=== PATIENT | female | born 1950 | race Two or more races ===

== ENCOUNTER → 2018-01-21 | Outpatient (CLI) | payer MEDICARE, OTHER ==
--- NOTE | 2018-01-21 23:45 | WWHP ---
[facility] - HISTORY AND PHYSICAL CHIEF COMPLAINT: The patient is here for her routine gynecologic exam and mammogram. HISTORY OF PRESENT ILLNESS: This is a 67-year-old G3, P3 with an LMP of 1995, who is status post vaginal hysterectomy for benign reasons. The patient states it has been more than 2 years since her last pelvic exam. She is not having sexual intercourse. She has been experiencing some vaginal and vulvar pruritus which began about 3 months ago. She states she can feel some small lumps in the area of the labia. The pruritus can extend from the labia to the perianal areas. She does not know if this was caused by wearing pads, which she had started to use periodically because of slight urinary leakage. She denies any vaginal discharge or odor. She was given some type of pill for the pruritus, which she took orally which did not help. PAST MEDICAL HISTORY: Arthritis and emphysema. MEDICATIONS: 1. Vitamin D 6000 units daily. 2. Vitamin B12, 1 daily. 3. Loratadine 1 daily. ALLERGIES: CODEINE which caused nausea. PAST SURGICAL HISTORY: Hand surgery x2, appendectomy, tonsillectomy, hysterectomy in 1995. Also she had a colonoscopy in 2015 and this was her second one. PAST OB HISTORY: Three vaginal deliveries. 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 She has no history of STDs. SOCIAL HISTORY: She quit smoking in 2000. Denies alcohol and drug use. 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 FAMILY HISTORY: Brother had pancreatic cancer. Father had heart disease. Brother of heart disease in his 20s. Mother had an AL. REVIEW OF SYSTEMS: She believes she has gained up to 20 pounds over the last 2 years. Respiratory , she can occasionally has slight wheezing with heavy exertion. She denies cardiac or GI problems. She denies maltreatment or falling. , she occasionally can have slight urinary leakage, especially if she does not get to the bathroom quick enough when her bladder is full. PHYSICAL EXAM: Blood pressure 162/82, height 5 feet 2 inches, weight 197 pounds. BMI 36. Temperature 97.9, pulse 75. This is a well-developed, heavyset white female, who is alert and oriented x3, in no acute distress. HEENT is within normal limits. Neck is supple without mass or thyromegaly. Chest and lungs are clear to auscultation. Heart is regular rate and rhythm. Breasts are without mass or discharge. Axillary exam is negative for adenopathy. Back negative for CVA tenderness. Abdomen mildly obese , soft, nontender, without palpable masses. Pelvic exam, external genitalia reveals moderate atrophy with slight generalized vulvar pallor. There is a slight excoriation in areas consistent with possible scratching. The mild pallor extends to the perineum and to the perianal areas. Vagina reveals moderate atrophy without lesions. There is no discharge or odor. There is no evidence of prolapse. Bimanual exam is negative for mass or tenderness. Rectovaginal exam is negative for mass or tenderness and is negative for occult blood. Extremities are nontender. IMPRESSION: 1. A 67-year-old menopausal female, status post vaginal hysterectomy for benign reasons. 2. Vulvitis with pruritus for approximately three months. No evidence of vaginitis. Differential diagnosis will include chronic vulvitis as well as lichen sclerosus. PLAN: 1. Pap smears have been discontinued. 2. Self breast examination was discussed. 3. Screening mammogram will be done today. 4. We have had a long discussion regarding her vulvitis and pruritus. We will have a trial of triamcinolone ointment 0.1%, which she will use b.i.d. for 2 weeks and then p.r.n. after that. If her symptoms do not seem to be improving, she was instructed to return after approximately 1 month and we will re-evaluate this and consider a vulvar biopsy. She was also instructed not to over-wash this area and try to avoid scratching. 5. I have discussed her elevated blood pressure. I have recommended that she check her blood pressure on a regular basis and follow up with Dr. Gonzalez for blood pressure elevations. 6. Osteoporosis prevention was discussed. I have recommended bone density screening since it has been many years since she has had this done and a slip was given to the patient for this. 7. She will return in 1 year and p.r.n. [id number] / DANIELN: [id number] / NAOMI
--- NOTE | 2018-01-23 07:23 | MM ---
Reason for exam: screening (asymptomatic). Last mammogram was performed 1 year and 3 months ago. History: Patient is postmenopausal. Physical Findings: A clinical breast exam by your physician is recommended on an annual basis and results should be correlated with mammographic findings. MG 3D Screening Mammo W/Cad Bilateral CC and MLO view(s) were taken. Prior study comparison: October 16, 2016, bilateral MG 3d screening mammo w/cad. August 30, 2014, bilateral MG screening mammo w CAD. There are scattered fibroglandular densities. No significant changes when compared with prior studies. ASSESSMENT: Benign, BI-RAD 2 RECOMMENDATION: Routine screening mammogram of both breasts in 1 year.
== END | disposition home or self-care (01) ==
LOC: WWCWWP 13:28
PROVIDERS: ATTEND Obstetrics & Gynecology
DX: Z12.31 Encounter for screening mammogram for malignant neoplasm of breast (principal)
CPT/HCPCS: 77063; 77067

== ENCOUNTER → 2018-01-30 | Outpatient (CLI) | payer MEDICARE, OTHER ==
--- NOTE | 2018-01-30 13:53 | BD ---
EXAMINATION TYPE: MG DEXA axial skeleton. DATE OF EXAM: 01/30/2018 COMPARISON: NONE CLINICAL HISTORY: Height: 61 inches Weight: 187 FRAX RISK QUESTIONS: Alcohol (3 or more units per day): no Family History (Parent hip fracture): no Glucocorticoids (More than 3mos): no (Ex: prednisone, prednisolone, methylprednisolone, dexamethasone, and hydrocortisone). History of Fracture in Adulthood: no Secondary Osteoporosis: 1. Type 1 Diabetes: no 2. Hyperthyroidism: no 3. Menopause before 45: no 4. Malnutrition: no 5. Chronic liver disease: no Rheumatoid Arthritis: no Current Tobacco Use: no RISK FACTORS HISTORY OF: Family History of Osteoporosis: no Active: yes Diet low in dairy products/other sources of calcium: no Postmenopausal woman: yes Take estrogen and/or progesterone medications: no Lost more than 2 inches in height since high school: no Frequent falls: no Poor Health: no Hyperparathyroidism: no Adrenal Insufficiency: no MEDICATIONS: Prednisone or other steroids: no Thyroid Medications: no Osteoporosis Medications: no Additional Medications: calcium, Vitamin D-3 Additional History: hand surgery for osteoarthritis, emphysema EXAM MEASUREMENTS: Bone mineral densitometry was performed using the [employer] System. Bone mineral density as measured about the Lumbar spine is: ----- L1-L4(G/cm2): 0.899 T Score Values are as follows: ----- L2: -2.7 ----- L3: -2.2 ----- L4: -2.4 ----- L1-L4: -2.3 Bone mineral density not previously done at this facility- previously done elsewhere Bone mineral density about the R hip (g/cm2): 0.854 Bone mineral density about the L hip (g/cm2): 0.846 T Score values are as follows: -----R Neck: -1.3 -----L Neck: -1.4 -----R Total: -1.0 -----L Total: -0.8 Bone mineral density not previously done at this facility-previously done elsewhere IMPRESSION: Osteopenia (T Score between -2.5 and -1). There is slightly increased risk of fracture and the patient may be considered for treatment. Re-Screen 2-5 years. NOTE: T-SCORE=SD OF THE YOUNG ADULT MEAN.
== END | disposition home or self-care (01) ==
LOC: RADBDWWP 07:54
PROVIDERS: ATTEND Obstetrics & Gynecology
DX: M85.80 Other specified disorders of bone density and structure, unspecified site (principal); Z78.0 Asymptomatic menopausal state
CPT/HCPCS: 77080

== ENCOUNTER → 2019-02-17 | Outpatient (CLI) | payer MEDICARE ==
--- NOTE | 2019-02-17 12:07 | P.HPOB ---
History of Present Illness H&P Date: 02/17/19 Chief Complaint: The patient is here for her routine gynecologic exam and ma mmogram. This is a 68-year-old G3 PIII with an LMP of 1995. The patient is status post vaginal hysterectomy for benign reasons. She has a history of chronic vulvar pruritus. She has been using Kenalog ointment PRN which does seem to help, but she states that does not go away. She denies any postmenopausal bleeding. Review of Systems Weight has been stable. She denies respiratory, cardiac and G.I. problems. She denies maltreatment or problems with falling. : she denies any significant problems with urinary leakage. Past Medical History Past Medical History: No Reported History, COPD Additional Past Medical History / Comment(s): emphesema and arthritis. 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 Hysterectomy was done for prolapse. History of Any Multi-Drug Resistant Organisms: None Reported Past Surgical History: Adenoidectomy, Appendectomy, Hysterectomy, Tonsillectomy Additional Past Surgical History / Comment(s): Vaginal hysterectomy 1995, hand surgery times 2. Colonoscopy 2016(2nd). Past Psychological History: No Psychological Hx Reported Smoking Status: Former smoker Past Alcohol Use History: None Reported Past Drug Use History: None Reported Additional History: She quit smoking in 2000. 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 - Past Family History Father Family Medical History: Diabetes Mellitus, Hypertension Brother(s) Family Medical History: Cancer Additional Family Medical History / Comment(s): Pancreatic cancer Mother Family Medical History: Myocardial Infarction ([place]) Medications and Allergies Home Medications Medication Instructions Recorded Confirmed Type Cholecalciferol [Vitamin D3] 1,000 unit PO DAILY 09/02/14 02/17/19 History Cetirizine HCl [Zyrtec] 5 mg PO DAILY 02/17/19 02/17/19 History Allergies Allergy/AdvReac Type Severity Reaction Status Date / Time codeine AdvReac Nausea & Verified 02/17/19 11:10 Vomiting Exam Vital Signs Temp Pulse Resp BP Pulse Ox 02/17/19 11:03 97.6 F 80 18 149/84 97 Intake and Output 02/16/19 02/17/19 02/17/19 22:59 06:59 14:59 Other: Weight 88.904 kg Height 5'1", weight 196 pounds, BMI 37.0. This is a well-developed well-nourished heavyset white female who is alert and oriented times 3 in no acute distress. HEENT: Within normal limits. NECK: Supple without mass or thyromegaly. CHEST AND LUNGS: Clear to auscultation. HEART: Regular rate and rhythm. BREASTS: Are without mass or discharge. AXILLARY EXAM: Negative for adenopathy. BACK: Negative for CVA tenderness. ABDOMEN: Soft, nontender, without palpable masses. PELVIC EXAM: External genitalia reveals moderate atrophy with mild generalized pallor consistent with lichen sclerosis. The mild pallor is well demarcated and extends to the perineum and perianal area. Vagina appears normal with mild to moderate atrophy. There is no evidence of prolapse. Bimanual examination is negative for mass or tenderness. RECTAL EXAM: Rectovaginal exam is negative for mass or tenderness and is negative for occult blood. EXTREMITIES: Nontender. IMPRESSION: 1. 68-year-old menopausal female status post vaginal hysterectomy for benign reasons. 2. Lichen sclerosis of the vulva. 3. Osteopenia PLAN: 1. Pap smears have been discontinued. 2. Self breast awareness was discussed with the patient. 3. Screening mammogram will be done today. 4. We have discussed the option of clobetasol ointment, but she would like to continue with the Kenalog ointment as needed. She will call if worsening symptoms or changes. The electronic prescription will be sent to [facility] pharmacy. 5. Osteoporosis prevention was discussed. I have stressed the importance of adequate calcium, vitamin D and regular exercise. Recommended amounts of calcium and vitamin D were also discussed. We will plan a repeating bone d ensity testing next year. 6. She states she does not get flu shots in the fall. I've asked her to reconsider this. 7.She was advised to return in one year for her annual well woman exam and PRN.
[2019-02-17 12:29] VITALS: BP 149/84; PULSE 80; RESP 18; TEMP 97.6; BMI 37.0
--- NOTE | 2019-02-19 11:32 | MM ---
Reason for exam: screening (asymptomatic). Last mammogram was performed 1 year and 1 month ago. History: Patient is postmenopausal. Physical Findings: A clinical breast exam by your physician is recommended on an annual basis and results should be correlated with mammographic findings. MG 3D Screening Mammo W/Cad Bilateral CC and MLO view(s) were taken. Prior study comparison: January 21, 2018, bilateral MG 3d screening mammo w/cad. October 16, 2016, bilateral MG 3d screening mammo w/cad. There is chronic nodularity in the right breast. No significant changes when compared with prior studies. ASSESSMENT: Benign, BI-RAD 2 RECOMMENDATION: Routine screening mammogram of both breasts in 1 year.
== END | disposition home or self-care (01) ==
LOC: WWCWWP 10:36
PROVIDERS: ATTEND Obstetrics & Gynecology
DX: Z12.31 Encounter for screening mammogram for malignant neoplasm of breast (principal)
CPT/HCPCS: 77063; 77067

== ENCOUNTER → 2019-07-30 | Outpatient (CLI) | payer MEDICARE ==
--- NOTE | 2019-07-30 08:10 | US ---
EXAMINATION TYPE: US gallbladder DATE OF EXAM: 07/30/2019 COMPARISON: US CLINICAL HISTORY: R10.11 RUQ abd pain. EXAM MEASUREMENTS: Liver Length: 13.8 cm Gallbladder Wall: 0.2 cm CBD: 1.2 cm Right Kidney: 8.5 x 4.1 x 4.4 cm Pancreas: prominent duct, partially obscured by bowel Liver: wnl Gallbladder: non shadowing echogenic focus difficult to measure due to position. Evidence for sonographic Robertson's sign: Yes CBD: measures 1.2 cm Right Kidney: No hydronephrosis or masses seen IMPRESSION: No shadowing mobile gallstones or ultrasound evidence for acute cholecystitis
== END | disposition home or self-care (01) ==
LOC: RADUSWWP 07:17
PROVIDERS: ATTEND Family Medicine
DX: R10.11 Right upper quadrant pain (principal)
CPT/HCPCS: 76705

== ENCOUNTER 2019-08-26 10:08 | Day surgery (SDC) | payer MEDICARE ==
[2019-08-25 09:19] VITALS: BMI 34.7
[~2019-08-26 10:08] MED LIST: LACTATED RINGERS 1,000 ML IV SCH; LIDOCAINE 1% 20 ML VIAL (10MG/ML) FOR IV START INTRADERMA PRN
[2019-08-26 10:26] VITALS: TEMP 97.7
[2019-08-26] MEDS ORDERED: PROPOFOL 10 MG/ML 20 ML VIAL IV ONE (10:45)
--- NOTE | 2019-08-26 11:06 | P.PCN ---
Date of Procedure: 08/26/19 Procedure(s) Performed: BRIEF HISTORY: Patient is a 69-year-old pleasant female scheduled for an elective colonoscopy as a part of evaluation of prior history of colon polyps. Last colonoscopy was 5 years ago. PROCEDURE PERFORMED: Colonoscopy. PREOPERATIVE DIAGNOSIS: History of colon polyps. IV sedation per Anesthesia. PROCEDURE: After informed consent was obtained, the patient, was brought into the endoscopy unit. IV sedation was administered by Anesthesia under continuous monitoring. Digital rectal examination was normal. Initially the Olympus CF-160 flexible video colonoscope was then inserted in the rectum, gradually advanced into the cecum without any difficulty. Careful examination was performed as the scope was gradually being withdrawn. Ileocecal valve and the appendiceal orifice were visualized and appeared normal. Prep was excellent. Mucosa of the cecum, ascending colon, transverse colon, descending colon, sigmoid colon, and rectum appeared normal. Moderate sigmoid diverticulosis. Retroflexion was performed in the rectum and no lesions were seen. The patient tolerated the procedure well. IMPRESSION: Moderate sigmoid diverticulosis No evidence of colorectal neoplasia RECOMMENDATIONS: Findings of this examination were discussed with the patient as well as a family. She was advised to have a repeat severance: Aspirin 5 days from now because of the prior history of colon polyps..
[2019-08-26 11:15] VITALS: RESP 16
[2019-08-26 11:23] VITALS: BP 148/82; PULSE 72
== END 2019-08-26 11:44 ==
LOC: ORWHC2ENDO 10:08
PROVIDERS: ATTEND Internal Medicine Gastroenterology
DX: Z12.11 Encounter for screening for malignant neoplasm of colon (principal); K57.30 Diverticulosis of large intestine without perforation or abscess without bleeding; Z86.010 Personal history of colon polyps; J44.9 Chronic obstructive pulmonary disease, unspecified; Z97.2 Presence of dental prosthetic device (complete) (partial); Z79.899 Other long term (current) drug therapy; Z88.5 Allergy status to narcotic agent
CPT/HCPCS: J2704; G0105; 45378

== ENCOUNTER → 2019-08-27 | Outpatient (CLI) | payer MEDICARE ==
[2019-08-27 10:16] LABS: African American GFR (CKD) >90 (>60 ml/min/1.73 sqM); Blood Urea Nitrogen 10 mg/dL (7-17)
--- NOTE | 2019-08-27 13:51 | CT ---
EXAMINATION TYPE: CT abdomen w con DATE OF EXAM: 08/27/2019 COMPARISON: Ultrasound 07/30/2019 HISTORY: 69-year-old female with abnormal US of pancreas and GB TECHNIQUE: Contiguous axial scanning of the abdomen following administration of 100 ml Isovue 300 IV contrast. Arterial and portal venous phase imaging is performed. Coronal/sagittal reconstructions pe rformed. CT DLP: 994 mGycm Automated exposure control for dose reduction was used. FINDINGS: Heart upper limits of normal in size without pericardial effusion. Lung bases clear without pleural e ffusion. Small hiatal hernia. Liver mildly enlarged at 18.2 cm. Portal venous phase images show no significant fatty infiltration. Portal venous system is patent. Bile duct measures 7 mm, mildly dilated but acceptable for patient's age. This can be correlated with alkaline phosphatase and bilirubin levels. Gallbladder, adrenal glands, right kidney, and spleen appear within normal limits. Tiny subcentimeter cortical hypodensity lateral upper pole left kidney too small for accurate CT alejandra acterization, likely tiny cortical cyst. No focal hypovascular pancreatic lesion is seen. The main pancreatic duct is borderline to mildly dilated at 3.4 mm. Small diverticulum of the second/third portion of the duodenum projecting into the pancreatic head re gion. No dilated small bowel, free fluid, or free air. No mesenteric or retroperitoneal lymphadenopathy. Mild atherosclerotic calcifications abdominal aorta without aneurysm. Mild to moderate stool. Left-sided colonic diverticulosis without pericolonic inflammatory change. The lower abdomen and pelvis is not imaged. Bones: No osseous destructive process. Mild degenerative disc disease lower thoracic spine. IMPRESSION: 1. SMALL HIATAL HERNIA. 2. BILE DUCT MILDLY DILATED AT 7 MM, LIKELY ACCEPTABLE GIVEN THE PATIENT'S AGE. NORMAL AGE-RELATED CH ADA CAN BE CONFIRMED WITH ASSESSING ALKALINE PHOSPHATASE AND BILIRUBIN LEVELS. 3. THE MAIN PANCREATIC DUCT IS BORDERLINE TO MILDLY DILATED AT 3.4 MM. NO OBSTRUCTING PANCREATIC MASS IS IDENTIFIED. THIS MAY ALSO BE CHRONIC FOR THE PATIENT. CONSIDER A PRECAUTIONARY SIX-MONTH FOLLOW-U P CT. 4. LEFT-SIDED COLONIC DIVERTICULOSIS WITHOUT ACUTE DIVERTICULITIS.
== END | disposition home or self-care (01) ==
LOC: RADCTMAIN 09:36
PROVIDERS: ATTEND Family Medicine
DX: K57.30 Diverticulosis of large intestine without perforation or abscess without bleeding (principal); K44.9 Diaphragmatic hernia without obstruction or gangrene; R93.3 Abnormal findings on diagnostic imaging of other parts of digestive tract
CPT/HCPCS: 82565; 84520; 74160; 36415; Q9967

== ENCOUNTER → 2019-10-05 | Outpatient (CLI) | payer MEDICARE ==
[2019-10-05 11:18] LABS: HCT 40.4 % (34.0-46.0); HGB 13.4 gm/dL (11.4-16.0); MCH 30.3 pg (25.0-35.0); MCHC 33.2 g/dL (31.0-37.0); MCV 91.2 fL (80.0-100.0); Mean Platelet Volume 6.1; Platelet Count 332 k/uL (150-450); RBC 4.43 m/uL (3.80-5.40); RDW 12.9 % (11.5-15.5); WBC 4.4 k/uL (3.8-10.6)
[2019-10-05 11:26] LABS: ALT 26 U/L (9-52); AST 20 U/L (14-36); African American GFR (CKD) >90 (>60 ml/min/1.73 sqM); Alkaline Phosphatase 67 U/L (38-126); Amylase 50 U/L (30-110); Anion Gap 5 mmol/L; Blood Urea Nitrogen 10 mg/dL (7-17); Calcium 9.2 mg/dL (8.4-10.2); Carbon Dioxide 28 mmol/L (22-30); Chloride 109 mmol/L (98-107); Glucose 97 mg/dL (74-99); Potassium 4.6 mmol/L (3.5-5.1); Sodium 142 mmol/L (137-145); Total Bilirubin 0.4 mg/dL (0.2-1.3); Total Protein 6.9 g/dL (6.3-8.2)
--- NOTE | 2019-10-05 12:27 | MR ---
MRCP HISTORY: Pancreatitis, common bile duct dilation Multiplanar multisequence imaging through the biliary system. Three-dimensional reconstructions perfo rmed on an alternate workstation. Correlation CT 08/27/2019 Liver shows no mass. Gallbladder shows a focus of dependent low signal consistent with stone. Common bile duct is dilated at approximately 10 to 11 mm and T2-weighted sequences which may be an overestim ation, bile duct measures approximately 7 mm on T1-weighted images. No evident choledocholithiasis. S ignal drop towards the distal pancreatic duct consistent with the foci of air seen on CT, there may b e a small duodenal diverticulum. Small cortical cyst associated with the left kidney. Pancreas shows no mass. Adrenal glands are king l. Spleen is unremarkable. No retroperitoneal adenopathy. Aorta shows normal caliber. No ascites IMPRESSION: Cholelithiasis, duodenal diverticulum is suspected
== END | disposition home or self-care (01) ==
LOC: RADMRIMAIN 08:40
PROVIDERS: ATTEND Surgery
DX: K86.89 Other specified diseases of pancreas (principal); K83.8 Other specified diseases of biliary tract; R93.5 Abnormal findings on diagnostic imaging of other abdominal regions, including retroperitoneum; Z80.0 Family history of malignant neoplasm of digestive organs
CPT/HCPCS: 36415; 74181; 80053; 82150; 83690; 85027

== ENCOUNTER → 2020-09-20 | Outpatient (CLI) | payer MEDICARE ==
[2020-09-20 11:21] VITALS: BP 154/78; PULSE 71; RESP 18; TEMP 97.7
--- NOTE | 2020-09-20 12:02 | P.HPOB ---
History of Present Illness H&P Date: 09/20/20 Chief Complaint: The patient is here for her routine gynecologic exam and ma mmogram. This is a 70-year-old with an LMP of 1995. The patient is status post vaginal hysterectomy for benign reasons. The patient states she has noticed some change and a brown left breast skin lesion over the past 6 months. She believes the lesion has been there for several years, however she has noticed it now seems slightly raised during the past 6 months. She is otherwise without c omplaints. Review of Systems The patient has lost 9 pounds over the last year. She initially lost about 20 pounds prior to having her gallbladder removed, but she has gained about 10 pounds back. She denies respiratory, cardiac, or G.I. problems. Past Medical History Past Medical History: COPD, Osteoarthritis (OA) Additional Past Medical History / Comment(s): emphesema and arthritis. 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 History of Any Multi-Drug Resistant Organisms: None Reported Past Surgical History: Adenoidectomy, Appendectomy, Cholecystectomy, Hysterectomy, Tonsillectomy Additional Past Surgical History / Comment(s): Vaginal hysterectomy 1995, hand surgery times 2. Colonoscopy 2019(next after 5 yrs). Past Anesthesia/Blood Transfusion Reactions: Motion Sickness Past Psychological History: No Psychological Hx Reported Smoking Status: Former smoker Past Alcohol Use History: None Reported Additional Past Alcohol Use History / Comment(s): QUIT SMOKING 2000 Past Drug Use History: None Reported Additional History: She has been since 1973. She no longer has penetration sexual intercourse due to her 's medical issues. 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 - Past Family History Father Family Medical History: Diabetes Mellitus, Hypertension Brother(s) Family Medical History: Cancer Additional Family Medical History / Comment(s): Pancreatic cancer Mother Family Medical History: Myocardial Infarction ([place]) Medications and Allergies Home Medications Medication Instructions Recorded Confirmed Type Cholecalciferol [Vitamin D3 (25 1,000 unit PO DAILY 09/02/14 09/20/20 History Mcg = 1000 Iu)] Loratadine 10 mg PO DAILY 09/20/20 09/20/20 History Selenium 200 mcg PO DAILY 09/20/20 09/20/20 History Allergies Allergy/AdvReac Type Severity Reaction Status Date / Time codeine AdvReac Nausea & Verified 11/03/20 11:06 Vomiting Exam Vital Signs Temp Pulse Resp BP Pulse Ox 09/20/20 11:09 97.7 F 71 18 154/78 98 Intake and Output 09/19/20 09/20/20 09/20/20 22:59 06:59 14:59 Other: Weight 84.822 kg Height 5 feet 2 inches, weight 187 pounds, BMI 34.2. This is a well-developed well-nourished white female who is alert and oriented times 3 in no acute distress. HEENT: Within normal limits. NECK: Supple without mass or thyromegaly. CHEST AND LUNGS: Clear to auscultation. HEART: Regular rate and rhythm. BREASTS: Are without mass or discharge. There is a brown breast lesion at the 6 o'clock position of the left breast measuring approximately 10 x 15 mm and is slightly square with an elonged corner. Lesion is slightly raised and is nontender. AXILLARY EXAM: Negative for adenopathy. BACK: Negative for CVA tenderness. ABDOMEN: Soft, nontender, without palpable masses. PELVIC EXAM: External genitalia appears moderately atrophic with minimal generalized pallor. There are no focal vulvar lesions. Vagina appears normal mild to moderate atrophy. There is no evidence of prolapse. Bimanual examination is negative for mass or tenderness. RECTAL EXAM: Rectovaginal exam is negative for mass or tenderness and is negative for occult blood. EXTREMITIES: Nontender. IMPRESSION: 1. 70-year-old menopausal female status post vaginal hysterectomy for benign reasons with history of lichen sclerosus of the vulva with minimal findings at this time. 2. Left breast skin lesion at the 6 o'clock position which is slightly atypical in shape and measures 10 x 15 mm PLAN: 1. Pap smears have been discontinued. 2. Self breast awareness was discussed with the patient. I have recommended that she see a order entry administrator to evaluate the left breast skin lesion. I have given the patient Dr. Can's name and phone number and she states she will make an appointment for this. 3. Screening mammogram was done today. 4. Osteoporosis prevention was discussed. I have stressed the importance of adequate calcium, vitamin D and regular exercise. Recommended amounts of calcium and vitamin D were also discussed. Bone density testing was done today. 5. The patient was advised to return in 1-2 years for her well woman examination.
--- NOTE | 2020-09-20 16:18 | BD ---
EXAMINATION TYPE: Axial Bone Density DATE OF EXAM: 09/20/2020 COMPARISON: 01/30/2018 CLINICAL HISTORY: 70-year-old female postmenopausal screening Height: 5 FT 1 3/4 IN Weight: 187 FRAX RISK QUESTIONS: Alcohol (3 or more units per day): NO Family History (Parent hip fracture): NO Glucocorticoids (More than 3mos): NO (Ex: prednisone, prednisolone, methylprednisolone, dexamethasone, and hydrocortisone). History of Fracture in Adulthood: NO Secondary Osteoporosis: 1. Type 1 Diabetes: NO 2. Hyperthyroidism: NO 3. Menopause before 45: NO 4. Malnutrition: NO 5. Chronic liver disease: NO Rheumatoid Arthritis: NO Current Tobacco Use: NO RISK FACTORS HISTORY OF: Family History of Osteoporosis: NO Active: YES Diet low in dairy products/other sources of calcium: NO Postmenopausal woman: PART HSYT AROUND AGE 49 Take estrogen and/or progesterone medications: NONE Lost more than 2 inches in height since high school: NO MEDICATIONS: Additional Medications: NONE Additional History: HISTORY OF EMPHYSEMA EXAM MEASUREMENTS: Bone mineral densitometry was performed using the [employer] System. Bone mineral density as measured about the Lumbar spine is: ----- L1-L4(G/cm2): 0.985 T Score Values are as follows: ----- L2: -2.2 ----- L3: -0.9 ----- L4: -2.0 ----- L1-L4: -1.6 Bone mineral density has: INCREASED 10.0 % since study of: 2017 Bone mineral density about the R hip (g/cm2): 0.878 Bone mineral density about the L hip (g/cm2): 0.815 T Score values are as follows: -----R Neck: -1.2 -----L Neck: -1.6 -----R Total: -1.2 -----L Total: -1.0 Bone mineral density has: DECREASED -3.2 % since study of: 2018 IMPRESSION: Osteopenia (T Score between -2.5 and -1). There is slightly increased risk of fracture and the patient may be considered for treatment. Re-Screen 2-5 years. NOTE: T-SCORE=SD OF THE YOUNG ADULT MEAN.
--- NOTE | 2020-09-21 11:10 | MM ---
Reason for exam: screening (asymptomatic). Last mammogram was performed 1 year and 7 months ago. History: Patient is postmenopausal. Physical Findings: A clinical breast exam by your physician is recommended on an annual basis and results should be correlated with mammographic findings. MG 3D Screening Mammo W/Cad Bilateral CC and MLO view(s) were taken. Prior study comparison: February 17, 2019, bilateral MG 3d screening mammo w/cad. January 21, 2018, bilateral MG 3d screening mammo w/cad. There are scattered fibroglandular densities. Benign appearing calcifications in the right breast. There is chronic nodularity in the right breast. No significant changes when compared with prior studies. ASSESSMENT: Benign, BI-RAD 2 RECOMMENDATION: Routine screening mammogram of both breasts in 1 year.
== END | disposition home or self-care (01) ==
LOC: RADBDWWP 09:36
PROVIDERS: ATTEND Obstetrics & Gynecology
DX: Z12.31 Encounter for screening mammogram for malignant neoplasm of breast (principal); Z13.820 Encounter for screening for osteoporosis; M85.80 Other specified disorders of bone density and structure, unspecified site; Z78.0 Asymptomatic menopausal state
CPT/HCPCS: 77063; 77067; 77080

== ENCOUNTER → 2020-12-07 | Outpatient (CLI) | payer MEDICARE | END | disposition home or self-care (01) | LOC: LABWHC1 09:46 | PROVIDERS: ATTEND Family Medicine | DX: Z20.822 Contact with and (suspected) exposure to COVID-19 (principal) | CPT/HCPCS: U0003; U0005 ==

== ENCOUNTER → 2021-03-10 | Outpatient (CLI) | payer MEDICARE ==
--- NOTE | 2021-03-10 08:03 | XR ---
EXAMINATION TYPE: XR chest 2V DATE OF EXAM: 03/10/2021 COMPARISON: NONE HISTORY: Shortness of breath TECHNIQUE: Frontal and lateral views of the chest are obtained. FINDINGS: Scattered senescent parenchymal changes noted. Hyperinflation compatible with COPD. No evidence for infiltrate. No evidence for atelectasis. Heart size is stable. Mediastinal structures are stable and grossly unremarkable. No evidence for hilar prominence. Degenerative changes dorsal spine. IMPRESSION: 1. No evidence for acute pulmonary disease.
== END | disposition home or self-care (01) ==
LOC: RADXRMAIN 06:58
PROVIDERS: ATTEND Family Medicine
DX: R06.02 Shortness of breath (principal)
CPT/HCPCS: 71046

== ENCOUNTER → 2021-07-11 | Outpatient (CLI) | payer MEDICARE ==
[2021-07-11 12:32] LABS: African American GFR (CKD) >90 (>60 ml/min/1.73 sqM); Blood Urea Nitrogen 13 mg/dL (7-17); Non-African American GFR(CKD) 89 (>60 ml/min/1.73 sqM)
--- NOTE | 2021-07-11 13:47 | CT ---
EXAMINATION TYPE: CT abdomen pelvis w con DATE OF EXAM: 07/11/2021 COMPARISON: 08/27/2019 HISTORY: Incisional hernia around cholecystectomy region. CT DLP: 1386.7 mGycm Automated exposure control for dose reduction was used. CONTRAST: CT scan of the abdomen pelvis is performed with IV Contrast, patient injected with 100 mL of Isovue M 300. FINDINGS- LUNG BASES- No significant abnormality is appreciated. LIVER/GB-postcholecystectomy changes noted. Liver is slightly reduced attenuation which may represent area of mild hepatic steatosis.. PANCREAS- No gross abnormality is seen. SPLEEN- No gross abnormality is seen. ADRENALS- No gross abnormality is seen. KIDNEYS/BLADDER- no hydronephrosis nephrolithiasis or renal mass. BOWEL-bowel gas pattern nonspecific with no obstruction. There is changes of extensive diverticulosis .. LYMPH NODES- No greater than 1cm abdominal or pelvic lymph nodes areappreciated. OSSEOUS STRUCTURES-hypertrophic and degenerative changes of the spine.. OTHER- there is a widemouth anterior abdominal wall hernia containing predominantly peritoneal fat. Mouth of the hernia measures approximately 4 cm. No free fluid or free air. There is a small cystocele. Adjacent to the posterior margin the liver there is a 1.5 cm rounded lesion with antral low attenuati on which may represent a tiny necrotic lymph node or tiny abscess or seroma. Not present on the prior exam of 2018. Tarlov cysts noted. Post hysterectomy changes noted. IMPRESSION- 1. There is a 1.5 m lesion posterior to the right lobe the liver with central low attenuation suggest ing encapsulated small fluid collection such as seroma or small abscess. Necrotic lymph nodes felt le ss likely correlate clinically. 2. Postcholecystectomy changes. 3. Widemouth anterior abdominal wall hernia as measured above.
== END | disposition home or self-care (01) ==
LOC: RADCTMAIN 11:38
PROVIDERS: ATTEND Surgery
DX: K43.2 Incisional hernia without obstruction or gangrene (principal); K91.5 Postcholecystectomy syndrome
CPT/HCPCS: 82565; 84520; 74177; 36415; Q9967 ×2

== ENCOUNTER → 2021-08-02 | Outpatient (CLI) | payer MEDICARE | END | disposition home or self-care (01) | LOC: LABPAT 08:48 | PROVIDERS: ATTEND Anesthesiology | DX: Z01.818 Encounter for other preprocedural examination (principal) | CPT/HCPCS: 93005 ==

== ENCOUNTER 2021-08-04 06:36 | Observation (INO) | payer MEDICARE ==
[2021-08-01 15:50] VITALS: BMI 34.0
[~2021-08-04 06:36] MED LIST changes: +ACETAMINOPHEN TAB 500 MG TAB PO PRN; +DEXAMETHASONE SOD PHOSPHATE 4 MG/ML 1 ML VIAL IV ONE; +HEPARIN SODIUM,PORCINE/PF 5,000 UNIT/0.5 ML SYRINGE SQ PRN; -LACTATED RINGERS 1,000 ML IV SCH; +LIDOCAINE 1% (10MG/ML) FOR IV START INTRADERMA PRN; -LIDOCAINE 1% 20 ML VIAL (10MG/ML) FOR IV START INTRADERMA PRN; +MIDAZOLAM 2 MG/2 ML VIAL IV PRN; +ONDANSETRON 4 MG/2 ML VIAL IVP ONE
[2021-08-04] MEDS: LACTATED RINGERS 1,000 ML IV SCH (07:15)
[2021-08-04 07:17] LABS: Glucose,Whole Blood 92 mg/dL (75-99)
--- NOTE | 2021-08-04 07:52 | P.GSHP ---
History of Present Illness H&P Date: 08/04/21 Chief Complaint: Incarcerated incisional hernia 8-year-old female seen in the office about a month ago. Patient with complaints of a bulge the gradually developed after cholecystectomy performed 2-3 years ago. Mild pain at times. Pain increased after eating. CAT scan obtained showing a 4 cm fascial defect to the right of the umbilicus containing peritoneal fat. Past Medical History Past Medical History: COPD, Osteoarthritis (OA) Additional Past Medical History / Comment(s): incisional hernia History of Any Multi-Drug Resistant Organisms: None Reported Past Surgical History: Adenoidectomy, Appendectomy, Cholecystectomy, Hysterectomy, Tonsillectomy Additional Past Surgical History / Comment(s): Vaginal hysterectomy 1995, hand surgery times 2. Colonoscopy yrs). Past Anesthesia/Blood Transfusion Reactions: Motion Sickness Smoking Status: Former smoker - Past Family History Father Family Medical History: Diabetes Mellitus, Hypertension Brother(s) Family Medical History: Cancer Additional Family Medical History / Comment(s): Pancreatic cancer Mother Family Medical History: Myocardial Infarction ([place]) Medications and Allergies Home Medications Medication Instructions Recorded Confirmed Type Cholecalciferol [Vitamin D3 (25 1,000 unit PO DAILY 09/02/14 08/04/21 History Mcg = 1000 Iu)] Loratadine 10 mg PO DAILY 09/20/20 08/04/21 History Selenium 200 mcg PO DAILY 09/20/20 08/04/21 History Calcium Carbonate/Vitamin D3 500 mg PO DAILY 08/01/21 08/04/21 History [Calcium 250-D Tablet] Cholecalciferol [Vitamin D3 (25 100 mcg PO DAILY 08/01/21 08/04/21 History Mcg = 1000 Iu)] Allergies Allergy/AdvReac Type Severity Reaction Status Date / Time codeine AdvReac Nausea & Verified 08/01/21 15:43 Vomiting Surgical - Exam Vital Signs Temp Pulse Resp BP Pulse Ox 97.7 F 81 16 181/70 100 08/04/21 07:09 08/04/21 07:09 08/04/21 07:09 08/04/21 07:09 08/04/21 07:09 Physical exam: General: Well-developed, well-nourished HEENT: Normocephalic, sclerae nonicteric Abdomen: Nontender, nondistended, incarcerated incisional hernia Extremities: No edema Neuro: Alert and oriented Assessment and Plan (1) Incisional hernia Narrative/Plan: Will proceed with open repair of incarcerated incisional hernia with mesh. Risks of bleeding, infection, recurrence, bladder and bowel injury, numbness, nerve injury were discussed with the patient. The patient understands and wishes to proceed. Current Visit: Yes Status: Acute Code(s): K43.2 - INCISIONAL HERNIA WITHOUT OBSTRUCTION OR GANGRENE SNOMED Code(s): 480732861
[2021-08-04] MEDS ORDERED: fentaNYL (PF) 50 MCG/ML 2 ML AMP IV ONE (08:14)
[2021-08-04] MEDS ORDERED: NEOSTIGMINE 1 MG/ML 10 ML VIAL ONE (08:35)
[2021-08-04] MEDS ORDERED: GLYCOPYRROLATE 0.2 MG/ML 2 ML VIAL ONE (08:35)
[2021-08-04] MEDS ORDERED: SUCCINYLCHOLINE CHLORIDE 100 MG/5 ML SYR IV ONE (08:35)
[2021-08-04] MEDS ORDERED: fentaNYL (PF) 50 MCG/ML 2 ML AMP ONE (08:35)
[2021-08-04] MEDS ORDERED: ROCURONIUM 10 MG/ML (5 ML VIAL) IV ONE (08:35)
[2021-08-04] MEDS ORDERED: MIDAZOLAM 2 MG/2 ML VIAL ONE (08:35)
[2021-08-04] MEDS ORDERED: ePHEDrine SULFATE/0.9% NACL/PF 50 MG/5 ML SYRINGE IV ONE (08:35)
[2021-08-04] MEDS ORDERED: PHENYLEPHRINE-0.9% NACL SYG 1,000 MCG/10 ML SYRINGE ONE (08:35)
[2021-08-04] MEDS ORDERED: PROPOFOL 10 MG/ML 20 ML VIAL IV ONE (08:35)
[2021-08-04] MEDS ORDERED: LIDOCAINE 1% INJ 10MG/ML (20 ML MDV) ONE (08:35)
--- NOTE | 2021-08-04 10:01 | P.ANPRN ---
Procedure Note - Anesthesia - Nerve Block Performed Bilateral Rectus Abdominis Time Out Performed: Yes (07:52) Date of Procedure: 08/04/21 Procedure Start Time: : Procedure Stop Time: 08:04 Location of Patient: PreOp Indication: Acute Post-Operative Pain, Requested by Surgeon (Dr Prakash) Sedation Type: Sedate with meaningful contact maintained Preparation: Sterile Prep Position: Supine Catheter: None Needle Types: Pajunk Needle Gauge: 21 Ultrasound used to visualize needle placement: Yes Ultrasound used to observe medication spread: Yes Injectate: 0.5% Ropivacaine (see comment for volume) (15cc + 10cc PFNormal saline each side) Blood Aspirated: No Pain Paresthesia on Injection Noted: No Resistance on Injection: Normal Image Stored and Saved: Yes Events: Uneventful and Well Tolerated
[2021-08-04] MEDS ORDERED: LACTATED RINGERS 1,000 ML IV ONE (10:09)
[2021-08-04] MEDS ORDERED: ONDANSETRON 4 MG/2 ML VIAL IVP PRN (10:26)
[2021-08-04] MEDS ORDERED: NALOXONE 0.4 MG/ML 1 ML VIAL IV PRN (10:26)
[2021-08-04] MEDS ORDERED: traMADol 50 MG TAB PO PRN (10:26)
[2021-08-04] MEDS ORDERED: HYDROmorphone 1 MG/ML 1 ML SYRINGE IVP PRN (10:26)
--- NOTE | 2021-08-04 10:41 | P.OP ---
Date of Procedure: 08/04/21 Procedure(s) Performed: PREOPERATIVE DIAGNOSIS: Incarcerated incisional hernia POSTOPERATIVE DIAGNOSIS: Incarcerated incisional hernia, umbilical hernia PROCEDURE: Repair incarcerated incisional and umbilical hernia with mesh SURGEON: Dr. Prakash ANESTHESIA: General OPERATIVE PROCEDURE DETAILS: Patient placed on the operating table in the supine position. Abdomen was prepped and draped in usual sterile fashion. A right periumbilical incision was created in a vertical fashion. The subcutaneous tissues were dissected using electrocautery. The patient's incarcerated hernia sac was identified and carefully dissected to the level of the fascia. The fascia was cleared circumferentially of fat. The patient had a 1 cm defect at the base of the umbilicus as well. This was incorporated into our incisional hernia defect. The size of the fascial defect now measured 5 x 3 cm. There were some adhesions between the omentum and the hernia sac and these were divided using electrocautery. The hernia sac was excised. There were no adhesions beneath the peritoneum. The pre-peroneal space was extremely thin and dissection of that plane was not possible. The 12 cm x 8 cm ventral ex mesh was placed beneath the peritoneum and sutured in place circumferentially using trans-fascial 0 Ethibond sutures. The defect was then closed horizontally using interrupted horizontal mattress vest over pants #2 Ethibond sutures. The folding edge of the fascial closure was tacked down using interrupted 0 Ethibond sutures. It should be noted that the mesh was also secured to the abdominal wall using the secure strap Tacker circumferentially. A drain was placed anterior to the fascial closure exiting through the right lower quadrant. This was sutured to the skin using a 0 Ethibond stitch. The subcutaneous tissues were closed using 3-0 Vicryl sutures. The skin was closed using debbie. Sterile dressings were applied. HERNIA CHARACTERISTICS: Length: 5 cm Width: 3 cm Type: Incarcerated incisional TYPE OF MESH USED: 12 x 8 cm ventral ex LOCATION OF MESH: Underlay FIXATION: 0 Ethibond sutures and secure strap Tacker DISPOSITION: Stable to recovery room
[2021-08-04] MEDS ORDERED: ONDANSETRON 4 MG/2 ML VIAL IVP ONE ×2 (10:55→10:56)
[2021-08-04] MEDS: HYDROmorphone 0.5 MG/0.5 ML SYRINGE IVP PRN ×2 (10:57→11:15)
[2021-08-04] MEDS: KETOROLAC 15 MG/ML 1 ML VIAL IVP SCH ×4 (11:20→23:25)
[2021-08-04] MEDS: D5-0.45% NACL WITH KCL 20MEQ/L 1,000 ML IV SCH ×3 (12:38→20:32)
[2021-08-04] MEDS: HEPARIN SODIUM,PORCINE/PF 5,000 UNIT/0.5 ML SYRINGE SQ SCH ×2 (16:27→23:25)
[2021-08-04] MEDS: DOCUSATE 100 MG CAP PO SCH (20:27)
[2021-08-04] MEDS: ACETAMINOPHEN TAB 325 MG TAB PO PRN (20:28)
[2021-08-05] MEDS: ACETAMINOPHEN TAB 325 MG TAB PO PRN ×3 (01:36→15:36)
[2021-08-05] MEDS: LACTATED RINGERS 1,000 ML IV SCH (05:38)
[2021-08-05] MEDS: KETOROLAC 15 MG/ML 1 ML VIAL IVP SCH ×4 (05:43→23:22)
[2021-08-05] MEDS: PANTOPRAZOLE 40 MG/10 ML VIAL IV SCH (07:40)
[2021-08-05] MEDS: DOCUSATE 100 MG CAP PO SCH ×2 (07:40→20:05)
[2021-08-05] MEDS: HEPARIN SODIUM,PORCINE/PF 5,000 UNIT/0.5 ML SYRINGE SQ SCH ×3 (07:40→23:22)
[2021-08-05] MEDS: D5-0.45% NACL WITH KCL 20MEQ/L 1,000 ML IV SCH ×2 (11:41→20:05)
--- NOTE | 2021-08-05 11:55 | P.PN ---
Progress Note - Text Progress Note Date: 08/05/21 Patient status post repair of incisional hernia. She has complaints of some incisional pain. On exam vessels are stable. Abdomen soft. Incision clean and intact. Patient will remain in the hospital for supportive care.
[2021-08-06] MEDS: ACETAMINOPHEN TAB 325 MG TAB PO PRN (01:26)
[2021-08-06 01:28] VITALS: RESP 18
[2021-08-06] MEDS: KETOROLAC 15 MG/ML 1 ML VIAL IVP SCH (05:07)
[2021-08-06] MEDS: LACTATED RINGERS 1,000 ML IV SCH (05:09)
[2021-08-06] MEDS: D5-0.45% NACL WITH KCL 20MEQ/L 1,000 ML IV SCH ×2 (05:09→12:04)
[2021-08-06] MEDS: PANTOPRAZOLE 40 MG/10 ML VIAL IV SCH (08:17)
[2021-08-06] MEDS: HEPARIN SODIUM,PORCINE/PF 5,000 UNIT/0.5 ML SYRINGE SQ SCH (08:17)
[2021-08-06] MEDS: DOCUSATE 100 MG CAP PO SCH (08:17)
[2021-08-06 08:32] VITALS: BP 184/67; PULSE 78; TEMP 97.6
--- NOTE | 2021-08-06 12:12 | P.PN ---
Progress Note - Text Progress Note Date: 08/06/21 Patient feels better. She wishes to be discharged. On exam her vital signs are stable. Abdomen soft. Incision sites clean and intact. Her status post repair of incisional hernia. Patient discharged home and follow-up Dr. Prakash next week.
[2021-08-07] MEDS ORDERED: PANTOPRAZOLE 40 MG TABLET PO SCH (09:00)
== END 2021-08-06 12:54 | disposition home or self-care (01) ==
LOC: OR 06:36 → 6PED 10:13 → OR 08-05 11:14
PROVIDERS: ADMIT Surgery; ATTEND Surgery
DX: K43.0 Incisional hernia with obstruction, without gangrene (principal); K42.0 Umbilical hernia with obstruction, without gangrene; J44.9 Chronic obstructive pulmonary disease, unspecified; M19.90 Unspecified osteoarthritis, unspecified site; Z87.891 Personal history of nicotine dependence; Z79.899 Other long term (current) drug therapy; Z88.5 Allergy status to narcotic agent; Z90.49 Acquired absence of other specified parts of digestive tract; Z90.710 Acquired absence of both cervix and uterus; Z83.3 Family history of diabetes mellitus; Z82.49 Family history of ischemic heart disease and other diseases of the circulatory system; Z80.0 Family history of malignant neoplasm of digestive organs
CPT/HCPCS: 94760; 88302; 49561; 49568; G0378 ×2; C1781; J2250; J1100; J2710; J0690; J2405; J2001; J3010; J1170 ×2; J1885 ×3; J2370; J0330; J2704; C9113 ×2; J1644 ×3

== ENCOUNTER → 2021-09-25 | Outpatient (CLI) | payer MEDICARE ==
--- NOTE | 2021-09-26 08:49 | MM ---
Reason for exam: screening (asymptomatic). Last mammogram was performed 1 year ago. History: Patient is postmenopausal. Physical Findings: A clinical breast exam by your physician is recommended on an annual basis and results should be correlated with mammographic findings. MG 3D Screening Mammo W/Cad Bilateral CC and MLO view(s) were taken. Prior study comparison: September 20, 2020, bilateral MG 3d screening mammo w/cad. February 17, 2019, bilateral MG 3d screening mammo w/cad. There are scattered fibroglandular densities. There are benign appearing round calcifications bilaterally. There is chronic nodularity bilaterally. There is no discrete abnormality. ASSESSMENT: Benign, BI-RAD 2 RECOMMENDATION: Routine screening mammogram of both breasts in 1 year.
== END | disposition home or self-care (01) ==
LOC: RADMAMWWP 09:49
PROVIDERS: ATTEND Family Medicine
DX: Z12.31 Encounter for screening mammogram for malignant neoplasm of breast (principal); Z78.0 Asymptomatic menopausal state
CPT/HCPCS: 77063; 77067

== ENCOUNTER → 2021-12-28 | Outpatient (CLI) | payer MEDICARE ==
--- NOTE | 2021-12-28 10:08 | CT ---
EXAMINATION TYPE: CT abdomen w con DATE OF EXAM: 12/28/2021 COMPARISON: CT abdomen and pelvis July 11, 2021 and older studies 01/07/2019 HISTORY: Liver lesion. CT DLP: 855 mGycm Automated exposure control for dose reduction was used. TECHNIQUE: Helical acquisition of images was performed from the lung bases through the top of iliac crest to include entire abdomen. CONTRAST: Performed with Oral Contrast and with IV Contrast, patient injected with 100 mL of Isovue 300. FINDINGS: LUNG BASES: No significant abnormality is appreciated. LIVER/GB: Cholecystectomy clips are redemonstrated. Posterior to the inferior aspect of the liver the re is persistent thin-walled cyst or fluid collection measuring 1.2 x 1.1 x 1.7 cm axial image 31 and sagittal image 97, size is stable with some extension to the posterior rectus muscles in her surface . Etiology uncertain. Finding of stability favors benign etiology. PANCREAS: No significant abnormality is seen. SPLEEN: No significant abnormality is seen. ADRENALS: No significant abnormality is seen. KIDNEYS: Symmetrical cortical medullary uptake and excretion with subcentimeter low-density lesion la terally series 3 image 19 too small to further characterize presumed benign redemonstrated. No hydron ephrosis seen bilaterally. BOWEL: Oral contrast does not reach colonic level. Scattered colonic diverticula. No CT evidence for acute diverticulitis. No suspicious small large bowel dilatation. LYMPH NODES: No significant abnormality is seen. OSSEOUS STRUCTURES: No significant abnormality is seen. FREE AIR: No free air is visualized. OTHER: Interval repair of ventral wall hernia with scar tissue and tiny thin-walled fluid collection axial image 49 at this level measures 2.2 x 0.6 cm. Suspect postsurgical seroma. Mild/moderate calcified plaque of the aorta extends into branch vessels. IMPRESSION: Stable 1.7 cm thin-walled cyst or fluid collection along the posterior-inferior aspect of the right hepatic lobe extending to the posterior peritoneal cavity. Interval repair of ventral wall hernia with tiny thin-walled fluid collection in the deeper tissue presumed seroma. No additional ne w suspicious fluid collections or masses.
== END | disposition home or self-care (01) ==
LOC: RADCTMAIN 07:53
PROVIDERS: ATTEND Surgery
DX: K76.89 Other specified diseases of liver (principal); K43.9 Ventral hernia without obstruction or gangrene
CPT/HCPCS: 82565; 84520; 74160; 36415; Q9967

== ENCOUNTER → 2022-10-19 | Outpatient (CLI) | payer MEDICARE ==
--- NOTE | 2022-10-19 14:58 | XR ---
EXAMINATION TYPE: XR foot complete RT DATE OF EXAM: 10/19/2022 COMPARISON: NONE HISTORY: 72-year-old female M7 9.671, right foot pain TECHNIQUE: 3 views FINDINGS: There is some deformity to the medial aspect of the first metatarsal head, possible sequela of prior bunion surgery. Type II accessory navicular. There is mild to moderate degenerative change of the fir st MTP joint. Osteopenia. Small os peroneum. Small plantar heel spur. No acute fracture, subluxation, dislocation seen. IMPRESSION: 1. Some bony deformity to the medial aspect of the first metatarsal head. Query any prior bunion surg john. 2. 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 Clinically correlate. 3. Mild to moderate first MTP joint OA. 4. Tiny plantar heel spur. 5. No acute osseous abnormality seen.
== END | disposition home or self-care (01) ==
LOC: RADXRMAIN 12:34
PROVIDERS: ATTEND Family Medicine
DX: M19.071 Primary osteoarthritis, right ankle and foot (principal); M77.31 Calcaneal spur, right foot

== ENCOUNTER → 2022-10-31 | Outpatient (CLI) | payer MEDICARE ==
--- NOTE | 2022-10-31 17:55 | XR ---
EXAMINATION TYPE: XR chest 2V DATE OF EXAM: 10/31/2022 COMPARISON: Chest x-ray March 10, 2021 HISTORY: Cough and shortness of breath for one week. History of emphysema. TECHNIQUE: Frontal and lateral views of the chest are obtained. FINDINGS: There is no suspicious focal air space opacity, pleural effusion, or pneumothorax seen. T he cardiac silhouette size is stable and within normal limits with atherosclerotic change involving t he aortic knob redemonstrated. The osseous structures remain demineralized. IMPRESSION: No acute cardiopulmonary process. No significant change from prior.
== END | disposition home or self-care (01) ==
LOC: RADXRMAIN 16:13
PROVIDERS: ATTEND Nurse Practitioner Family
DX: J43.9 Emphysema, unspecified (principal); R05.2 Subacute cough
CPT/HCPCS: 71046

== ENCOUNTER → 2022-12-20 | Outpatient (CLI) | payer MEDICARE ==
--- NOTE | 2022-12-20 14:44 | MM ---
Reason for Exam: Screening (asymptomatic). Last mammogram was performed 1 year(s) and 3 month(s) ago. Patient History: Menarche at age 16. First Full-Term at age 26. Hysterectomy at age 49. Postmenopausal. Risk Values: Adrianne 5 year model risk: 1.8%. NCI Lifetime model risk: 4.9%. Prior Study Comparison: 02/17/2019 Bilateral Screening Mammogram, [facility]. 09/20/2020 Bilateral Screening Mammogram, [facility]. 09/25/2021 Bilateral Screening Mammogram, [facility]. Tissue Density: There are scattered fibroglandular densities. Findings: Analyzed By CAD. . A few scattered tiny benign-appearing round calcifications right breast are redemonstrated. There is stable 3 to 4 mm round mass in the upper outer aspect right breast. There is no suspicious new group of microcalcifications or new suspicious mass in either breast. Overall Assessment: Benign, BI-RAD 2 Management: Screening Mammogram of both breasts in 1 year. A clinical breast exam by your physician is recommended on an annual basis and results should be correlated with mammographic findings. Electronically signed and approved by: Saturnino Michele M.D.
== END | disposition home or self-care (01) ==
LOC: RADMAMWWP 12:35
PROVIDERS: ATTEND Family Medicine
DX: Z12.31 Encounter for screening mammogram for malignant neoplasm of breast (principal); Z78.0 Asymptomatic menopausal state
CPT/HCPCS: 77063; 77067

== ENCOUNTER 2023-11-04 10:52 | Emergency (ER) | payer MEDICARE ==
[2023-11-04] MEDS ORDERED: IPRATROPIUM-ALBUTEROL 3 ML NEB INHALATION STA (11:43)
[2023-11-04] MEDS ORDERED: BENZONATATE 100 MG CAP PO STA (11:45)
--- NOTE | 2023-11-04 12:45 | ED ---
URI HPI - General Chief Complaint: Upper Respiratory Infection Stated Complaint: bad cough sob Time Seen by Provider: 11/04/23 11:29 Source: patient, RN notes reviewed Mode of arrival: ambulatory Limitations: no limitations - History of Present Illness Initial Comments: This is a 73-year-old female who presents to the emergency department for coughing and congestion. Describes the cough as "wet". Reports a history of emphysema and states that this tends to make her short of breath when she gets these illnesses. She's been taking [id number] medication with no relief. She does not use any inhalers or breathing treatments because they make her jittery. MD Complaint: cough, nasal congestion - Related Data Home Medications Medication Instructions Recorded Confirmed Cholecalciferol [Vitamin D3 (25 1,000 unit PO DAILY 09/02/14 08/04/21 Mcg = 1000 Iu)] Loratadine 10 mg PO DAILY 09/20/20 08/04/21 Selenium 200 mcg PO DAILY 09/20/20 08/04/21 Calcium Carbonate/Vitamin D3 500 mg PO DAILY 08/01/21 08/04/21 [Calcium 250-D Tablet] Cholecalciferol [Vitamin D3 (25 100 mcg PO DAILY 08/01/21 08/04/21 Mcg = 1000 Iu)] Previous Rx's Medication Instructions Recorded traMADol HCl [Ultram] 50 mg PO Q6H PRN #6 tab 08/04/21 Benzonatate [Tessalon Perles] 100 mg PO TID PRN #20 capsule 11/04/23 Ipratropium-Albuterol Nebulize 3 ml INHALATION Q4-6H PRN #90 ml 11/04/23 [Duoneb 0.5 mg-3 mg/3 ml Soln] predniSONE 50 mg PO DAILY 5 Days #5 tab 11/04/23 Allergies Allergy/AdvReac Type Severity Reaction Status Date / Time codeine AdvReac Nausea & Verified 11/04/23 11:26 Vomiting Review of Systems ROS Statement: Those systems with pertinent positive or pertinent negative responses have been documented in the HPI. ROS Other: All systems not noted in ROS Statement are negative. Past Medical History Past Medical History: COPD, Osteoarthritis (OA) Additional Past Medical History / Comment(s): incisional hernia History of Any Multi-Drug Resistant Organisms: None Reported Past Surgical History: Adenoidectomy, Appendectomy, Cholecystectomy, Hysterectomy, Tonsillectomy Additional Past Surgical History / Comment(s): Vaginal hysterectomy 1995, hand surgery times 2. Colonoscopy yrs). Past Anesthesia/Blood Transfusion Reactions: Motion Sickness Past Psychological History: No Psychological Hx Reported Smoking Status: Former smoker Past Alcohol Use History: None Reported Past Drug Use History: None Reported - Past Family History Father Family Medical History: Diabetes Mellitus, Hypertension Brother(s) Family Medical History: Cancer Additional Family Medical History / Comment(s): Pancreatic cancer Mother Family Medical History: Myocardial Infarction ([place]) General Exam Limitations: no limitations General appearance: alert, in no apparent distress Head exam: Present: atraumatic, normocephalic, normal inspection Respiratory exam: Present: decreased breath sounds, prolonged expiratory Cardiovascular Exam: Present: regular rate, normal rhythm, normal heart sounds. Absent: systolic murmur, diastolic murmur, rubs, gallop, clicks Neurological exam: Present: alert, oriented X3, CN II-XII intact Psychiatric exam: Present: normal affect, normal mood Skin exam: Present: warm, dry, intact, normal color. Absent: rash Course Vital Signs 11/04/23 11/04/23 11/04/23 11:25 12:36 12:45 Temperature 99.2 F Pulse Rate 128 H 114 H 110 H Respiratory 18 Rate Blood Pressure 169/101 O2 Sat by Pulse 95 Oximetry 11/04/23 11/04/23 11/04/23 13:34 13:39 14:24 Temperature 99.1 F 99.1 F Pulse Rate 124 H 102 H Respiratory 18 20 Rate Blood Pressure 119/85 114/60 O2 Sat by Pulse 95 94 L Oximetry Medical Decision Making - Medical Decision Making This is a 73-year-old female who presents to the emergency department for coughing and congestion. Was pt. sent in by a medical professional or institution? @ -No Did you speak to anyone other than the patient for history? @ -No Did you review nursing and triage notes? @ -Yes, and I agree, it is accurate with regards to the patient's symptoms. Were old charts reviewed? @ -No Differential Diagnosis? @ -Differential Cough: Influenza, Covid, RSV, croup, allergic rhinitis, GERD, pneumonia, bronchitis, COPD, viral pharyngitis, streptococcal pharyngitis, this is not meant to be an all-inclusive list. EKG interpreted by me (3pts min.)? @ -Not obtained X-rays interpreted by me (1pt min.)? @ -Chest x-ray obtained, my interpretation identifies no localized consolidations or infiltrates. CT interpreted by me (1pt min.)? @ -Not obtained U/S interpreted by me (1pt. min.)? @ -Not obtained What testing was considered but not performed? (CT, X-rays, U/S, labs)? Why? @ -None What meds were considered but not given? Why? @ -None Did you discuss the management of the patient with other professionals? @ -No Did you reconcile home meds? @ -No Was smoking cessation discussed for >3mins.? @ -No Was critical care preformed (if so, how long)? @ -No Were there social determinants of health that impacted care today? How? (Homelessness, low income, unemployed, alcoholism, drug addiction, transportation, low edu. Level, literacy, decrease access to med. care, long-term, rehab)? @ -No Was there de-escalation of care discussed even if they declined? (Discuss DNR or withdrawal of care, Hospice)? @ -No What co-morbidities impacted this encounter? (DM, HTN, Smoking, COPD, CAD, Cancer, CVA, Hep., AIDS, mental health diagnosis, sleep apnea, morbid obesity)? @ -COPD Was patient admitted / discharged? @ -Discharged. Patient positive for RSV. Covid and influenza testing negative. Chest x-ray reveals no acute process. Symptoms well-controlled with Tessalon Perles and a DuoNeb breathing treatment. Rx for prednisone, DuoNeb breathing treatments, and Tessalon Perles provided with dosing instructions reviewed. Patient otherwise discharged home in stable condition. Undiagnosed new problem with uncertain prognosis? @ -None Drug Therapy requiring intensive monitoring for toxicity (Heparin, Nitro, Insulin, Cardizem)? @ -None Were any procedures done? @ -None Diagnosis/symptom? @ -RSV Acute, or Chronic, or Acute on Chronic? @ -Acute Uncomplicated (without systemic symptoms) or Complicated (systemic symptoms)? @ -Uncomplicated Side effects of treatment? @ -None Exacerbation, Progression, or Severe Exacerbation] @ -Not applicable Poses a threat to life or bodily function? @ -No Return precautions reviewed in depth, the patient is instructed to return to the emergency department with any new, worsening, or concerning symptoms. Patient verbalized understanding. This case was discussed in detail with the attending ED physician, Dr. Tsang. Presentation, findings, and treatment plan discussed in detail as well. - Lab Data Lab Results 11/04/23 Range/Units 11:32 Influenza Type A (PCR) Not Detected (Not Detectd) Influenza Type B (PCR) Not Detected (Not Detectd) RSV (PCR) Detected A (Not Detectd) SARS-CoV-2 (PCR) Not Detected (Not Detectd) - Radiology Data Radiology results: report reviewed, image reviewed Disposition Clinical Impression: RSV (respiratory syncytial virus infection) Disposition: HOME SELF-CARE Instructions (If sedation given, give patient instructions): Respiratory Syncytial Virus (ED) Additional Instructions: Return to the emergency department with any new, worsening, or concerning symptoms. Take the prednisone daily for 5 days. You can take the cough medication as 1-2 pills up to 3 times daily. You can use the DuoNeb breathing treatments every 4-6 hours as needed. Alternate with ibuprofen and Tylenol as needed for fevers and body aches. Follow up with your primary care provider in 1-2 days. Prescriptions: Ipratropium-Albuterol Nebulize [Duoneb 0.5 mg-3 mg/3 ml Soln] 3 ml INHALATION Q4-6H PRN #90 ml PRN Reason: Shortness Of Breath predniSONE 50 mg PO DAILY 5 Days #5 tab Benzonatate [Tessalon Perles] 100 mg PO TID PRN #20 capsule PRN Reason: Cough Is patient prescribed a controlled substance at d/c from ED?: No Referrals: Christine Jose MD [Primary Care Provider] - 1-2 days
[2023-11-04 14:01] VITALS: TEMP 99.1
--- NOTE | 2023-11-04 14:06 | XR ---
EXAMINATION TYPE: XR chest 2V DATE OF EXAM: 11/04/2023 12:21 PM CLINICAL INDICATION:Female, 73 years old with history of Cough, GORDON; [facility] COMPARISON: 10/31/2022 TECHNIQUE: XR chest 2V. Frontal PA and lateral views of the chest. FINDINGS: Lines/Tubes: None. Heart/mediastinum: Cardiomediastinal silhouette is well defined. Heart size is normal. Atherosclero tic calcifications are seen in the aorta. Pulmonary vascularity: Not increased, Lungs/Pleura: There is no evidence of pleural effusion, focal consolidation, or pneumothorax. Lungs appear mildly hyperinflated with interstitial coarsening, findings suggestive of the possibility of C OPD/emphysema. Musculoskeletal: No acute osseous abnormality demonstrated in the limits of the exam. Mild degenerat inés changes of the spine and shoulders. Osseous demineralization again noted. Other findings: None. IMPRESSION: No acute findings, or significant interval change.
[2023-11-04 14:26] VITALS: BP 114/60; PULSE 102; RESP 20
== END 2023-11-04 14:36 | disposition home or self-care (01) ==
LOC: EC 10:52
DX: R06.02 Shortness of breath (principal); B97.4 Respiratory syncytial virus as the cause of diseases classified elsewhere; J44.9 Chronic obstructive pulmonary disease, unspecified; M19.90 Unspecified osteoarthritis, unspecified site; Z79.1 Long term (current) use of non-steroidal anti-inflammatories (NSAID); Z88.5 Allergy status to narcotic agent; Z87.891 Personal history of nicotine dependence; Z20.822 Contact with and (suspected) exposure to COVID-19
CPT/HCPCS: 71046; 87636; 94640; 99285

== ENCOUNTER 2023-11-28 14:01 | Emergency (ER) | payer MEDICARE ==
[2023-11-28 14:23] VITALS: RESP 18; TEMP 97.6
[2023-11-28] MEDS ORDERED: MORPHINE SULFATE 2 MG/ML SYRINGE IVP ONE (14:42)
[2023-11-28] MEDS ORDERED: ONDANSETRON 4 MG/2 ML VIAL IVP STA (14:43)
--- NOTE | 2023-11-28 14:50 | ED ---
Lower Extremity Injury HPI - General Chief Complaint: Extremity Injury, Lower Stated Complaint: Fall, right ankle injury Time Seen by Provider: 11/28/23 14:15 Source: EMS, RN notes reviewed, old records reviewed Mode of arrival: EMS Limitations: no limitations - History of Present Illness Initial Comments: This is a 73-year-old female to the ER today for evaluation of pain. Patient comes in for a fall fall with severe right ankle pain. Pain noted here in the ER psychiatric the right ankle. Severe right ankle pain with inability to bear weight on the right ankle. Follows mechanical in nature trip and fall. No other injury noted from the fall MD Complaint: ankle injury -: hour(s) Injury: Ankle: Right Type of Injury: blunt, inversion Place: home Severity: severe Severity scale (1-10): 9 Worsens With: weight bearing Context: fall, direct blow Associated Symptoms: swelling Treatments Prior to Arrival: NSAIDS - Related Data Home Medications Medication Instructions Recorded Confirmed Selenium 200 mcg PO DAILY 09/20/20 12/05/23 Ascorbic Acid [Vitamin C] 1,000 mg PO DAILY 11/28/23 12/05/23 Cetirizine HCl [Zyrtec] 10 mg PO DAILY 11/28/23 12/05/23 Cholecalciferol [Vitamin D3 (25 25 mcg PO DAILY 11/28/23 12/05/23 Mcg = 1000 Iu)] Rosuvastatin Calcium 5 mg PO DAILY 11/28/23 12/05/23 Zinc Gluconate [Zinc] 50 mg PO DAILY 11/28/23 12/05/23 Previous Rx's Medication Instructions Recorded Aspirin 325 mg PO DAILY #30 tab 12/06/23 HYDROcodone/APAP 5-325MG [[place] 1 tab PO Q6HR PRN #21 tab 12/06/23 5-325] Ondansetron [Zofran] 4 mg PO Q12HR PRN #21 tab 12/06/23 Sennosides/Docusate Sodium 2 each PO DAILY PRN #30 tablet 12/06/23 [Senna-S 8.6-50 mg Tablet] Allergies Allergy/AdvReac Type Severity Reaction Status Date / Time codeine AdvReac Nausea & Verified 12/05/23 12:19 Vomiting Review of Systems ROS Statement: Those systems with pertinent positive or pertinent negative responses have been documented in the HPI. ROS Other: All systems not noted in ROS Statement are negative. Past Medical History Past Medical History: COPD, Osteoarthritis (OA) Additional Past Medical History / Comment(s): incisional hernia History of Any Multi-Drug Resistant Organisms: None Reported Past Surgical History: Adenoidectomy, Appendectomy, Cholecystectomy, Hysterectomy, Tonsillectomy Additional Past Surgical History / Comment(s): Vaginal hysterectomy 1995, hand surgery times 2. Colonoscopy yrs). Past Anesthesia/Blood Transfusion Reactions: Motion Sickness Past Psychological History: No Psychological Hx Reported Smoking Status: Former smoker Past Alcohol Use History: None Reported Past Drug Use History: None Reported - Past Family History Father Family Medical History: Diabetes Mellitus, Hypertension Brother(s) Family Medical History: Cancer Additional Family Medical History / Comment(s): Pancreatic cancer Mother Family Medical History: Myocardial Infarction (SD) General Exam Limitations: no limitations General appearance: alert, in no apparent distress, anxious Head exam: Present: atraumatic, normocephalic, normal inspection Eye exam: Present: normal appearance, PERRL, EOMI. Absent: scleral icterus, conjunctival injection, periorbital swelling ENT exam: Present: normal exam, mucous membranes moist Neck exam: Present: normal inspection. Absent: tenderness, meningismus, lymphadenopathy Respiratory exam: Present: normal lung sounds bilaterally. Absent: respiratory distress, wheezes, rales, rhonchi, stridor Cardiovascular Exam: Present: regular rate, normal rhythm, normal heart sounds. Absent: systolic murmur, diastolic murmur, rubs, gallop, clicks GI/Abdominal exam: Present: soft, normal bowel sounds. Absent: distended, tenderness, guarding, rebound, rigid Extremities exam: Present: tenderness, normal capillary refill. Absent: full ROM, pedal edema, joint swelling, calf tenderness Back exam: Present: normal inspection Neurological exam: Present: alert, oriented X3, CN II-XII intact Psychiatric exam: Present: normal affect, normal mood Skin exam: Present: warm, dry, intact, normal color. Absent: rash Course Vital Signs 11/28/23 11/28/23 14:10 16:14 Temperature 97.6 F Pulse Rate 86 89 Respiratory 18 18 Rate Blood Pressure 158/78 156/88 O2 Sat by Pulse 97 98 Oximetry - Reevaluation(s) Reevaluation #1: Medical record is reviewed Reevaluation #2: Patient's pain is improved Reevaluation #3: Patient informed results and questions answered Reevaluation #4: Was pt. sent in by a medical professional or institution (MELINDA Moscoso, DIRECT RESPONSE CONSULTANT, urgent care, hospital, or [facility]...) When possible be specific @ -no Did you speak to anyone other than the patient for history (EMS, parent, family, police, friend...)? What history was obtained from this source @ -no Did you review nursing and triage notes (agree or disagree)? Why? @ -agree Are old charts reviewed (outside hosp., previous admission, EMS record, old EKG, old radiological studies, urgent care reports/EKG's, [facility] records)? Report findings @ -yes Differential Diagnosis (chest pain, altered mental status, abdominal pain women, abdominal pain men, vaginal bleeding, weakness, fever, dyspnea, syncope, hea dache, dizziness, GI bleed, back pain, seizure, CVA, palpatations, mental health, musculoskeletal)? @ -prior EKG interpreted by me (3pts min.). @ -yes X-rays interpreted by me (1pt min.). @ -yes positive for ankle fracture with reduction CT interpreted by me (1pt min.). @ -no U/S interpreted by me (1pt. min.). @ -no What testing was considered but not performed or refused? (CT, X-rays, U/S, labs)? Why? @ -none What meds were considered but not given or refused? Why? @ -none Did you discuss the management of the patient with other professionals (professionals i.e. MELINDA Moscoso, DIRECT RESPONSE CONSULTANT, lab, RT, psych nurse, social service agency director, cyber legal advisor, teacher, home lending officer, outsole caser)? Give summary @ -no Was smoking cessation discussed for >3mins.? @ -no Were there social determinants of health that impacted care today? How? (Homelessness, low income, unemployed, alcoholism, drug addiction, transportation, low edu. Level, literacy, decrease access to med. care, senior living, rehab)? @ -none Was there de-escalation of care discussed even if they declined (Discuss DNR or withdrawal of care, Hospice)? DNR status @ -no What co-morbidities impacted this encounter? (DM, HTN, Smoking, COPD, CAD, Cancer, CVA, ARF, Chemo, Hep., AIDS, mental health diagnosis, sleep apnea, morbid obesity)? @ -none Was patient admitted / discharged? Hospital course, mention meds given and route, prescriptions, significant lab abnormalities, going to OR and other pertinent info. @ - 73 female to the emergency room today with a fall with closed right ankle fracture. Fractures reduced here in splint to the emergency room and patient can be discharged home Discharge Was critical care preformed (if so, how long)? @ -no Undiagnosed new problem with uncertain prognosis? @ -no Drug Therapy requiring intensive monitoring for toxicity (Heparin, Nitro, Insulin, Cardizem)? @ -no Were any procedures done? @ -no Diagnosis/symptom? @ -Fall, right ankle fracture reduction Acute, or Chronic, or Acute on Chronic? @ -Acute Uncomplicated (without systemic symptoms) or Complicated (systemic symptoms)? @ -Complicated Side effects of treatment? @ -no Exacerbation, Progression, or Severe Exacerbation? @ -exacerbation Poses a threat to life or bodily function? How? (Chest pain, USA, SD, pneumonia, PE, COPD, DKA, ARF, appy, cholecystitis, CVA, Diverticulitis, Homicidal, Suicidal, threat to staff... and all critical care pts) @ -yes Procedures - Orthopedic Joint Reduction Joint #1 Consent Obtained: verbal consent Side: right Joint Reduction Location: ankle Analgesia: procedural sedation Technique Used: traction/counter-traction Post-Reduction Neuro Exam: intact Post-Reduction Vascular Exam: intact Post Reduction X-Ray Obtained: Yes Post Reduction X-Ray Results: reduced Splint Applied: Yes Patient Tolerated Procedure: well Medical Decision Making - Medical Decision Making 73 female to the emergency room today with a fall with closed right ankle fracture. Fractures reduced here in splint to the emergency room and patient can be discharged home - Radiology Data Radiology results: report reviewed (Treatment ankle shows positive treadmill fracture, second x-rays positive reduction), image reviewed Disposition Clinical Impression: Closed right ankle fracture, Fall, Trimalleolar fracture of right ankle Disposition: HOME SELF-CARE Condition: Good Instructions (If sedation given, give patient instructions): Ankle Fracture (ED) Is patient prescribed a controlled substance at d/c from ED?: No Referrals: Davin Cox DO [Doctor of Osteopathic Medicine] - 1-2 days Time of Disposition: 17:00
--- NOTE | 2023-11-28 15:14 | XR ---
EXAMINATION TYPE: XR ankle limited 2 views RT DATE OF EXAM: 11/28/2023 Comparison: None Clinical History: 73-year-old female pain after fall Findings: Trimalleolar ankle fracture is with anterior subluxation/dislocation. The posterior margin of the dis good tibia impacts against the mid talar dome. Posterior displacement of the lateral malleolus are fra ctured by 7 mm and posterior angulation. 6 mm of separation of the medial malleolus fracture. Impression: Unstable trimalleolar fracture subluxation of the tibiotalar joint.
[2023-11-28] MEDS ORDERED: diphenhydrAMINE 50 MG/ML 1 ML VIAL IVP STA (15:22)
--- NOTE | 2023-11-28 16:16 | XR ---
EXAMINATION TYPE: XR ankle limited, 2 views, RT DATE OF EXAM: 11/28/2023 Comparison: Earlier today Clinical History: 73-year-old female, postreduction, pain Findings: Overlying fiberglass cast. Interval reduction of the tibiotalar joint with underlying trimalleolar an kle fracture is redemonstrated. Slightly centered medial widening of the tibiotalar joint to 4 mm (ve rsus 3 mm laterally) and up to 5 mm anteriorly ( versus 2 mm posteriorly). Impression: In cast, unstable trimalleolar ankle fracture with improved alignment following reduction.
[2023-11-28 16:37] VITALS: BP 156/88; PULSE 89
== END 2023-11-28 17:30 | disposition home or self-care (01) ==
LOC: EC 14:01
DX: S82.851A Displaced trimalleolar fracture of right lower leg, initial encounter for closed fracture (principal); J44.9 Chronic obstructive pulmonary disease, unspecified; Z87.891 Personal history of nicotine dependence; Z88.5 Allergy status to narcotic agent; Z90.49 Acquired absence of other specified parts of digestive tract; W01.0XXA Fall on same level from slipping, tripping and stumbling without subsequent striking against object, initial encounter; Y92.009 Unspecified place in unspecified non-institutional (private) residence as the place of occurrence of the external cause
CPT/HCPCS: 73600; 27818; 99152; 99284; 96374; 96375 ×2; J1200; J2405; J2270

== ENCOUNTER 2023-12-05 10:52 | Day surgery (SDC) | payer MEDICARE ==
--- NOTE | 2023-12-04 21:56 | HP ---
HISTORY AND PHYSICAL DATE OF SURGERY: 12/05/2023. HISTORY OF PRESENT ILLNESS: Padmini Graham is a 73-year-old patient seen with a displaced right ankle trimalleolar fracture. I recommended open reduction and internal fixation. Discussed the procedure, risks, complications, benefits, and recovery. The patient was agreeable. Consent was obtained. PAST MEDICAL HISTORY: Noncontributory. PAST SURGICAL HISTORY: Noncontributory. DAILY MEDICATIONS: 1. Motrin. 2. Vitamins. 3. Rosuvastatin. ALLERGIES: None reported. SOCIAL HISTORY: She denies tobacco use. PHYSICAL EVALUATION OF THE RIGHT ANKLE: She has a well fitted splint in place. Her calf is nontender. She is able to move her toes without pain. She has a good perfusion and sensation distally. IMAGING STUDIES: Radiographs of the right ankle revealed a displaced trimalleolar fracture. IMPRESSION: Right ankle displaced trimalleolar fracture. PLAN: Open reduction and internal fixation of right ankle trimalleolar fracture. MMODL / IJN: [id number] /
[~2023-12-05 10:52] MED LIST changes: -ACETAMINOPHEN TAB 500 MG TAB PO PRN; -HEPARIN SODIUM,PORCINE/PF 5,000 UNIT/0.5 ML SYRINGE SQ PRN; -MIDAZOLAM 2 MG/2 ML VIAL IV PRN; +droPERidol 5 MG/2 ML VIAL IVP ONE; +fentaNYL (PF) 50 MCG/ML 2 ML AMP IV PRN
[2023-12-05] MEDS: LACTATED RINGERS 1,000 ML IV SCH ×3 (12:22→21:21)
[2023-12-05 12:51] LABS: Basophils % (A) 1 %; Eosinophils # (A) 0.1 k/uL (0-0.7); Eosinophils % (A) 2 %; HCT 37.3 % (34.0-46.0); HGB 12.6 gm/dL (11.4-16.0); Lymphocytes # (A) 1.4 k/uL (1.0-4.8); Lymphocytes % (A) 20 %; MCH 30.9 pg (25.0-35.0); MCHC 33.7 g/dL (31.0-37.0); MCV 91.7 fL (80.0-100.0); Mean Platelet Volume 7.1; Monocytes # (A) 0.4 k/uL (0-1.0); Monocytes % (A) 5 %; Neutrophils # (A) 4.8 k/uL (1.3-7.7); Neutrophils % (A) 70 %; Platelet Count 362 k/uL (150-450); RBC 4.06 m/uL (3.80-5.40); RDW 12.9 % (11.5-15.5); WBC 6.9 k/uL (3.8-10.6)
[2023-12-05 13:06] LABS: ALT 17 U/L (4-34); AST 22 U/L (14-36); African American GFR (CKD) >90 (>60 ml/min/1.73 sqM); Albumin 3.8 g/dL (3.5-5.0); Alkaline Phosphatase 87 U/L (38-126); Anion Gap 7 mmol/L; Blood Urea Nitrogen 13 mg/dL (7-17); Carbon Dioxide 25 mmol/L (22-30); Chloride 107 mmol/L (98-107); Glucose 92 mg/dL (74-99); Non-African American GFR(CKD) 90 (>60 ml/min/1.73 sqM); Potassium 3.9 mmol/L (3.5-5.1); Sodium 139 mmol/L (137-145); Total Protein 6.9 g/dL (6.3-8.2)
[2023-12-05] MEDS ORDERED: fentaNYL (PF) 50 MCG/ML 2 ML AMP IVP ONE (13:21)
[2023-12-05] MEDS ORDERED: MIDAZOLAM 2 MG/2 ML VIAL IVP ONE (13:22)
--- NOTE | 2023-12-05 14:13 | P.ANPRN ---
Procedure Note - Anesthesia - Nerve Block Performed Right Popliteal Single Time Out Performed: Yes (1322) Date of Procedure: 12/05/23 Procedure Start Time: : Procedure Stop Time: Location of Patient: PreOp Indication: Acute Post-Operative Pain, Requested by Surgeon Specifically requested for management of pain by DrClara: Davin Cox Sedation Type: Sedate with meaningful contact maintained Preparation: Sterile Prep Position: Left Lateral Catheter: None Needle Types: Pajunk Needle Gauge: 21 Ultrasound used to visualize needle placement: Yes Ultrasound used to observe medication spread: Yes Injectate: 0.5% Ropivacaine (see comment for volume) (15cc + 10cc nacl pf) Blood Aspirated: No Pain Paresthesia on Injection Noted: No Resistance on Injection: Normal Image Stored and Saved: Yes Events: Uneventful and Well Tolerated
--- NOTE | 2023-12-05 14:14 | P.ANPRN ---
Procedure Note - Anesthesia - Nerve Block Performed Right Adductor Canal Single Time Out Performed: Yes (1322) Date of Procedure: 12/05/23 Procedure Start Time: 13:28 Procedure Stop Time: :31 Location of Patient: PreOp Indication: Acute Post-Operative Pain, Requested by Surgeon Specifically requested for management of pain by DrClara: Davin Cox Sedation Type: Sedate with meaningful contact maintained Preparation: Sterile Prep Position: Supine Catheter: None Needle Types: Pajunk Needle Gauge: 21 Ultrasound used to visualize needle placement: Yes Ultrasound used to observe medication spread: Yes Injectate: 0.5% Ropivacaine (see comment for volume) (15cc +10cc nacl pf) Blood Aspirated: No Pain Paresthesia on Injection Noted: No Resistance on Injection: Normal Image Stored and Saved: Yes Events: Uneventful and Well Tolerated
[2023-12-05] MEDS ORDERED: ceFAZolin 1,000 MG in SODIUM CHLORIDE 0.9% 1,000 ML IRRIGATION ONE (14:37)
--- NOTE | 2023-12-05 15:28 | FL ---
EXAMINATION TYPE: FL guidance operating room, XR ankle limited RT DATE OF EXAM: 12/05/2023 CLINICAL HISTORY: Trimalleolar fracture TECHNIQUE: Fluoroscopy. Limited intraoperative views right ankle. COMPARISON: Right ankle x-ray 2 days earlier. FINDINGS: Fluoroscopic guidance was provided during open reduction internal fixation procedure perfo rmed by Dr. Cox. A total of 16 seconds of fluoroscopic time was utilized during the procedure and four spot intraoperative images are acquired. Intraoperative images obtained show placement 2 fixating screws through the displaced fracture of the medial malleolus and lateral fixating plate through a displaced fracture of the lateral malleolus. I mproved alignment seen after reduction and fixation. Total dose area product (DAP) in uGy*m?, mGy*cm? (or similar: 0.1444. IMPRESSION: As Above.
[2023-12-05] MEDS ORDERED: Acetaminophen-Codeine 300-30mg TAB PO PRN ×2 (15:29)
[2023-12-05] MEDS ORDERED: ONDANSETRON 4 MG/2 ML VIAL IVP PRN ×2 (15:29→19:19)
[2023-12-05] MEDS ORDERED: HYDROmorphone 0.5 MG/0.5 ML SYRINGE IVP PRN ×2 (15:29)
--- NOTE | 2023-12-05 15:29 | P.OP ---
Date of Procedure: 12/05/23 Preoperative Diagnosis: Displaced right ankle trimalleolar fracture Postoperative Diagnosis: Displaced right ankle trimalleolar fracture Procedure(s) Performed: Open reduction and internal fixation right ankle trimalleolar fracture Implants: Synthes one third semitubular 6-hole plate with appropriate length 6 cortical and cancellus screws Synthes 24.0 cannulated screws Anesthesia: GETA, regional (Adductor canal block) Surgeon: Davin Cox Plastics Repairer #1: Yaya Fernandez Estimated Blood Loss (ml): 12 Pathology: none sent Condition: stable Disposition: PACU Indications for Procedure: 73-year-old patient seen with displaced right ankle trimalleolar fracture. I recommended open reduction internal fixation. Patient was agreeable. Consent was obtained. Operative Findings: See description of procedure Description of Procedure: Patient was taken to the operative suite. Patient underwent a general anesthetic by the primary a jeannie. We placed a well-padded tourniquet proximal right thigh. The splint was removed. The right ankle was prepped and draped in the normal sterile orthopedic fashion. The patient did receive preoperative IV antibiotics. The extremity was elevated and tourniquet insufflated to 300. I now made an incision along the lateral aspect of lateral malleolus. I dissected down to the fracture. There was a displaced comminuted fracture lateral malleolus. With the assistance of Juvenal LAWRENCE reduced the fracture and held it reduced via bone reduction forceps. C-arm was brought into the operative field confirming adequate reduction of the fracture. I chose a 6- hole one third semitubular plate and appropriate contour. I secured it to the bone. I now drilled appropriate holes through the plate and then introduced appropriate length screws with good fixation noted. The bone reduction clamp was removed. C-arm was brought back into the field noting good reduction of the fracture with adequate placement of the internal fixation. I now turned my attention to the lateral malleolus. I made an incision lateral malleolus sharply through skin. Dissection taken down the fracture. Fracture was identified. It was displaced with mild comminution. I reduced the fracture with a reduction forceps. I introduced 2 K wires and an appropriate length 4.0 cannulated screws with good fixation and good reduction of the fracture. The K wires were removed. I checked the reduction on AP and lateral as well as oblique intraoperative imaging. I noted good reduction of the posterior malleolus at this point. The medial lateral malleoli were well reduced and fixation was stable. The mortise was congruent. The wound was irrigated. The subcutaneous soft tissues were repaired with 2-0 Vicryl. The skin was repaired with 3-0 nylon. Sterile dressings were applied. The tourniquet was released and immediate capillary refill noted of the toes in the foot. The patient was placed in a well-padded modified bulky Titus splint with ankle in neutral position. The patient was awakened, transferred to a bed and recovery stable condition. Juvenal LAWRENCE assisted with all aspects of the procedure.
[2023-12-05] MEDS: HYDROmorphone 0.5 MG/0.5 ML SYRINGE IVP PRN ×2 (16:17→23:21)
[2023-12-05] MEDS ORDERED: ONDANSETRON 4 MG/2 ML VIAL IVP ONE (16:27)
[2023-12-06] MEDS: LACTATED RINGERS 1,000 ML IV SCH (07:29)
[2023-12-06 08:01] VITALS: BP 136/75; PULSE 71; RESP 18; TEMP 97.9
[2023-12-06] MEDS: HYDROcodone/APAP 5-325MG 1 EACH TAB PO PRN ×2 (08:03→12:04)
[2023-12-06] MEDS ORDERED: CHOLECALCIFEROL 25 MCG (1000 IU) TABLET PO SCH (09:00)
[2023-12-06] MEDS ORDERED: LORATADINE 10 MG TAB PO SCH (09:00)
[2023-12-06] MEDS ORDERED: ASCORBIC ACID 500 MG TAB PO SCH (09:00)
[2023-12-06] MEDS ORDERED: ATORVASTATIN 10 MG TAB PO SCH (09:00)
[2023-12-06] MEDS ORDERED: NON FORMULARY DRUG (Selenium [Selenium] 100 MCG Tablet) PO SCH (09:00)
[2023-12-06] MEDS ORDERED: ENOXAPARIN 30 MG/0.3 ML SYRINGE SQ SCH (09:00)
[2023-12-06] MEDS ORDERED: ZINC SULFATE 220 MG CAP PO SCH (09:00)
--- NOTE | 2023-12-06 09:54 | P.CONS ---
History of Present Illness - Reason for Consult Consult date: 12/05/23 - History of Present Illness Padmini Graham, is a 73-year-old female patient of Dr. Jose who presented for an elective open reduction internal fixation of right ankle trimalleolar fracture. Patient reports that last week she fell outside while getting the mail. Denies loss of consciousness. Patient has past medical history of COPD, hyperlipidemia, osteoporosis, incisional hernia RC. Patient reports being an ex-smoker quitting in 2000. At this time patient is currently postop day 1. Patient denies any chest pain or shortness of breath. Patient denies nausea vomiting or diarrhea. Patient denies any urinary burning or frequency. Lab work unremarkable. Current vital signs temp 97.9, heart rate 71, respiratory rate 18, blood pressure 136/75. Pulse ox of 97% on room air Review of Systems Please refer to HPI otherwise unremarkable Past Medical History Past Medical History: COPD, Hyperlipidemia, Osteoarthritis (OA) Additional Past Medical History / Comment(s): incisional hernia, RSV admission 10/2023 History of Any Multi-Drug Resistant Organisms: None Reported Past Surgical History: Adenoidectomy, Appendectomy, Cholecystectomy, Hernia Repair, Hysterectomy, Tonsillectomy Additional Past Surgical History / Comment(s): Vaginal hysterectomy 1995, hand surgery times 2. Colonoscopy yrs). eddie bunionectomy Past Anesthesia/Blood Transfusion Reactions: Motion Sickness Smoking Status: Former smoker - Past Family History Father Family Medical History: Diabetes Mellitus, Hypertension Brother(s) Family Medical History: Cancer Additional Family Medical History / Comment(s): Pancreatic cancer Mother Family Medical History: Myocardial Infarction (DC) Medications and Allergies Home Medications Medication Instructions Recorded Confirmed Type Selenium 200 mcg PO DAILY 09/20/20 12/05/23 History Ascorbic Acid [Vitamin C] 1,000 mg PO DAILY 11/28/23 12/05/23 History Cetirizine HCl [Zyrtec] 10 mg PO DAILY 11/28/23 12/05/23 History Cholecalciferol [Vitamin D3 (25 25 mcg PO DAILY 11/28/23 12/05/23 History Mcg = 1000 Iu)] Rosuvastatin Calcium 5 mg PO DAILY 11/28/23 12/05/23 History Zinc Gluconate [Zinc] 50 mg PO DAILY 11/28/23 12/05/23 History Allergies Allergy/AdvReac Type Severity Reaction Status Date / Time codeine AdvReac Nausea & Verified 12/05/23 12:19 Vomiting Physical Exam Vitals: Vital Signs Temp Pulse Resp BP Pulse Ox 12/05/23 16:30 89 16 154/69 94 L 12/05/23 16:15 90 16 169/71 96 12/05/23 16:00 92 12 168/75 100 12/05/23 15:43 97.7 F 106 H 12 171/74 98 12/05/23 13:36 91 16 166/73 100 12/05/23 12:18 98.7 F 101 H 16 176/81 98 Intake and Output 12/05/23 12/05/23 12/05/23 06:59 14:59 22:59 Intake Total 351 150 Output Total 25 Balance 351 125 Intake: IV 351 150 Output: Estimated Blood Loss 25 Other: # Voids 1 Weight 77.111 kg 77.111 kg Head normocephalic Neck supple Lungs clear to auscultation bilaterally no wheezing or crackles Heart regular rate and rhythm S1-S2, no rub or gallop Abdomen is soft nontender nondistended positive bowel sounds no hepatosplenomegaly Extremities no edema. Right leg cast clean dry and intact Neuro alert and orientated to 3 Results CBC & Chem 7: 12/05/23 12:47 12/05/23 12:47 Assessment and Plan Assessment: 1. Status post open reduction internal fixation of right ankle trimalleolar fracture. Status post fall.. Postop day 1 2. History of COPD 3. History of hyperlipidemia 4. History of osteoarthritis 5. History of appendectomy 6. History of cholecystectomy 9. Ex-smoker Thank you for this consultation we will continue to follow patient closely throughout stay Time with Patient: Greater than 30 (Greater than 60% of the total time spent in counseling and coordination of care)
--- NOTE | 2023-12-06 09:55 | P.PN ---
Subjective Progress Note Date: 12/06/23 Padmini Graham, is a 73-year-old female patient of Dr. Jose who presented for an elective open reduction internal fixation of right ankle trimalleolar fracture. Patient reports that last week she fell outside while getting the mail. Denies loss of consciousness. Patient has past medical history of COPD, hyperlipidemia, osteoporosis, incisional hernia RC. Patient reports being an ex-smoker quitting in 2000. At this time patient is currently postop day 1. Patient denies any chest pain or shortness of breath. Patient denies nausea vomiting or diarrhea. Patient denies any urinary burning or frequency. Lab work unremarkable. Current vital signs temp 97.9, heart rate 71, respiratory rate 18, blood pressure 136/75. Pulse ox of 97% on room air On 12/06/2023 patient alert and oriented 3. Patient is resting comfortably in bed. Reports minimum pain. Anticipate possible discharge home today. Patient denies chest pain or shortness breath. Patient denies nausea vomiting or diarrhea. Patient denies any urinary burning or frequency Objective - Vital Signs Vital signs: Vital Signs Temp 97.9 F 12/06/23 06:56 Pulse 71 12/06/23 06:56 Resp 18 12/06/23 06:56 BP 136/75 12/06/23 06:56 Pulse Ox 97 12/06/23 06:56 FiO2 Intake & Output 12/05/23 12/06/23 12/06/23 18:59 06:59 18:59 Intake Total 501 804 Output Total 25 Balance 476 804 Weight 77.111 kg Intake: IV 501 Oral 804 Output: Estimated Blood Loss 25 Other: Voiding Method External Catheter # Voids 1 4 1 # Bowel Movements 1 - Exam Head normocephalic Neck supple Lungs clear to auscultation bilaterally no wheezing or crackles Heart regular rate and rhythm S1-S2, no rub or gallop Abdomen is soft nontender nondistended positive bowel sounds no hepatosplenomegaly Extremities no edema. Right leg cast clean dry and intact Neuro alert and orientated to 3 - Labs CBC & Chem 7: 12/05/23 12:47 12/05/23 12:47 Assessment and Plan Assessment: 1. Status post open reduction internal fixation of right ankle trimalleolar fracture. Status post fall.. Postop day 1 2. History of COPD 3. History of hyperlipidemia 4. History of osteoarthritis 5. History of appendectomy 6. History of cholecystectomy 9. Ex-smoker Thank you for this consultation we will continue to follow patient closely throughout stay
[2023-12-06 10:07] LABS: Basophils % (A) 0 %; Eosinophils % (A) 0 %; HCT 37.1 % (34.0-46.0); HGB 12.3 gm/dL (11.4-16.0); Lymphocytes # (A) 0.5 k/uL (1.0-4.8); Lymphocytes % (A) 10 %; MCH 30.9 pg (25.0-35.0); MCHC 33.1 g/dL (31.0-37.0); MCV 93.4 fL (80.0-100.0); Mean Platelet Volume 7.4; Monocytes # (A) 0.3 k/uL (0-1.0); Monocytes % (A) 5 %; Neutrophils # (A) 4.6 k/uL (1.3-7.7); Neutrophils % (A) 84 %; Platelet Count 362 k/uL (150-450); RBC 3.97 m/uL (3.80-5.40); RDW 12.4 % (11.5-15.5); WBC 5.4 k/uL (3.8-10.6)
[2023-12-06 10:31] LABS: ALT 13 U/L (4-34); AST 20 U/L (14-36); African American GFR (CKD) >90 (>60 ml/min/1.73 sqM); Albumin 3.3 g/dL (3.5-5.0); Albumin/Globulin Ratio 1.1; Alkaline Phosphatase 79 U/L (38-126); Anion Gap 7 mmol/L; Blood Urea Nitrogen 14 mg/dL (7-17); Calcium 8.8 mg/dL (8.4-10.2); Carbon Dioxide 25 mmol/L (22-30); Chloride 106 mmol/L (98-107); Globulin 2.9 g/dL; Glucose 106 mg/dL (74-99); Non-African American GFR(CKD) >90 (>60 ml/min/1.73 sqM); Potassium 4.4 mmol/L (3.5-5.1); Sodium 138 mmol/L (137-145); Total Bilirubin 0.5 mg/dL (0.2-1.3); Total Protein 6.2 g/dL (6.3-8.2)
--- NOTE | 2023-12-06 12:15 | P.PN ---
Subjective Progress Note Date: 12/06/23 Principal diagnosis: Status post ORIF right trimalleolar ankle fracture Patient was evaluated at bedside today, she is resting in her hospital bed. She is doing well with pain control currently. She has an out of bed on a few different occasions with the assistance of a walker. She is looking forward to working with physical therapy today. Plan is for discharge to home with home health care. Objective - Vital Signs Vital signs: Vital Signs Temp 97.9 F 12/06/23 06:56 Pulse 71 12/06/23 06:56 Resp 18 12/06/23 06:56 BP 136/75 12/06/23 06:56 Pulse Ox 97 12/06/23 06:56 FiO2 Intake & Output 12/05/23 12/06/23 12/06/23 18:59 06:59 18:59 Intake Total 501 804 Output Total 25 Balance 476 804 Weight 77.111 kg Intake: IV 501 Oral 804 Output: Estimated Blood Loss 25 Other: Voiding Method External Catheter # Voids 1 4 1 # Bowel Movements 1 - Exam Right lower extremity: Postoperative splint is in good position and condition. Sensory exam to light touch both proximal distal to the splint are intact. She is able to wiggle her toes with no difficulty. - Labs CBC & Chem 7: 12/06/23 05:59 12/06/23 05:59 Labs: Abnormal Lab Results - Last 24 Hours (Table) 12/06/23 12/06/23 Range/Units 05:59 05:59 Lymphocytes # 0.5 L (1.0-4.8) k/uL Glucose 106 H (74-99) mg/dL Total Protein 6.2 L (6.3-8.2) g/dL Albumin 3.3 L (3.5-5.0) g/dL Assessment and Plan Assessment: Postoperative day #1 status post ORIF right ankle trimalleolar fracture Plan: Pain control, plan for discharge home on [place] as utilize Zofran as needed DVT prophylaxis, aspirin 325 mg daily for 2 weeks Nonweightbearing status discussed with regards to the right lower extremity Ice and elevation discussed Showering instructions discussed Discharge planning: Patient stable for discharge home today Time with Patient: Less than 30
--- NOTE | 2023-12-06 12:19 | P.DS ---
Providers Date of admission: 12/05/2023 Expected date of discharge: 12/06/23 Attending physician: Davin Barros Consults: 12/05/23 16:26 Consult Physician ONCE Consulting Provider: Ward Huston Consult Reason/Comments: medical management Do you want consulting provider notified?: Yes Primary care physician: Christine Jose Hospital Course: Date of admission: 12/05/2023 Date of discharge: 12/06/2023 Admission diagnosis: Status post ORIF right ankle trimalleolar fracture Discharge diagnosis: Same Attending physician: Dr. barros Surgical procedures: ORIF right ankle trimalleolar fracture Brief history: Patient is a 73-year-old female with a history of injury involving the right ankle that has been followed in the outpatient setting by Dr. barros. At this point patient has failed conservative treatment measures and has opted to proceed with a elective ORIF right ankle fracture. Hospital course: Details of patient's surgery can be found in operative report. Patient tolerated the procedure well and was subsequently transported to orthopedic floor. Patient's orthopeidc and medical care was provided daily. Patient had daily laboratory tests performed for evaluation of overall blood counts. Patient had daily physical therapy to include strengthening range of motion as well as education with walker ambulation. Patient was treated with Lovenox for their postoperative DVT prophylaxis during their inpatient stay. Patient was noted to have a relatively uneventful postoperative course. Patient reported satisfactory pain control with oral pain medications by postoperative day 1. Patient showed satisfactory progress with physical therapy. Patient moved steadily through the program and had no difficulty meeting the goals by postoperative day 1. Given patient's otherwise satisfactory course and having met physical therapy goals, plan is to discharge patient [home] on postoperative day 1. Discharge condition/disposition: Patient will be discharged [home] in stable condition. Discharge medications: Instructions are given on resumption of patient's normal daily medications per primary care recommendation, in addition patient will be prescribed [place] 5 mg/325 mg, Zofran 4 mg, aspirin 325 mg, senna S. Discharge instructions: 1. Nonweightbearing right lower extremity 2. Do not remove the splint, ice and elevate. Keep covered while showering 3. Pain medication as needed, utilize stool softener as needed 4. Aspirin 325 mg daily for DVT prophylaxis 5. [facility] Procedures: ORIF right trimalleolar ankle fracture Patient Condition at Discharge: Good Plan - Discharge Summary Discharge Rx Participant: No New Discharge Prescriptions: New Sennosides/Docusate Sodium [Senna-S 8.6-50 mg Tablet] 2 each PO DAILY PRN #30 tablet PRN Reason: Constipation Aspirin 325 mg PO DAILY #30 tab HYDROcodone/APAP 5-325MG [[place] 5-325] 1 tab PO Q6HR PRN #21 tab PRN Reason: Pain Ondansetron [Zofran] 4 mg PO Q12HR PRN #21 tab PRN Reason: Nausea No Action Selenium 200 mcg PO DAILY Zinc Gluconate [Zinc] 50 mg PO DAILY Rosuvastatin Calcium 5 mg PO DAILY Cetirizine HCl [Zyrtec] 10 mg PO DAILY Ascorbic Acid [Vitamin C] 1,000 mg PO DAILY Cholecalciferol [Vitamin D3 (25 Mcg = 1000 Iu)] 25 mcg PO DAILY Discharge Medication List Selenium 200 mcg PO DAILY 09/20/20 [History] Ascorbic Acid [Vitamin C] 1,000 mg PO DAILY 11/28/23 [History] Cetirizine HCl [Zyrtec] 10 mg PO DAILY 11/28/23 [History] Cholecalciferol [Vitamin D3 (25 Mcg = 1000 Iu)] 25 mcg PO DAILY 11/28/23 [History] Rosuvastatin Calcium 5 mg PO DAILY 11/28/23 [History] Zinc Gluconate [Zinc] 50 mg PO DAILY 11/28/23 [History] Aspirin 325 mg PO DAILY #30 tab 12/06/23 [Rx] HYDROcodone/APAP 5-325MG [[place] 5-325] 1 tab PO Q6HR PRN #21 tab 12/06/23 [Rx] Ondansetron [Zofran] 4 mg PO Q12HR PRN #21 tab 12/06/23 [Rx] Sennosides/Docusate Sodium [Senna-S 8.6-50 mg Tablet] 2 each PO DAILY PRN #30 tablet 12/06/23 [Rx] Follow up Appointment(s)/Referral(s): [facility] Visiting Nurse, [NON-STAFF] - As Needed (Agency will call within 24 hours to arrange an appointment. ) Yaya Fernandez, PAC [PHYSICIAN DIRECTOR OF ANALYTICS] - 2 Weeks Activity/Diet/Wound Care/Special Instructions: [facility] to borrow a wheelchair: [id number] [facility] [phone] Orthopedic discharge instructions: 1. Do not remove the splint, keep covered and dry while showering 2. Nonweightbearing right lower extremity 3. Pain medication as needed 4. Aspirin 325 mg daily for DVT prophylaxis 5. Plan [facility] at [facility] weeks, contact office with any issues or questions Discharge Disposition: HOME WITH HOME HEALTH SERVICES
== END 2023-12-06 15:45 | disposition home health service (06) ==
LOC: OR 10:52 → 4SSUR 10:53 → OR 12-06 15:45
PROVIDERS: ATTEND Orthopaedic Surgery
DX: S82.851A Displaced trimalleolar fracture of right lower leg, initial encounter for closed fracture (principal); Z79.899 Other long term (current) drug therapy; X58.XXXA Exposure to other specified factors, initial encounter
CPT/HCPCS: 27822; 64445; 64447; 97161; 80053 ×2; 85025 ×2; 73600; J2250; J1100; J0690 ×3; J2405; J3010; J1650; J1170

== ENCOUNTER 2024-01-11 15:05 | Inpatient (IN) | payer MEDICARE ==
--- NOTE | 2024-01-11 15:48 | ED ---
General Adult HPI - General Chief complaint: Abdominal Pain Stated complaint: abd bowel Time Seen by Provider: 01/11/24 15:20 Source: patient, RN notes reviewed, old records reviewed Mode of arrival: ambulatory Limitations: no limitations - History of Present Illness Initial comments: Is a 73-year-old female who presents emergency department complaining of abdominal pain. States she has been dealing with intermittent constipation since December 05 when she had right ankle surgery. States she has having loose stools and has been attempting to take milk of magnesia without much improvement. States when she feels like she is having a bowel movement she has severe left lower quadrant abdominal pain. No history of abdominal surgeries or issues. Is uncertain what is going on exactly. Presents for further evaluation at this time. Currently does not have the pain and states it is only when she is about to have a bowel movement and mid time. Surrounding it. Denies any urinary complaints. Endorses occasional nausea with it. Denies chest pain or shortness of breath. Denies fevers. No known sick contacts. Presents for further evaluation at this time. - Related Data Home Medications Medication Instructions Recorded Confirmed Selenium 200 mcg PO DAILY 09/20/20 12/05/23 Ascorbic Acid [Vitamin C] 1,000 mg PO DAILY 11/28/23 12/05/23 Cetirizine HCl [Zyrtec] 10 mg PO DAILY 11/28/23 12/05/23 Cholecalciferol [Vitamin D3 (25 25 mcg PO DAILY 11/28/23 12/05/23 Mcg = 1000 Iu)] Rosuvastatin Calcium 5 mg PO DAILY 11/28/23 12/05/23 Zinc Gluconate [Zinc] 50 mg PO DAILY 11/28/23 12/05/23 Previous Rx's Medication Instructions Recorded Aspirin 325 mg PO DAILY #30 tab 12/06/23 HYDROcodone/APAP 5-325MG [[place] 1 tab PO Q6HR PRN #21 tab 12/06/23 5-325] Ondansetron [Zofran] 4 mg PO Q12HR PRN #21 tab 12/06/23 Sennosides/Docusate Sodium 2 each PO DAILY PRN #30 tablet 12/06/23 [Senna-S 8.6-50 mg Tablet] Allergies Allergy/AdvReac Type Severity Reaction Status Date / Time codeine AdvReac Nausea & Verified 01/11/24 15:12 Vomiting Review of Systems ROS Statement: Those systems with pertinent positive or pertinent negative responses have been documented in the HPI. Review of Systems: CONST: Denies fever EYES: Denies blurry vision ENT: Denies nasal congestion C/V: Denies Chest pain RESP: Denies shortness of breath GI: Denies abdominal pain : Denies dysuria SKIN: Denies rash. MSK: Denies joint pain. NEURO: Denies headache ROS Other: All systems not noted in ROS Statement are negative. Past Medical History Past Medical History: COPD, Hyperlipidemia, Osteoarthritis (OA) Additional Past Medical History / Comment(s): incisional hernia, RSV admission 10/2023 History of Any Multi-Drug Resistant Organisms: None Reported Past Surgical History: Adenoidectomy, Appendectomy, Cholecystectomy, Hernia Repair, Hysterectomy, Tonsillectomy Additional Past Surgical History / Comment(s): Vaginal hysterectomy 1995, hand surgery times 2. Colonoscopy yrs). eddie bunionectomy Past Anesthesia/Blood Transfusion Reactions: Motion Sickness Past Psychological History: No Psychological Hx Reported Smoking Status: Former smoker Past Alcohol Use History: None Reported Past Drug Use History: None Reported - Past Family History Father Family Medical History: Diabetes Mellitus, Hypertension Brother(s) Family Medical History: Cancer Additional Family Medical History / Comment(s): Pancreatic cancer Mother Family Medical History: Myocardial Infarction (NE) General Exam - General Exam Comments Initial Comments: General: Appears anxious HEAD: Normal with no signs of head trauma. EYES: PERRLA, EOMI, conjunctiva normal, no discharge. ENT: Hearing grossly intact, normal oropharynx. RESPIRATORY: Clear breath sounds bilaterally. No wheezes, rales, or rhonchi. C/V: Tachycardic. S1 and S2 auscultated, no edema, peripheral pulses 2+ and intact throughout ABD: Abd is soft, nontender, nondistended EXT: Normal range of motion, no obvious deformity SKIN: No rashes or lesions observed on exposed skin. NEURO: Alert and oriented x 4. Cranial nerves II-XII intact. No focal sensory or strength deficits. Limitations: no limitations Course Vital Signs 01/11/24 01/11/24 01/11/24 15:09 15:48 17:31 Temperature 100 F H 101.1 F H 98.4 F Pulse Rate 120 H Respiratory 18 Rate Blood Pressure 122/73 O2 Sat by Pulse 96 Oximetry 01/11/24 18:16 Temperature 98.7 F Pulse Rate 89 Respiratory 16 Rate Blood Pressure 107/67 O2 Sat by Pulse 95 Oximetry Medical Decision Making - Medical Decision Making Was pt. sent in by a medical professional or institution (MELINDA Moscoso, [employer], urgent care, hospital, or alf...) When possible be specific @ -No Did you speak to anyone other than the patient for history (EMS, parent, family, police, friend...)? What history was obtained from this source @ -No Did you review nursing and triage notes (agree or disagree)? Why? @ -I reviewed and agree with nursing and triage notes Were old charts reviewed (outside hosp., previous admission, EMS record, old EKG, old radiological studies, urgent care reports/EKG's, alf records)? Report findings @ -Old charts reviewed Differential Diagnosis (chest pain, altered mental status, abdominal pain women, abdominal pain men, vaginal bleeding, weakness, fever, dyspnea, syncope, headache, dizziness, GI bleed, back pain, seizure, CVA, palpatations, mental health, musculoskeletal)? @ -Differential Abdominal Pain Women: Appendicitis, Cholecystitis, diverticulosis, ischemic bowel, pancreatitis, hepatitis, UTI, gastroenteritis, AAA, incarcerated hernia, bowel obstruction, constipation, inflammatory bowel, hepatitis, peptic ulcer disease, splenic infarction, perforated viscus, vulvitis, ovarian torsion, PID, kidney stone, placenta abruption, this is not meant to be an all-inclusive list EKG interpreted by me (3pts min.). @ -As above X-rays interpreted by me (1pt min.). @ -None done CT interpreted by me (1pt min.). @ -Patient CT imaging reveals complicated diverticulitis. There is concern for perforation with feces in the intra-abdominal cavity as well as possible colovaginal fistula. Also findings concerning for phlegmon. Also findings concerning for cystitis. U/S interpreted by me (1pt. min.). @ -None done What testing was considered but not performed or refused? (CT, X-rays, U/S, labs)? Why? @ -None What meds were considered but not given or refused? Why? @ -None Did you discuss the management of the patient with other professionals (professionals i.e. Dr., PA, [employer], lab, RT, psych nurse, social media marketing manager, bus starter, teacher, forest fire management officer, nurse outreach case manager)? Give summary @ -Discussed CT findings with on-call radiologist Dr. Roque. I spoke with the on-call surgeon, Dr. Delarosa who was in agreement the plan and accepted patient onto his service. Medicine Dr. Huston was consulted and I updated him. Was smoking cessation discussed for >3mins.? @ -No Was critical care preformed (if so, how long)? @ -No Were there social determinants of health that impacted care today? How? (Homelessness, low income, unemployed, alcoholism, drug addiction, transportation, low edu. Level, literacy, decrease access to med. care, fpc, rehab)? @ -No Was there de-escalation of care discussed even if they declined (Discuss DNR or withdrawal of care, Hospice)? DNR status @ -No What co-morbidities impacted this encounter? (DM, HTN, Smoking, COPD, CAD, Cancer, CVA, ARF, Chemo, Hep., AIDS, mental health diagnosis, sleep apnea, morbid obesity)? @ -None Was patient admitted / discharged? Hospital course, mention meds given and route, prescriptions, significant lab abnormalities, going to OR and other pertinent info. @ -Patient presents complaining of left lower quadrant abdominal pain with bowel movements as well as intermittent constipation and loose stools for the last month. States it is not improving and presents for further evaluation. We will obtain abdominal laboratory studies as well as CT abdomen pelvis. She currently has no pain and therefore will only be administered IV fluids at this time. She also be given Zofran. She was in agreement this plan. Vital signs in triage showed a possible low-grade fever as well as tachycardia. Patient was found to be febrile. She was given Tylenol. Likely cause of her tachycardia. We will continue to monitor. Patient'sLaboratory studies remarkable for mild leukocytosis of 13, as well as what appears to be a UTI.Remainder the labs within acceptable limits. CT imaging shows findings consistent with complicated diverticulitis with a phlegmon, as well as possible feces in the intra-abdominal cavity and possible colovaginal fistula. Findings conveyed to me from radiology Dr. Roque. Blood cultures ordered. Patient started on IV Zosyn. Patient made NPO. Patient placed on maintenance fluids. I confirmed with the patient and she states she has not noticed any vaginal discharge or stool from the vagina. Is still not complaining of any abdominal pain at rest, is only present when she is having an active bowel movement. I updated her that it appears she has a UTI as well as the complicated diverticulitis with the findings on CT. She expressed understanding. I contacted the on-call surgeon, Dr. Delarosa, who was in agreement with the plan and accepted the patient onto his service. Undiagnosed new problem with uncertain prognosis? @ -No Drug Therapy requiring intensive monitoring for toxicity (Heparin, Nitro, In sulin, Cardizem)? @ -No Were any procedures done? @ -No Diagnosis/symptom? @ -Complicated diverticulitis, UTI Acute, or Chronic, or Acute on Chronic? @ -Acute Uncomplicated (without systemic symptoms) or Complicated (systemic symptoms)? @ -Complicated Side effects of treatment? @ -None Exacerbation, Progression, or Severe Exacerbation] @ -No Poses a threat to life or bodily function? @ -Yes - Lab Data Result diagrams: 01/11/24 15:57 01/11/24 15:57 Lab Results 01/11/24 01/11/24 01/11/24 Range/Units 15:57 15:57 15:57 WBC 13.5 H (3.8-10.6) k/uL RBC 4.42 (3.80-5.40) m/uL Hgb 13.5 (11.4-16.0) gm/dL Hct 40.6 (34.0-46.0) % MCV 91.8 (80.0-100.0) fL MCH 30.6 (25.0-35.0) pg MCHC 33.3 (31.0-37.0) g/dL RDW 12.4 (11.5-15.5) % Plt Count 451 H (150-450) k/uL MPV 6.9 Neutrophils % 82 % Lymphocytes % 10 % Monocytes % 5 % Eosinophils % 2 % Basophils % 1 % Neutrophils # 11.0 H (1.3-7.7) k/uL Lymphocytes # 1.3 (1.0-4.8) k/uL Monocytes # 0.7 (0-1.0) k/uL Eosinophils # 0.2 (0-0.7) k/uL Basophils # 0.1 (0-0.2) k/uL PT 10.4 (10.0-12.5) sec INR 0.9 (<1.2) APTT 22.3 (22.0-30.0) sec Sodium (137-145) mmol/L Potassium (3.5-5.1) mmol/L Chloride (98-107) mmol/L Carbon Dioxide (22-30) mmol/L Anion Gap mmol/L BUN (7-17) mg/dL Creatinine (0.52-1.04) mg/dL Est GFR (CKD-EPI)AfAm (>60 ml/min/1.73 sqM) Est GFR (CKD-EPI)NonAf (>60 ml/min/1.73 sqM) Glucose (74-99) mg/dL Plasma Lactic Acid Abilio (0.7-2.0) mmol/L Calcium (8.4-10.2) mg/dL Total Bilirubin (0.2-1.3) mg/dL AST (14-36) U/L ALT (4-34) U/L Alkaline Phosphatase (38-126) U/L Total Protein (6.3-8.2) g/dL Albumin (3.5-5.0) g/dL Amylase (30-110) U/L Lipase (23-300) U/L Urine Color Yellow Urine Appearance Cloudy H (Clear) Urine pH 7.0 (5.0-8.0) Ur Specific [place] 1.020 (1.001-1.035) Urine Protein 1+ H (Negative) Urine Glucose (UA) Negative (Negative) Urine Ketones 1+ H (Negative) Urine Blood Small H (Negative) Urine Nitrite Positive H (Negative) Urine Bilirubin Negative (Negative) Urine Urobilinogen <2.0 (<2.0) mg/dL Ur Leukocyte Esterase Large H (Negative) Urine RBC 11 H (0-5) /hpf Urine WBC 157 H (0-5) /hpf Ur Squamous Epith Cells 5 H (0-4) /hpf Urine Bacteria Many H (None) /hpf Urine Mucus Few H (None) /hpf Influenza Type A (PCR) (Not Detectd) Influenza Type B (PCR) (Not Detectd) RSV (PCR) (Not Detectd) SARS-CoV-2 (PCR) (Not Detectd) 01/11/24 01/11/24 01/11/24 Range/Units 15:57 15:57 15:57 WBC (3.8-10.6) k/uL RBC (3.80-5.40) m/uL Hgb (11.4-16.0) gm/dL Hct (34.0-46.0) % MCV (80.0-100.0) fL MCH (25.0-35.0) pg MCHC (31.0-37.0) g/dL RDW (11.5-15.5) % Plt Count (150-450) k/uL MPV Neutrophils % % Lymphocytes % % Monocytes % % Eosinophils % % Basophils % % Neutrophils # (1.3-7.7) k/uL Lymphocytes # (1.0-4.8) k/uL Monocytes # (0-1.0) k/uL Eosinophils # (0-0.7) k/uL Basophils # (0-0.2) k/uL PT (10.0-12.5) sec INR (<1.2) APTT (22.0-30.0) sec Sodium 136 L (137-145) mmol/L Potassium 4.4 (3.5-5.1) mmol/L Chloride 102 (98-107) mmol/L Carbon Dioxide 26 (22-30) mmol/L Anion Gap 8 mmol/L BUN 11 (7-17) mg/dL Creatinine 0.62 (0.52-1.04) mg/dL Est GFR (CKD-EPI)AfAm >90 (>60 ml/min/1.73 sqM) Est GFR (CKD-EPI)NonAf >90 (>60 ml/min/1.73 sqM) Glucose 115 H (74-99) mg/dL Plasma Lactic Acid Abilio 1.5 (0.7-2.0) mmol/L Calcium 9.2 (8.4-10.2) mg/dL Total Bilirubin 0.7 (0.2-1.3) mg/dL AST 23 (14-36) U/L ALT 13 (4-34) U/L Alkaline Phosphatase 87 (38-126) U/L Total Protein 7.1 (6.3-8.2) g/dL Albumin 3.8 (3.5-5.0) g/dL Amylase 60 (30-110) U/L Lipase 66 (23-300) U/L Urine Color Urine Appearance (Clear) Urine pH (5.0-8.0) Ur Specific [place] (1.001-1.035) Urine Protein (Negative) Urine Glucose (UA) (Negative) Urine Ketones (Negative) Urine Blood (Negative) Urine Nitrite (Negative) Urine Bilirubin (Negative) Urine Urobilinogen (<2.0) mg/dL Ur Leukocyte Esterase (Negative) Urine RBC (0-5) /hpf Urine WBC (0-5) /hpf Ur Squamous Epith Cells (0-4) /hpf Urine Bacteria (None) /hpf Urine Mucus (None) /hpf Influenza Type A (PCR) Not Detected (Not Detectd) Influenza Type B (PCR) Not Detected (Not Detectd) RSV (PCR) Not Detected (Not Detectd) SARS-CoV-2 (PCR) Not Detected (Not Detectd) Disposition Clinical Impression: Diverticulitis of large intestine with complication Disposition: ADMITTED IP TO THIS HOSP Condition: Serious Time of Disposition: 18:38
[2024-01-11] MEDS: ONDANSETRON 4 MG/2 ML VIAL IVP STA (15:54)
[2024-01-11] MEDS: SODIUM CHLORIDE 0.9% 1,000 ML IV STA ×2 (15:54→18:43)
[2024-01-11 16:10] LABS: Basophils # (A) 0.1 k/uL (0-0.2); Basophils % (A) 1 %; Eosinophils # (A) 0.2 k/uL (0-0.7); Eosinophils % (A) 2 %; HCT 40.6 % (34.0-46.0); HGB 13.5 gm/dL (11.4-16.0); Lymphocytes # (A) 1.3 k/uL (1.0-4.8); Lymphocytes % (A) 10 %; MCH 30.6 pg (25.0-35.0); MCHC 33.3 g/dL (31.0-37.0); MCV 91.8 fL (80.0-100.0); Mean Platelet Volume 6.9; Monocytes # (A) 0.7 k/uL (0-1.0); Monocytes % (A) 5 %; Neutrophils % (A) 82 %; Platelet Count 451 k/uL (150-450); RBC 4.42 m/uL (3.80-5.40); RDW 12.4 % (11.5-15.5); WBC 13.5 k/uL (3.8-10.6)
[2024-01-11] MEDS: ACETAMINOPHEN TAB 500 MG TAB PO STA (16:11)
[2024-01-11 16:18] LABS: INR 0.9 (<1.2); Partial Thromboplastin Time 22.3 sec (22.0-30.0); Prothrombin Time 10.4 sec (10.0-12.5)
[2024-01-11 16:26] LABS: Appearance,Urine Cloudy (Clear); Bacteria,Urine Many /hpf; Bilirubin,Urine Negative (Negative); Blood,Urine Small (Negative); Color,Urine Yellow; Glucose,Urine (UA) Negative (Negative); Ketones,Urine 1+ (Negative); Leukocyte Esterase,Urine Large (Negative); Mucus,Urine Few /hpf; Nitrite,Urine Positive (Negative); Protein,Urine 1+ (Negative); RBC,Urine 11 /hpf (0-5); Squamous Epithelial Cell,Urine 5 /hpf (0-4); Urobilinogen,Urine <2.0 mg/dL (<2.0); WBC,Urine 157 /hpf (0-5)
[2024-01-11 16:44] LABS: ALT 13 U/L (4-34); AST 23 U/L (14-36); African American GFR (CKD) >90 (>60 ml/min/1.73 sqM); Albumin 3.8 g/dL (3.5-5.0); Alkaline Phosphatase 87 U/L (38-126); Amylase 60 U/L (30-110); Anion Gap 8 mmol/L; Blood Urea Nitrogen 11 mg/dL (7-17); Calcium 9.2 mg/dL (8.4-10.2); Carbon Dioxide 26 mmol/L (22-30); Chloride 102 mmol/L (98-107); Glucose 115 mg/dL (74-99); Lipase 66 U/L (23-300); Non-African American GFR(CKD) >90 (>60 ml/min/1.73 sqM); Potassium 4.4 mmol/L (3.5-5.1); Sodium 136 mmol/L (137-145); Total Bilirubin 0.7 mg/dL (0.2-1.3); Total Protein 7.1 g/dL (6.3-8.2)
--- NOTE | 2024-01-11 18:10 | CT ---
EXAMINATION TYPE: CT abdomen pelvis w con CT DLP: 869.9 mGycm, Automated exposure control for dose reduction was used. DATE OF EXAM: 01/11/2024 5:29 PM COMPARISON: CT abdomen pelvis most recent from 12/28/2021, 07/11/2021 CLINICAL INDICATION:Female, 73 years old with history of abdominal pain; c/o constipation TECHNIQUE: Axial CT abdomen pelvis w con;Sagittal and coronal reformats were created on a separate w orkstation. Contrast used:100 mL of Isovue 300 with IV Contrast, (none if empty) Oral contrast used: without Oral Contrast (none if empty) FINDINGS: LOWER CHEST: Unremarkable ABDOMEN LIVER: Unremarkable GALLBLADDER AND BILE DUCTS: The gallbladder is surgically absent. Dilation of the extra hepatic bilia ry system. PANCREAS: Unremarkable. SPLEEN: Unremarkable. ADRENAL GLANDS: Unremarkable. KIDNEYS AND URETERS: No evidence of hydronephrosis or renal calculus. The ureters are unremarkable. PELVIS BLADDER: Mild thickening of the posterior left aspect of the bladder measuring up to 9 mm. REPRODUCTIVE: Unremarkable. ABDOMEN & PELVIS STOMACH AND BOWEL: Duodenal diverticulum involving the second portion. Near the common bile duct. The re are colonic diverticula present, one of which has adjacent fat stranding changes. There is phlegmo nous change extends towards the vagina with multiple foci of gas present that represent containing fe grace series 201 image 70 measuring 21 x 33 mm. Fistulous tract may be present on series 202 image 49. No evidence of bowel obstruction. PERITONEUM/RETROPERITONEUM: No evidence of pneumoperitoneum or free fluid. VASCULATURE: No evidence of aortic aneurysm. MUSCULOSKELETAL: No acute osseous abnormalities LYMPH NODES: No gross evidence for lymphadenopathy. SOFT TISSUE/ABDOMINAL WALL: Unremarkable IMPRESSION: Complicated sigmoid diverticulitis changes with containing feces situated near the superior aspect of the vagina with possible colovaginal fistula not excluded. This is also situated near the urinary bl adder wall with mild thickening of the urinary bladder. Correlate with urinalysis for superimposed cy stitis.
[2024-01-11] MEDS ORDERED: NALOXONE 0.4 MG/ML 1 ML VIAL IV PRN (18:20)
[2024-01-11] MEDS: PIPERACILLIN-TAZOBACTAM 3.375 GM in SODIUM CHLORIDE 0.9% 100 ML IVPB SCH (18:42)
[2024-01-11] MEDS: ACETAMINOPHEN IV (For NPO) 1,000 MG in EMPTY BAG 1 BAG IVPB PRN (23:39)
--- NOTE | 2024-01-12 07:11 | P.GSHP ---
History of Present Illness H&P Date: 01/12/24 73-year-old female who presents emergency department complaining of abdominal pain. States she has been dealing with intermittent constipation since December 05 when she had right ankle surgery. States she has having loose stools and has been attempting to take milk of magnesia without much improvement. States when she feels like she is having a bowel movement she has severe left lower quadrant abdominal pain. No history of abdominal surgeries or issues. Is uncertain what is going on exactly. Presents for further evaluation at this time. Currently does not have the pain and states it is only when she is about to have a bowel movement and mid time. Surrounding it. Denies any urinary complaints. Endorses occasional nausea with it. Denies chest pain or shortness of breath. Denies fevers. No known sick contacts. Presents for further evaluation at this time. 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 Review of Systems ROS Statement: Those systems with pertinent positive or pertinent negative responses have been documented in the HPI. Review of Systems: CONST: Denies fever EYES: Denies blurry vision ENT: Denies nasal congestion C/V: Denies Chest pain RESP: Denies shortness of breath GI: Denies abdominal pain : Denies dysuria SKIN: Denies rash. MSK: Denies joint pain. NEURO: Denies headache ROS Other: All systems not noted in ROS Statement are negative. Past Medical History Past Medical History: COPD, Hyperlipidemia, Osteoarthritis (OA) Additional Past Medical History / Comment(s): incisional hernia, RSV admission 10/2023 History of Any Multi-Drug Resistant Organisms: None Reported Past Surgical History: Adenoidectomy, Appendectomy, Cholecystectomy, Hernia Repair, Hysterectomy, Tonsillectomy Additional Past Surgical History / Comment(s): Vaginal hysterectomy 1995, hand surgery times 2. Colonoscopy yrs). eddie bunionectomy Past Anesthesia/Blood Transfusion Reactions: Motion Sickness Past Psychological History: No Psychological Hx Reported Smoking Status: Former smoker Past Alcohol Use History: None Reported Past Drug Use History: None Reported - Past Family History Father Family Medical History: Diabetes Mellitus, Hypertension Brother(s) Family Medical History: Cancer Additional Family Medical History / Comment(s): Pancreatic cancer Mother Family Medical History: Myocardial Infarction (MT) General Exam - General Exam Comments Initial Comments: General: Appears anxious HEAD: Normal with no signs of head trauma. EYES: PERRLA, EOMI, conjunctiva normal, no discharge. ENT: Hearing grossly intact, normal oropharynx. RESPIRATORY: Clear breath sounds bilaterally. No wheezes, rales, or rhonchi. C/V: Tachycardic. S1 and S2 auscultated, no edema, peripheral pulses 2+ and intact throughout ABD: Abd is soft, nontender, nondistended EXT: Normal range of motion, no obvious deformity SKIN: No rashes or lesions observed on exposed skin. NEURO: Alert and oriented x 4. Cranial nerves II-XII intact. No focal sensory or strength deficits. 73 year old female with complicated diverticulitis with colovaginal fistula - OR for diagnostic laparoscopy and abdominal washout with possible exploratory laparotomy Past Medical History Past Medical History: COPD, Hyperlipidemia, Osteoarthritis (OA) Additional Past Medical History / Comment(s): incisional hernia, RSV admission 10/2023 History of Any Multi-Drug Resistant Organisms: None Reported Past Surgical History: Adenoidectomy, Appendectomy, Cholecystectomy, Hernia Repair, Hysterectomy, Tonsillectomy Additional Past Surgical History / Comment(s): Vaginal hysterectomy 1995, hand surgery times 2. Colonoscopy yrs). eddie bunionectomy Past Anesthesia/Blood Transfusion Reactions: Motion Sickness Past Psychological History: No Psychological Hx Reported Smoking Status: Former smoker Past Alcohol Use History: None Reported Additional Past Alcohol Use History / Comment(s): QUIT SMOKING 2000,smoked approx 40 years Past Drug Use History: None Reported - Past Family History Father Family Medical History: Diabetes Mellitus, Hypertension Brother(s) Family Medical History: Cancer Additional Family Medical History / Comment(s): Pancreatic cancer Mother Family Medical History: Myocardial Infarction (MT) Medications and Allergies Home Medications Medication Instructions Recorded Confirmed Type Rosuvastatin Calcium 5 mg PO DAILY 11/28/23 01/11/24 History Allergies Allergy/AdvReac Type Severity Reaction Status Date / Time codeine AdvReac Nausea & Verified 01/11/24 15:12 Vomiting Surgical - Exam Vital Signs Temp Pulse Resp BP Pulse Ox 100 F H 120 H 18 122/73 96 01/11/24 15:09 01/11/24 15:09 01/11/24 15:09 01/11/24 15:09 01/11/24 15:09 Results - Labs 01/11/24 15:57 01/11/24 15:57 Abnormal Lab Results - Last 24 Hours (Table) 01/11/24 01/11/24 01/11/24 Range/Units 15:57 15:57 15:57 WBC 13.5 H (3.8-10.6) k/uL Plt Count 451 H (150-450) k/uL Neutrophils # 11.0 H (1.3-7.7) k/uL Sodium 136 L (137-145) mmol/L Glucose 115 H (74-99) mg/dL Urine Appearance Cloudy H (Clear) Urine Protein 1+ H (Negative) Urine Ketones 1+ H (Negative) Urine Blood Small H (Negative) Urine Nitrite Positive H (Negative) Ur Leukocyte Esterase Large H (Negative) Urine RBC 11 H (0-5) /hpf Urine WBC 157 H (0-5) /hpf Ur Squamous Epith Cells 5 H (0-4) /hpf Urine Bacteria Many H (None) /hpf Urine Mucus Few H (None) /hpf Diabetes panel 01/11/24 Range/Units 15:57 Sodium 136 L (137-145) mmol/L Potassium 4.4 (3.5-5.1) mmol/L Chloride 102 (98-107) mmol/L Carbon Dioxide 26 (22-30) mmol/L BUN 11 (7-17) mg/dL Creatinine 0.62 (0.52-1.04) mg/dL Glucose 115 H (74-99) mg/dL Calcium 9.2 (8.4-10.2) mg/dL AST 23 (14-36) U/L ALT 13 (4-34) U/L Alkaline Phosphatase 87 (38-126) U/L Total Protein 7.1 (6.3-8.2) g/dL Albumin 3.8 (3.5-5.0) g/dL Calcium panel 01/11/24 Range/Units 15:57 Calcium 9.2 (8.4-10.2) mg/dL Albumin 3.8 (3.5-5.0) g/dL Pituitary panel 01/11/24 Range/Units 15:57 Sodium 136 L (137-145) mmol/L Potassium 4.4 (3.5-5.1) mmol/L Chloride 102 (98-107) mmol/L Carbon Dioxide 26 (22-30) mmol/L BUN 11 (7-17) mg/dL Creatinine 0.62 (0.52-1.04) mg/dL Glucose 115 H (74-99) mg/dL Calcium 9.2 (8.4-10.2) mg/dL Adrenal panel 01/11/24 Range/Units 15:57 Sodium 136 L (137-145) mmol/L Potassium 4.4 (3.5-5.1) mmol/L Chloride 102 (98-107) mmol/L Carbon Dioxide 26 (22-30) mmol/L BUN 11 (7-17) mg/dL Creatinine 0.62 (0.52-1.04) mg/dL Glucose 115 H (74-99) mg/dL Calcium 9.2 (8.4-10.2) mg/dL Total Bilirubin 0.7 (0.2-1.3) mg/dL AST 23 (14-36) U/L ALT 13 (4-34) U/L Alkaline Phosphatase 87 (38-126) U/L Total Protein 7.1 (6.3-8.2) g/dL Albumin 3.8 (3.5-5.0) g/dL
[2024-01-12 07:58] LABS: ALT 10 U/L (4-34); AST 16 U/L (14-36); African American GFR (CKD) >90 (>60 ml/min/1.73 sqM); Albumin/Globulin Ratio 1.1; Alkaline Phosphatase 68 U/L (38-126); Anion Gap 7 mmol/L; Blood Urea Nitrogen 7 mg/dL (7-17); Calcium 8.2 mg/dL (8.4-10.2); Carbon Dioxide 26 mmol/L (22-30); Chloride 105 mmol/L (98-107); Globulin 2.7 g/dL; Glucose 91 mg/dL (74-99); Non-African American GFR(CKD) 90 (>60 ml/min/1.73 sqM); Sodium 138 mmol/L (137-145); Total Bilirubin 0.5 mg/dL (0.2-1.3); Total Protein 5.7 g/dL (6.3-8.2)
[2024-01-12] MEDS: MORPHINE SULFATE 4 MG/ML SYRINGE IV PRN (08:05)
[2024-01-12 09:21] LABS: Basophils # (A) 0.06 X 10*3/uL (0.00-0.10); Basophils % (A) 0.6 %; Eosinophils # (A) 0.14 X 10*3/uL (0.04-0.35); Eosinophils % (A) 1.3 %; HCT 34.6 % (37.2-46.3); Lymphocytes # (A) 0.84 X 10*3/uL (0.90-5.00); Lymphocytes % (A) 7.9 %; MCH 29.7 pg (27.0-32.0); MCHC 31.8 g/dL (32.0-37.0); MCV 93.5 FL (80.0-97.0); Monocytes # (A) 0.88 X 10*3/uL (0.20-1.00); Monocytes % (A) 8.3 %; NRBC Per 100 WBC 0 X 10*3/uL (0.00-0.01); Neutrophils # (A) 8.69 X 10*3/uL (1.80-7.70); Neutrophils % (A) 81.6 %; Platelet Count 357 X 10*3/uL (140-440); RDW 12.4 % (11.5-14.5); WBC 10.64 X 10*3/uL (4.50-10.00)
[2024-01-12] MEDS ORDERED: MIDAZOLAM 2 MG/2 ML VIAL ONE (09:51)
[2024-01-12] MEDS ORDERED: fentaNYL (PF) 50 MCG/ML 2 ML AMP ONE (09:51)
[2024-01-12] MEDS ORDERED: PROPOFOL 10 MG/ML 20 ML VIAL IV ONE (09:51)
[2024-01-12] MEDS ORDERED: SUCCINYLCHOLINE CHLORIDE 200 MG/10 ML VIAL IV ONE (09:51)
--- NOTE | 2024-01-12 09:53 | P.CONS ---
History of Present Illness - Reason for Consult Consult date: 01/12/24 - History of Present Illness Padmini Graham, is a 73-year-old female patient who presented to the ER with concerns of abdominal pain and issues with intermittent constipation since November when she underwent a right ankle surgery patient reports she's been having some loose stools but still having severe left lower quadrant abdominal pain with occasional nausea. Patient has past medical history of COPD, hyperlipidemia, osteoarthritis, cholecystectomy, hernia repair and incisional hernia. CT of abdomen and pelvis completed showing complicated sigmoid diverticulitis changes with containing feces situated near the superior aspect of the vagina with possible: Vagina fistula not excluded there is also situated near the urinary bladder wall with mild thickening of the urinary Bladder correlate with urinary analysis for superimposed cystitis. Patient has been admitted under surgical services. Infectious disease service is consulted. Per surgical services plan for or with diagnostic laparoscopic and abdominal washout with possible exploratory lap. Current vital signs temp 98.3, heart rate 87, respiratory rate 18, blood pressure 155/65 and pulse ox 95%. Patient started on IV Zosyn. Blood cultures ordered urine culture ordered. Review of Systems Please refer to HPI otherwise unremarkable Past Medical History Past Medical History: COPD, Hyperlipidemia, Osteoarthritis (OA) Additional Past Medical History / Comment(s): incisional hernia, RSV admission 10/2023 History of Any Multi-Drug Resistant Organisms: None Reported Past Surgical History: Adenoidectomy, Appendectomy, Cholecystectomy, Hernia Repair, Hysterectomy, Tonsillectomy Additional Past Surgical History / Comment(s): Vaginal hysterectomy 1995, hand surgery times 2. Colonoscopy yrs). eddie bunionectomy Past Anesthesia/Blood Transfusion Reactions: Motion Sickness Past Psychological History: No Psychological Hx Reported Smoking Status: Former smoker Past Alcohol Use History: None Reported Additional Past Alcohol Use History / Comment(s): QUIT SMOKING 2000,smoked approx 40 years Past Drug Use History: None Reported - Past Family History Father Family Medical History: Diabetes Mellitus, Hypertension Brother(s) Family Medical History: Cancer Additional Family Medical History / Comment(s): Pancreatic cancer Mother Family Medical History: Myocardial Infarction (MD) Medications and Allergies Home Medications Medication Instructions Recorded Confirmed Type Rosuvastatin Calcium 5 mg PO DAILY 11/28/23 01/11/24 History Allergies Allergy/AdvReac Type Severity Reaction Status Date / Time codeine AdvReac Nausea & Verified 01/11/24 15:12 Vomiting Physical Exam Vitals: Vital Signs Temp Pulse Pulse Resp BP BP Pulse Ox 01/12/24 07:30 98.4 F 82 20 141/74 01/12/24 02:00 98.1 F 80 20 137/76 95 01/11/24 21:30 18 01/11/24 21:10 97.8 F 87 18 142/67 95 01/11/24 20:47 72 16 124/74 98 01/11/24 18:16 98.7 F 89 16 107/67 95 01/11/24 17:31 98.4 F 01/11/24 15:48 101.1 F H 01/11/24 15:09 100 F H 120 H 18 122/73 96 Intake and Output 01/11/24 01/12/24 01/12/24 22:59 06:59 14:59 Intake Total 1200 Output Total 300 Balance 900 Intake: Intake, IV Titration 1200 Amount ACETAMINOPHEN IV (For NPO 100 ) 1,000 mg In Empty Bag 1 bag @ 400 mls/hr IVPB Q6HR PRN Rx#:[id number] Piperacillin-Tazobactam 3 100 .375 gm In Sodium Chloride 0.9% 100 ml @ 25 mls/hr IVPB Q8H [facility] Rx#: [id number] Sodium Chloride 0.9% 1, 1000 000 ml @ 130 mls/hr IV . Q7H42M [facility] Rx#:[id number] Output: Urine 300 Other: Voiding Method External Catheter Weight 77.111 kg Head normocephalic Neck supple Lungs clear to auscultation bilaterally no wheezing or crackles Heart regular rate and rhythm S1-S2, no rub or gallop Abdomen is soft nontender nondistended positive bowel sounds no hepatosplenomegaly Extremities no edema Neuro alert and orientated to 3 Results CBC & Chem 7: 01/12/24 06:07 01/12/24 06:07 Labs: Abnormal Lab Results - Last 24 Hours (Table) 01/11/24 01/11/24 01/11/24 Range/Units 15:57 15:57 15:57 WBC 13.5 H (3.8-10.6) k/uL Plt Count 451 H (150-450) k/uL Neutrophils # 11.0 H (1.3-7.7) k/uL Sodium 136 L (137-145) mmol/L Glucose 115 H (74-99) mg/dL Urine Appearance Cloudy H (Clear) Urine Protein 1+ H (Negative) Urine Ketones 1+ H (Negative) Urine Blood Small H (Negative) Urine Nitrite Positive H (Negative) Ur Leukocyte Esterase Large H (Negative) Urine RBC 11 H (0-5) /hpf Urine WBC 157 H (0-5) /hpf Ur Squamous Epith Cells 5 H (0-4) /hpf Urine Bacteria Many H (None) /hpf Urine Mucus Few H (None) /hpf Assessment and Plan Assessment: 1. Compensated diverticulitis patient admitted to surgical services plan for expiratory lap per surgical services 2. History of ankle surgery in November 3. History of constipation over the past month 4. History of COPD 5. History of hyperlipidemia 6. History of osteoarthritis 7. History of appendectomy 8. History of cholecystectomy 9. Ex-smoker Thank you for this consultation we will continue to follow patient closely throughout stay Infectious disease service is consulted Patient started on IV Zosyn Repeat labs ordered Blood culture ordered Time with Patient: Greater than 30 (Greater than 60% of the total time spent in counseling and coordination of care)
[2024-01-12] MEDS: LACTATED RINGERS 1,000 ML IV ONE (10:01)
[2024-01-12] MEDS: LABETALOL SYRINGE 5 MG/ML (4 ML SYR) IVP ONE (11:11)
--- NOTE | 2024-01-12 11:43 | P.OP ---
Date of Procedure: 01/12/24 Preoperative Diagnosis: Complicated Diverticulitis with Abscess Postoperative Diagnosis: Complicated Diverticulitis with Abscess Procedure(s) Performed: Diagnostic Laparoscopy with Abdominal Washout Anesthesia: MAC Surgeon: Yaya Delarosa Estimated Blood Loss (ml): 50 Pathology: none sent Condition: stable Disposition: floor Operative Findings: The patient was brought to the operating suite and placed in the supine position. After anesthesia was given, the patient was prepped and draped in usual sterile fashion. Timeout was performed and everyone was in agreement. An #11 blade was used to make an incision at [place] and an optiview and used to enter the abdomen. Additional working 5 mm ports were placed on the right side of the patients abdomen. The patients sigmoid was inflammed and there was noted to be some purulent fluid near the colon and in the pelvis. The abdomen was thoroughly irrigated and washed out. There was no cherise perforation of the colon noted. At the point, a 19 F BIJAN drain was placed next to the sigmoid colon and brought out through one of the right sided 5 mm ports. The drain was sutured in placed with a 2-0 Nylon. The ports were removed at this point and the incisions were closed with 4-0 Monocryl. Skin glue was applied. This concluded the procedure. The patient and her family were updated at the conclusion of the procedure and the patient will need outpatient colectomy with takedown of colovaginal fistula.
[2024-01-12] MEDS: ONDANSETRON 4 MG/2 ML VIAL IVP PRN (12:51)
[2024-01-12] MEDS: HYDROcodone/APAP 7.5-325MG 1 EACH TAB PO PRN (12:53)
--- NOTE | 2024-01-12 15:06 | P.PN ---
Subjective Progress Note Date: 01/12/24 Patient is status post diagnostic laparoscopy abdominal washout for perforated diverticulitis. She reports feeling better. Things at bedside. Intraoperative findings of colovaginal fistula due to diverticulitis identified. Incidentally, patient has a right lower extremity cast due to a broken foot. Will be in cast until mid February. In the interim, antibiotics. Continue inpatient hospitalization. Continue BIJAN drain. Last colonoscopy within the last 2 to 3 years. Objective - Vital Signs Vital signs: Vital Signs Temp 98.1 F 01/12/24 12:07 Pulse 92 01/12/24 12:07 Resp 18 01/12/24 12:07 BP 162/88 01/12/24 12:07 Pulse Ox 99 01/12/24 12:07 FiO2 Intake & Output 01/11/24 01/12/24 01/12/24 18:59 06:59 18:59 Intake Total 1200 1100 Output Total 300 49 Balance 900 1051 Weight 77.111 kg 77.111 kg Intake: IV 1100 Intake, IV Titration 1200 Amount ACETAMINOPHEN IV (For NPO 100 ) 1,000 mg In Empty Bag 1 bag @ 400 mls/hr IVPB Q6HR PRN Rx#:[id number] Piperacillin-Tazobactam 3 100 .375 gm In Sodium Chloride 0.9% 100 ml @ 25 mls/hr IVPB Q8H [facility] Rx#: [id number] Sodium Chloride 0.9% 1, 1000 000 ml @ 130 mls/hr IV . Q7H42M [facility] Rx#:[id number] Output: Urine 300 Estimated Blood Loss 49 Other: Voiding Method External Catheter External Catheter # Voids 1 - Labs CBC & Chem 7: 01/12/24 06:07 01/12/24 06:07 Labs: Abnormal Lab Results - Last 24 Hours (Table) 01/11/24 01/11/24 01/11/24 Range/Units 15:57 15:57 15:57 WBC 13.5 H (3.8-10.6) k/uL RBC (4.10-5.20) X 10*6/uL Hgb (12.0-15.0) g/dL Hct (37.2-46.3) % MCHC (32.0-37.0) g/dL Plt Count 451 H (150-450) k/uL MPV (9.5-12.2) FL Neutrophils # 11.0 H (1.3-7.7) k/uL Lymphocytes # (0.90-5.00) X 10*3/uL Sodium 136 L (137-145) mmol/L Glucose 115 H (74-99) mg/dL Calcium (8.4-10.2) mg/dL Total Protein (6.3-8.2) g/dL Albumin (3.5-5.0) g/dL Urine Appearance Cloudy H (Clear) Urine Protein 1+ H (Negative) Urine Ketones 1+ H (Negative) Urine Blood Small H (Negative) Urine Nitrite Positive H (Negative) Ur Leukocyte Esterase Large H (Negative) Urine RBC 11 H (0-5) /hpf Urine WBC 157 H (0-5) /hpf Ur Squamous Epith Cells 5 H (0-4) /hpf Urine Bacteria Many H (None) /hpf Urine Mucus Few H (None) /hpf 01/12/24 01/12/24 Range/Units 06:07 06:07 WBC 10.64 H (3.8-10.6) k/uL RBC 3.70 L (4.10-5.20) X 10*6/uL Hgb 11.0 L (12.0-15.0) g/dL Hct 34.6 L (37.2-46.3) % MCHC 31.8 L (32.0-37.0) g/dL Plt Count (150-450) k/uL MPV 9.0 L (9.5-12.2) FL Neutrophils # 8.69 H (1.3-7.7) k/uL Lymphocytes # 0.84 L (0.90-5.00) X 10*3/uL Sodium (137-145) mmol/L Glucose (74-99) mg/dL Calcium 8.2 L (8.4-10.2) mg/dL Total Protein 5.7 L (6.3-8.2) g/dL Albumin 3.0 L (3.5-5.0) g/dL Urine Appearance (Clear) Urine Protein (Negative) Urine Ketones (Negative) Urine Blood (Negative) Urine Nitrite (Negative) Ur Leukocyte Esterase (Negative) Urine RBC (0-5) /hpf Urine WBC (0-5) /hpf Ur Squamous Epith Cells (0-4) /hpf Urine Bacteria (None) /hpf Urine Mucus (None) /hpf
[2024-01-13 08:20] LABS: Basophils # (A) 0.05 X 10*3/uL (0.00-0.10); Basophils % (A) 0.5 %; Eosinophils # (A) 0.13 X 10*3/uL (0.04-0.35); Eosinophils % (A) 1.3 %; HCT 35.9 % (37.2-46.3); HGB 11.2 g/dL (12.0-15.0); Lymphocytes # (A) 0.99 X 10*3/uL (0.90-5.00); Lymphocytes % (A) 9.6 %; MCH 29.6 pg (27.0-32.0); MCHC 31.2 g/dL (32.0-37.0); Monocytes # (A) 0.66 X 10*3/uL (0.20-1.00); Monocytes % (A) 6.4 %; NRBC Per 100 WBC 0 X 10*3/uL (0.00-0.01); Neutrophils % (A) 81.9 %; Platelet Count 382 X 10*3/uL (140-440); RBC 3.78 X 10*6/uL (4.10-5.20); RDW 12.3 % (11.5-14.5); WBC 10.36 X 10*3/uL (4.50-10.00)
[2024-01-13 08:28] LABS: ALT 7 U/L (8-44); AST 10 U/L (13-35); Albumin 3.1 g/dL (3.8-4.9); Albumin/Globulin Ratio 1.29 Ratio (1.60-3.17); Alkaline Phosphatase 61 U/L (41-126); BUN/Creat Ratio 6.43 Ratio (12.00-20.00); Blood Urea Nitrogen 4.5 mg/dL (9.0-27.0); Calcium 8.6 mg/dL (8.7-10.3); Carbon Dioxide 24.8 mmol/L (21.6-31.8); Chloride 105 mmol/L (96-109); Globulin 2.4 g/dL (1.6-3.3); Glucose 90 mg/dL (70-110); Potassium 4.2 mmol/L (3.5-5.5); Sodium 141 mmol/L (135-145); Total Bilirubin 0.4 mg/dL (0.3-1.2); Total Protein 5.5 g/dL (6.2-8.2)
--- NOTE | 2024-01-13 08:31 | P.CONS ---
History of Present Illness - Reason for Consult Consult date: 01/12/24 Diverticulitis Requesting physician: Ward Huston - Chief Complaint Abdominal pain and constipation x few days - History of Present Illness Patient is a 73-year-old female with a past medical history significant for COPD hyperlipidemia osteoarthritis patient recently did have a fall on the ice and did have right lower extremity ankle fracture patient did have surgery and currently in a cast patient seem to have a problem with the bowel and constipation since her surgery and has used multiple laxatives with some relief patient presented to [facility] ER concerning for increasing pain to the left lower abdominal area that has been getting worse for the last few days patient describes the pain to be sharp moderate to severe intensity without radiation with associated did have some constipation prior to that some nausea but no vomiting with the symptoms the patient was evaluated on presentation to the hospital patient did have a fever of 101.1 F patient did have mild tachycardia patient was not hypotensive or hypoxic and no need for supplemental oxygen did have a white count of 13.5 with a left shift kidney function was normal electrolytes were normal her liver enzymes are normal urine has been positive influenza RSV COVID testing was negative patient did have a abdominal pelvis CT complicated sigmoid diverticulitis changes with concern for possible colovaginal fistula patient has been evaluated general surgery and the patient is status post diagnostic laparoscopic with abdominal washout no cherise perforation of the colon was noticed drain has been placed patient was started on Zosyn infectious disease was consulted for further management of antibiotic therapy Review of Systems Positive point and negatives has been mentioned in the HPI, complete review of systems was performed and all other systems are negative Past Medical History Past Medical History: COPD, Hyperlipidemia, Osteoarthritis (OA) Additional Past Medical History / Comment(s): incisional hernia, RSV admission 10/2023 History of Any Multi-Drug Resistant Organisms: None Reported Past Surgical History: Adenoidectomy, Appendectomy, Cholecystectomy, Hernia Repair, Hysterectomy, Tonsillectomy Additional Past Surgical History / Comment(s): Vaginal hysterectomy 1995, hand surgery times 2. Colonoscopy yrs). eddie bunionectomy Past Anesthesia/Blood Transfusion Reactions: Motion Sickness Past Psychological History: No Psychological Hx Reported Smoking Status: Former smoker Past Alcohol Use History: None Reported Additional Past Alcohol Use History / Comment(s): QUIT SMOKING 2000,smoked approx 40 years Past Drug Use History: None Reported - Past Family History Father Family Medical History: Diabetes Mellitus, Hypertension Brother(s) Family Medical History: Cancer Additional Family Medical History / Comment(s): Pancreatic cancer Mother Family Medical History: Myocardial Infarction ([place]) Medications and Allergies Home Medications Medication Instructions Recorded Confirmed Type Rosuvastatin Calcium 5 mg PO DAILY 11/28/23 01/11/24 History Aspirin 325 mg PO DAILY 01/13/24 01/13/24 History Acetaminophen Tab [Tylenol] 1,000 mg PO Q6HR PRN #30 tablet 01/20/24 Rx metroNIDAZOLE [Flagyl] 500 mg PO TID #42 tab 01/20/24 Rx Allergies Allergy/AdvReac Type Severity Reaction Status Date / Time codeine AdvReac Nausea & Verified 01/11/24 15:12 Vomiting Physical Exam Vitals: Vital Signs Temp Pulse Pulse Resp BP BP BP 01/12/24 11:30 91 16 161/74 01/12/24 11:10 96 16 178/72 01/12/24 11:00 99 16 167/81 01/12/24 10:55 98.0 F 109 H 18 195/85 01/12/24 08:00 87 16 01/12/24 07:53 98.3 F 87 16 155/65 01/12/24 07:30 98.4 F 82 20 141/74 01/12/24 02:00 98.1 F 80 20 137/76 01/11/24 21:30 18 01/11/24 21:10 97.8 F 87 18 142/67 01/11/24 20:47 72 16 124/74 01/11/24 18:16 98.7 F 89 16 107/67 01/11/24 17:31 98.4 F 01/11/24 15:48 101.1 F H 01/11/24 15:09 100 F H 120 H 18 122/73 Pulse Ox 01/12/24 11:30 99 01/12/24 11:10 99 01/12/24 11:00 100 01/12/24 10:55 96 01/12/24 08:00 01/12/24 07:53 95 01/12/24 07:30 01/12/24 02:00 95 01/11/24 21:30 01/11/24 21:10 95 01/11/24 20:47 98 01/11/24 18:16 95 01/11/24 17:31 01/11/24 15:48 01/11/24 15:09 96 Intake and Output 01/11/24 01/12/24 01/12/24 22:59 06:59 14:59 Intake Total 1200 1000 Output Total 300 49 Balance 900 951 Intake: IV 1000 Intake, IV Titration 1200 Amount ACETAMINOPHEN IV (For NPO 100 ) 1,000 mg In Empty Bag 1 bag @ 400 mls/hr IVPB Q6HR PRN Rx#:[id number] Piperacillin-Tazobactam 3 100 .375 gm In Sodium Chloride 0.9% 100 ml @ 25 mls/hr IVPB Q8H [facility] Rx#: [id number] Sodium Chloride 0.9% 1, 1000 000 ml @ 130 mls/hr IV . Q7H42M STA Rx#:[id number] Output: Urine 300 Estimated Blood Loss 49 Other: Voiding Method External Catheter External Catheter # Voids 1 Weight 77.111 kg GENERAL DESCRIPTION: Elderly female lying in bed, no distress. No tachypnea or accessory muscle of respiration use. HEENT: Shows Pallor , no scleral icterus. Oral mucous membrane is dry. No pharyngeal erythema or thrush NECK: Trachea central, no thyromegaly. LUNGS: Unlabored breathing. Clear to auscultation anteriorly. No wheeze or crackle. HEART: S1, S2, regular rate and rhythm. No loud murmur ABDOMEN: Soft, mild tenderness EXTREMITIES: No edema of feet. SKIN: No rash, no masses palpable. NEUROLOGICAL: The patient is awake, alert, oriented x3, mood and affect normal. Results CBC & Chem 7: 01/19/24 05:44 01/20/24 04:53 Labs: Abnormal Lab Results - Last 24 Hours (Table) 01/11/24 01/11/24 01/11/24 Range/Units 15:57 15:57 15:57 WBC 13.5 H (3.8-10.6) k/uL RBC (4.10-5.20) X 10*6/uL Hgb (12.0-15.0) g/dL Hct (37.2-46.3) % MCHC (32.0-37.0) g/dL Plt Count 451 H (150-450) k/uL MPV (9.5-12.2) FL Neutrophils # 11.0 H (1.3-7.7) k/uL Lymphocytes # (0.90-5.00) X 10*3/uL Sodium 136 L (137-145) mmol/L Glucose 115 H (74-99) mg/dL Calcium (8.4-10.2) mg/dL Total Protein (6.3-8.2) g/dL Albumin (3.5-5.0) g/dL Urine Appearance Cloudy H (Clear) Urine Protein 1+ H (Negative) Urine Ketones 1+ H (Negative) Urine Blood Small H (Negative) Urine Nitrite Positive H (Negative) Ur Leukocyte Esterase Large H (Negative) Urine RBC 11 H (0-5) /hpf Urine WBC 157 H (0-5) /hpf Ur Squamous Epith Cells 5 H (0-4) /hpf Urine Bacteria Many H (None) /hpf Urine Mucus Few H (None) /hpf 01/12/24 01/12/24 Range/Units 06:07 06:07 WBC 10.64 H (3.8-10.6) k/uL RBC 3.70 L (4.10-5.20) X 10*6/uL Hgb 11.0 L (12.0-15.0) g/dL Hct 34.6 L (37.2-46.3) % MCHC 31.8 L (32.0-37.0) g/dL Plt Count (150-450) k/uL MPV 9.0 L (9.5-12.2) FL Neutrophils # 8.69 H (1.3-7.7) k/uL Lymphocytes # 0.84 L (0.90-5.00) X 10*3/uL Sodium (137-145) mmol/L Glucose (74-99) mg/dL Calcium 8.2 L (8.4-10.2) mg/dL Total Protein 5.7 L (6.3-8.2) g/dL Albumin 3.0 L (3.5-5.0) g/dL Urine Appearance (Clear) Urine Protein (Negative) Urine Ketones (Negative) Urine Blood (Negative) Urine Nitrite (Negative) Ur Leukocyte Esterase (Negative) Urine RBC (0-5) /hpf Urine WBC (0-5) /hpf Ur Squamous Epith Cells (0-4) /hpf Urine Bacteria (None) /hpf Urine Mucus (None) /hpf Assessment and Plan (1) Diverticulitis of large intestine with complication Status: Acute Code(s): K57.32 - DVTRCLI OF LG INT W/O PERFORATION OR ABSCESS W/O BLEEDING SNOMED Code(s): 905528075 Plan: 1patient presented to the hospital with sepsis in this patient who did have fever tachycardia elevated white count source is complicated diverticulitis concern for possible colovaginal fistula, in this patient who is status post diagnostic laparoscopy and washout but no culture and did not mention any cherise perforation of the colon, likely organism need to cover will be enteric gram- negative both anaerobes and anaerobes 2patient to continue with Zosyn 3.375 g every 8 hours along with bowel rest Multiple question concern answered We will follow on clinical condition and cultures to further adjust medication if needed Thank you for this consultation we will follow the patient along with you Dictation was produced using [employer] dictation software. please excuse any grammatical, word or spelling errors. Time with Patient: Greater than 30
[2024-01-13] MEDS ORDERED: PROCHLORPERAZINE INJ 10 MG/2 ML VIAL IVP PRN (09:59)
--- NOTE | 2024-01-13 10:08 | P.PN ---
Subjective Progress Note Date: 01/13/24 Padmini Graham, is a 73-year-old female patient who presented to the ER with concerns of abdominal pain and issues with intermittent constipation since November when she underwent a right ankle surgery patient reports she's been having some loose stools but still having severe left lower quadrant abdominal pain with occasional nausea. Patient has past medical history of COPD, hyperlipidemia, osteoarthritis, cholecystectomy, hernia repair and incisional hernia. CT of abdomen and pelvis completed showing complicated sigmoid diverticulitis changes with containing feces situated near the superior aspect of the vagina with possible: Vagina fistula not excluded there is also situated near the urinary bladder wall with mild thickening of the urinary Bladder correlate with urinary analysis for superimposed cystitis. Patient has been admitted under surgical services. Infectious disease service is consulted. Per surgical services plan for or with diagnostic laparoscopic and abdominal washout with possible exploratory lap. Current vital signs temp 98.3, heart rate 87, respiratory rate 18, blood pressure 155/65 and pulse ox 95%. Patient started on IV Zosyn. Blood cultures ordered urine culture ordered. On 01/13/2024 patient was seen and examined on the medical floor she is alert and oriented 3 in no apparent distress, she underwent diagnostic laparoscopy with abdominal washout yesterday, she is complaining of nausea, and mild abdominal pain otherwise she denies any complaints at this time, there is no fever or chills no headache or dizziness no chest pain no shortness of breath no cough no vomiting no diarrhea and no urinary symptoms. She remains on IV fluid, IV antibiotic Zosyn, pain management with morphine, symptomatic management for nausea with Zofran and Compazine. Temperature 98.2 blood pressure 111/65 pulse 86 respirations 16 pulse ox 95% on room air, white blood count 10.36 hemoglobin 11.2 platelet count 382 BUN 4.5 creatinine 0.7 Objective - Vital Signs Vital signs: Vital Signs Temp 98.2 F 01/13/24 07:52 Pulse 86 01/13/24 07:52 Resp 16 01/13/24 07:52 BP 111/65 01/13/24 07:52 Pulse Ox 95 01/13/24 07:52 FiO2 Intake & Output 01/12/24 01/13/24 01/13/24 18:59 06:59 18:59 Intake Total 1120 Output Total 629 880 Balance 491 -880 Intake: IV 1100 Oral 20 Output: Drainage 30 80 Lower Abdomen 30 80 Urine 550 800 Estimated Blood Loss 49 Other: Voiding Method External Catheter External Catheter # Voids 1 - Exam Head normocephalic Neck supple Lungs clear to auscultation bilaterally no wheezing or crackles Heart regular rate and rhythm S1-S2, no rub or gallop Abdomen is soft nontender nondistended positive bowel sounds no hepatosplenomegaly Extremities no edema Neuro alert and orientated to 3 - Labs CBC & Chem 7: 01/13/24 05:48 01/13/24 05:48 Labs: Abnormal Lab Results - Last 24 Hours (Table) 01/13/24 01/13/24 Range/Units 05:48 05:48 WBC 10.36 H (4.50-10.00) X 10*3/uL RBC 3.78 L (4.10-5.20) X 10*6/uL Hgb 11.2 L (12.0-15.0) g/dL Hct 35.9 L (37.2-46.3) % MCHC 31.2 L (32.0-37.0) g/dL MPV 9.0 L (9.5-12.2) FL Neutrophils # 8.50 H (1.80-7.70) X 10*3/uL BUN 4.5 L (9.0-27.0) mg/dL BUN/Creatinine Ratio 6.43 L (12.00-20.00) Ratio Calcium 8.6 L (8.7-10.3) mg/dL AST 10 L (13-35) U/L ALT 7 L (8-44) U/L Total Protein 5.5 L (6.2-8.2) g/dL Albumin 3.1 L (3.8-4.9) g/dL Albumin/Globulin Ratio 1.29 L (1.60-3.17) Ratio Microbiology - Last 24 Hours (Table) 01/11/24 18:30 Blood Culture - Preliminary Blood 01/11/24 18:15 Blood Culture - Preliminary Blood 01/11/24 18:22 Urine Culture - Preliminary Urine,Clean Catch Gram Neg Bacilli Assessment and Plan Assessment: 1. Compensated diverticulitis patient admitted to surgical services plan for expiratory lap per surgical services 2. History of ankle surgery in November 3. History of constipation over the past month 4. History of COPD 5. History of hyperlipidemia 6. History of osteoarthritis 7. History of appendectomy 8. History of cholecystectomy 9. Ex-smoker Thank you for this consultation we will continue to follow patient closely throughout stay Infectious disease service is consulted Patient started on IV Zosyn Repeat labs ordered Blood culture ordered
[2024-01-13] MEDS ORDERED: CALCIUM CARBONATE 500 MG CHEWABLE PO PRN (13:44)
[2024-01-13] MEDS: PANTOPRAZOLE 40 MG TABLET PO SCH (13:46)
--- NOTE | 2024-01-13 15:24 | P.PN ---
Subjective Progress Note Date: 01/13/24 CHIEF COMPLAINT: Diverticulitis HISTORY OF PRESENT ILLNESS: Patient postop day #1 status post diagnostic laparoscopy with abdominal washout. Patient does complain of abdominal pain. Due to her right lower extremity fracture she is having difficulty with ambulating. Denies any nausea or vomiting. She did pass a small amount of flatus. She denies any vaginal discharge. Or any stool coming from the vaginal area. Afebrile. WBC 10.36 PHYSICAL EXAM: VITAL SIGNS: Reviewed. GENERAL: Well-developed in no acute distress. HEENT: No sclera icterus. Extraocular movements grossly intact. Moist buccal mucosa. Head is atraumatic, normocephalic. ABDOMEN: Soft. Incision sites clean dry and intact. Tenderness left lower quadrant NEUROLOGIC: Alert and oriented. Cranial nerves II through XII grossly intact. ASSESSMENT: 1. Complicated perforated diverticulitis with abscess status post diagnostic laparoscopy with abdominal washout 2. 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 Signing provider agrees with the documented findings, assessment, and plan of care. Objective - Vital Signs Vital signs: Vital Signs Temp 98 F 01/13/24 13:08 Pulse 87 01/13/24 13:08 Resp 19 01/13/24 13:08 BP 148/74 01/13/24 13:08 Pulse Ox 95 01/13/24 13:08 FiO2 Intake & Output 01/12/24 01/13/24 01/13/24 18:59 06:59 18:59 Intake Total 1120 Output Total 629 880 Balance 491 -880 Intake: IV 1100 Oral 20 Output: Drainage 30 80 Lower Abdomen 30 80 Urine 550 800 Estimated Blood Loss 49 Other: Voiding Method External Catheter External Catheter # Voids 1 - Labs CBC & Chem 7: 01/13/24 05:48 01/13/24 05:48 Labs: Abnormal Lab Results - Last 24 Hours (Table) 01/13/24 01/13/24 Range/Units 05:48 05:48 WBC 10.36 H (4.50-10.00) X 10*3/uL RBC 3.78 L (4.10-5.20) X 10*6/uL Hgb 11.2 L (12.0-15.0) g/dL Hct 35.9 L (37.2-46.3) % MCHC 31.2 L (32.0-37.0) g/dL MPV 9.0 L (9.5-12.2) FL Neutrophils # 8.50 H (1.80-7.70) X 10*3/uL BUN 4.5 L (9.0-27.0) mg/dL BUN/Creatinine Ratio 6.43 L (12.00-20.00) Ratio Calcium 8.6 L (8.7-10.3) mg/dL AST 10 L (13-35) U/L ALT 7 L (8-44) U/L Total Protein 5.5 L (6.2-8.2) g/dL Albumin 3.1 L (3.8-4.9) g/dL Albumin/Globulin Ratio 1.29 L (1.60-3.17) Ratio Microbiology - Last 24 Hours (Table) 01/11/24 18:30 Blood Culture - Preliminary Blood 01/11/24 18:15 Blood Culture - Preliminary Blood 01/11/24 18:22 Urine Culture - Preliminary Urine,Clean Catch Gram Neg Bacilli
[2024-01-13] MEDS: HEPARIN SODIUM,PORCINE 5,000 UNIT/ML 1 ML VIAL SQ SCH (20:18)
--- NOTE | 2024-01-13 22:31 | P.PN ---
Subjective Progress Note Date: 01/13/24 Principal diagnosis: Reason for follow-up is complicated diverticulitis Patient is a 73-year-old female with a past medical history significant for COPD hyperlipidemia osteoarthritis patient recently did have a fall on the ice and did have right lower extremity ankle fracture patient did have surgery and currently in a cast patient seem to have a problem with the bow el and constipation since her surgery, presenting to the hospital with abdominal pain and fever has been diagnosed with a complicated sigmoid diverticulitis concern for possible colovaginal fistula this patient was status post diagnostic laparoscopy and abdominal washout. On today's evaluation that is 01/13/2024,the patient denies any fever or any chills, patient is breathing comfortably on room air, the patient denies chest pain shortness of breath and no significant cough, patient abdominal pain slightly decreased intensity no nausea no vomiting no bowel movement denies any blood in the urine. The patient white count down to 10.36 creatinine 0.7 urine growing gram-negative Objective - Vital Signs Vital signs: Vital Signs Temp 98.2 F 01/13/24 07:52 Pulse 86 01/13/24 07:52 Resp 16 01/13/24 07:52 BP 111/65 01/13/24 07:52 Pulse Ox 95 01/13/24 07:52 FiO2 Intake & Output 01/12/24 01/13/24 01/13/24 18:59 06:59 18:59 Intake Total 1120 Output Total 629 880 Balance 491 -880 Intake: IV 1100 Oral 20 Output: Drainage 30 80 Lower Abdomen 30 80 Urine 550 800 Estimated Blood Loss 49 Other: Voiding Method External Catheter External Catheter # Voids 1 - Exam GENERAL DESCRIPTION: An elderly female lying in bed in no distress RESPIRATORY SYSTEM: Unlabored breathing , decreased breath sounds at bases HEART: S1 S2 regular rate and rhythm , ABDOMEN: Soft , no tenderness EXTREMITIES: No edema feet - Labs CBC & Chem 7: 01/13/24 05:48 01/13/24 05:48 Labs: Abnormal Lab Results - Last 24 Hours (Table) 01/13/24 01/13/24 Range/Units 05:48 05:48 WBC 10.36 H (4.50-10.00) X 10*3/uL RBC 3.78 L (4.10-5.20) X 10*6/uL Hgb 11.2 L (12.0-15.0) g/dL Hct 35.9 L (37.2-46.3) % MCHC 31.2 L (32.0-37.0) g/dL MPV 9.0 L (9.5-12.2) FL Neutrophils # 8.50 H (1.80-7.70) X 10*3/uL BUN 4.5 L (9.0-27.0) mg/dL BUN/Creatinine Ratio 6.43 L (12.00-20.00) Ratio Calcium 8.6 L (8.7-10.3) mg/dL AST 10 L (13-35) U/L ALT 7 L (8-44) U/L Total Protein 5.5 L (6.2-8.2) g/dL Albumin 3.1 L (3.8-4.9) g/dL Albumin/Globulin Ratio 1.29 L (1.60-3.17) Ratio Microbiology - Last 24 Hours (Table) 01/11/24 18:30 Blood Culture - Preliminary Blood 01/11/24 18:15 Blood Culture - Preliminary Blood 01/11/24 18:22 Urine Culture - Preliminary Urine,Clean Catch Gram Neg Bacilli Assessment and Plan (1) Diverticulitis of large intestine with complication Current Visit: Yes Status: Acute Code(s): K57.32 - DVTRCLI OF LG INT W/O PERFORATION OR ABSCESS W/O BLEEDING SNOMED Code(s): 591541485 Plan: 1patient presented to the hospital with sepsis in this patient who did have fever tachycardia elevated white count source is complicated diverticulitis concern for possible colovaginal fistula, in this patient who is status post diagnostic laparoscopy and washout but no culture and did not mention any cherise perforation of the colon, likely organism need to cover will be enteric gram- negative both anaerobes and anaerobes 2patient is afebrile white count is trending down to continue with Zosyn 3.375 g every 8 hours along with bowel rest and monitor clinical course closely Family at the bedside questions answered Dictation was produced using [employer] dictation software. please excuse any grammatical, word or spelling errors. Time with Patient: Less than 30
--- NOTE | 2024-01-14 09:28 | P.PN ---
Subjective Progress Note Date: 01/14/24 Padmini Graham, is a 73-year-old female patient who presented to the ER with concerns of abdominal pain and issues with intermittent constipation since November when she underwent a right ankle surgery patient reports she's been having some loose stools but still having severe left lower quadrant abdominal pain with occasional nausea. Patient has past medical history of COPD, hyperlipidemia, osteoarthritis, cholecystectomy, hernia repair and incisional hernia. CT of abdomen and pelvis completed showing complicated sigmoid diverticulitis changes with containing feces situated near the superior aspect of the vagina with possible: Vagina fistula not excluded there is also situated near the urinary bladder wall with mild thickening of the urinary Bladder correlate with urinary analysis for superimposed cystitis. Patient has been admitted under surgical services. Infectious disease service is consulted. Per surgical services plan for or with diagnostic laparoscopic and abdominal washout with possible exploratory lap. Current vital signs temp 98.3, heart rate 87, respiratory rate 18, blood pressure 155/65 and pulse ox 95%. Patient started on IV Zosyn. Blood cultures ordered urine culture ordered. On 01/13/2024 patient was seen and examined on the medical floor she is alert and oriented 3 in no apparent distress, she underwent diagnostic laparoscopy with abdominal washout yesterday, she is complaining of nausea, and mild abdominal pain otherwise she denies any complaints at this time, there is no fever or chills no headache or dizziness no chest pain no shortness of breath no cough no vomiting no diarrhea and no urinary symptoms. She remains on IV fluid, IV antibiotic Zosyn, pain management with morphine, symptomatic management for nausea with Zofran and Compazine. Temperature 98.2 blood pressure 111/65 pulse 86 respirations 16 pulse ox 95% on room air, white blood count 10.36 hemoglobin 11.2 platelet count 382 BUN 4.5 creatinine 0.7 On 01/14/2024 patient is alert and oriented x 3. Patient is currently resting comfortably in bed. Patient's to bring in patient's scooter so she can get out of bed. Patient reports improvement with nausea. Current vital signs Temp 97.6, heart rate 88, respiratory rate 18, blood pressure 168/78 with a pulse ox of 95% on room air. Patient remains on IV Zosyn Objective - Vital Signs Vital signs: Vital Signs Temp 97.6 F 01/14/24 07:50 Pulse 88 01/14/24 07:50 Resp 18 01/14/24 07:50 BP 168/78 01/14/24 07:50 Pulse Ox 94 L 01/14/24 07:50 FiO2 Intake & Output 01/13/24 01/14/24 01/14/24 18:59 06:59 18:59 Intake Total 480 700 Output Total 1080 680 Balance -600 20 Intake: Intake, IV Titration 100 Amount Piperacillin-Tazobactam 3 100 .375 gm In Sodium Chloride 0.9% 100 ml @ 25 mls/hr IVPB Q8H [facility] Rx#: [id number] Oral 480 600 Output: Drainage 80 80 Lower Abdomen 80 80 Urine 1000 600 Other: Voiding Method External Catheter External Catheter # Voids 2 - Exam Head normocephalic Neck supple Lungs clear to auscultation bilaterally no wheezing or crackles Heart regular rate and rhythm S1-S2, no rub or gallop Abdomen is soft nontender nondistended positive bowel sounds no hepatosplenomegaly Extremities no edema Neuro alert and orientated to 3 - Labs CBC & Chem 7: 01/13/24 05:48 01/13/24 05:48 Labs: Microbiology - Last 24 Hours (Table) 01/11/24 18:22 Urine Culture - Final Urine,Clean Catch Escherichia coli 01/11/24 18:30 Blood Culture - Preliminary Blood 01/11/24 18:15 Blood Culture - Preliminary Blood Assessment and Plan Assessment: 1. Complicated diverticulitis patient admitted to surgical services. Status post diagnostic laparoscopic with abdominal washout 2. History of ankle surgery in November 3. History of constipation over the past month 4. History of COPD 5. History of hyperlipidemia 6. History of osteoarthritis 7. History of appendectomy 8. History of cholecystectomy 9. Ex-smoker Thank you for this consultation we will continue to follow patient closely throughout stay Infectious disease service is consulted Patient started on IV Zosyn Repeat labs ordered Blood culture ordered
[2024-01-14 11:14] LABS: Basophils # (A) 0.06 X 10*3/uL (0.00-0.10); Basophils % (A) 0.8 %; Eosinophils # (A) 0.28 X 10*3/uL (0.04-0.35); HGB 11.2 g/dL (12.0-15.0); Lymphocytes % (A) 12.7 %; MCH 29.8 pg (27.0-32.0); MCV 93.1 FL (80.0-97.0); Mean Platelet Volume 8.8 FL (9.5-12.2); Monocytes # (A) 0.56 X 10*3/uL (0.20-1.00); Monocytes % (A) 7.9 %; NRBC Per 100 WBC 0 X 10*3/uL (0.00-0.01); Neutrophils % (A) 73.8 %; Platelet Count 369 X 10*3/uL (140-440); RBC 3.76 X 10*6/uL (4.10-5.20); RDW 12.2 % (11.5-14.5); WBC 7.06 X 10*3/uL (4.50-10.00)
[2024-01-14 11:33] LABS: ALT 8 U/L (8-44); AST 10 U/L (13-35); Alkaline Phosphatase 61 U/L (41-126); Blood Urea Nitrogen 3.9 mg/dL (9.0-27.0); Calcium 8.6 mg/dL (8.7-10.3); Carbon Dioxide 26.7 mmol/L (21.6-31.8); Chloride 103 mmol/L (96-109); Globulin 2.5 g/dL (1.6-3.3); Glucose 91 mg/dL (70-110); Potassium 3.9 mmol/L (3.5-5.5); Sodium 140 mmol/L (135-145); Total Bilirubin 0.3 mg/dL (0.3-1.2); Total Protein 5.5 g/dL (6.2-8.2)
--- NOTE | 2024-01-14 15:16 | CDI ---
Documentation Clarification Form Date: 01/14/2024 03:05:44 PM From: Uzma Machuca RN, CCDS Email: [email or web address] Admit Date: 01/11/2024 06:20:00 PM Patient Name: Padmini Graham Visit Number: [id number] Discharge Date: ATTENTION: The Clinical Documentation Specialists (CDI) and [facility] Coding Staff appreciate your assistance in clarifying documentation. Please respond to the clarification below the line at the bottom and electronically sign. The CDI & [facility] Coding staff will review the response and follow-up if needed. Please note: Queries are made part of the Legal Health Record. If you have any questions, please contact the author of this message via ITS. Dr. Yaya Delarosa Sepsis is documented in the 01/12 ID marketing consultant note. Additional clarification is requested. History/Risk Factors: COPD, HLD, OA, RSV. Presented with abdominal pain. Admitted with complicated diverticulitis. S/P diagnostic laparotomy. Clinical Indicators: 01/12 ID: "patient presented to the hospital with sepsis, did have fever, tachycardia and elevated white count. Source is complicated diverticulitis, concern for possible colovaginal fistula." 01/11 VS: Temp 100-101.1, HR 120 01/11 WBC 13.5-10.64 01/11 A/P CT: Complicated sigmoid diverticulitis changes with containing feces situated near the superior aspect of the vagina with possible colovaginal fistula not excluded. This is also situated near the urinary bladder wall with mild thickening of the urinary bladder. Correlate with urinalysis for superimposed cystitis. 01/12 H&P: complicated diverticulitis with colovaginal fistula. To OR for diagnostic laparoscopy and abdominal washout with possible exploratory laparotomy. Treatment: s/p laparotomy with abdominal washout on 01/12; IV Zosyn 3.375gm Q8H 01/11-01/14; 1L 0.9 NS IV bolus on 01/11 then 130mL/hr 01/11-01/12 After work up and study, please clarify which diagnosis is most appropriate? [ ] Sepsis ruled out [ ] Sepsis ruled in and treated [ ] Other, please specify [ ] Unable to determine MTDD
--- NOTE | 2024-01-14 15:35 | P.PN ---
Subjective Progress Note Date: 01/14/24 CHIEF COMPLAINT: Diverticulitis HISTORY OF PRESENT ILLNESS: Patient postop day #2 status post diagnostic laparoscopy with abdominal washout. Patient reports that she is now starting to have stool from her vagina. She is also passing air from the vagina. Her pain is controlled. She denies any nausea or vomiting. Afebrile. WBC 7.06 PHYSICAL EXAM: VITAL SIGNS: Reviewed. GENERAL: Well-developed in no acute distress. HEENT: No sclera icterus. Extraocular movements grossly intact. Moist buccal m ucosa. Head is atraumatic, normocephalic. ABDOMEN: Soft. Incision sites clean dry and intact. NEUROLOGIC: Alert and oriented. Cranial nerves II through XII grossly intact. ASSESSMENT: 1. Complicated perforated diverticulitis with abscess status post diagnostic laparoscopy with abdominal washout 2. 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 SECURITY GUARD SUPERVISOR service does not take care of of the colovaginal fistulas. They are recommending patient see a [facility] colorectal specialist. -Continue antibiotics -Continue clear liquid diet -Continue pain management -Further recommendations forthcoming per surgeon -DVT prophylaxis subcu heparin and GI prophylaxis Protonix Physician Office Clerk Routine note has been reviewed by physician. Signing provider agrees with the documented findings, assessment, and plan of care. Objective - Vital Signs Vital signs: Vital Signs Temp 97.9 F 01/14/24 12:05 Pulse 96 01/14/24 12:05 Resp 16 01/14/24 12:05 BP 156/75 01/14/24 12:05 Pulse Ox 92 L 01/14/24 12:05 FiO2 Intake & Output 01/13/24 01/14/24 01/14/24 18:59 06:59 18:59 Intake Total 480 700 Output Total 1080 680 40 Balance -600 20 -40 Intake: Intake, IV Titration 100 Amount Piperacillin-Tazobactam 3 100 .375 gm In Sodium Chloride 0.9% 100 ml @ 25 mls/hr IVPB Q8H [facility] Rx#: [id number] Oral 480 600 Output: Drainage 80 80 40 Lower Abdomen 80 80 40 Urine 1000 600 Other: Voiding Method External Catheter External Catheter # Voids 2 # Bowel Movements 1 - Labs CBC & Chem 7: 01/14/24 05:48 01/14/24 05:48 Labs: Abnormal Lab Results - Last 24 Hours (Table) 01/14/24 01/14/24 Range/Units 05:48 05:48 RBC 3.76 L (4.10-5.20) X 10*6/uL Hgb 11.2 L (12.0-15.0) g/dL Hct 35.0 L (37.2-46.3) % MPV 8.8 L (9.5-12.2) FL Immature Gran # 0.06 H (0.00-0.04) X 10*3/uL BUN 3.9 L (9.0-27.0) mg/dL BUN/Creatinine Ratio 6.50 L (12.00-20.00) Ratio Calcium 8.6 L (8.7-10.3) mg/dL AST 10 L (13-35) U/L Total Protein 5.5 L (6.2-8.2) g/dL Albumin 3.0 L (3.8-4.9) g/dL Albumin/Globulin Ratio 1.20 L (1.60-3.17) Ratio Microbiology - Last 24 Hours (Table) 01/11/24 18:22 Urine Culture - Final Urine,Clean Catch Escherichia coli 01/11/24 18:30 Blood Culture - Preliminary Blood 01/11/24 18:15 Blood Culture - Preliminary Blood
--- NOTE | 2024-01-14 15:51 | P.PN ---
Subjective Progress Note Date: 01/14/24 Principal diagnosis: Reason for follow-up is complicated diverticulitis Patient is a 73-year-old female with a past medical history significant for COPD hyperlipidemia osteoarthritis patient recently did have a fall on the ice and did have right lower extremity ankle fracture patient did have surgery and currently in a cast patient seem to have a problem with the bow el and constipation since her surgery, presenting to the hospital with abdominal pain and fever has been diagnosed with a complicated sigmoid diverticulitis concern for possible colovaginal fistula this patient was status post diagnostic laparoscopy and abdominal washout. On today's evaluation that is 01/14/2024,the patient remains to be afebrile, patient is on r 2 L nasal cannula supplemental oxygen and denies any shortness of breath no chest pain or cough.Patient denies having any nausea or vomiting, abdominal pain decreased however the patient is concerned about passing stool through her vagina. Patient white count is 7.06, creatinine 0.6 urine is growing E. coli that is sensitive pathogen Objective - Vital Signs Vital signs: Vital Signs Temp 97.9 F 01/14/24 12:05 Pulse 96 01/14/24 12:05 Resp 16 01/14/24 12:05 BP 156/75 01/14/24 12:05 Pulse Ox 92 L 01/14/24 12:05 FiO2 Intake & Output 01/13/24 01/14/24 01/14/24 18:59 06:59 18:59 Intake Total 480 700 Output Total 1080 680 40 Balance -600 20 -40 Intake: Intake, IV Titration 100 Amount Piperacillin-Tazobactam 3 100 .375 gm In Sodium Chloride 0.9% 100 ml @ 25 mls/hr IVPB Q8H [facility] Rx#: [id number] Oral 480 600 Output: Drainage 80 80 40 Lower Abdomen 80 80 40 Urine 1000 600 Other: Voiding Method External Catheter External Catheter # Voids 2 # Bowel Movements 1 - Exam GENERAL DESCRIPTION: An elderly female lying in bed in no distress RESPIRATORY SYSTEM: Unlabored breathing , decreased breath sounds at bases HEART: S1 S2 regular rate and rhythm , ABDOMEN: Soft , no tenderness EXTREMITIES: No edema feet - Labs CBC & Chem 7: 01/14/24 05:48 01/14/24 05:48 Labs: Abnormal Lab Results - Last 24 Hours (Table) 01/14/24 01/14/24 Range/Units 05:48 05:48 RBC 3.76 L (4.10-5.20) X 10*6/uL Hgb 11.2 L (12.0-15.0) g/dL Hct 35.0 L (37.2-46.3) % MPV 8.8 L (9.5-12.2) FL Immature Gran # 0.06 H (0.00-0.04) X 10*3/uL BUN 3.9 L (9.0-27.0) mg/dL BUN/Creatinine Ratio 6.50 L (12.00-20.00) Ratio Calcium 8.6 L (8.7-10.3) mg/dL AST 10 L (13-35) U/L Total Protein 5.5 L (6.2-8.2) g/dL Albumin 3.0 L (3.8-4.9) g/dL Albumin/Globulin Ratio 1.20 L (1.60-3.17) Ratio Microbiology - Last 24 Hours (Table) 01/11/24 18:22 Urine Culture - Final Urine,Clean Catch Escherichia coli 01/11/24 18:30 Blood Culture - Preliminary Blood 01/11/24 18:15 Blood Culture - Preliminary Blood Assessment and Plan (1) Diverticulitis of large intestine with complication Current Visit: Yes Status: Acute Code(s): K57.32 - DVTRCLI OF LG INT W/O PERFORATION OR ABSCESS W/O BLEEDING SNOMED Code(s): 549484486 Plan: 1patient presented to the hospital with sepsis in this patient who did have fever tachycardia elevated white count source is complicated diverticulitis concern for possible colovaginal fistula, in this patient who is status post diagnostic laparoscopy and washout but no culture and did not mention any cherise perforation of the colon, likely organism need to cover will be enteric gram- negative both anaerobes and anaerobes 2patient is afebrile white count is normalized however the patient now started having stool through her vagina confirming her colovaginal fistula FAMILY ADVOCATE service has been consulted possible transfer to tertiary care continue with the Zosyn Dictation was produced using [employer] dictation software. please excuse any grammatical, word or spelling errors. Time with Patient: Less than 30
--- NOTE | 2024-01-15 11:03 | P.PN ---
Subjective Progress Note Date: 01/15/24 Padmini Graham, is a 73-year-old female patient who presented to the ER with concerns of abdominal pain and issues with intermittent constipation since November when she underwent a right ankle surgery patient reports she's been having some loose stools but still having severe left lower quadrant abdominal pain with occasional nausea. Patient has past medical history of COPD, hyperlipidemia, osteoarthritis, cholecystectomy, hernia repair and incisional hernia. CT of abdomen and pelvis completed showing complicated sigmoid diverticulitis changes with containing feces situated near the superior aspect of the vagina with possible: Vagina fistula not excluded there is also situated near the urinary bladder wall with mild thickening of the urinary Bladder correlate with urinary analysis for superimposed cystitis. Patient has been admitted under surgical services. Infectious disease service is consulted. Per surgical services plan for or with diagnostic laparoscopic and abdominal washout with possible exploratory lap. Current vital signs temp 98.3, heart rate 87, respiratory rate 18, blood pressure 155/65 and pulse ox 95%. Patient started on IV Zosyn. Blood cultures ordered urine culture ordered. On 01/13/2024 patient was seen and examined on the medical floor she is alert and oriented 3 in no apparent distress, she underwent diagnostic laparoscopy with abdominal washout yesterday, she is complaining of nausea, and mild abdominal pain otherwise she denies any complaints at this time, there is no fever or chills no headache or dizziness no chest pain no shortness of breath no cough no vomiting no diarrhea and no urinary symptoms. She remains on IV fluid, IV antibiotic Zosyn, pain management with morphine, symptomatic management for nausea with Zofran and Compazine. Temperature 98.2 blood pressure 111/65 pulse 86 respirations 16 pulse ox 95% on room air, white blood count 10.36 hemoglobin 11.2 platelet count 382 BUN 4.5 creatinine 0.7 On 01/14/2024 patient is alert and oriented x 3. Patient is currently resting comfortably in bed. Patient's to bring in patient's scooter so she can get out of bed. Patient reports improvement with nausea. Current vital signs Temp 97.6, heart rate 88, respiratory rate 18, blood pressure 168/78 with a pulse ox of 95% on room air. Patient remains on IV Zosyn On 01/15/2024 patient is alert and oriented x 3. Patient went ports some improvement with abdominal discomfort. Per surgical services patient will need fistula repaired at some time. Dr. Nava consulted. Current vital signs Temp 98.7, heart rate 78, respiratory rate 16, blood pressure 156/82 with a pulse ox of 96%. Patient remains on IV Zosyn. Clear liquid diet Objective - Vital Signs Vital signs: Vital Signs Temp 98.7 F 01/15/24 07:14 Pulse 78 01/15/24 07:14 Resp 16 01/15/24 07:14 BP 156/82 01/15/24 07:14 Pulse Ox 96 01/15/24 07:14 FiO2 Intake & Output 01/14/24 01/15/24 01/15/24 18:59 06:59 18:59 Intake Total 200 Output Total 40 50 Balance 160 -50 Intake: Intake, IV Titration 200 Amount Piperacillin-Tazobactam 3 200 .375 gm In Sodium Chloride 0.9% 100 ml @ 25 mls/hr IVPB Q8H [facility] Rx#: [id number] Output: Drainage 40 50 Lower Abdomen 40 50 Other: Voiding Method External Catheter External Catheter # Voids 4 1 # Bowel Movements 1 1 1 - Exam Head normocephalic Neck supple Lungs clear to auscultation bilaterally no wheezing or crackles Heart regular rate and rhythm S1-S2, no rub or gallop Abdomen is soft nontender nondistended positive bowel sounds no hepatosplenomegaly Extremities no edema Neuro alert and orientated to 3 - Labs CBC & Chem 7: 01/14/24 05:48 01/14/24 05:48 Labs: Abnormal Lab Results - Last 24 Hours (Table) 01/14/24 01/14/24 Range/Units 05:48 05:48 RBC 3.76 L (4.10-5.20) X 10*6/uL Hgb 11.2 L (12.0-15.0) g/dL Hct 35.0 L (37.2-46.3) % MPV 8.8 L (9.5-12.2) FL Immature Gran # 0.06 H (0.00-0.04) X 10*3/uL BUN 3.9 L (9.0-27.0) mg/dL BUN/Creatinine Ratio 6.50 L (12.00-20.00) Ratio Calcium 8.6 L (8.7-10.3) mg/dL AST 10 L (13-35) U/L Total Protein 5.5 L (6.2-8.2) g/dL Albumin 3.0 L (3.8-4.9) g/dL Albumin/Globulin Ratio 1.20 L (1.60-3.17) Ratio Microbiology - Last 24 Hours (Table) 01/11/24 18:30 Blood Culture - Preliminary Blood 01/11/24 18:15 Blood Culture - Preliminary Blood Assessment and Plan Assessment: 1. Complicated diverticulitis patient admitted to surgical services. Status post diagnostic laparoscopic with abdominal washout 2. History of ankle surgery in November 3. History of constipation over the past month 4. History of COPD 5. History of hyperlipidemia 6. History of osteoarthritis 7. History of appendectomy 8. History of cholecystectomy 9. Ex-smoker 10. Colovaginal fistula Thank you for this consultation we will continue to follow patient closely throughout stay Infectious disease service is consulted Patient started on IV Zosyn Repeat labs ordered Blood culture ordered
[2024-01-15 11:26] LABS: Basophils # (A) 0.06 X 10*3/uL (0.00-0.10); Eosinophils # (A) 0.23 X 10*3/uL (0.04-0.35); Eosinophils % (A) 3.8 %; HCT 36.7 % (37.2-46.3); HGB 11.9 g/dL (12.0-15.0); Lymphocytes # (A) 0.98 X 10*3/uL (0.90-5.00); Lymphocytes % (A) 16.3 %; MCH 29.7 pg (27.0-32.0); MCHC 32.4 g/dL (32.0-37.0); MCV 91.5 FL (80.0-97.0); Mean Platelet Volume 8.9 FL (9.5-12.2); Monocytes # (A) 0.48 X 10*3/uL (0.20-1.00); NRBC Per 100 WBC 0 X 10*3/uL (0.00-0.01); Neutrophils # (A) 4.22 X 10*3/uL (1.80-7.70); Neutrophils % (A) 70.1 %; Platelet Count 436 X 10*3/uL (140-440); RBC 4.01 X 10*6/uL (4.10-5.20); RDW 12.3 % (11.5-14.5); WBC 6.02 X 10*3/uL (4.50-10.00)
[2024-01-15 11:41] LABS: ALT 9 U/L (8-44); AST 13 U/L (13-35); Albumin 3.3 g/dL (3.8-4.9); Albumin/Globulin Ratio 1.18 Ratio (1.60-3.17); Alkaline Phosphatase 64 U/L (41-126); Blood Urea Nitrogen 3.5 mg/dL (9.0-27.0); Calcium 8.9 mg/dL (8.7-10.3); Carbon Dioxide 25.9 mmol/L (21.6-31.8); Chloride 103 mmol/L (96-109); Globulin 2.8 g/dL (1.6-3.3); Glucose 97 mg/dL (70-110); Potassium 3.5 mmol/L (3.5-5.5); Sodium 141 mmol/L (135-145); Total Bilirubin 0.3 mg/dL (0.3-1.2); Total Protein 6.1 g/dL (6.2-8.2)
--- NOTE | 2024-01-15 12:33 | P.PN ---
Subjective Progress Note Date: 01/15/24 Principal diagnosis: Reason for follow-up is complicated diverticulitis Patient is a 73-year-old female with a past medical history significant for COPD hyperlipidemia osteoarthritis patient recently did have a fall on the ice and did have right lower extremity ankle fracture patient did have surgery and currently in a cast patient seem to have a problem with the bow el and constipation since her surgery, presenting to the hospital with abdominal pain and fever has been diagnosed with a complicated sigmoid diverticulitis concern for possible colovaginal fistula this patient was status post diagnostic laparoscopy and abdominal washout. On today's evaluation that is 01/15/2024, the patient continues to be afebrile, the patient is on room air and breathing comfortably, the Pt denies having any chest pain or cough, the patient denies abdominal pain down to 2 out of 10 no nausea no vomiting still complaining of passing stool through her vagina. Patient white count is 6.02, creatinine 0.7 Objective - Vital Signs Vital signs: Vital Signs Temp 98.7 F 01/15/24 07:14 Pulse 78 01/15/24 07:14 Resp 16 01/15/24 07:14 BP 156/82 01/15/24 07:14 Pulse Ox 96 01/15/24 07:14 FiO2 Intake & Output 01/14/24 01/15/24 01/15/24 18:59 06:59 18:59 Intake Total 200 Output Total 40 50 Balance 160 -50 Intake: Intake, IV Titration 200 Amount Piperacillin-Tazobactam 3 200 .375 gm In Sodium Chloride 0.9% 100 ml @ 25 mls/hr IVPB Q8H [facility] Rx#: [id number] Output: Drainage 40 50 Lower Abdomen 40 50 Other: Voiding Method External Catheter External Catheter Bedside Commode Diaper # Voids 4 1 # Bowel Movements 1 1 1 - Exam GENERAL DESCRIPTION: An elderly female lying in bed in no distress RESPIRATORY SYSTEM: Unlabored breathing , decreased breath sounds at bases HEART: S1 S2 regular rate and rhythm , ABDOMEN: Soft , no tenderness EXTREMITIES: No edema feet - Labs CBC & Chem 7: 01/15/24 06:33 01/15/24 06:33 Labs: Abnormal Lab Results - Last 24 Hours (Table) 01/15/24 01/15/24 Range/Units 06:33 06:33 RBC 4.01 L (4.10-5.20) X 10*6/uL Hgb 11.9 L (12.0-15.0) g/dL Hct 36.7 L (37.2-46.3) % MPV 8.9 L (9.5-12.2) FL Immature Gran # 0.05 H (0.00-0.04) X 10*3/uL Anion Gap 12.10 H (4.00-12.00) mmol/L BUN 3.5 L (9.0-27.0) mg/dL BUN/Creatinine Ratio 5.00 L (12.00-20.00) Ratio Total Protein 6.1 L (6.2-8.2) g/dL Albumin 3.3 L (3.8-4.9) g/dL Albumin/Globulin Ratio 1.18 L (1.60-3.17) Ratio Microbiology - Last 24 Hours (Table) 01/11/24 18:30 Blood Culture - Preliminary Blood 01/11/24 18:15 Blood Culture - Preliminary Blood Assessment and Plan (1) Diverticulitis of large intestine with complication Current Visit: Yes Status: Acute Code(s): K57.32 - DVTRCLI OF LG INT W/O PERFORATION OR ABSCESS W/O BLEEDING SNOMED Code(s): 728822559 Plan: 1patient presented to the hospital with sepsis in this patient who did have fever tachycardia elevated white count source is complicated diverticulitis concern for possible colovaginal fistula, in this patient who is status post diagnostic laparoscopy and washout but no culture and did not mention any cherise perforation of the colon, likely organism need to cover will be enteric gram- negative both anaerobes and anaerobes 2patient is afebrile white count is normalized however the patient started having stool through her vagina confirming her colovaginal fistula ELECTROSTATIC PAINTER service has been consulted, awaiting further recommendation from surgical team 3continue with Zosyn and monitor clinical course closely Dictation was produced using [employer] dictation software. please excuse any grammatical, word or spelling errors. Time with Patient: Less than 30
--- NOTE | 2024-01-15 13:36 | P.PN ---
Subjective Progress Note Date: 01/15/24 CHIEF COMPLAINT: Diverticulitis HISTORY OF PRESENT ILLNESS: Patient postop day #3 status post diagnostic laparoscopy with abdominal washout. Patient reports that she continues to have passed stool and air through the vagina. Her pain is controlled. She does report pressure in the vagina and rectum area. She denies any nausea or vomiting. Afebrile. WBC 6.02 PHYSICAL EXAM: VITAL SIGNS: Reviewed. GENERAL: Well-developed in no acute distress. ABDOMEN: Soft. Incision sites clean dry and intact. NEUROLOGIC: Alert and oriented. Cranial nerves II through XII grossly intact. ASSESSMENT: 1. Complicated perforated diverticulitis with abscess status post diagnostic laparoscopy with abdominal washout 2. 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 -Currently recommend continuing with antibiotics and surgical correction of colovaginal fistula in the future with Dr. Nava. Patient is agreeable to continue her surgical care through Dr. Nava. Patient was offered option of seeing a colorectal specialist at another facility. She has declined that option at this time -Continue antibiotics -Continue pain management -DVT prophylaxis subcu heparin and GI prophylaxis Protonix Physician Hr Administrator note has been reviewed by physician. Signing provider agrees with the documented findings, assessment, and plan of care. Objective - Vital Signs Vital signs: Vital Signs Temp 98.7 F 01/15/24 07:14 Pulse 78 01/15/24 07:14 Resp 16 01/15/24 07:14 BP 156/82 01/15/24 07:14 Pulse Ox 96 01/15/24 07:14 FiO2 Intake & Output 01/14/24 01/15/24 01/15/24 18:59 06:59 18:59 Intake Total 200 Output Total 40 50 Balance 160 -50 Intake: Intake, IV Titration 200 Amount Piperacillin-Tazobactam 3 200 .375 gm In Sodium Chloride 0.9% 100 ml @ 25 mls/hr IVPB Q8H [facility] Rx#: [id number] Output: Drainage 40 50 Lower Abdomen 40 50 Other: Voiding Method External Catheter External Catheter Bedside Commode Diaper # Voids 4 1 # Bowel Movements 1 1 1 - Labs CBC & Chem 7: 01/15/24 06:33 01/15/24 06:33 Labs: Abnormal Lab Results - Last 24 Hours (Table) 01/15/24 01/15/24 Range/Units 06:33 06:33 RBC 4.01 L (4.10-5.20) X 10*6/uL Hgb 11.9 L (12.0-15.0) g/dL Hct 36.7 L (37.2-46.3) % MPV 8.9 L (9.5-12.2) FL Immature Gran # 0.05 H (0.00-0.04) X 10*3/uL Anion Gap 12.10 H (4.00-12.00) mmol/L BUN 3.5 L (9.0-27.0) mg/dL BUN/Creatinine Ratio 5.00 L (12.00-20.00) Ratio Total Protein 6.1 L (6.2-8.2) g/dL Albumin 3.3 L (3.8-4.9) g/dL Albumin/Globulin Ratio 1.18 L (1.60-3.17) Ratio Microbiology - Last 24 Hours (Table) 01/11/24 18:30 Blood Culture - Preliminary Blood 01/11/24 18:15 Blood Culture - Preliminary Blood
[2024-01-15] MEDS ORDERED: ZINC OXIDE PASTE (Z-GUARD) 1 APPLIC TOPICAL PRN (16:36)
[2024-01-16] MEDS: ACETAMINOPHEN TAB 500 MG TAB PO PRN (09:21)
[2024-01-16 11:05] LABS: Basophils # (A) 0.05 X 10*3/uL (0.00-0.10); Basophils % (A) 0.9 %; Eosinophils # (A) 0.22 X 10*3/uL (0.04-0.35); Eosinophils % (A) 4.2 %; HCT 33.5 % (37.2-46.3); Lymphocytes # (A) 0.97 X 10*3/uL (0.90-5.00); Lymphocytes % (A) 18.3 %; MCH 29.6 pg (27.0-32.0); MCHC 32.8 g/dL (32.0-37.0); MCV 90.3 FL (80.0-97.0); Mean Platelet Volume 8.9 FL (9.5-12.2); Monocytes # (A) 0.57 X 10*3/uL (0.20-1.00); Monocytes % (A) 10.8 %; NRBC Per 100 WBC 0 X 10*3/uL (0.00-0.01); Neutrophils # (A) 3.42 X 10*3/uL (1.80-7.70); Neutrophils % (A) 64.5 %; Platelet Count 397 X 10*3/uL (140-440); RBC 3.71 X 10*6/uL (4.10-5.20); RDW 12.4 % (11.5-14.5)
[2024-01-16 11:28] LABS: ALT 8 U/L (8-44); AST 17 U/L (13-35); Albumin 3.1 g/dL (3.8-4.9); Albumin/Globulin Ratio 1.24 Ratio (1.60-3.17); Alkaline Phosphatase 54 U/L (41-126); BUN/Creat Ratio <5.00 Ratio (12.00-20.00); Blood Urea Nitrogen <3.5 mg/dL (9.0-27.0); Calcium 8.6 mg/dL (8.7-10.3); Carbon Dioxide 29.3 mmol/L (21.6-31.8); Chloride 104 mmol/L (96-109); Globulin 2.5 g/dL (1.6-3.3); Glucose 105 mg/dL (70-110); Potassium 3.2 mmol/L (3.5-5.5); Sodium 143 mmol/L (135-145); Total Bilirubin 0.3 mg/dL (0.3-1.2); Total Protein 5.6 g/dL (6.2-8.2)
--- NOTE | 2024-01-16 11:57 | P.PN ---
Subjective Progress Note Date: 01/16/24 Principal diagnosis: Reason for follow-up is complicated diverticulitis Patient is a 73-year-old female with a past medical history significant for COPD hyperlipidemia osteoarthritis patient recently did have a fall on the ice and did have right lower extremity ankle fracture patient did have surgery and currently in a cast patient seem to have a problem with the bow el and constipation since her surgery, presenting to the hospital with abdominal pain and fever has been diagnosed with a complicated sigmoid diverticulitis concern for possible colovaginal fistula this patient was status post diagnostic laparoscopy and abdominal washout. On today's evaluation that is 01/16/2024, Patient is afebrile patient is currently on room air and denies having any shortness of breath, the patient denies any chest pain or cough, the patient denies any nausea vomiting abdominal pain has decreased in intensity and overall stool output through the vagina has decreased per patient. Patient white count is 5.30, creatinine 0.7 blood culture negative Objective - Vital Signs Vital signs: Vital Signs Temp 97.9 F 01/16/24 07:13 Pulse 83 01/16/24 08:00 Resp 16 01/16/24 08:00 BP 161/78 01/16/24 07:13 Pulse Ox 97 01/16/24 07:13 FiO2 Intake & Output 01/15/24 01/16/24 01/16/24 18:59 06:59 18:59 Intake Total 100 0 Output Total 30 Balance 100 0 -30 Intake: Intake, IV Titration 100 Amount Piperacillin-Tazobactam 3 100 .375 gm In Sodium Chloride 0.9% 100 ml @ 25 mls/hr IVPB Q8H [facility] Rx#: [id number] Oral 0 Output: Drainage 30 Lower Abdomen 30 Other: Voiding Method Bedside Commode Toilet Toilet Diaper Bedside Commode Bedside Commode Diaper Diaper # Voids 2 3 # Bowel Movements 2 1 - Exam GENERAL DESCRIPTION: An elderly female lying in bed in no distress RESPIRATORY SYSTEM: Unlabored breathing , decreased breath sounds at bases HEART: S1 S2 regular rate and rhythm , ABDOMEN: Soft , no tenderness EXTREMITIES: No edema feet - Labs CBC & Chem 7: 01/16/24 06:47 01/16/24 06:47 Labs: Abnormal Lab Results - Last 24 Hours (Table) 01/16/24 01/16/24 Range/Units 06:47 06:47 RBC 3.71 L (4.10-5.20) X 10*6/uL Hgb 11.0 L (12.0-15.0) g/dL Hct 33.5 L (37.2-46.3) % MPV 8.9 L (9.5-12.2) FL Immature Gran # 0.07 H (0.00-0.04) X 10*3/uL Potassium 3.2 L (3.5-5.5) mmol/L BUN <3.5 L (9.0-27.0) mg/dL BUN/Creatinine Ratio <5.00 L (12.00-20.00) Ratio Calcium 8.6 L (8.7-10.3) mg/dL Total Protein 5.6 L (6.2-8.2) g/dL Albumin 3.1 L (3.8-4.9) g/dL Albumin/Globulin Ratio 1.24 L (1.60-3.17) Ratio Assessment and Plan (1) Diverticulitis of large intestine with complication Current Visit: Yes Status: Acute Code(s): K57.32 - DVTRCLI OF LG INT W/O PERFORATION OR ABSCESS W/O BLEEDING SNOMED Code(s): 802408181 Plan: 1patient presented to the hospital with sepsis in this patient who did have fever tachycardia elevated white count source is complicated diverticulitis concern for possible colovaginal fistula, in this patient who is status post diagnostic laparoscopy and washout but no culture and did not mention any cherise perforation of the colon, likely organism need to cover will be enteric gram- negative both anaerobes and anaerobes 2patient is afebrile white count is normalized however the patient started having stool through her vagina confirming her colovaginal fistula surgical team is following the patient closely 3patient to continue with Zosyn question concern answered Dictation was produced using [employer] dictation software. please excuse any grammatical, word or spelling errors. Time with Patient: Less than 30
[2024-01-16 14:57] VITALS: BMI 31.1
--- NOTE | 2024-01-16 15:10 | P.PN ---
Subjective Progress Note Date: 01/16/24 CHIEF COMPLAINT: Diverticulitis HISTORY OF PRESENT ILLNESS: Patient postop day #4 status post diagnostic laparoscopy with abdominal washout. Patient reports decrease in the amount of stool being passed through her vagina. Minimal pain in the rectal vagina area. Afebrile. WBC 5.3 potassium 3.2 PHYSICAL EXAM: VITAL SIGNS: Reviewed. GENERAL: Well-developed in no acute distress. ABDOMEN: Soft. Incision sites clean dry and intact. NEUROLOGIC: Alert and oriented. Cranial nerves II through XII grossly intact. ASSESSMENT: 1. Complicated perforated diverticulitis with abscess status post diagnostic laparoscopy with abdominal washout 2. 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 -Currently recommend continuing with antibiotics and surgical correction of colovaginal fistula in the future with Dr. Nava. Patient is agreeable to continue her surgical care through Dr. Nava. Patient was offered option of seeing a colorectal specialist at another facility. She has declined that option at this time -Continue pain management. Tylenol ordered as needed for pain -DVT prophylaxis subcu heparin and GI prophylaxis Protonix Physician Coal Pulverizing Operator note has been reviewed by physician. Signing provider agrees with the documented findings, assessment, and plan of care. Objective - Vital Signs Vital signs: Vital Signs Temp 97.5 F L 01/16/24 12:54 Pulse 82 01/16/24 12:54 Resp 16 01/16/24 12:54 BP 158/79 01/16/24 12:54 Pulse Ox 97 01/16/24 12:54 FiO2 Intake & Output 01/15/24 01/16/24 01/16/24 18:59 06:59 18:59 Intake Total 100 0 Output Total 30 Balance 100 0 -30 Weight 77.111 kg Intake: Intake, IV Titration 100 Amount Piperacillin-Tazobactam 3 100 .375 gm In Sodium Chloride 0.9% 100 ml @ 25 mls/hr IVPB Q8H [facility] Rx#: [id number] Oral 0 Output: Drainage 30 Lower Abdomen 30 Other: Voiding Method Bedside Commode Toilet Toilet Diaper Bedside Commode Bedside Commode Diaper Diaper # Voids 2 3 # Bowel Movements 2 1 - Labs CBC & Chem 7: 01/16/24 06:47 01/16/24 06:47 Labs: Abnormal Lab Results - Last 24 Hours (Table) 01/16/24 01/16/24 Range/Units 06:47 06:47 RBC 3.71 L (4.10-5.20) X 10*6/uL Hgb 11.0 L (12.0-15.0) g/dL Hct 33.5 L (37.2-46.3) % MPV 8.9 L (9.5-12.2) FL Immature Gran # 0.07 H (0.00-0.04) X 10*3/uL Potassium 3.2 L (3.5-5.5) mmol/L BUN <3.5 L (9.0-27.0) mg/dL BUN/Creatinine Ratio <5.00 L (12.00-20.00) Ratio Calcium 8.6 L (8.7-10.3) mg/dL Total Protein 5.6 L (6.2-8.2) g/dL Albumin 3.1 L (3.8-4.9) g/dL Albumin/Globulin Ratio 1.24 L (1.60-3.17) Ratio
--- NOTE | 2024-01-16 16:32 | P.PN ---
Subjective Progress Note Date: 01/16/24 Padmini Graham, is a 73-year-old female patient who presented to the ER with concerns of abdominal pain and issues with intermittent constipation since November when she underwent a right ankle surgery patient reports she's been having some loose stools but still having severe left lower quadrant abdominal pain with occasional nausea. Patient has past medical history of COPD, hyperlipidemia, osteoarthritis, cholecystectomy, hernia repair and incisional hernia. CT of abdomen and pelvis completed showing complicated sigmoid diverticulitis changes with containing feces situated near the superior aspect of the vagina with possible: Vagina fistula not excluded there is also situated near the urinary bladder wall with mild thickening of the urinary Bladder correlate with urinary analysis for superimposed cystitis. Patient has been admitted under surgical services. Infectious disease service is consulted. Per surgical services plan for or with diagnostic laparoscopic and abdominal washout with possible exploratory lap. Current vital signs temp 98.3, heart rate 87, respiratory rate 18, blood pressure 155/65 and pulse ox 95%. Patient started on IV Zosyn. Blood cultures ordered urine culture ordered. On 01/13/2024 patient was seen and examined on the medical floor she is alert and oriented 3 in no apparent distress, she underwent diagnostic laparoscopy with abdominal washout yesterday, she is complaining of nausea, and mild abdominal pain otherwise she denies any complaints at this time, there is no fever or chills no headache or dizziness no chest pain no shortness of breath no cough no vomiting no diarrhea and no urinary symptoms. She remains on IV fluid, IV antibiotic Zosyn, pain management with morphine, symptomatic management for nausea with Zofran and Compazine. Temperature 98.2 blood pressure 111/65 pulse 86 respirations 16 pulse ox 95% on room air, white blood count 10.36 hemoglobin 11.2 platelet count 382 BUN 4.5 creatinine 0.7 On 01/14/2024 patient is alert and oriented x 3. Patient is currently resting comfortably in bed. Patient's to bring in patient's scooter so she can get out of bed. Patient reports improvement with nausea. Current vital signs Temp 97.6, heart rate 88, respiratory rate 18, blood pressure 168/78 with a pulse ox of 95% on room air. Patient remains on IV Zosyn On 01/15/2024 patient is alert and oriented x 3. Patient went ports some improvement with abdominal discomfort. Per surgical services patient will need fistula repaired at some time. Dr. Nava consulted. Current vital signs Temp 98.7, heart rate 78, respiratory rate 16, blood pressure 156/82 with a pulse ox of 96%. Patient remains on IV Zosyn. Clear liquid diet On 01/16/2024 patient was seen and examined on the medical floor she is alert and oriented 3 in no apparent distress she is complaining of abdominal discomfort otherwise she denies any complaints her vital exam reveals a temperature of 97.5 pulse 82 respiration 16 blood pressure 158/79 pulse ox 97% on room air white blood count is 5.3 hemoglobin 11.0 platelet count 397 potassium is low at 3.2 patient is maintained on IV Zosyn general surgery and infectious disease are following Objective - Vital Signs Vital signs: Vital Signs Temp 97.9 F 01/16/24 07:13 Pulse 83 01/16/24 07:13 Resp 16 01/16/24 07:13 BP 161/78 01/16/24 07:13 Pulse Ox 97 01/16/24 07:13 FiO2 Intake & Output 01/15/24 01/16/24 01/16/24 18:59 06:59 18:59 Intake Total 100 0 Balance 100 0 Intake: Intake, IV Titration 100 Amount Piperacillin-Tazobactam 3 100 .375 gm In Sodium Chloride 0.9% 100 ml @ 25 mls/hr IVPB Q8H [facility] Rx#: [id number] Oral 0 Other: Voiding Method Bedside Commode Toilet Diaper Bedside Commode Diaper # Voids 2 3 # Bowel Movements 2 1 - Exam Head normocephalic Neck supple Lungs clear to auscultation bilaterally no wheezing or crackles Heart regular rate and rhythm S1-S2, no rub or gallop Abdomen is soft nontender nondistended positive bowel sounds no hep atosplenomegaly Extremities no edema Neuro alert and orientated to 3 - Labs CBC & Chem 7: 01/16/24 06:47 01/16/24 06:47 Labs: Abnormal Lab Results - Last 24 Hours (Table) 01/15/24 01/15/24 Range/Units 06:33 06:33 RBC 4.01 L (4.10-5.20) X 10*6/uL Hgb 11.9 L (12.0-15.0) g/dL Hct 36.7 L (37.2-46.3) % MPV 8.9 L (9.5-12.2) FL Immature Gran # 0.05 H (0.00-0.04) X 10*3/uL Anion Gap 12.10 H (4.00-12.00) mmol/L BUN 3.5 L (9.0-27.0) mg/dL BUN/Creatinine Ratio 5.00 L (12.00-20.00) Ratio Total Protein 6.1 L (6.2-8.2) g/dL Albumin 3.3 L (3.8-4.9) g/dL Albumin/Globulin Ratio 1.18 L (1.60-3.17) Ratio Assessment and Plan Assessment: 1. Compensated diverticulitis patient admitted to surgical services plan for expiratory lap per surgical services 2. History of ankle surgery in November 3. History of constipation over the past month 4. History of COPD 5. History of hyperlipidemia 6. History of osteoarthritis 7. History of appendectomy 8. History of cholecystectomy 9. Ex-smoker Thank you for this consultation we will continue to follow patient closely throughout stay Infectious disease service is consulted Patient started on IV Zosyn Repeat labs ordered Blood culture ordered
[2024-01-16] MEDS: POTASSIUM CHLORIDE ER 20 MEQ TAB.ER PO STA (16:55)
[2024-01-17 11:34] LABS: Basophils # (A) 0.09 X 10*3/uL (0.00-0.10); Basophils % (A) 1.7 %; Eosinophils # (A) 0.36 X 10*3/uL (0.04-0.35); HCT 34.2 % (37.2-46.3); HGB 10.8 g/dL (12.0-15.0); Lymphocytes # (A) 1.63 X 10*3/uL (0.90-5.00); Lymphocytes % (A) 31.7 %; MCHC 31.6 g/dL (32.0-37.0); MCV 91.7 FL (80.0-97.0); Mean Platelet Volume 8.8 FL (9.5-12.2); Monocytes # (A) 0.55 X 10*3/uL (0.20-1.00); Monocytes % (A) 10.7 %; NRBC Per 100 WBC 0 X 10*3/uL (0.00-0.01); Neutrophils # (A) 2.46 X 10*3/uL (1.80-7.70); Neutrophils % (A) 47.7 %; Platelet Count 427 X 10*3/uL (140-440); RBC 3.73 X 10*6/uL (4.10-5.20); RDW 12.9 % (11.5-14.5); WBC 5.15 X 10*3/uL (4.50-10.00)
[2024-01-17 11:45] LABS: ALT 8 U/L (8-44); AST 17 U/L (13-35); Albumin 3.1 g/dL (3.8-4.9); Albumin/Globulin Ratio 1.19 Ratio (1.60-3.17); Alkaline Phosphatase 50 U/L (41-126); Blood Urea Nitrogen 4.4 mg/dL (9.0-27.0); Calcium 8.8 mg/dL (8.7-10.3); Carbon Dioxide 27.7 mmol/L (21.6-31.8); Chloride 109 mmol/L (96-109); Globulin 2.6 g/dL (1.6-3.3); Glucose 92 mg/dL (70-110); Potassium 4.2 mmol/L (3.5-5.5); Sodium 146 mmol/L (135-145); Total Bilirubin 0.2 mg/dL (0.3-1.2); Total Protein 5.7 g/dL (6.2-8.2)
--- NOTE | 2024-01-17 15:00 | P.PN ---
Subjective Progress Note Date: 01/17/24 Padmini Graham, is a 73-year-old female patient who presented to the ER with concerns of abdominal pain and issues with intermittent constipation since November when she underwent a right ankle surgery patient reports she's been having some loose stools but still having severe left lower quadrant abdominal pain with occasional nausea. Patient has past medical history of COPD, hyperlipidemia, osteoarthritis, cholecystectomy, hernia repair and incisional hernia. CT of abdomen and pelvis completed showing complicated sigmoid diverticulitis changes with containing feces situated near the superior aspect of the vagina with possible: Vagina fistula not excluded there is also situated near the urinary bladder wall with mild thickening of the urinary Bladder correlate with urinary analysis for superimposed cystitis. Patient has been admitted under surgical services. Infectious disease service is consulted. Per surgical services plan for or with diagnostic laparoscopic and abdominal washout with possible exploratory lap. Current vital signs temp 98.3, heart rate 87, respiratory rate 18, blood pressure 155/65 and pulse ox 95%. Patient started on IV Zosyn. Blood cultures ordered urine culture ordered. On 01/13/2024 patient was seen and examined on the medical floor she is alert and oriented 3 in no apparent distress, she underwent diagnostic laparoscopy with abdominal washout yesterday, she is complaining of nausea, and mild abdominal pain otherwise she denies any complaints at this time, there is no fever or chills no headache or dizziness no chest pain no shortness of breath no cough no vomiting no diarrhea and no urinary symptoms. She remains on IV fluid, IV antibiotic Zosyn, pain management with morphine, symptomatic management for nausea with Zofran and Compazine. Temperature 98.2 blood pressure 111/65 pulse 86 respirations 16 pulse ox 95% on room air, white blood count 10.36 hemoglobin 11.2 platelet count 382 BUN 4.5 creatinine 0.7 On 01/14/2024 patient is alert and oriented x 3. Patient is currently resting comfortably in bed. Patient's to bring in patient's scooter so she can get out of bed. Patient reports improvement with nausea. Current vital signs Temp 97.6, heart rate 88, respiratory rate 18, blood pressure 168/78 with a pulse ox of 95% on room air. Patient remains on IV Zosyn On 01/15/2024 patient is alert and oriented x 3. Patient went ports some improvement with abdominal discomfort. Per surgical services patient will need fistula repaired at some time. Dr. Nava consulted. Current vital signs Temp 98.7, heart rate 78, respiratory rate 16, blood pressure 156/82 with a pulse ox of 96%. Patient remains on IV Zosyn. Clear liquid diet On 01/16/2024 patient was seen and examined on the medical floor she is alert and oriented 3 in no apparent distress she is complaining of abdominal discomfort otherwise she denies any complaints her vital exam reveals a temperature of 97.5 pulse 82 respiration 16 blood pressure 158/79 pulse ox 97% on room air white blood count is 5.3 hemoglobin 11.0 platelet count 397 potassium is low at 3.2 patient is maintained on IV Zosyn general surgery and infectious disease are following On 01/17/2024 patient was seen and examined on the medical floor, she is alert and oriented 3 in no apparent distress, there is no fever or chills no headache or dizziness no chest pain no shortness of breath no cough, no nausea or vomiting no abdominal pain no diarrhea and no urinary symptoms. Currently she is still maintained on IV Zosyn, we are waiting for further recommendation from infectious disease in regard to antibiotic at the time of discharge, patient may need the PICC line or midline depending on antibiotic recommendations, will continue to follow. Objective - Vital Signs Vital signs: Vital Signs Temp 97.7 F 01/17/24 07:42 Pulse 76 01/17/24 07:42 Resp 16 01/17/24 07:42 BP 160/66 01/17/24 07:42 Pulse Ox 98 01/17/24 07:42 FiO2 Intake & Output 01/16/24 01/17/24 01/17/24 18:59 06:59 18:59 Intake Total 360 Output Total 30 Balance 330 Weight 77.111 kg Intake: Oral 360 Output: Drainage 30 Lower Abdomen 30 Other: Voiding Method Toilet Toilet Bedside Commode Bedside Commode Diaper Diaper # Voids 4 3 - Exam Head normocephalic Neck supple Lungs clear to auscultation bilaterally no wheezing or crackles Heart regular rate and rhythm S1-S2, no rub or gallop Abdomen is soft nontender nondistended positive bowel sounds no hepatosplenomegaly Extremities no edema Neuro alert and orientated to 3 - Labs CBC & Chem 7: 01/17/24 06:29 01/17/24 06:29 Labs: Abnormal Lab Results - Last 24 Hours (Table) 01/16/24 01/16/24 Range/Units 06:47 06:47 RBC 3.71 L (4.10-5.20) X 10*6/uL Hgb 11.0 L (12.0-15.0) g/dL Hct 33.5 L (37.2-46.3) % MPV 8.9 L (9.5-12.2) FL Immature Gran # 0.07 H (0.00-0.04) X 10*3/uL Potassium 3.2 L (3.5-5.5) mmol/L BUN <3.5 L (9.0-27.0) mg/dL BUN/Creatinine Ratio <5.00 L (12.00-20.00) Ratio Calcium 8.6 L (8.7-10.3) mg/dL Total Protein 5.6 L (6.2-8.2) g/dL Albumin 3.1 L (3.8-4.9) g/dL Albumin/Globulin Ratio 1.24 L (1.60-3.17) Ratio Microbiology - Last 24 Hours (Table) 01/11/24 18:30 Blood Culture - Final Blood 01/11/24 18:15 Blood Culture - Final Blood Assessment and Plan Assessment: 1. Compensated diverticulitis patient admitted to surgical services plan for expiratory lap per surgical services 2. History of ankle surgery in November 3. History of constipation over the past month 4. History of COPD 5. History of hyperlipidemia 6. History of osteoarthritis 7. History of appendectomy 8. History of cholecystectomy 9. Ex-smoker Thank you for this consultation we will continue to follow patient closely throughout stay Infectious disease service is consulted Patient started on IV Zosyn Repeat labs ordered Blood culture ordered
--- NOTE | 2024-01-17 15:53 | P.PN ---
Subjective Progress Note Date: 01/17/24 CHIEF COMPLAINT: Diverticulitis HISTORY OF PRESENT ILLNESS: Patient postop day #5 status post diagnostic laparoscopy with abdominal washout. Patient reports decrease in the amount of stool being passed through her vagina. Minimal pain in the rectal vagina area. Afebrile. WBC 5.15 potassium better at 4.2 PHYSICAL EXAM: VITAL SIGNS: Reviewed. GENERAL: Well-developed in no acute distress. ABDOMEN: Soft. Incision sites clean dry and intact. NEUROLOGIC: Alert and oriented. Cranial nerves II through XII grossly intact. ASSESSMENT: 1. Complicated perforated diverticulitis with abscess status post diagnostic laparoscopy with abdominal washout 2. 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 -Currently recommend continuing with antibiotics and surgical correction of colovaginal fistula in the future with Dr. Nava. Patient is agreeable to continue her surgical care through Dr. Nava. Patient was offered option of seeing a colorectal specialist at another facility. She has declined that option at this time -Continue pain management. Tylenol ordered as needed for pain -DVT prophylaxis subcu heparin and GI prophylaxis Protonix Physician [employer] Tender note has been reviewed by physician. Signing provider agrees with the documented findings, assessment, and plan of care. Objective - Vital Signs Vital signs: Vital Signs Temp 97.7 F 01/17/24 15:00 Pulse 85 01/17/24 15:00 Resp 18 01/17/24 15:00 BP 147/73 01/17/24 15:00 Pulse Ox 97 01/17/24 15:00 FiO2 Intake & Output 01/16/24 01/17/24 01/17/24 18:59 06:59 18:59 Intake Total 360 Output Total 30 20 Balance 330 -20 Weight 77.111 kg 77.111 kg Intake: Oral 360 Output: Drainage 30 20 Lower Abdomen 30 20 Other: Voiding Method Toilet Toilet Toilet Bedside Commode Bedside Commode Bedside Commode Diaper Diaper # Voids 4 3 - Labs CBC & Chem 7: 01/17/24 06:29 01/17/24 06:29 Labs: Abnormal Lab Results - Last 24 Hours (Table) 01/17/24 01/17/24 Range/Units 06:29 06:29 RBC 3.73 L (4.10-5.20) X 10*6/uL Hgb 10.8 L (12.0-15.0) g/dL Hct 34.2 L (37.2-46.3) % MCHC 31.6 L (32.0-37.0) g/dL MPV 8.8 L (9.5-12.2) FL Immature Gran # 0.06 H (0.00-0.04) X 10*3/uL Eosinophils # 0.36 H (0.04-0.35) X 10*3/uL Sodium 146 H (135-145) mmol/L BUN 4.4 L (9.0-27.0) mg/dL BUN/Creatinine Ratio 5.50 L (12.00-20.00) Ratio Total Bilirubin 0.2 L (0.3-1.2) mg/dL Total Protein 5.7 L (6.2-8.2) g/dL Albumin 3.1 L (3.8-4.9) g/dL Albumin/Globulin Ratio 1.19 L (1.60-3.17) Ratio Microbiology - Last 24 Hours (Table) 01/11/24 18:30 Blood Culture - Final Blood 01/11/24 18:15 Blood Culture - Final Blood
--- NOTE | 2024-01-17 16:22 | P.PN ---
Subjective Progress Note Date: 01/17/24 Principal diagnosis: Reason for follow-up is complicated diverticulitis Patient is a 73-year-old female with a past medical history significant for COPD hyperlipidemia osteoarthritis patient recently did have a fall on the ice and did have right lower extremity ankle fracture patient did have surgery and currently in a cast patient seem to have a problem with the bow el and constipation since her surgery, presenting to the hospital with abdominal pain and fever has been diagnosed with a complicated sigmoid diverticulitis concern for possible colovaginal fistula this patient was status post diagnostic laparoscopy and abdominal washout. On today's evaluation that is 01/17/2024,the patient denies any fever or any chills, patient is breathing comfortably on room air, the patient denies chest pain shortness of breath and no significant cough, patient abdominal pain has decreased in intensity no nausea vomiting and overall stool output through vagina and urine has decreased in intensity. Patient white count is 5.15, creatinine 0.8 Objective - Vital Signs Vital signs: Vital Signs Temp 97.7 F 01/17/24 15:00 Pulse 85 01/17/24 15:00 Resp 18 01/17/24 15:00 BP 147/73 01/17/24 15:00 Pulse Ox 97 01/17/24 15:00 FiO2 Intake & Output 01/16/24 01/17/24 01/17/24 18:59 06:59 18:59 Intake Total 360 Output Total 30 20 Balance 330 -20 Weight 77.111 kg 77.111 kg Intake: Oral 360 Output: Drainage 30 20 Lower Abdomen 30 20 Other: Voiding Method Toilet Toilet Toilet Bedside Commode Bedside Commode Bedside Commode Diaper Diaper # Voids 4 3 - Exam GENERAL DESCRIPTION: An elderly female lying in bed in no distress RESPIRATORY SYSTEM: Unlabored breathing , decreased breath sounds at bases HEART: S1 S2 regular rate and rhythm , ABDOMEN: Soft , no tenderness EXTREMITIES: No edema feet - Labs CBC & Chem 7: 01/17/24 06:29 01/17/24 06:29 Labs: Abnormal Lab Results - Last 24 Hours (Table) 01/17/24 01/17/24 Range/Units 06:29 06:29 RBC 3.73 L (4.10-5.20) X 10*6/uL Hgb 10.8 L (12.0-15.0) g/dL Hct 34.2 L (37.2-46.3) % MCHC 31.6 L (32.0-37.0) g/dL MPV 8.8 L (9.5-12.2) FL Immature Gran # 0.06 H (0.00-0.04) X 10*3/uL Eosinophils # 0.36 H (0.04-0.35) X 10*3/uL Sodium 146 H (135-145) mmol/L BUN 4.4 L (9.0-27.0) mg/dL BUN/Creatinine Ratio 5.50 L (12.00-20.00) Ratio Total Bilirubin 0.2 L (0.3-1.2) mg/dL Total Protein 5.7 L (6.2-8.2) g/dL Albumin 3.1 L (3.8-4.9) g/dL Albumin/Globulin Ratio 1.19 L (1.60-3.17) Ratio Microbiology - Last 24 Hours (Table) 01/11/24 18:30 Blood Culture - Final Blood 01/11/24 18:15 Blood Culture - Final Blood Assessment and Plan (1) Diverticulitis of large intestine with complication Current Visit: Yes Status: Acute Code(s): K57.32 - DVTRCLI OF LG INT W/O PERFORATION OR ABSCESS W/O BLEEDING SNOMED Code(s): 149337662 Plan: 1patient presented to the hospital with sepsis in this patient who did have fever tachycardia elevated white count source is complicated diverticulitis concern for possible colovaginal fistula, in this patient who is status post diagnostic laparoscopy and washout but no culture and did not mention any cherise perforation of the colon, likely organism need to cover will be enteric gram- negative both anaerobes and anaerobes 2patient is afebrile white count is normalized however the patient started having stool through her vagina confirming her colovaginal fistula surgical team recommending surgical procedure in February 2024 who wants her right lower extremity fracture to be healed enough to cast 3patient to continue with Zosyn however keeping in mind her extensive infection will benefit from IV antibiotics on discharge this has been discussed with the surgical [employer]PECTOR Dictation was produced using [employer] dictation software. please excuse any grammatical, word or spelling errors. Time with Patient: Less than 30
[2024-01-17] MEDS: NYSTATIN 100,000 UNIT/GM POWD 15 GM TOPICAL SCH (22:04)
--- NOTE | 2024-01-18 13:59 | P.PN ---
Subjective Progress Note Date: 01/18/24 NAEON. No N/V. No F/C. Abdominal pain well controlled. Admits to flatus and non- bloody BM. Tolerating diet. Ambulatory and voiding. Objective - Vital Signs Vital signs: Vital Signs Temp 98.2 F 01/18/24 07:32 Pulse 82 01/18/24 07:32 Resp 18 01/18/24 07:32 BP 174/75 01/18/24 07:32 Pulse Ox 97 01/18/24 07:32 FiO2 Intake & Output 01/17/24 01/18/24 01/18/24 18:59 06:59 18:59 Intake Total 240 Output Total 20 235 40 Balance 220 -235 -40 Weight 77.111 kg Intake: Oral 240 Output: Drainage 20 235 40 Lower Abdomen 20 235 40 Other: Voiding Method Toilet Toilet Toilet Bedside Commode Bedside Commode Bedside Commode # Voids 4 3 # Bowel Movements 1 - Exam Gen: AxO, NAD Pulm: non-labored respirations Abd: soft, mildly tender around incisions, mildly distended. No guarding/rebound/rigidity Incisions: C/D/I No erythema or drainage seen Extrem: no edema seen - Labs CBC & Chem 7: 01/17/24 06:29 01/17/24 06:29 Assessment and Plan Assessment: ASSESSMENT: 1. Complicated perforated diverticulitis with abscess status post diagnostic laparoscopy with abdominal washout 2. 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 -Currently recommend continuing with antibiotics and surgical correction of colovaginal fistula in the future with Dr. Nava. Patient is agreeable to continue her surgical care through Dr. Nava. Patient was offered option of seeing a colorectal specialist at another facility. She has declined that optio n at this time -Continue pain management. Tylenol ordered as needed for pain -DVT prophylaxis subcu heparin and GI prophylaxis Protonix Wilfredo Veronica MD General Surgery
--- NOTE | 2024-01-18 14:04 | P.PN ---
Subjective Progress Note Date: 01/18/24 Principal diagnosis: Reason for follow-up is complicated diverticulitis Patient is a 73-year-old female with a past medical history significant for COPD hyperlipidemia osteoarthritis patient recently did have a fall on the ice and did have right lower extremity ankle fracture patient did have surgery and currently in a cast patient seem to have a problem with the bow el and constipation since her surgery, presenting to the hospital with abdominal pain and fever has been diagnosed with a complicated sigmoid diverticulitis concern for possible colovaginal fistula this patient was status post diagnostic laparoscopy and abdominal washout. On today's evaluation that is 01/18/2024,the patient remains to be afebrile, patient is on room air not requiring supplemental oxygen and denies any shortness of breath no chest pain or cough.Patient denies having any nausea or vomiting, complaining of some upper abdominal pain and irritation around the drainage catheter. Patient did not have any blood work today Objective - Vital Signs Vital signs: Vital Signs Temp 97.5 F L 01/18/24 13:21 Pulse 74 01/18/24 13:21 Resp 16 01/18/24 13:21 BP 145/69 01/18/24 13:21 Pulse Ox 98 01/18/24 13:21 FiO2 Intake & Output 01/17/24 01/18/24 01/18/24 18:59 06:59 18:59 Intake Total 240 Output Total 20 235 40 Balance 220 -235 -40 Weight 77.111 kg Intake: Oral 240 Output: Drainage 20 235 40 Lower Abdomen 20 235 40 Other: Voiding Method Toilet Toilet Toilet Bedside Commode Bedside Commode Bedside Commode # Voids 4 3 # Bowel Movements 1 - Exam GENERAL DESCRIPTION: An elderly female lying in bed in no distress RESPIRATORY SYSTEM: Unlabored breathing , decreased breath sounds at bases HEART: S1 S2 regular rate and rhythm , ABDOMEN: Soft , no tenderness EXTREMITIES: No edema feet - Labs CBC & Chem 7: 01/17/24 06:29 01/17/24 06:29 Assessment and Plan (1) Diverticulitis of large intestine with complication Current Visit: Yes Status: Acute Code(s): K57.32 - DVTRCLI OF LG INT W/O PERFORATION OR ABSCESS W/O BLEEDING SNOMED Code(s): 764479817 Plan: 1patient presented to the hospital with sepsis in this patient who did have fever tachycardia elevated white count source is complicated diverticulitis concern for possible colovaginal fistula, in this patient who is status post diagnostic laparoscopy and washout but no culture and did not mention any cherise perforation of the colon, likely organism need to cover will be enteric gram- negative both anaerobes and anaerobes 2 surgical team recommending surgical procedure in February 2024 who wants her right lower extremity fracture to be healed enough to cast 3patient to continue with Zosyn however keeping in mind her extensive infection will benefit from IV antibiotics, currently waiting for PICC line placement and outpatient IV antibiotic arrangement before discharge Dictation was produced using [employer] dictation software. please excuse any grammatical, word or spelling errors. Time with Patient: Less than 30
--- NOTE | 2024-01-18 15:59 | P.PN ---
Subjective Progress Note Date: 01/18/24 Padmini Graham, is a 73-year-old female patient who presented to the ER with concerns of abdominal pain and issues with intermittent constipation since November when she underwent a right ankle surgery patient reports she's been having some loose stools but still having severe left lower quadrant abdominal pain with occasional nausea. Patient has past medical history of COPD, hyperlipidemia, osteoarthritis, cholecystectomy, hernia repair and incisional hernia. CT of abdomen and pelvis completed showing complicated sigmoid diverticulitis changes with containing feces situated near the superior aspect of the vagina with possible: Vagina fistula not excluded there is also situated near the urinary bladder wall with mild thickening of the urinary Bladder correlate with urinary analysis for superimposed cystitis. Patient has been admitted under surgical services. Infectious disease service is consulted. Per surgical services plan for or with diagnostic laparoscopic and abdominal washout with possible exploratory lap. Current vital signs temp 98.3, heart rate 87, respiratory rate 18, blood pressure 155/65 and pulse ox 95%. Patient started on IV Zosyn. Blood cultures ordered urine culture ordered. On 01/13/2024 patient was seen and examined on the medical floor she is alert and oriented 3 in no apparent distress, she underwent diagnostic laparoscopy with abdominal washout yesterday, she is complaining of nausea, and mild abdominal pain otherwise she denies any complaints at this time, there is no fever or chills no headache or dizziness no chest pain no shortness of breath no cough no vomiting no diarrhea and no urinary symptoms. She remains on IV fluid, IV antibiotic Zosyn, pain management with morphine, symptomatic management for nausea with Zofran and Compazine. Temperature 98.2 blood pressure 111/65 pulse 86 respirations 16 pulse ox 95% on room air, white blood count 10.36 hemoglobin 11.2 platelet count 382 BUN 4.5 creatinine 0.7 On 01/14/2024 patient is alert and oriented x 3. Patient is currently resting comfortably in bed. Patient's to bring in patient's scooter so she can get out of bed. Patient reports improvement with nausea. Current vital signs Temp 97.6, heart rate 88, respiratory rate 18, blood pressure 168/78 with a pulse ox of 95% on room air. Patient remains on IV Zosyn On 01/15/2024 patient is alert and oriented x 3. Patient went ports some improvement with abdominal discomfort. Per surgical services patient will need fistula repaired at some time. Dr. Nava consulted. Current vital signs Temp 98.7, heart rate 78, respiratory rate 16, blood pressure 156/82 with a pulse ox of 96%. Patient remains on IV Zosyn. Clear liquid diet On 01/16/2024 patient was seen and examined on the medical floor she is alert and oriented 3 in no apparent distress she is complaining of abdominal discomfort otherwise she denies any complaints her vital exam reveals a temperature of 97.5 pulse 82 respiration 16 blood pressure 158/79 pulse ox 97% on room air white blood count is 5.3 hemoglobin 11.0 platelet count 397 potassium is low at 3.2 patient is maintained on IV Zosyn general surgery and infectious disease are following On 01/17/2024 patient was seen and examined on the medical floor, she is alert and oriented 3 in no apparent distress, there is no fever or chills no headache or dizziness no chest pain no shortness of breath no cough, no nausea or vomiting no abdominal pain no diarrhea and no urinary symptoms. Currently she is still maintained on IV Zosyn, we are waiting for further recommendation from infectious disease in regard to antibiotic at the time of discharge, patient may need the PICC line or midline depending on antibiotic recommendations, will continue to follow. On 01/18/2024 patient was seen and examined on the medical floor, she is alert and oriented 3, there is no fever or chills no headache or dizziness no chest pain no shortness of breath no cough, no nausea or vomiting no abdominal pain no diarrhea and no urinary symptoms. Currently she is still maintained on IV Zosyn, we are waiting for further recommendation from infectious disease in regard to antibiotic at the time of discharge, patient may need the PICC line or midline depending on antibiotic recommendations, will continue to follow. Objective - Vital Signs Vital signs: Vital Signs Temp 98.2 F 01/18/24 07:32 Pulse 82 01/18/24 07:32 Resp 18 01/18/24 07:32 BP 174/75 01/18/24 07:32 Pulse Ox 97 01/18/24 07:32 FiO2 Intake & Output 01/17/24 01/18/24 01/18/24 18:59 06:59 18:59 Intake Total 240 Output Total 20 235 40 Balance 220 -235 -40 Weight 77.111 kg Intake: Oral 240 Output: Drainage 20 235 40 Lower Abdomen 20 235 40 Other: Voiding Method Toilet Toilet Bedside Commode Bedside Commode # Voids 4 3 # Bowel Movements 1 - Exam Head normocephalic Neck supple Lungs clear to auscultation bilaterally no wheezing or crackles Heart regular rate and rhythm S1-S2, no rub or gallop Abdomen is soft nontender nondistended positive bowel sounds no hepatosplenomegaly Extremities no edema Neuro alert and orientated to 3 - Labs CBC & Chem 7: 01/17/24 06:29 01/17/24 06:29 Labs: Abnormal Lab Results - Last 24 Hours (Table) 01/17/24 01/17/24 Range/Units 06:29 06:29 RBC 3.73 L (4.10-5.20) X 10*6/uL Hgb 10.8 L (12.0-15.0) g/dL Hct 34.2 L (37.2-46.3) % MCHC 31.6 L (32.0-37.0) g/dL MPV 8.8 L (9.5-12.2) FL Immature Gran # 0.06 H (0.00-0.04) X 10*3/uL Eosinophils # 0.36 H (0.04-0.35) X 10*3/uL Sodium 146 H (135-145) mmol/L BUN 4.4 L (9.0-27.0) mg/dL BUN/Creatinine Ratio 5.50 L (12.00-20.00) Ratio Total Bilirubin 0.2 L (0.3-1.2) mg/dL Total Protein 5.7 L (6.2-8.2) g/dL Albumin 3.1 L (3.8-4.9) g/dL Albumin/Globulin Ratio 1.19 L (1.60-3.17) Ratio Assessment and Plan Assessment: 1. Compensated diverticulitis patient admitted to surgical services plan for expiratory lap per surgical services 2. History of ankle surgery in November 3. History of constipation over the past month 4. History of COPD 5. History of hyperlipidemia 6. History of osteoarthritis 7. History of appendectomy 8. History of cholecystectomy 9. Ex-smoker Thank you for this consultation we will continue to follow patient closely throughout stay Infectious disease service is consulted Patient started on IV Zosyn Repeat labs ordered Blood culture ordered
[2024-01-19 09:14] LABS: Basophils # (A) 0.07 X 10*3/uL (0.00-0.10); Eosinophils # (A) 0.36 X 10*3/uL (0.04-0.35); Eosinophils % (A) 5.4 %; HCT 33.8 % (37.2-46.3); Lymphocytes # (A) 1.33 X 10*3/uL (0.90-5.00); Lymphocytes % (A) 19.9 %; MCH 30.6 pg (27.0-32.0); MCHC 32.5 g/dL (32.0-37.0); MCV 94.2 FL (80.0-97.0); Mean Platelet Volume 9.1 FL (9.5-12.2); Monocytes # (A) 0.58 X 10*3/uL (0.20-1.00); Monocytes % (A) 8.7 %; NRBC Per 100 WBC 0 X 10*3/uL (0.00-0.01); Neutrophils # (A) 4.25 X 10*3/uL (1.80-7.70); Neutrophils % (A) 63.7 %; Platelet Count 386 X 10*3/uL (140-440); RBC 3.59 X 10*6/uL (4.10-5.20); RDW 13.1 % (11.5-14.5); WBC 6.68 X 10*3/uL (4.50-10.00)
--- NOTE | 2024-01-19 09:15 | P.PN ---
Subjective Progress Note Date: 01/19/24 Padmini Graham, is a 73-year-old female patient who presented to the ER with concerns of abdominal pain and issues with intermittent constipation since November when she underwent a right ankle surgery patient reports she's been having some loose stools but still having severe left lower quadrant abdominal pain with occasional nausea. Patient has past medical history of COPD, hyperlipidemia, osteoarthritis, cholecystectomy, hernia repair and incisional hernia. CT of abdomen and pelvis completed showing complicated sigmoid diverticulitis changes with containing feces situated near the superior aspect of the vagina with possible: Vagina fistula not excluded there is also situated near the urinary bladder wall with mild thickening of the urinary Bladder correlate with urinary analysis for superimposed cystitis. Patient has been admitted under surgical services. Infectious disease service is consulted. Per surgical services plan for or with diagnostic laparoscopic and abdominal washout with possible exploratory lap. Current vital signs temp 98.3, heart rate 87, respiratory rate 18, blood pressure 155/65 and pulse ox 95%. Patient started on IV Zosyn. Blood cultures ordered urine culture ordered. On 01/13/2024 patient was seen and examined on the medical floor she is alert and oriented 3 in no apparent distress, she underwent diagnostic laparoscopy with abdominal washout yesterday, she is complaining of nausea, and mild abdominal pain otherwise she denies any complaints at this time, there is no fever or chills no headache or dizziness no chest pain no shortness of breath no cough no vomiting no diarrhea and no urinary symptoms. She remains on IV fluid, IV antibiotic Zosyn, pain management with morphine, symptomatic management for nausea with Zofran and Compazine. Temperature 98.2 blood pressure 111/65 pulse 86 respirations 16 pulse ox 95% on room air, white blood count 10.36 hemoglobin 11.2 platelet count 382 BUN 4.5 creatinine 0.7 On 01/14/2024 patient is alert and oriented x 3. Patient is currently resting comfortably in bed. Patient's to bring in patient's scooter so she can get out of bed. Patient reports improvement with nausea. Current vital signs Temp 97.6, heart rate 88, respiratory rate 18, blood pressure 168/78 with a pulse ox of 95% on room air. Patient remains on IV Zosyn On 01/15/2024 patient is alert and oriented x 3. Patient went ports some improvement with abdominal discomfort. Per surgical services patient will need fistula repaired at some time. Dr. Nava consulted. Current vital signs Temp 98.7, heart rate 78, respiratory rate 16, blood pressure 156/82 with a pulse ox of 96%. Patient remains on IV Zosyn. Clear liquid diet On 01/16/2024 patient was seen and examined on the medical floor she is alert and oriented 3 in no apparent distress she is complaining of abdominal discomfort otherwise she denies any complaints her vital exam reveals a temperature of 97.5 pulse 82 respiration 16 blood pressure 158/79 pulse ox 97% on room air white blood count is 5.3 hemoglobin 11.0 platelet count 397 potassium is low at 3.2 patient is maintained on IV Zosyn general surgery and infectious disease are following On 01/17/2024 patient was seen and examined on the medical floor, she is alert and oriented 3 in no apparent distress, there is no fever or chills no headache or dizziness no chest pain no shortness of breath no cough, no nausea or vomiting no abdominal pain no diarrhea and no urinary symptoms. Currently she is still maintained on IV Zosyn, we are waiting for further recommendation from infectious disease in regard to antibiotic at the time of discharge, patient may need the PICC line or midline depending on antibiotic recommendations, will continue to follow. On 01/18/2024 patient was seen and examined on the medical floor, she is alert and oriented 3, there is no fever or chills no headache or dizziness no chest pain no shortness of breath no cough, no nausea or vomiting no abdominal pain no diarrhea and no urinary symptoms. Currently she is still maintained on IV Zosyn, we are waiting for further recommendation from infectious disease in regard to antibiotic at the time of discharge, patient may need the PICC line or midline depending on antibiotic recommendations, will continue to follow. On 01/19/2024 patient was seen and examined on the medical floor, she is alert and oriented 3 in no apparent distress there is no fever or chills no headache or dizziness no chest pain no shortness of breath no cough no nausea or vomiting no abdominal pain no diarrhea and no urinary symptoms, at this time continue with current management, plan is for PICC line placement tomorrow, possible discharge in the next 1-2 days on home IV antibiotics. Objective - Vital Signs Vital signs: Vital Signs Temp 97.8 F 01/19/24 02:00 Pulse 92 03/03/24 02:00 Resp 16 01/19/24 02:00 BP 160/77 01/19/24 02:00 Pulse Ox 96 01/19/24 02:00 FiO2 Intake & Output 01/18/24 01/19/24 01/19/24 18:59 06:59 18:59 Output Total 60 Balance -60 Output: Drainage 60 Lower Abdomen 60 Other: Voiding Method Toilet Toilet Bedside Commode Bedside Commode # Voids 3 2 # Bowel Movements 1 - Exam Head normocephalic Neck supple Lungs clear to auscultation bilaterally no wheezing or crackles Heart regular rate and rhythm S1-S2, no rub or gallop Abdomen is soft nontender nondistended positive bowel sounds no hepatosplenomega ly Extremities no edema Neuro alert and orientated to 3 - Labs CBC & Chem 7: 01/17/24 06:29 01/17/24 06:29 Assessment and Plan Assessment: 1. Compensated diverticulitis patient admitted to surgical services plan for expiratory lap per surgical services 2. History of ankle surgery in November 3. History of constipation over the past month 4. History of COPD 5. History of hyperlipidemia 6. History of osteoarthritis 7. History of appendectomy 8. History of cholecystectomy 9. Ex-smoker Thank you for this consultation we will continue to follow patient closely throughout stay Infectious disease service is consulted Patient started on IV Zosyn Repeat labs ordered Blood culture ordered
[2024-01-19 09:33] LABS: ALT 9 U/L (8-44); AST 15 U/L (13-35); Albumin 3.2 g/dL (3.8-4.9); Albumin/Globulin Ratio 1.33 Ratio (1.60-3.17); Alkaline Phosphatase 49 U/L (41-126); BUN/Creat Ratio 11.33 Ratio (12.00-20.00); Blood Urea Nitrogen 6.8 mg/dL (9.0-27.0); Carbon Dioxide 28.7 mmol/L (21.6-31.8); Chloride 106 mmol/L (96-109); Globulin 2.4 g/dL (1.6-3.3); Glucose 104 mg/dL (70-110); Potassium 3.4 mmol/L (3.5-5.5); Sodium 144 mmol/L (135-145); Total Bilirubin <0.2 mg/dL (0.3-1.2); Total Protein 5.6 g/dL (6.2-8.2)
[2024-01-19] MEDS ORDERED: Potassium Replacement Protocol 1 EACH MISC MISCELLANE PRN ×2 (10:35→19:51)
[2024-01-19] MEDS: POTASSIUM CHLORIDE ER 20 MEQ TAB.ER PO SCH ×2 (11:34→20:40)
--- NOTE | 2024-01-19 12:14 | P.PN ---
Subjective Progress Note Date: 01/19/24 Principal diagnosis: Reason for follow-up is complicated diverticulitis Patient is a 73-year-old female with a past medical history significant for COPD hyperlipidemia osteoarthritis patient recently did have a fall on the ice and did have right lower extremity ankle fracture patient did have surgery and currently in a cast patient seem to have a problem with the bow el and constipation since her surgery, presenting to the hospital with abdominal pain and fever has been diagnosed with a complicated sigmoid diverticulitis concern for possible colovaginal fistula this patient was status post diagnostic laparoscopy and abdominal washout. On today's evaluation that is 01/19/2024, the patient continues to be afebrile, the patient is on room air and breathing comfortably, the Pt denies having any chest pain or cough, the patient denies having any abdominal pain no vomiting or any diarrhea has been reported by the nursing staff, no new symptoms. Patient white count is 6.68, creatinine 0.6 blood culture has been negative Objective - Vital Signs Vital signs: Vital Signs Temp 98.3 F 01/19/24 07:30 Pulse 82 01/19/24 07:30 Resp 16 01/19/24 07:30 BP 159/68 01/19/24 07:30 Pulse Ox 99 01/19/24 07:30 FiO2 Intake & Output 01/18/24 01/19/24 01/19/24 18:59 06:59 18:59 Output Total 60 Balance -60 Output: Drainage 60 Lower Abdomen 60 Other: Voiding Method Toilet Toilet Toilet Bedside Commode Bedside Commode Bedside Commode # Voids 3 2 # Bowel Movements 1 - Exam GENERAL DESCRIPTION: An elderly female lying in bed in no distress RESPIRATORY SYSTEM: Unlabored breathing , decreased breath sounds at bases HEART: S1 S2 regular rate and rhythm , ABDOMEN: Soft , no tenderness EXTREMITIES: No edema feet - Labs CBC & Chem 7: 01/19/24 05:44 01/19/24 05:44 Labs: Abnormal Lab Results - Last 24 Hours (Table) 01/19/24 01/19/24 Range/Units 05:44 05:44 RBC 3.59 L (4.10-5.20) X 10*6/uL Hgb 11.0 L (12.0-15.0) g/dL Hct 33.8 L (37.2-46.3) % MPV 9.1 L (9.5-12.2) FL Immature Gran # 0.09 H (0.00-0.04) X 10*3/uL Eosinophils # 0.36 H (0.04-0.35) X 10*3/uL Potassium 3.4 L (3.5-5.5) mmol/L BUN 6.8 L (9.0-27.0) mg/dL BUN/Creatinine Ratio 11.33 L (12.00-20.00) Ratio Total Bilirubin <0.2 L (0.3-1.2) mg/dL Total Protein 5.6 L (6.2-8.2) g/dL Albumin 3.2 L (3.8-4.9) g/dL Albumin/Globulin Ratio 1.33 L (1.60-3.17) Ratio Assessment and Plan (1) Diverticulitis of large intestine with complication Current Visit: Yes Status: Acute Code(s): K57.32 - DVTRCLI OF LG INT W/O PERFORATION OR ABSCESS W/O BLEEDING SNOMED Code(s): 601284777 Plan: 1patient presented to the hospital with sepsis in this patient who did have fever tachycardia elevated white count source is complicated diverticulitis concern for possible colovaginal fistula, in this patient who is status post diagnostic laparoscopy and washout but no culture and did not mention any cherise perforation of the colon, likely organism need to cover will be enteric gram- negative both anaerobes and anaerobes 2 surgical team recommending surgical procedure in February 2024 who wants her right lower extremity fracture to be healed enough to cast 3patient is slowly clinically proving and will continue with Zosyn currently waiting for mid line placement and outpatient IV antibiotic arrangement before discharge Dictation was produced using [employer] dictation software. please excuse any grammatical, word or spelling errors. Time with Patient: Less than 30
--- NOTE | 2024-01-19 17:13 | P.PN ---
Subjective Progress Note Date: 01/19/24 CHIEF COMPLAINT: Complicated diverticulitis HISTORY OF PRESENT ILLNESS: The patient is a 73-year-old female admitted 1 week ago for complicated diverticulitis with colovaginal fistula. She reports her b owel movements are becoming more formed. No further abdominal pain. No fevers or chills. She is on IV antibiotics. ROS: No reports of nausea and vomiting. No fevers or chills. No new chest pain . No productive sputum PHYSICAL EXAM: VITAL SIGNS: Reviewed CONSTITUTIONAL: Well developed and in no acute distress. EYES: Conjuctivae without sclera icterus. Extraocular movements grossly intact. HEAD, EARS, NOSE, THROAT: Moist buccal mucosa. Head is atraumatic, normocephalic. Hears conversational speech. No nasal drainage. RESPIRATORY: Non-labored respirations and equal bilateral excursions. CARDIOVASCULAR: Palpable 2+ radial pulses. ABDOMEN: No peritonitis. MUSCULOSKELETAL: Has right lower extremity cast. SKIN: Good skin turgor. Well perfused. NEUROLOGIC: Cranial nerves II through XII grossly intact. No focal or lateralizing signs. PSYCH: Appropriate affect. Alert and oriented to person, place and time. CLINICAL LABS: Reviewed. WBC normal. ASSESSMENT: 1. Complicated diverticulitis with colovaginal fistula. PLAN: 1. Due to complexity of diverticulitis, IV antibiotics may be of benefit upon discharge 2. Will need colectomy in the future as outpatient 3. Stable for discharge once medically stable. Objective - Vital Signs Vital signs: Vital Signs Temp 97.9 F 01/19/24 12:57 Pulse 86 01/19/24 12:57 Resp 17 01/19/24 12:57 BP 153/79 01/19/24 12:57 Pulse Ox 97 01/19/24 12:57 FiO2 Intake & Output 01/18/24 01/19/24 01/19/24 18:59 06:59 18:59 Output Total 60 Balance -60 Output: Drainage 60 Lower Abdomen 60 Other: Voiding Method Toilet Toilet Toilet Bedside Commode Bedside Commode Bedside Commode # Voids 3 2 # Bowel Movements 1 - Labs CBC & Chem 7: 01/19/24 05:44 01/19/24 05:44 Labs: Abnormal Lab Results - Last 24 Hours (Table) 01/19/24 01/19/24 Range/Units 05:44 05:44 RBC 3.59 L (4.10-5.20) X 10*6/uL Hgb 11.0 L (12.0-15.0) g/dL Hct 33.8 L (37.2-46.3) % MPV 9.1 L (9.5-12.2) FL Immature Gran # 0.09 H (0.00-0.04) X 10*3/uL Eosinophils # 0.36 H (0.04-0.35) X 10*3/uL Potassium 3.4 L (3.5-5.5) mmol/L BUN 6.8 L (9.0-27.0) mg/dL BUN/Creatinine Ratio 11.33 L (12.00-20.00) Ratio Total Bilirubin <0.2 L (0.3-1.2) mg/dL Total Protein 5.6 L (6.2-8.2) g/dL Albumin 3.2 L (3.8-4.9) g/dL Albumin/Globulin Ratio 1.33 L (1.60-3.17) Ratio
[2024-01-20] MEDS: POTASSIUM CHLORIDE ER 20 MEQ TAB.ER PO SCH (01:20)
[2024-01-20 07:56] VITALS: RESP 16
[2024-01-20 12:35] VITALS: BP 156/76; PULSE 88; TEMP 98.6
--- NOTE | 2024-01-20 13:50 | P.DS ---
Providers Date of admission: 01/11/24 18:20 Expected date of discharge: 01/20/24 Attending physician: Yaya Delarosa, Consults: 01/11/24 18:20 Consult Physician Routine Consulting Provider: Ward Huston Consult Reason/Comments: medical management Do you want consulting provider notified?: Yes 01/12/24 07:51 Consult Physician Routine Consulting Provider: La Tony Consult Reason/Comments: diverticulitis Do you want consulting provider notified?: Yes 01/13/24 07:41 Consult Physician Routine Consulting Provider: Joceline Nava Consult Reason/Comments: Diverticulitis Do you want consulting provider notified?: Already Contacted 01/14/24 08:50 Consult Physician Routine Consulting Provider: Joceline Mackey Consult Reason/Comments: colovaginal fistula Do you want consulting provider notified?: Yes Primary care physician: Christine Jose Hospital Course: Discharge diagnosis 1. 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 Hospital course This is a 73-year-old female who presented with abdominal pain and intermittent constipation. CT scan abdomen and pelvis reported complicated diverticulitis with phlegmon and colovaginal fistula. Patient is status post diagnostic laparoscopy with abdominal washout for complicated diverticulitis with abscess. Patient is being discharged with IV antibiotics. Patient's pain is controlled. She is afebrile. She has been up and ambulating. She is stable for discharge. Patient will need colectomy in the future as outpatient. Physician Hatchery Manager note has been reviewed by physician. Signing provider agrees with the documented findings, assessment, and plan of care. Patient Condition at Discharge: Stable Plan - Discharge Summary Discharge Rx Participant: No New Discharge Prescriptions: New Acetaminophen Tab [Tylenol] 1,000 mg PO Q6HR PRN #30 tablet PRN Reason: Pain metroNIDAZOLE [Flagyl] 500 mg PO TID #42 tab Continue Rosuvastatin Calcium 5 mg PO DAILY Aspirin 325 mg PO DAILY Discharge Medication List Rosuvastatin Calcium 5 mg PO DAILY 11/28/23 [History] Aspirin 325 mg PO DAILY 01/13/24 [History] Acetaminophen Tab [Tylenol] 1,000 mg PO Q6HR PRN #30 tablet 01/20/24 [Rx] metroNIDAZOLE [Flagyl] 500 mg PO TID #42 tab 01/20/24 [Rx] Follow up Appointment(s)/Referral(s): Christine Jose MD [Primary Care Provider] - 1-2 days Joceline Nava MD [STAFF PHYSICIAN] - 01/28/24 11:45 am (OBTAIN REFERRAL FROM PCP) [facility] [NON-STAFF] - 1 Week ([facility] will call you with appt time. your start date is tomorrow 01/20) La Tony MD [STAFF PHYSICIAN] - 1 Week Patient Instructions/Handouts: Diverticulitis (GEN), Diverticulitis Diet (DC) Activity/Diet/Wound Care/Special Instructions: Discharge IV antibiotics per infectious disease Light activity until seen by surgeon You may shower No bath tub soaks for two weeks Continue a low fiber diet Avoid steak, tough meats and seeds such as raspberry seeds. Keep a log of BIJAN drain output and bring with you to your follow-up appointment Milk/strip drains 2-3 times a day Discharge Disposition: HOME WITH HOME HEALTH SERVICES
--- NOTE | 2024-01-20 15:51 | P.PN ---
Subjective Progress Note Date: 01/20/24 Padmiin Graham, is a 73-year-old female patient who presented to the ER with concerns of abdominal pain and issues with intermittent constipation since November when she underwent a right ankle surgery patient reports she's been having some loose stools but still having severe left lower quadrant abdominal pain with occasional nausea. Patient has past medical history of COPD, hyperlipidemia, osteoarthritis, cholecystectomy, hernia repair and incisional hernia. CT of abdomen and pelvis completed showing complicated sigmoid diverticulitis changes with containing feces situated near the superior aspect of the vagina with possible: Vagina fistula not excluded there is also situated near the urinary bladder wall with mild thickening of the urinary Bladder correlate with urinary analysis for superimposed cystitis. Patient has been admitted under surgical services. Infectious disease service is consulted. Per surgical services plan for or with diagnostic laparoscopic and abdominal washout with possible exploratory lap. Current vital signs temp 98.3, heart rate 87, respiratory rate 18, blood pressure 155/65 and pulse ox 95%. Patient started on IV Zosyn. Blood cultures ordered urine culture ordered. On 01/13/2024 patient was seen and examined on the medical floor she is alert and oriented 3 in no apparent distress, she underwent diagnostic laparoscopy with abdominal washout yesterday, she is complaining of nausea, and mild abdominal pain otherwise she denies any complaints at this time, there is no fever or chills no headache or dizziness no chest pain no shortness of breath no cough no vomiting no diarrhea and no urinary symptoms. She remains on IV fluid, IV antibiotic Zosyn, pain management with morphine, symptomatic management for nausea with Zofran and Compazine. Temperature 98.2 blood pressure 111/65 pulse 86 respirations 16 pulse ox 95% on room air, white blood count 10.36 hemoglobin 11.2 platelet count 382 BUN 4.5 creatinine 0.7 On 01/14/2024 patient is alert and oriented x 3. Patient is currently resting comfortably in bed. Patient's to bring in patient's scooter so she can get out of bed. Patient reports improvement with nausea. Current vital signs Temp 97.6, heart rate 88, respiratory rate 18, blood pressure 168/78 with a pulse ox of 95% on room air. Patient remains on IV Zosyn On 01/15/2024 patient is alert and oriented x 3. Patient went ports some improvement with abdominal discomfort. Per surgical services patient will need fistula repaired at some time. Dr. Nava consulted. Current vital signs Temp 98.7, heart rate 78, respiratory rate 16, blood pressure 156/82 with a pulse ox of 96%. Patient remains on IV Zosyn. Clear liquid diet On 01/16/2024 patient was seen and examined on the medical floor she is alert and oriented 3 in no apparent distress she is complaining of abdominal discomfort otherwise she denies any complaints her vital exam reveals a temperature of 97.5 pulse 82 respiration 16 blood pressure 158/79 pulse ox 97% on room air white blood count is 5.3 hemoglobin 11.0 platelet count 397 potassium is low at 3.2 patient is maintained on IV Zosyn general surgery and infectious disease are following On 01/17/2024 patient was seen and examined on the medical floor, she is alert and oriented 3 in no apparent distress, there is no fever or chills no headache or dizziness no chest pain no shortness of breath no cough, no nausea or vomiting no abdominal pain no diarrhea and no urinary symptoms. Currently she is still maintained on IV Zosyn, we are waiting for further recommendation from infectious disease in regard to antibiotic at the time of discharge, patient may need the PICC line or midline depending on antibiotic recommendations, will continue to follow. On 01/18/2024 patient was seen and examined on the medical floor, she is alert and oriented 3, there is no fever or chills no headache or dizziness no chest pain no shortness of breath no cough, no nausea or vomiting no abdominal pain no diarrhea and no urinary symptoms. Currently she is still maintained on IV Zosyn, we are waiting for further recommendation from infectious disease in regard to antibiotic at the time of discharge, patient may need the PICC line or midline depending on antibiotic recommendations, will continue to follow. On 01/19/2024 patient was seen and examined on the medical floor, she is alert and oriented 3 in no apparent distress there is no fever or chills no headache or dizziness no chest pain no shortness of breath no cough no nausea or vomiting no abdominal pain no diarrhea and no urinary symptoms, at this time continue with current management, plan is for PICC line placement tomorrow, possible discharge in the next 1-2 days on home IV antibiotics. On 01/20/2024 patient was seen and examined on the medical floor she is alert and oriented 3 in no apparent distress there is no fever or chills no headache or dizziness no chest pain no shortness of breath no cough no nausea or vomiting no abdominal pain no diarrhea and no urinary symptoms, at this time continue with current management, plan is for PICC line placement tomorrow,. Plan is for discharge to home today on IV antibiotic ceftriaxone and oral Flagyl Objective - Vital Signs Vital signs: Vital Signs Temp 97.6 F 01/20/24 01:18 Pulse 89 01/20/24 01:18 Resp 18 01/20/24 01:18 BP 138/60 01/20/24 01:18 Pulse Ox 96 01/20/24 01:18 FiO2 Intake & Output 01/19/24 01/20/24 01/20/24 18:59 06:59 18:59 Intake Total 900 Output Total 145 Balance 755 Intake: Intake, IV Titration 100 Amount Piperacillin-Tazobactam 3 100 .375 gm In Sodium Chloride 0.9% 100 ml @ 25 mls/hr IVPB Q8H [facility] Rx#: [id number] Oral 800 Output: Drainage 145 Lower Abdomen 145 Other: Voiding Method Toilet Toilet Bedside Commode Bedside Commode # Voids 2 3 - Exam Head normocephalic Neck supple Lungs clear to auscultation bilaterally no wheezing or crackles Heart regular rate and rhythm S1-S2, no rub or gallop Abdomen is soft nontender nondistended positive bowel sounds no hepatosplenomegaly Extremities no edema Neuro alert and orientated to 3 - Labs CBC & Chem 7: 01/19/24 05:44 01/20/24 04:53 Labs: Abnormal Lab Results - Last 24 Hours (Table) 01/19/24 01/19/24 01/19/24 Range/Units 05:44 05:44 18:22 RBC 3.59 L (4.10-5.20) X 10*6/uL Hgb 11.0 L (12.0-15.0) g/dL Hct 33.8 L (37.2-46.3) % MPV 9.1 L (9.5-12.2) FL Immature Gran # 0.09 H (0.00-0.04) X 10*3/uL Eosinophils # 0.36 H (0.04-0.35) X 10*3/uL Potassium 3.4 L 3.2 L (3.5-5.5) mmol/L BUN 6.8 L (9.0-27.0) mg/dL BUN/Creatinine Ratio 11.33 L (12.00-20.00) Ratio Total Bilirubin <0.2 L (0.3-1.2) mg/dL Total Protein 5.6 L (6.2-8.2) g/dL Albumin 3.2 L (3.8-4.9) g/dL Albumin/Globulin Ratio 1.33 L (1.60-3.17) Ratio Assessment and Plan Assessment: 1. Compensated diverticulitis patient admitted to surgical services plan for expiratory lap per surgical services 2. History of ankle surgery in November 3. History of constipation over the past month 4. History of COPD 5. History of hyperlipidemia 6. History of osteoarthritis 7. History of appendectomy 8. History of cholecystectomy 9. Ex-smoker Thank you for this consultation we will continue to follow patient closely throughout stay Infectious disease service is consulted Patient started on IV Zosyn Repeat labs ordered Blood culture ordered
--- NOTE | 2024-01-24 15:35 | P.PN ---
Subjective Progress Note Date: 01/20/24 Principal diagnosis: Reason for follow-up is complicated diverticulitis Patient is a 73-year-old female with a past medical history significant for COPD hyperlipidemia osteoarthritis patient recently did have a fall on the ice and did have right lower extremity ankle fracture patient did have surgery and currently in a cast patient seem to have a problem with the bow el and constipation since her surgery, presenting to the hospital with abdominal pain and fever has been diagnosed with a complicated sigmoid diverticulitis concern for possible colovaginal fistula this patient was status post diagnostic laparoscopy and abdominal washout. On today's evaluation that is 01/20/2024, the patient remains to be afebrile, the patient is on room air and breathing comfortably, patient denies having any chest pain or cough, the patient denies having any abdominal pain no vomiting or any diarrhea and overall drainage from the vagina and urethral area has decreased in intensity Patient white count is 6.68, creatinine 0.6 as of yesterday no lab draw today, blood culture has been negative Objective - Vital Signs Vital signs: Vital Signs Temp 97.7 F 01/20/24 07:13 Pulse 83 01/20/24 07:13 Resp 16 01/20/24 07:13 BP 162/82 01/20/24 07:13 Pulse Ox 94 L 01/20/24 07:13 FiO2 Intake & Output 01/19/24 01/20/24 01/20/24 18:59 06:59 18:59 Intake Total 900 Output Total 145 25 Balance 755 -25 Intake: Intake, IV Titration 100 Amount Piperacillin-Tazobactam 3 100 .375 gm In Sodium Chloride 0.9% 100 ml @ 25 mls/hr IVPB Q8H [facility] Rx#: [id number] Oral 800 Output: Drainage 145 25 Lower Abdomen 145 25 Other: Voiding Method Toilet Toilet Bedside Commode Bedside Commode # Voids 2 3 - Exam GENERAL DESCRIPTION: An elderly female lying in bed in no distress RESPIRATORY SYSTEM: Unlabored breathing , decreased breath sounds at bases HEART: S1 S2 regular rate and rhythm , ABDOMEN: Soft , no tenderness EXTREMITIES: No edema feet - Labs CBC & Chem 7: 01/19/24 05:44 01/20/24 04:53 Labs: Abnormal Lab Results - Last 24 Hours (Table) 01/19/24 Range/Units 18:22 Potassium 3.2 L (3.5-5.1) mmol/L Assessment and Plan (1) Diverticulitis of large intestine with complication Status: Acute Code(s): K57.32 - DVTRCLI OF LG INT W/O PERFORATION OR ABSCESS W/O BLEEDING SNOMED Code(s): 588003089 Plan: 1patient presented to the hospital with sepsis in this patient who did have fever tachycardia elevated white count source is complicated diverticulitis concern for possible colovaginal fistula, in this patient who is status post diagnostic laparoscopy and washout but no culture and did not mention any cherise perforation of the colon, likely organism need to cover will be enteric gram- negative both anaerobes and anaerobes 2 surgical team recommending surgical procedure in February 2024 who wants her right lower extremity fracture to be healed enough so decrease risk of postop DVT and complication 3patient did have the midline placed antibiotic has been switched over to Rocephin 2 g daily along with oral Flagyl 500 mg 3 times a day for 2 weeks and close outpatient follow-up Dictation was produced using [employer] dictation software. please excuse any grammatical, word or spelling errors. Time with Patient: Less than 30
--- NOTE | 2024-03-19 18:22 | CDI ---
Documentation Clarification Form Date: 01/14/2024 03:05:00 PM From: Uzma Machuca RN, CCDS Phone: [phone] Admit Date: 01/11/2024 06:20:00 PM Patient Name: Padmini Graham Visit Number: [id number] Discharge Date: 01/20/2024 02:32:00 PM ATTENTION: The Clinical Documentation Specialists (CDI) and [facility] Coding Staff appreciate your assistance in clarifying documentation. Please respond to the clarification below the line at the bottom and electronically sign. The CDI & [facility] Coding staff will review the response and follow-up if needed. Please note: Queries are made part of the Legal Health Record. If you have any questions, please contact the author of this message via ITS. Dr. Anne Burton Sepsis is documented in the 01/12 ID medical device sales consultant note. Additional clarification is requested. History/Risk Factors: COPD, HLD, OA, RSV. Presented with abdominal pain. Admitted with complicated diverticulitis. S/P diagnostic laparotomy. Clinical Indicators: 01/12 ID: "patient presented to the hospital with sepsis, did have fever, tachycardia and elevated white count. Source is complicated diverticulitis, concern for possible colovaginal fistula." 01/11 VS: Temp 100-101.1, HR 120 01/11 WBC 13.5-10.64 01/11 A/P CT: Complicated sigmoid diverticulitis changes with containing feces situated near the superior aspect of the vagina with possible colovaginal fistula not excluded. This is also situated near the urinary bladder wall with mild thickening of the urinary bladder. Correlate with urinalysis for superimposed cystitis. 01/12 H&P: complicated diverticulitis with colovaginal fistula. To OR for diagnostic laparoscopy and abdominal washout with possible exploratory laparotomy. Treatment: s/p laparotomy with abdominal washout on 01/12; IV Zosyn 3.375gm Q8H 01/11-01/14; 1L 0.9 NS IV bolus on 01/11 then 130mL/hr 01/11-01/12 After work up and study, please clarify which diagnosis is most appropriate? [ ] Sepsis ruled out [ x ] Sepsis ruled in and treated [ ] Other, please specify [ ] Unable to determine MTDD
== END 2024-01-20 14:32 | disposition home or self-care (01) | DRG 854 ==
LOC: EC 15:05 → 5NMEDONC 18:20
PROVIDERS: ADMIT Surgery; ATTEND Surgery
PROC: 0W9G40Z Drainage of Peritoneal Cavity with Drainage Device, Percutaneous Endoscopic Approach (ICD-10-PCS; principal; 2024-01-12 10:00)
PROC: 3E1M48Z Irrigation of Peritoneal Cavity using Irrigating Substance, Percutaneous Endoscopic Approach (ICD-10-PCS; principal; 2024-01-12 10:00)
PROC: 05HC33Z Insertion of Infusion Device into Left Basilic Vein, Percutaneous Approach (ICD-10-PCS; 2024-01-20 10:30)
DX: A41.9 Sepsis, unspecified organism (principal); K57.20 Diverticulitis of large intestine with perforation and abscess without bleeding; N82.3 Fistula of vagina to large intestine; J44.9 Chronic obstructive pulmonary disease, unspecified; E78.5 Hyperlipidemia, unspecified; K59.00 Constipation, unspecified; M19.90 Unspecified osteoarthritis, unspecified site; S82.891D Other fracture of right lower leg, subsequent encounter for closed fracture with routine healing; Z79.82 Long term (current) use of aspirin; Z79.899 Other long term (current) drug therapy; Z88.5 Allergy status to narcotic agent; Z87.891 Personal history of nicotine dependence; Z91.81 History of falling; Z80.0 Family history of malignant neoplasm of digestive organs
CPT/HCPCS: 36410; 36415; 74177; 76937; 80053; 81001; 82150; 83605; 83690; 84132; 85025; 85610; 85730; 87040; 87077; 87086; 87186; 87636; 96361; 96374; 99285

== ENCOUNTER → 2024-03-11 | Outpatient (CLI) | payer MEDICARE ==
[2024-03-11 15:03] LABS: Basophils # (A) 0.06 X 10*3/uL (0.00-0.10); Eosinophils # (A) 0.05 X 10*3/uL (0.04-0.35); Eosinophils % (A) 0.8 %; HCT 42.7 % (37.2-46.3); HGB 14.1 g/dL (12.0-15.0); Lymphocytes # (A) 0.81 X 10*3/uL (0.90-5.00); Lymphocytes % (A) 13.4 %; MCV 93.8 FL (80.0-97.0); Mean Platelet Volume 10.1 FL (9.5-12.2); Monocytes # (A) 0.64 X 10*3/uL (0.20-1.00); Monocytes % (A) 10.6 %; NRBC Per 100 WBC 0 X 10*3/uL (0.00-0.01); Neutrophils # (A) 4.46 X 10*3/uL (1.80-7.70); Neutrophils % (A) 73.9 %; Platelet Count 376 X 10*3/uL (140-440); RBC 4.55 X 10*6/uL (4.10-5.20); RDW 15.6 % (11.5-14.5); WBC 6.04 X 10*3/uL (4.50-10.00)
[2024-03-11 15:11] LABS: ALT 53 U/L (8-44); AST 43 U/L (13-35); Albumin 3.9 g/dL (3.8-4.9); Albumin/Globulin Ratio 1.39 Ratio (1.60-3.17); Alkaline Phosphatase 55 U/L (41-126); BUN/Creat Ratio 34.17 Ratio (12.00-20.00); Blood Urea Nitrogen 20.5 mg/dL (9.0-27.0); Calcium 9.5 mg/dL (8.7-10.3); Chloride 102 mmol/L (96-109); Globulin 2.8 g/dL (1.6-3.3); Glucose 121 mg/dL (70-110); Potassium 4.2 mmol/L (3.5-5.5); Sodium 137 mmol/L (135-145); Total Bilirubin 0.4 mg/dL (0.3-1.2); Total Protein 6.7 g/dL (6.2-8.2)
== END | disposition home or self-care (01) ==
LOC: LABWHC1 10:39
PROVIDERS: ATTEND Surgery Plastic and Reconstructive Surgery
DX: K57.30 Diverticulosis of large intestine without perforation or abscess without bleeding (principal)
CPT/HCPCS: 36415; 80053; 85025; 86850; 86900; 86901

== ENCOUNTER 2024-03-12 09:21 | Inpatient (IN) | payer MEDICARE ==
[2024-03-09 13:40] VITALS: BMI 27.4
[~2024-03-12 09:21] MED LIST changes: +Antibiotics per Pharmacy 1 EACH MISC MISCELLANE PRN; -DEXAMETHASONE SOD PHOSPHATE 4 MG/ML 1 ML VIAL IV ONE; +HEPARIN SODIUM,PORCINE 5,000 UNIT/ML 1 ML VIAL SQ PRN; -LIDOCAINE 1% (10MG/ML) FOR IV START INTRADERMA PRN; -ONDANSETRON 4 MG/2 ML VIAL IVP ONE; -droPERidol 5 MG/2 ML VIAL IVP ONE; -fentaNYL (PF) 50 MCG/ML 2 ML AMP IV PRN
--- NOTE | 2024-03-12 09:30 | P.GSHP ---
History of Present Illness H&P Date: 03/12/24 CHIEF COMPLAINT: Sigmoid diverticulitis with colovaginal fistula HISTORY OF PRESENT ILLNESS: The patient is a 3-year-old female who presents with change in bowel habits, recent perforated diverticulitis with colovaginal fistula diagnosed 3 months ago. She denies prior colonoscopy. She presents for surgical options, sigmoid colectomy. PAST MEDICAL HISTORY: Please see list. PAST SURGICAL HISTORY: Please see list. MEDICATIONS: Please see list. ALLERGIES: Please see list. SOCIAL HISTORY: No illicit drug use FAMILY HISTORY: No reports of Crohn disease or ulcerative colitis. REVIEW OF ORGAN SYSTEMS: CONSTITUTIONAL: Denies any fever or chills. HEENT: Denies any trouble with vision or nosebleeds. No difficulty swallowing. LYMPHATIC: The patient denies any lumps and bumps around the neck. ENDOCRINE: Denies any thyroid disorders. Has blood sugar glucose intolerance. RESPIRATORY: Denies pneumonia. Denies any troubles with breathing or dyspnea on exertion. CARDIOVASCULAR: Denies any chest pain, palpitations, or recent heart attacks. GASTROINTESTINAL: Has chronic diverticulitis. GENITOURINARY: Has increased urinary frequency. MUSCULOSKELETAL: Has back pain, stiffness, joint arthritis. NEUROLOGIC: Denies any numbness or tingling along the distal extremities. No seizure disorders or headaches. PSYCHIATRIC: Denies depression or suidical ideation. HEMATOLOGIC: Denies any abnormal bleeding or bruising. PHYSICAL EXAM: VITAL SIGNS: Stable GENERAL: Well-developed pleasant in no acute distress. HEENT: No scleral icterus. Extraocular movements grossly intact. Moist buccal mucosa. NECK: Supple without lymphadenopathy. CHEST: Unlabored respirations. Equal bilateral excursions. CARDIOVASCULAR: Regular rate and rhythm. Distal 2+ pulses. ABDOMEN: Soft, nontender, nondistended. MUSCULOSKELETAL: No clubbing, cyanosis, or edema. Has foot boot for recent fracture NERUO: Cranial nerves 2-12 grossly intact. PSYCH: Alert and oriented to person place and time. ASSESSMENT: 1. Sigmoid diverticulitis with colovaginal fistula PLAN: 1. Benefits and risks of surgical robotic sigmoid resection was reviewed in detail. Robotic-assisted approach was also described. 2. Enhanced colon recovery program. 3. DVT prophylaxis. 4. Antibiotic prophylaxis. 5. Inpatient hospitalization greater than 2 nights. 6. Recommend colonoscopy for extent of obstruction and evaluation of neoplasm. 7. CMP, CBC on day of admission 8. Inpatient admission advise for complicated diverticulitis with colovaginal fistula and prep management Past Medical History Past Medical History: COPD, Hyperlipidemia, Osteoarthritis (OA) Additional Past Medical History / Comment(s): incisional hernia, RSV admission 10/2023 History of Any Multi-Drug Resistant Organisms: None Reported Past Surgical History: Adenoidectomy, Appendectomy, Cholecystectomy, Hernia Repair, Hysterectomy, Tonsillectomy Additional Past Surgical History / Comment(s): Vaginal hysterectomy 1995, hand surgery times 2. Colonoscopy yrs). eddie bunionectomy Past Anesthesia/Blood Transfusion Reactions: Motion Sickness Additional Past Anesthesia/Blood Transfusion Reaction / Comment(s): no blood transfusion Smoking Status: Former smoker - Past Family History Father Family Medical History: Diabetes Mellitus, Hypertension Brother(s) Family Medical History: Cancer Additional Family Medical History / Comment(s): Pancreatic cancer Mother Family Medical History: Myocardial Infarction (ND) Medications and Allergies Home Medications Medication Instructions Recorded Confirmed Type Rosuvastatin Calcium 5 mg PO DAILY 11/28/23 03/09/24 History Aspirin 81 mg PO BID 01/13/24 03/09/24 History metroNIDAZOLE [Flagyl] 500 mg PO TID #42 tab 01/20/24 03/09/24 Rx Ciprofloxacin 500 mg PO BID 03/09/24 03/09/24 History Allergies Allergy/AdvReac Type Severity Reaction Status Date / Time codeine AdvReac Nausea & Verified 01/11/24 15:12 Vomiting
[2024-03-12] MEDS: LACTATED RINGERS 1,000 ML IV SCH (10:15)
--- NOTE | 2024-03-12 11:01 | P.PN ---
Progress Note - Text Progress Note Date: 03/12/24 Patient presented to endoscopy suite difficulty with breathing and tachycardic which is new. Patient reports new dizziness. She reports falling down several times requiring EMS and she has a right lower extremity boot. Patient was being admitted for scheduled colectomy however given current presentation, elective surgery is canceled. Patient currently evaluated with anesthesia provider and also agrees with cancellation of colonoscopy due to new acute issues today.
[2024-03-12] MEDS: IV FLUID CONTINUATION 550 ML IV ONE (11:08)
--- NOTE | 2024-03-12 11:20 | P.PN ---
Progress Note - Text Progress Note Date: 03/12/24 Further discussion with the includes reports of altered mental status changes. The patient was able to verbalize her name, date, and president for today. Immediate medicine consultation and advised. Possible admission advised pending consultation with hospitalist. EKG, chest x-ray, labs pending. Possible CTA of the chest due to current immobilization of the leg, shortness of breath and respiratory pulmonary embolism.
[2024-03-12] MEDS: IV FLUID CONTINUATION 1,000 ML IV ONE (11:22)
[2024-03-12 11:50] LABS: Basophils % (A) 0 %; Eosinophils % (A) 0 %; HCT 45.4 % (34.0-46.0); HGB 15.2 gm/dL (11.4-16.0); Lymphocytes # (A) 0.7 k/uL (1.0-4.8); Lymphocytes % (A) 7 %; MCHC 33.5 g/dL (31.0-37.0); MCV 92.5 fL (80.0-100.0); Mean Platelet Volume 8.3; Monocytes # (A) 0.5 k/uL (0-1.0); Monocytes % (A) 5 %; Neutrophils # (A) 8.3 k/uL (1.3-7.7); Neutrophils % (A) 87 %; Platelet Count 482 k/uL (150-450); RBC 4.91 m/uL (3.80-5.40); RDW 14.9 % (11.5-15.5); WBC 9.6 k/uL (3.8-10.6)
[2024-03-12 11:54] LABS: ALT 53 U/L (4-34); AST 52 U/L (14-36); African American GFR (CKD) >90 (>60 ml/min/1.73 sqM); Albumin 4.1 g/dL (3.5-5.0); Alkaline Phosphatase 58 U/L (38-126); Anion Gap 19 mmol/L; Blood Urea Nitrogen 21 mg/dL (7-17); Calcium 9.2 mg/dL (8.4-10.2); Carbon Dioxide 14 mmol/L (22-30); Chloride 109 mmol/L (98-107); Glucose 146 mg/dL (74-99); Non-African American GFR(CKD) >90 (>60 ml/min/1.73 sqM); Sodium 142 mmol/L (137-145); Total Bilirubin 0.9 mg/dL (0.2-1.3); Total Protein 7.6 g/dL (6.3-8.2)
--- NOTE | 2024-03-12 12:01 | XR ---
EXAMINATION TYPE: XR chest 1V portable DATE OF EXAM: 03/12/2024 Comparison: 11/04/2023 Clinical History: 73-year-old female shortness of breath Findings: Heart normal size. Atherosclerotic arch calcifications. Mild hyperinflation. No consolidation or pleu ral effusion. Impression: Mild hyperinflation may relate to depth of inspiration or underlying emphysema. Clinically correlate. No acute process seen.
[2024-03-12] MEDS: LACTATED RINGERS 1,000 ML IV ONE (12:02)
[2024-03-12 12:17] LABS: Potassium 4.3 mmol/L (3.5-5.1)
--- NOTE | 2024-03-12 12:47 | CT ---
EXAMINATION TYPE: CT chest angio for PE CT DLP: 253 mGycm, Automated exposure control for dose reduction was used. DATE OF EXAM: 03/12/2024 12:18 PM COMPARISON: . Chest radiograph today.. CLINICAL INDICATION:Female, 73 years old with history of Shortness of breath, pulmonary embolism susp ected; SOB TECHNIQUE/CONTRAST: CTA scan of the thorax is performed with IV Contrast, patient injected with 64cc mL of Isovue 370, LA P images are created and reviewed these are created on a separate workstation.. FINDINGS: Pulmonary Artery: There is no evidence for a filling defect within the pulmonary vasculature to sugge st acute pulmonary embolism. The pulmonary artery is of normal size. Lungs/Pleura: No evidence of focal consolidation, pleural effusion or pneumothorax. Airway: Large airways are patent. Heart: Heart is within normal limits for size. Vasculature: No evidence of aortic aneurysm. Mediastinum: No gross evidence of adenopathy. Musculoskeletal: No acute osseous abnormalities Soft Tissues: Unremarkable. Lower neck: No significant findings. Upper Abdomen: No acute findings. Small hiatal hernia.. IMPRESSION: 1. No evidence of pulmonary embolism. Follow up recommendations for incidental pulmonary nodules, if there are any, are per [employer] or [employer]. [email or web address]?lang=us
[2024-03-12] MEDS ORDERED: metroNIDAZOLE 500 MG TAB PO SCH (13:00)
[2024-03-12] MEDS ORDERED: NEOMYCIN 500 MG TAB PO SCH (13:00)
[2024-03-12] MEDS: PEG 3350 (420 GM/BTL) + LYTES 4,000 ML BOTTLE PO ONE (13:03)
[2024-03-12 14:51] LABS: African American GFR (CKD) >90 (>60 ml/min/1.73 sqM); Anion Gap 11 mmol/L; Blood Urea Nitrogen 16 mg/dL (7-17); Calcium 8.5 mg/dL (8.4-10.2); Carbon Dioxide 21 mmol/L (22-30); Chloride 106 mmol/L (98-107); Glucose 105 mg/dL (74-99); Magnesium 1.9 mg/dL (1.6-2.3); Non-African American GFR(CKD) >90 (>60 ml/min/1.73 sqM); Phosphorus 3.9 mg/dL (2.5-4.5); Potassium 3.6 mmol/L (3.5-5.1); Sodium 138 mmol/L (137-145)
[2024-03-12] MEDS ORDERED: ONDANSETRON 4 MG/2 ML VIAL IVP PRN (15:12)
[2024-03-12] MEDS ORDERED: NALOXONE 0.4 MG/ML 1 ML VIAL IV PRN (15:12)
--- NOTE | 2024-03-12 15:33 | P.CONS ---
History of Present Illness - Reason for Consult Consult date: 03/12/24 - History of Present Illness 73 year old F with PMH of COPD, HTN, OA presents to [facility] for elective surgery. Recently admitted from 01/11-01/19 for complicated perforated diverticulitis with abscess and colovaginal fistula, underwent diagnostic laparoscopy with abdominal washout discharged on Flagyl and Ciprofloxacin which she is still taking. She underwent bowel prep since 5PM last night and has not have anything to eat in preparation for colonoscopy today and surgery tomorrow. She did have a fall last night, hit her knee and right shoulder, felt weak at the legs, denied syncope or head trauma. Family at bedside did report some confusion last night as well. Today, in preop, she was noted to be lightheaded while in bed and tachycardic which prompted this admission and colonoscopy to be cancelled. [facility] has been consulted for medical management of this patient. Patient currently reports no dizziness. She reports feeling cold. Anxious and disappointed the procedure got cancelled today. She denies any chest pain, shortness of breath, palpitations. She does complain of numbness and tingling at the tips of all of her fingers and toes. Vital signs BP 117/64 HR 96 RR 17 T97.8F 95% on RA. CBC and CMP significant for Plt 482, Cl 109, bicarb 14, BUN 21, glu 146, AST 52, ALT 53. CTA chest was done negative for PE. CXR showed hyperinflation. EKG shows sinus rhythm with QTc 496. General: non toxic, no distress, appears at stated age Derm: warm, dry Head: atraumatic, normocephalic, symmetric Eyes: EOMI, no lid lag, anicteric sclera Mouth: no lip lesion, mucus membranes moist Cardiovascular: S1S2 tachy, no murmur Lungs: Decreased BS bilateral, no rhonchi, no rales , no accessory muscle use Abdominal: soft, nontender to palpation, no guarding, no appreciable organomegaly Ext: no gross muscle atrophy, no edema, no contractures Neuro: no focal neuro deficits Psych: Alert, oriented, appropriate affect Based on my assessment of this patient, this patient meets a high complexity l evel of care. Patient has an acute diagnosis of tachycardia, lightheadedness and dyspnea that poses a threat to life or bodily function. Lightheadedness with QT prolongation: EKG sinus rhythm with QTc 496. Mag and K within normal limits. Status post 2L NS bolus. Glucose 146. Continue NS at 75 cc/hr. Discussed with YENNI Perez. Telemetry monitoring. Obtain orthostats. Obtain Echo. Trend Trop to rule out ACS. Repeat EKG tomorrow. Neurochecks. Fall precautions. PT and OT consult. Tachycardia: Workup as above. Dyspnea: With underlying COPD. CTA chest negative for PE. Echo as above. COPD not in acute exacerbation Dyslipidemia: Crestor 5 mg PO QD. CODE STATUS: FULL CODE DVT Prophylaxis: Lovenox SQ GI Prophylaxis: Designated medical POA if patient is not able to make medical decisions for them selves: I have reviewed the following device sales consultant notes: Surgery H&P. I have reviewed the results of the following tests: CBC, CMP. CTA chest. I have ordered the following tests: Echo. Trop x 2. I have discussed the care of this patient with the following independent historian: RN and Family at bedside I have independently interpreted the following test below: EKG I have discussed the management of this patient with the following physician: Past Medical History Past Medical History: COPD, Hyperlipidemia, Osteoarthritis (OA) Additional Past Medical History / Comment(s): incisional hernia, RSV admission 10/2023 History of Any Multi-Drug Resistant Organisms: None Reported Past Surgical History: Adenoidectomy, Appendectomy, Cholecystectomy, Hernia Repair, Hysterectomy, Tonsillectomy Additional Past Surgical History / Comment(s): Vaginal hysterectomy 1995, hand surgery times 2. Colonoscopy yrs). eddie bunionectomy Past Anesthesia/Blood Transfusion Reactions: Motion Sickness Additional Past Anesthesia/Blood Transfusion Reaction / Comm: no blood transfusion Smoking Status: Former smoker - Past Family History Father Family Medical History: Diabetes Mellitus, Hypertension Brother(s) Family Medical History: Cancer Additional Family Medical History / Comment(s): Pancreatic cancer Mother Family Medical History: Myocardial Infarction ([place]) Medications and Allergies Home Medications Medication Instructions Recorded Confirmed Type Rosuvastatin Calcium 5 mg PO DAILY 11/28/23 03/12/24 History Aspirin 81 mg PO BID 01/13/24 03/12/24 History metroNIDAZOLE [Flagyl] 500 mg PO TID #42 tab 01/20/24 03/12/24 Rx Ciprofloxacin 500 mg PO BID 03/09/24 03/12/24 History Allergies Allergy/AdvReac Type Severity Reaction Status Date / Time codeine AdvReac Nausea & Verified 03/12/24 10:12 Vomiting Physical Exam Vitals: Vital Signs Temp Pulse Resp BP Pulse Ox 03/12/24 12:50 97.8 F 96 17 117/64 95 03/12/24 12:32 96 16 113/53 100 03/12/24 12:17 97 16 111/58 100 03/12/24 11:52 95 16 119/52 100 03/12/24 11:37 90 16 121/57 100 03/12/24 11:22 97.8 F 99 16 122/65 100 03/12/24 11:18 90 30 H 129/77 98 03/12/24 11:17 99 28 H 03/12/24 11:09 97 28 H 124/61 100 03/12/24 10:11 98.7 F 108 H 18 124/64 97 Intake and Output 03/12/24 03/12/24 03/12/24 06:59 14:59 22:59 Intake Total 975 Balance 975 Intake: IV 975 Other: Weight 70.69 kg Results CBC & Chem 7: 03/12/24 10:24 03/12/24 14:20 Labs: Abnormal Lab Results - Last 24 Hours (Table) 03/12/24 03/12/24 03/12/24 Range/Units 10:24 10:24 14:20 Plt Count 482 H (150-450) k/uL Neutrophils # 8.3 H (1.3-7.7) k/uL Lymphocytes # 0.7 L (1.0-4.8) k/uL Chloride 109 H (98-107) mmol/L Carbon Dioxide 14 L 21 L (22-30) mmol/L BUN 21 H (7-17) mg/dL Creatinine 0.50 L (0.52-1.04) mg/dL Glucose 146 H 105 H (74-99) mg/dL AST 52 H (14-36) U/L ALT 53 H (4-34) U/L
[2024-03-12] MEDS: ASPIRIN 325 MG TAB PO STA (18:49)
[2024-03-12] MEDS: SODIUM CHLORIDE 0.9% 1,000 ML IV ONE ×2 (18:49→19:48)
[2024-03-12] MEDS ORDERED: TEMAZEPAM 15 MG CAP PO ONE (21:00)
[2024-03-13] MEDS ORDERED: metroNIDAZOLE-NS PMX 500 MG in SALINE 1 100ML.BAG IVPB PRN (05:00)
[2024-03-13] MEDS ORDERED: ALVIMOPAN 12 MG CAPSULE PO PRN (07:00)
[2024-03-13] MEDS ORDERED: MELOXICAM 7.5 MG TAB PO PRN (07:00)
[2024-03-13] MEDS ORDERED: ACETAMINOPHEN TAB 500 MG TAB PO PRN (07:00)
[2024-03-13 07:12] LABS: HCT 35.3 % (34.0-46.0); MCH 31.5 pg (25.0-35.0); MCHC 33.1 g/dL (31.0-37.0); MCV 95.2 fL (80.0-100.0); Mean Platelet Volume 7.8; Platelet Count 263 k/uL (150-450); RBC 3.71 m/uL (3.80-5.40); RDW 15.2 % (11.5-15.5); WBC 5.6 k/uL (3.8-10.6)
[2024-03-13 07:16] LABS: HGB 11.7 gm/dL (11.4-16.0)
[2024-03-13 07:19] LABS: African American GFR (CKD) >90 (>60 ml/min/1.73 sqM); Anion Gap 5 mmol/L; Blood Urea Nitrogen 8 mg/dL (7-17); Calcium 8.3 mg/dL (8.4-10.2); Carbon Dioxide 22 mmol/L (22-30); Chloride 113 mmol/L (98-107); Glucose 87 mg/dL (74-99); Non-African American GFR(CKD) >90 (>60 ml/min/1.73 sqM); Potassium 3.5 mmol/L (3.5-5.1); Sodium 140 mmol/L (137-145)
[2024-03-13 08:08] VITALS: RESP 18
--- NOTE | 2024-03-13 10:05 | P.CRDCN ---
History of Present Illness History of present illness: HISTORY OF PRESENT ILLNESS: This is a 73-year-old female with a past medical history significant for hyperlipidemia and colovaginal fistula. Patient does not follow with a academic support specialist. We have been asked to see the patient in consultation for elevated troponins. Patient examined at the bedside. Patient initially presented to the hospital to undergo endoscopy. Apparently she was complaining of shortness of breath and was tachycardic. Her endoscopy was canceled and she was admitted to the hospital. The patient gives history that she fell at home. She denies syncope.. She denies any chest pain or pressure. She denies any shortness of breath. Vital signs are stable. DIAGNOSTICS: - EKG reveals sinus mechanism with no signs of acute ischemia. - Chest xray mild hyperinflation may relate to of inspiration or underlying emphysema. Correlate clinically. No acute process seen. - Chest CTA: Negative for pulmonary embolism - Laboratory data: WBC 5.6. Hemoglobin 11.7. Platelet count 263. Sodium 140. Potassium 3.5. BUN 8. Creatinine 0.43. Troponin 0.062. 0.066. 0.065. 0.062. - Current home cardiac medications include rosuvastatin 5 mg daily and aspirin 81 mg twice a day. REVIEW OF SYSTEMS: At the time of my exam: CONSTITUTIONAL: Denies fever or chills. HEENT: Denies blurred vision, vision changes, or eye pain. Denies hemoptysis CARDIOVASCULAR: Denies chest pain. Denies orthopnea. Denies PND. Denies palpitations RESPIRATORY: Denies shortness of breath. GASTROINTESTINAL: Denies abdominal pain. Denies nausea or vomiting. HEMATOLOGIC: Denies bleeding disorders. GENITOURINARY: Denies any blood in urine. SKIN: Denies pruitis. Denies rash. PHYSICAL EXAM: VITAL SIGNS: Reviewed. GENERAL: Well-developed in no acute distress. HEENT: Head is normocephalic. Pupils are equal, round. Sclerae anicteric. Mucous membranes of the mouth are moist. Neck supple. No JVD or thyromegaly LUNGS: Respirations even and unlabored. Lungs essentially clear to auscultation bilaterally. HEART: Regular rate and rhythm. S1 and S2 heard. ABDOMEN: Soft. Nondistended. Nontender. EXTREMITIES: Normal range of motion. No clubbing or cyanosis. Peripheral pulses intact. No lower extremity edema NEUROLOGIC: Awake and alert. Oriented x 3. ASSESSMENT: Diverticulitis and colovaginal fistula , scheduled for outpatient endoscopy Status post chemical fall Abnormal troponins, flat, no evidence of acute coronary syndrome PLAN: An acute coronary but has been ruled out Obtain 2D echo to assess cardiac structure and function Check creatinine kinase level. Add onto blood work from this morning or yesterday. Also obtain repeat stat level. If 2D echo does not reveal any significant abnormalities, we will sign off. Nurse practitioner note has been reviewed by physician. Signing provider agrees with the documented findings, assessment, and plan of care documented by [employer] MAKER as a scribe. Past Medical History Past Medical History: COPD, Hyperlipidemia, Osteoarthritis (OA) Additional Past Medical History / Comment(s): incisional hernia, RSV admission 10/2023 History of Any Multi-Drug Resistant Organisms: None Reported Past Surgical History: Adenoidectomy, Appendectomy, Cholecystectomy, Hernia Repair, Hysterectomy, Tonsillectomy Additional Past Surgical History / Comment(s): Vaginal hysterectomy 1995, hand surgery times 2. Colonoscopy yrs). eddie bunionectomy Past Anesthesia/Blood Transfusion Reactions: Motion Sickness Additional Past Anesthesia/Blood Transfusion Reaction / Comment(s): no blood transfusion Smoking Status: Former smoker - Past Family History Father Family Medical History: Diabetes Mellitus, Hypertension Brother(s) Family Medical History: Cancer Additional Family Medical History / Comment(s): Pancreatic cancer Mother Family Medical History: Myocardial Infarction ([place]) Medications and Allergies Home Medications Medication Instructions Recorded Confirmed Type Rosuvastatin Calcium 5 mg PO DAILY 11/28/23 03/12/24 History Aspirin 81 mg PO BID 01/13/24 03/12/24 History metroNIDAZOLE [Flagyl] 500 mg PO TID #42 tab 01/20/24 03/12/24 Rx Ciprofloxacin 500 mg PO BID 03/09/24 03/12/24 History Allergies Allergy/AdvReac Type Severity Reaction Status Date / Time codeine AdvReac Nausea & Verified 03/12/24 10:12 Vomiting Physical Exam Vitals: Vital Signs Temp Pulse Resp BP BP BP BP 03/13/24 07:07 98.2 F 69 18 145/70 03/13/24 00:53 98.4 F 81 16 109/72 03/12/24 19:45 98.0 F 93 15 121/77 03/12/24 17:05 102 H 03/12/24 15:11 134/77 142/77 135/76 03/12/24 12:50 97.8 F 96 17 117/64 03/12/24 12:32 96 16 113/53 03/12/24 12:17 97 16 111/58 03/12/24 11:52 95 16 119/52 03/12/24 11:37 90 16 121/57 03/12/24 11:22 97.8 F 99 16 122/65 03/12/24 11:18 90 30 H 129/77 03/12/24 11:17 99 28 H 03/12/24 11:09 97 28 H 124/61 03/12/24 10:11 98.7 F 108 H 18 124/64 Pulse Ox 03/13/24 07:07 99 03/13/24 00:53 100 03/12/24 19:45 100 03/12/24 17:05 03/12/24 15:11 03/12/24 12:50 95 03/12/24 12:32 100 03/12/24 12:17 100 03/12/24 11:52 100 03/12/24 11:37 100 03/12/24 11:22 100 03/12/24 11:18 98 03/12/24 11:17 03/12/24 11:09 100 03/12/24 10:11 97 Intake and Output 03/12/24 03/13/24 03/13/24 22:59 06:59 14:59 Other: # Voids 6 1 # Bowel Movements 1 Results 03/13/24 06:30 03/13/24 06:30 Cardiac Enzymes 03/12/24 03/12/24 03/12/24 Range/Units 10:24 14:20 17:51 AST 52 H (14-36) U/L Troponin I 0.062 H* 0.066 H* (0.000-0.034) ng/mL 03/12/24 03/12/24 Range/Units 21:34 23:57 AST (14-36) U/L Troponin I 0.065 H* 0.062 H* (0.000-0.034) ng/mL CBC 03/12/24 03/13/24 Range/Units 10:24 06:30 WBC 9.6 5.6 (3.8-10.6) k/uL RBC 4.91 3.71 L (3.80-5.40) m/uL Hgb 15.2 11.7 D (11.4-16.0) gm/dL Hct 45.4 35.3 (34.0-46.0) % Plt Count 482 H 263 (150-450) k/uL Comprehensive Metabolic Panel 03/12/24 03/12/24 03/13/24 Range/Units 10:24 14:20 06:30 Sodium 142 138 140 (137-145) mmol/L Potassium 4.3 3.6 3.5 (3.5-5.1) mmol/L Chloride 109 H 106 113 H (98-107) mmol/L Carbon Dioxide 14 L 21 L 22 (22-30) mmol/L BUN 21 H 16 8 (7-17) mg/dL Creatinine 0.55 0.50 L 0.43 L (0.52-1.04) mg/dL Glucose 146 H 105 H 87 (74-99) mg/dL Calcium 9.2 8.5 8.3 L (8.4-10.2) mg/dL AST 52 H (14-36) U/L ALT 53 H (4-34) U/L Alkaline Phosphatase 58 (38-126) U/L Total Protein 7.6 (6.3-8.2) g/dL Albumin 4.1 (3.5-5.0) g/dL Current Medications Generic Name Dose Route Start Last Admin Trade Name Freq PRN Reason Stop Dose Admin Atorvastatin Calcium 10 mg 03/13/24 09:00 Atorvastatin 10 Mg Tab PO DAILY SAGE Enoxaparin Sodium 40 mg 03/13/24 09:00 Enoxaparin 40 Mg/0.4 Ml Syringe SQ DAILY SAGE Cefazolin Sodium 2 gm/ Sodium 50 mls @ 100 mls/hr 03/13/24 05:00 Chloride IVPB 03/14/24 00:01 ONCE PRN pre-op Lactated Ringer's 1,000 mls @ 20 mls/hr 03/12/24 09:58 03/12/24 10:15 Lactated Ringers IV 04/11/24 09:59 100 mls .Q24H SAGE Administration Potassium Chloride/Dextrose/Sod Cl 1,000 mls @ 75 mls/hr 03/12/24 15:00 D5%-Ns-Kcl 20 Meq/L Iv Solution IV .[id number] SAGE Naloxone HCl 0.2 mg 03/12/24 15:12 Naloxone 0.4 Mg/Ml 1 Ml Vial IV Q2M PRN Opioid Reversal Ondansetron HCl 4 mg 03/12/24 15:12 Ondansetron 4 Mg/2 Ml Vial IVP Q8HR PRN Nausea And Vomiting Intake and Output 03/12/24 03/13/24 03/13/24 22:59 06:59 14:59 Other: # Voids 6 1 # Bowel Movements 1 03/13/24 06:30 03/13/24 06:30
--- NOTE | 2024-03-13 10:22 | CA ---
Transthoracic Echo Report Name: Padmini Graham Age: 73 Gender: F : 1950 Exam Date: 03/13/2024 08:49 Exam Location: [facility] Ht (in): 62 Wt (lb): 155 Ordering Physician: Gustavo Rock MD Attending/Referring Phys: Brim Welt Sewing Machine Operator Millicent Jamison RDCS Procedure CPT: Indications: lightheadedness Cardiac Hx: Technical Quality: Fair Contrast 1: Total Dose (mL): Contrast 2: Total Dose (mL): MEASUREMENTS (Male / Female) Normal Values 2D ECHO LV Diastolic Diameter PLAX 4.1 cm 4.2 - 5.9 / 3.9 - 5.3 cm LV Systolic Diameter PLAX 3.2 cm IVS Diastolic Thickness 1.1 cm 0.6 - 1.0 / 0.6 - 0.9 cm LVPW Diastolic Thickness 0.9 cm 0.6 - 1.0 / 0.6 - 0.9 cm LV Relative Wall Thickness 0.5 RV Internal Dim ED PLAX 1.9 cm LA Systolic Diameter LX 3.2 cm 3.0 - 4.0 / 2.7 - 3.8 cm LV Diastolic Volume MOD BP 65.7 cm??? 67 - 155 / 56 - 104 cm??? LV Systolic Volume MOD BP 25.2 cm??? 22 - 58 / 19 - 49 cm??? LV Ejection Fraction MOD BP 61.7 % >= 55 % LV Cardiac Index MOD BP 1688.3 cm???/min???m??? LV Diastolic Volume MOD 4C 77.5 cm??? LV Systolic Volume MOD 4C 26.6 cm??? LV Ejection Fraction MOD 4C 65.7 % LV Cardiac Index MOD 4C 2120.7 cm???/min???m??? LV Diastolic Length 4C 7.5 cm LV Systolic Length 4C 6.0 cm LV Diastolic Volume MOD 2C 50.9 cm??? LV Systolic Volume MOD 2C 22.9 cm??? LV Ejection Fraction MOD 2C 55.0 % LV Cardiac Index MOD 2C 1168.7 cm???/min???m??? LV Diastolic Length 2C 6.8 cm LV Systolic Length 2C 5.7 cm LA Volume 49.1 cm??? 18 - 58 / 22 - 52 cm??? LA Volume Index 27.7 cm???/m??? 16 - 28 cm???/m??? M-MODE Aortic Root Diameter MM 2.5 cm LA Systolic Diameter MM 2.2 cm LA Ao Ratio MM 0.9 AV Cusp Separation MM 1.4 cm DOPPLER AV Peak Velocity 168.2 cm/s AV Peak Gradient 11.3 mmHg LVOT Peak Velocity 84.0 cm/s LVOT Peak Gradient 2.8 mmHg MV Area PHT 2.6 cm??? Mitral E Point Velocity 84.8 cm/s Mitral A Point Velocity 116.0 cm/s Mitral E to A Ratio 0.7 MV Deceleration Time 287.3 ms TR Peak Velocity 206.5 cm/s TR Peak Gradient 17.1 mmHg Right Ventricular Systolic Press 20.8 mmHg FINDINGS Left Ventricle Left ventricular ejection fraction is estimated at 60-65 %. Mildly increased septal wall thickness. No obvious regional wall motion abnormalities. Left ventricular cavity size normal. Right Ventricle Normal right ventricular size and function. Right ventricular systolic pressure within normal limits. Right Atrium Normal right atrial size. Left Atrium Normal left atrial size. Mitral Valve Structurally normal mitral valve. Thickened mitral valve without stenosis. Mild mitral regurgitation. Aortic Valve Trileaflet aortic valve. No aortic valve stenosis or regurgitation. Thickened aortic valve without stenosis. Tricuspid Valve Structurally normal tricuspid valve. No tricuspid stenosis. Trace to mild tricuspid regurgitation. Pulmonic Valve Structurally normal pulmonic valve. No pulmonic stenosis. No pulmonic regurgitation. Pericardium Minimal pericardial effusion (normal variant). Aorta Normal size aortic root and proximal ascending aorta. CONCLUSIONS Normal LV size and function No pericardial effusion Previewed by: Dr. Roberth Jalloh MD (Electronically Signed) Final Date: 13 March 2024 10:21
[2024-03-13] MEDS: D5-0.9% NACL WITH KCL 20 MEQ/L 1,000 ML IV SCH (10:28)
[2024-03-13] MEDS: ENOXAPARIN 40 MG/0.4 ML SYRINGE SQ SCH (10:29)
[2024-03-13] MEDS: ATORVASTATIN 10 MG TAB PO SCH (10:29)
--- NOTE | 2024-03-13 12:38 | P.PN ---
Subjective Progress Note Date: 03/13/24 73 year old F with PMH of COPD, HTN, OA presents to [facility] for elective surgery. Recently admitted from 01/11-01/19 for complicated perforated diverticulitis with abscess and colovaginal fistula, underwent diagnostic laparoscopy with abdominal washout discharged on Flagyl and Ciprofloxacin which she is still taking. She underwent bowel prep since 5PM last night and has not have anything to eat in preparation for colonoscopy today and surgery tomorrow. She did have a fall last night, hit her knee and right shoulder, felt weak at the legs, denied syncope or head trauma. Family at bedside did report some confusion last night as well. Today, in preop, she was noted to be lightheaded while in bed and tachycardic which prompted this admission and colonoscopy to be cancelled. [facility] has been consulted for medical management of this patient. Patient currently reports no dizziness. She reports feeling cold. Anxious and disappointed the procedure got cancelled today. She denies any chest pain, shortness of breath, palpitations. She does complain of numbness and tingling at the tips of all of her fingers and toes. Vital signs BP 117/64 HR 96 RR 17 T97.8F 95% on RA. CBC and CMP significant for Plt 482, Cl 109, bicarb 14, BUN 21, glu 146, AST 52, ALT 53. CTA chest was done negative for PE. CXR showed hyperinflation. EKG shows sinus rhythm with QTc 496. 03/13 Patient was seen and examined. Intermittent tachycardia on telemetry overnight. Feels at baseline, no lightheadedness or chest pain. Troponins 0.062, 0.066, 0.065, 0.062. Repeat EKG shows improved QTc of 488. CBC RBC 3.71. BMP Cl 113, Cr 0.43, Ca 8.3. Orthostats done yesterday negative. Echocardiogram EF60- 65% mild MR/TR. Cardiology consulted, ACS ruled out, add ASA and Metoprolol, continue statin, signed off. General: non toxic, no distress, appears at stated age Derm: warm, dry Head: atraumatic, normocephalic, symmetric Eyes: EOMI, no lid lag, anicteric sclera Mouth: no lip lesion, mucus membranes moist Cardiovascular: S1S2 reg, no murmur Lungs: Decreased BS bilateral, no rhonchi, no rales , no accessory muscle use Ext: no gross muscle atrophy, no edema, no contractures Neuro: no focal neuro deficits Psych: Alert, oriented, appropriate affect Based on my assessment of this patient, this patient meets a high complexity level of care. Patient has an acute diagnosis of tachycardia, lightheadedness and dyspnea that poses a threat to life or bodily function. Troponin elevation: Flat. Unknown significance. Echo as above. ASA 81 mg PO QD. Metoprolol 25 mg PO BID added by Cardiology. Statin as below. Cardiology cleared for OR and/or discharge. Lightheadedness with QT prolongation: EKG sinus rhythm with QTc 496 and 488 on repeat. Mag and K within normal limits. Status post 2L NS bolus. Glucose 146. Continue NS at 75 cc/hr. Telemetry monitoring. Orthostats negative. Echo as above. Neurochecks. Fall precautions. PT and OT consult. Tachycardia: Workup as above. TSH 1.78. Dyspnea: With underlying COPD. CTA chest negative for PE. Echo as above. COPD not in acute exacerbation Dyslipidemia: Crestor 5 mg PO QD. CODE STATUS: FULL CODE DVT Prophylaxis: Lovenox SQ GI Prophylaxis: Designated medical POA if patient is not able to make medical decisions for themselves: I have reviewed the following business travel consultant notes: I have reviewed the results of the following tests: CBC, BMP, Troponin x 4, Echo I have ordered the following tests: I have discussed the care of this patient with the following independent historian: I have independently interpreted the following test below: EKG. I have discussed the management of this patient with the following physician: Objective - Vital Signs Vital signs: Vital Signs Temp 98.2 F 03/13/24 07:07 Pulse 69 03/13/24 07:07 Resp 18 03/13/24 07:07 BP 145/70 03/13/24 07:07 Pulse Ox 99 03/13/24 07:07 FiO2 Intake & Output 03/12/24 03/13/24 03/13/24 18:59 06:59 18:59 Intake Total 975 Balance 975 Weight 70.69 kg Intake: IV 975 Other: # Voids 6 1 # Bowel Movements 1 - Labs CBC & Chem 7: 03/13/24 06:30 03/13/24 06:30 Labs: Abnormal Lab Results - Last 24 Hours (Table) 03/12/24 03/12/24 03/12/24 Range/Units 10:24 10:24 14:20 RBC (3.80-5.40) m/uL Plt Count 482 H (150-450) k/uL Neutrophils # 8.3 H (1.3-7.7) k/uL Lymphocytes # 0.7 L (1.0-4.8) k/uL Chloride 109 H (98-107) mmol/L Carbon Dioxide 14 L 21 L (22-30) mmol/L BUN 21 H (7-17) mg/dL Creatinine 0.50 L (0.52-1.04) mg/dL Glucose 146 H 105 H (74-99) mg/dL Calcium (8.4-10.2) mg/dL AST 52 H (14-36) U/L ALT 53 H (4-34) U/L Troponin I (0.000-0.034) ng/mL 03/12/24 03/12/24 03/12/24 Range/Units 14:20 17:51 21:34 RBC (3.80-5.40) m/uL Plt Count (150-450) k/uL Neutrophils # (1.3-7.7) k/uL Lymphocytes # (1.0-4.8) k/uL Chloride (98-107) mmol/L Carbon Dioxide (22-30) mmol/L BUN (7-17) mg/dL Creatinine (0.52-1.04) mg/dL Glucose (74-99) mg/dL Calcium (8.4-10.2) mg/dL AST (14-36) U/L ALT (4-34) U/L Troponin I 0.062 H* 0.066 H* 0.065 H* (0.000-0.034) ng/mL 03/12/24 03/13/24 03/13/24 Range/Units 23:57 06:30 06:30 RBC 3.71 L (3.80-5.40) m/uL Plt Count (150-450) k/uL Neutrophils # (1.3-7.7) k/uL Lymphocytes # (1.0-4.8) k/uL Chloride 113 H (98-107) mmol/L Carbon Dioxide (22-30) mmol/L BUN (7-17) mg/dL Creatinine 0.43 L (0.52-1.04) mg/dL Glucose (74-99) mg/dL Calcium 8.3 L (8.4-10.2) mg/dL AST (14-36) U/L ALT (4-34) U/L Troponin I 0.062 H* (0.000-0.034) ng/mL
[2024-03-13 14:58] VITALS: BP 116/74; PULSE 84; TEMP 98.1
--- NOTE | 2024-03-13 15:02 | P.DS ---
Providers Date of admission: 03/12/24 09:22 Expected date of discharge: 03/13/24 Attending physician: Joceline Nava Consults: 03/12/24 11:17 Consult Physician Stat Consulting Provider: Alfonso Benavides Consult Reason/Comments: Acute shortness of breath, falls, mental status changes Do you want consulting provider notified?: Yes 03/12/24 17:04 Consult Physician Routine Consulting Provider: Roberth Jalloh Consult Reason/Comments: Tachycardia, trops 0.062 Do you want consulting provider notified?: Yes Primary care physician: Christine Jose DISCHARGE DIAGNOSES: 1. 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 Acute coronary event with elevated troponin 3. Acute exacerbation of chronic obstructive pulmonary disease 4. Acute shortness of breath, present on admission 5. Acute tachycardia, present on admission 6. Right medial and lateral malleolus fracture 7. Hyperlipidemia 8. Tachycardia with dyspnea 9. Altered mental status changes. PROCEDURES: 1. Echocardiogram HISTORY OF PRESENTATION: The patient is 73-year-old female who was admitted for an elective sigmoid colectomy for colovaginal fistula from sigmoid diverticulitis. Patient was un dergoing colonoscopy for presurgical planning including colonoscopy screening. HOSPITAL COURSE: Patient presented to the endoscopy suite with acute shortness of breath including tachycardia present at the time of admission. Additional history was obtained by her who reported altered mental status changes within the last 24 hours. As result of her new acute clinical presentation, colonoscopy was terminated prior to start of anesthesia. Patient was giving IV fluids. She was started on diet. As patient has history of right medial and lateral malleolus fracture and prolonged immobilization of her right lower extremity, concern for acute pulmonary embolic event with CTA of the chest being obtained. CTA was negative. Chest x-ray was negative. Medical consultation was obtained with troponins being sent demonstrating new elevated troponin level concern for acute coronary event. Echocardiogram was obtained including cardiology consultation. Echo demonstrated ejection fraction over 60%. Acute coronary syndrome was excluded. Patient was cleared from both medicine and cardiology standpoint for discharge. DISCHARGE MEDICATIONS: Unchanged, resumed home medications FOLLOW-UP: 1. Brandy, 2 weeks, 03/24/[address] Tony, 03/17/2024 for antibiotic management Plan - Discharge Summary Discharge Rx Participant: Yes New Discharge Prescriptions: Continue Rosuvastatin Calcium 5 mg PO DAILY Aspirin 81 mg PO BID metroNIDAZOLE [Flagyl] 500 mg PO TID #42 tab Ciprofloxacin 500 mg PO BID Discharge Medication List Rosuvastatin Calcium 5 mg PO DAILY 11/28/23 [History] Aspirin 81 mg PO BID 01/13/24 [History] metroNIDAZOLE [Flagyl] 500 mg PO TID #42 tab 01/20/24 [Rx] Ciprofloxacin 500 mg PO BID 03/09/24 [History] Follow up Appointment(s)/Referral(s): Joceline Nava MD [STAFF PHYSICIAN] - 03/24/24 3:15 pm Patient Instructions/Handouts: Diverticulitis Diet (GEN) Activity/Diet/Wound Care/Special Instructions: Diet as tolerated. Please avoid seeds. Discharge Disposition: HOME SELF-CARE
[2024-03-13] MEDS ORDERED: METOPROLOL TARTRATE 25 MG TAB PO SCH (21:00)
[2024-03-14] MEDS ORDERED: ATORVASTATIN 40 MG TAB PO SCH (09:00)
[2024-03-14] MEDS ORDERED: ASPIRIN 81 MG PO SCH (09:00)
== END 2024-03-13 16:16 | disposition home or self-care (01) | DRG 392 ==
LOC: ORWHC2ENDO 09:21 → 4SSUR 09:22 → ORWHC2ENDO 09:22 → 4SSUR 12:20
PROVIDERS: ADMIT Surgery Plastic and Reconstructive Surgery; ATTEND Surgery Plastic and Reconstructive Surgery
DX: K57.32 Diverticulitis of large intestine without perforation or abscess without bleeding (principal); N82.3 Fistula of vagina to large intestine; J44.1 Chronic obstructive pulmonary disease with (acute) exacerbation; R41.82 Altered mental status, unspecified; S82.841D Displaced bimalleolar fracture of right lower leg, subsequent encounter for closed fracture with routine healing; R29.6 Repeated falls; Z91.81 History of falling; R00.0 Tachycardia, unspecified; Z53.09 Procedure and treatment not carried out because of other contraindication; I08.1 Rheumatic disorders of both mitral and tricuspid valves; E78.5 Hyperlipidemia, unspecified; R94.31 Abnormal electrocardiogram [ECG] [EKG]; Z79.899 Other long term (current) drug therapy; Z79.82 Long term (current) use of aspirin; Z87.891 Personal history of nicotine dependence; M19.90 Unspecified osteoarthritis, unspecified site; Z88.5 Allergy status to narcotic agent; Z79.2 Long term (current) use of antibiotics
CPT/HCPCS: 71045; 71275; 80048; 80053; 82550; 83036; 83735; 84100; 84443; 84484; 85025; 85027; 93005; 93306

== ENCOUNTER 2024-03-15 08:53 | Emergency (ER) | payer MEDICARE ==
[2024-03-15 09:16] VITALS: RESP 18; TEMP 98
--- NOTE | 2024-03-15 09:16 | ED ---
General Adult HPI - General Chief complaint: Recheck/Abnormal Lab/Rx Stated complaint: hand and feet numbness/swelling Time Seen by Provider: 03/15/24 09:10 Source: patient, family, RN notes reviewed Mode of arrival: wheelchair Limitations: no limitations - History of Present Illness Initial comments: Patient is a 73-year-old female presenting to the emergency department with concerns for leg edema. Symptoms have progressed over the past few days. No calf pain. No dyspnea. No orthopnea or exertional dyspnea. No chest pain. No fevers. Patient also has some tingling of her bilateral feet and hands. No weakness. - Related Data Home Medications Medication Instructions Recorded Confirmed Rosuvastatin Calcium 5 mg PO DAILY 11/28/23 03/12/24 Aspirin 81 mg PO BID 01/13/24 03/12/24 Ciprofloxacin 500 mg PO BID 03/09/24 03/12/24 Previous Rx's Medication Instructions Recorded metroNIDAZOLE [Flagyl] 500 mg PO TID #42 tab 01/20/24 Furosemide [Lasix] 40 mg PO DAILY #3 tablet 03/15/24 Potassium Chloride ER [K-Dur 20] 20 meq PO DAILY #4 tab 03/15/24 Allergies Allergy/AdvReac Type Severity Reaction Status Date / Time codeine AdvReac Nausea & Verified 03/15/24 09:06 Vomiting Review of Systems ROS Statement: Those systems with pertinent positive or pertinent negative responses have been documented in the HPI. ROS Other: All systems not noted in ROS Statement are negative. Constitutional: Denies: fever Eyes: Denies: eye pain ENT: Denies: ear pain Respiratory: Denies: cough Cardiovascular: Reports: edema. Denies: chest pain, dyspnea on exertion, orthopnea Endocrine: Denies: fatigue Gastrointestinal: Denies: abdominal pain Genitourinary: Denies: dysuria Musculoskeletal: Denies: back pain Neurological: Denies: headache Past Medical History Past Medical History: COPD, Hyperlipidemia, Osteoarthritis (OA) Additional Past Medical History / Comment(s): incisional hernia, RSV admission 10/2023 History of Any Multi-Drug Resistant Organisms: None Reported Past Surgical History: Adenoidectomy, Appendectomy, Cholecystectomy, Hernia Repair, Hysterectomy, Tonsillectomy Additional Past Surgical History / Comment(s): Vaginal hysterectomy 1995, hand surgery times 2. Colonoscopy yrs). eddie bunionectomy, diverticulitis surgery. Past Anesthesia/Blood Transfusion Reactions: Motion Sickness Additional Past Anesthesia/Blood Transfusion Reaction / Comment(s): no blood transfusion Past Psychological History: No Psychological Hx Reported Smoking Status: Former smoker Past Alcohol Use History: None Reported Past Drug Use History: None Reported - Past Family History Father Family Medical History: Diabetes Mellitus, Hypertension Brother(s) Family Medical History: Cancer Additional Family Medical History / Comment(s): Pancreatic cancer Mother Family Medical History: Myocardial Infarction (IL) General Exam Limitations: no limitations General appearance: alert, in no apparent distress Head exam: Present: normocephalic Eye exam: Present: normal appearance Neck exam: Present: normal inspection Respiratory exam: Present: normal lung sounds bilaterally. Absent: respiratory distress, rales, decreased breath sounds Cardiovascular Exam: Present: regular rate, normal rhythm, normal heart sounds GI/Abdominal exam: Present: soft. Absent: tenderness Extremities exam: Present: pedal edema. Absent: calf tenderness Neurological exam: Present: alert. Absent: motor sensory deficit Psychiatric exam: Present: normal affect, normal mood Skin exam: Present: normal color Course Vital Signs 03/15/24 09:03 Temperature 98 F Pulse Rate 87 Respiratory 18 Rate Blood Pressure 134/74 O2 Sat by Pulse 98 Oximetry EKG Findings - EKG Results: EKG: interpreted by ERMD (Nonspecific T waves.), sinus rhythm, normal axis, normal QRS Medical Decision Making - Medical Decision Making Was pt. sent in by a medical professional or institution (MELINDA Moscoso, RN NIGHT, urgent care, hospital, or snf...) When possible be specific @ -No Did you speak to anyone other than the patient for history (EMS, parent, family, police, friend...)? What history was obtained from this source @ -No Did you review nursing and triage notes (agree or disagree)? Why? @ -I reviewed and agree with nursing and triage notes Were old charts reviewed (outside hosp., previous admission, EMS record, old EKG, old radiological studies, urgent care reports/EKG's, snf records)? Report findings @ -No old charts were reviewed Differential Diagnosis (chest pain, altered mental status, abdominal pain women, abdominal pain men, vaginal bleeding, weakness, fever, dyspnea, syncope, headache, dizziness, GI bleed, back pain, seizure, CVA, palpatations, mental health, musculoskeletal)? @ -Differential Weakness: Hypoglycemia, shock, sepsis, hyponatremia, anemia, infection, IL, ETOH, adverse medicine reaction, overdose, stroke, this is not meant to be an all-inclusive list. EKG interpreted by me (3pts min.). @ -As above X-rays interpreted by me (1pt min.). @ -Chest x-ray shows no acute process. No signs of CHF CT interpreted by me (1pt min.). @ -None done U/S interpreted by me (1pt. min.). @ -None done What testing was considered but not performed or refused? (CT, X-rays, U/S, labs)? Why? @ -None What meds were considered but not given or refused? Why? @ -None Did you discuss the management of the patient with other professionals (professionals i.e. , PA, RN NIGHT, lab, RT, psych nurse, social media strategist, heel turner, teacher, forward air controller/air officer, casework specialist)? Give summary @ -No Was smoking cessation discussed for >3mins.? @ -No Was critical care preformed (if so, how long)? @ -No Were there social determinants of health that impacted care today? How? (Homelessness, low income, unemployed, alcoholism, drug addiction, transportation, low edu. Level, literacy, decrease access to med. care, longterm, rehab)? @ -No Was there de-escalation of care discussed even if they declined (Discuss DNR or withdrawal of care, Hospice)? DNR status @ -No What co-morbidities impacted this encounter? (DM, HTN, Smoking, COPD, CAD, Cancer, CVA, ARF, Chemo, Hep., AIDS, mental health diagnosis, sleep apnea, m orbid obesity)? @ -None Was patient admitted / discharged? Hospital course, mention meds given and route, prescriptions, significant lab abnormalities, going to OR and other pertinent info. @ -Patient reevaluated and resting comfortably in bed. Patient does feel a bit better. Patient is updated on results and need for follow-up and repeat testing. Undiagnosed new problem with uncertain prognosis? @ -No Drug Therapy requiring intensive monitoring for toxicity (Heparin, Nitro, Insulin, Cardizem)? @ -No Were any procedures done? @ -No Diagnosis/symptom? @ -Hypokalemia, leg edema Acute, or Chronic, or Acute on Chronic? @ -Acute, acute Uncomplicated (without systemic symptoms) or Complicated (systemic symptoms)? @ -Default Side effects of treatment? @ -No Exacerbation, Progression, or Severe Exacerbation? @ -No Poses a threat to life or bodily function? How? (Chest pain, USA, IL, pneumonia, PE, COPD, DKA, ARF, appy, cholecystitis, CVA, Diverticulitis, Homicidal, Suicidal, threat to staff... and all critical care pts) @ -No - Lab Data Result diagrams: 03/15/24 10:11 03/15/24 10:11 Lab Results 03/15/24 03/15/24 03/15/24 Range/Units 10:11 10:11 10:11 WBC 5.3 (3.8-10.6) k/uL RBC 4.34 (3.80-5.40) m/uL Hgb 13.1 (11.4-16.0) gm/dL Hct 40.4 (34.0-46.0) % MCV 93.0 (80.0-100.0) fL MCH 30.2 (25.0-35.0) pg MCHC 32.5 (31.0-37.0) g/dL RDW 14.6 (11.5-15.5) % Plt Count 295 (150-450) k/uL MPV 7.0 Neutrophils % 80 % Lymphocytes % 12 % Monocytes % 6 % Eosinophils % 1 % Basophils % 1 % Neutrophils # 4.2 (1.3-7.7) k/uL Lymphocytes # 0.6 L (1.0-4.8) k/uL Monocytes # 0.3 (0-1.0) k/uL Eosinophils # 0.1 (0-0.7) k/uL Basophils # 0.0 (0-0.2) k/uL PT 11.0 (10.0-12.5) sec INR 1.0 (<1.2) APTT 22.0 (22.0-30.0) sec Sodium 139 (137-145) mmol/L Potassium 3.2 L (3.5-5.1) mmol/L Chloride 109 H (98-107) mmol/L Carbon Dioxide 25 (22-30) mmol/L Anion Gap 5 mmol/L BUN 4 L (7-17) mg/dL Creatinine 0.45 L (0.52-1.04) mg/dL Est GFR (CKD-EPI)AfAm >90 (>60 ml/min/1.73 sqM) Est GFR (CKD-EPI)NonAf >90 (>60 ml/min/1.73 sqM) Glucose 117 H (74-99) mg/dL Calcium 8.7 (8.4-10.2) mg/dL Magnesium 1.8 (1.6-2.3) mg/dL Total Bilirubin 0.5 (0.2-1.3) mg/dL AST 30 (14-36) U/L ALT 37 H (4-34) U/L Alkaline Phosphatase 61 (38-126) U/L Troponin I (0.000-0.034) ng/mL NT-Pro-B Natriuret Pep 3180 pg/mL Total Protein 5.8 L (6.3-8.2) g/dL Albumin 3.0 L (3.5-5.0) g/dL 03/15/24 Range/Units 10:11 WBC (3.8-10.6) k/uL RBC (3.80-5.40) m/uL Hgb (11.4-16.0) gm/dL Hct (34.0-46.0) % MCV (80.0-100.0) fL MCH (25.0-35.0) pg MCHC (31.0-37.0) g/dL RDW (11.5-15.5) % Plt Count (150-450) k/uL MPV Neutrophils % % Lymphocytes % % Monocytes % % Eosinophils % % Basophils % % Neutrophils # (1.3-7.7) k/uL Lymphocytes # (1.0-4.8) k/uL Monocytes # (0-1.0) k/uL Eosinophils # (0-0.7) k/uL Basophils # (0-0.2) k/uL PT (10.0-12.5) sec INR (<1.2) APTT (22.0-30.0) sec Sodium (137-145) mmol/L Potassium (3.5-5.1) mmol/L Chloride (98-107) mmol/L Carbon Dioxide (22-30) mmol/L Anion Gap mmol/L BUN (7-17) mg/dL Creatinine (0.52-1.04) mg/dL Est GFR (CKD-EPI)AfAm (>60 ml/min/1.73 sqM) Est GFR (CKD-EPI)NonAf (>60 ml/min/1.73 sqM) Glucose (74-99) mg/dL Calcium (8.4-10.2) mg/dL Magnesium (1.6-2.3) mg/dL Total Bilirubin (0.2-1.3) mg/dL AST (14-36) U/L ALT (4-34) U/L Alkaline Phosphatase (38-126) U/L Troponin I <0.012 (0.000-0.034) ng/mL NT-Pro-B Natriuret Pep pg/mL Total Protein (6.3-8.2) g/dL Albumin (3.5-5.0) g/dL Disposition Clinical Impression: Leg edema, Hypokalemia, Paresthesia Disposition: HOME SELF-CARE Condition: Stable Instructions (If sedation given, give patient instructions): Leg Edema (ED) Additional Instructions: Prescriptions have been sent to pharmacy. Please do follow-up with your primary care physician this week. Have your doctor recheck potassium level. Return for difficulty breathing, fevers, increased swelling or calf pain, worsening symptoms or other concerns. Prescriptions: Potassium Chloride ER [K-Dur 20] 20 meq PO DAILY #4 tab Furosemide [Lasix] 40 mg PO DAILY #3 tablet Is patient prescribed a controlled substance at d/c from ED?: No Referrals: Christine Jose MD [Primary Care Provider] - 1-2 days Time of Disposition: 11:40
[2024-03-15 10:31] LABS: Basophils % (A) 1 %; Eosinophils # (A) 0.1 k/uL (0-0.7); Eosinophils % (A) 1 %; HCT 40.4 % (34.0-46.0); HGB 13.1 gm/dL (11.4-16.0); Lymphocytes # (A) 0.6 k/uL (1.0-4.8); Lymphocytes % (A) 12 %; MCH 30.2 pg (25.0-35.0); MCHC 32.5 g/dL (31.0-37.0); Monocytes # (A) 0.3 k/uL (0-1.0); Monocytes % (A) 6 %; Neutrophils # (A) 4.2 k/uL (1.3-7.7); Neutrophils % (A) 80 %; Platelet Count 295 k/uL (150-450); RBC 4.34 m/uL (3.80-5.40); RDW 14.6 % (11.5-15.5); WBC 5.3 k/uL (3.8-10.6)
--- NOTE | 2024-03-15 10:48 | XR ---
EXAMINATION TYPE: XR chest 2V DATE OF EXAM: 03/15/2024 10:04 AM CLINICAL INDICATION:Female, 73 years old with history of Weakness; PHH COMPARISON: Chest radiographs from 03/12/2024 TECHNIQUE: XR chest 2V Frontal and lateral views of the chest. FINDINGS: Lungs/Pleura: There is no evidence of pleural effusion, focal consolidation, or pneumothorax. Pulmonary vascularity: Unremarkable. Heart/mediastinum: Cardiomediastinal silhouette is unremarkable. Musculoskeletal: No acute osseous pathology. IMPRESSION: No acute cardiopulmonary disease/process.
[2024-03-15 11:00] LABS: ALT 37 U/L (4-34); AST 30 U/L (14-36); African American GFR (CKD) >90 (>60 ml/min/1.73 sqM); Alkaline Phosphatase 61 U/L (38-126); Anion Gap 5 mmol/L; Blood Urea Nitrogen 4 mg/dL (7-17); Calcium 8.7 mg/dL (8.4-10.2); Carbon Dioxide 25 mmol/L (22-30); Chloride 109 mmol/L (98-107); Glucose 117 mg/dL (74-99); Magnesium 1.8 mg/dL (1.6-2.3); Non-African American GFR(CKD) >90 (>60 ml/min/1.73 sqM); Potassium 3.2 mmol/L (3.5-5.1); Sodium 139 mmol/L (137-145); Total Bilirubin 0.5 mg/dL (0.2-1.3); Total Protein 5.8 g/dL (6.3-8.2)
[2024-03-15 11:08] LABS: NT-Pro-B-Type Natriuretic Pept 3180 pg/mL
[2024-03-15] MEDS: POTASSIUM CHLORIDE ER 20 MEQ TAB.ER PO STA (11:51)
[2024-03-15] MEDS: FUROSEMIDE 10 MG/ML 4 ML VIAL IV STA (11:51)
[2024-03-15 12:31] VITALS: BP 135/71; PULSE 85
== END 2024-03-15 12:08 | disposition home or self-care (01) ==
LOC: EC 08:53
DX: E87.6 Hypokalemia (principal); R60.0 Localized edema; R20.2 Paresthesia of skin; Z88.5 Allergy status to narcotic agent; Z87.891 Personal history of nicotine dependence; Z90.49 Acquired absence of other specified parts of digestive tract
CPT/HCPCS: 36415; 93005; 83880; 80053; 83735; 84484; 85025; 85610; 85730; 71046; 99284; 96374; J1940

== ENCOUNTER 2024-04-02 08:10 | Inpatient (IN) | payer MEDICARE ==
[2024-04-02 09:11] LABS: Basophils # (A) 0.1 k/uL (0-0.2); Basophils % (A) 1 %; Eosinophils # (A) 0.1 k/uL (0-0.7); Eosinophils % (A) 2 %; HGB 13.7 gm/dL (11.4-16.0); Lymphocytes # (A) 0.6 k/uL (1.0-4.8); Lymphocytes % (A) 9 %; MCHC 32.6 g/dL (31.0-37.0); Mean Platelet Volume 7.2; Monocytes # (A) 0.4 k/uL (0-1.0); Monocytes % (A) 5 %; Neutrophils # (A) 5.9 k/uL (1.3-7.7); Neutrophils % (A) 82 %; Platelet Count 272 k/uL (150-450); RBC 4.42 m/uL (3.80-5.40); RDW 14.5 % (11.5-15.5); WBC 7.2 k/uL (3.8-10.6)
[2024-04-02] MEDS: ONDANSETRON 4 MG/2 ML VIAL IM STA (09:21)
[2024-04-02] MEDS: ONDANSETRON 4 MG/2 ML VIAL IVP STA (09:21)
[2024-04-02] MEDS: SODIUM CHLORIDE 0.9% 1,000 ML IV STA (09:21)
[2024-04-02 09:24] LABS: ALT 39 U/L (4-34); AST 34 U/L (14-36); African American GFR (CKD) >90 (>60 ml/min/1.73 sqM); Albumin 3.5 g/dL (3.5-5.0); Alkaline Phosphatase 93 U/L (38-126); Anion Gap 5 mmol/L; Blood Urea Nitrogen 11 mg/dL (7-17); Calcium 9.1 mg/dL (8.4-10.2); Carbon Dioxide 26 mmol/L (22-30); Chloride 106 mmol/L (98-107); Glucose 118 mg/dL (74-99); Lipase 63 U/L (23-300); Non-African American GFR(CKD) >90 (>60 ml/min/1.73 sqM); Potassium 3.8 mmol/L (3.5-5.1); Sodium 137 mmol/L (137-145); Total Bilirubin 0.8 mg/dL (0.2-1.3); Total Protein 6.4 g/dL (6.3-8.2)
[2024-04-02 09:29] LABS: INR 0.9 (<1.2); Prothrombin Time 10.2 sec (10.0-12.5)
[2024-04-02 09:35] LABS: Partial Thromboplastin Time 21.2 sec (22.0-30.0)
--- NOTE | 2024-04-02 10:23 | CT ---
EXAMINATION TYPE: CT abdomen pelvis w con DATE OF EXAM: 04/02/2024 COMPARISON: 01/11/2024 HISTORY: 73-year-old female with abdominal pain, vaginal rectal pain. Patient with fistula, awaiting surgery. TECHNIQUE: Contiguous axial scanning of the abdomen and pelvis following administration of 100 ml Iso romulo 300 IV contrast. Delayed images through the kidneys and coronal/sagittal reconstructions perform ed. CT DLP: 797.4 mGycm Automated exposure control for dose reduction was used. FINDINGS: Heart is normal size without pericardial effusion. Lung bases clear without pleural effusio n. Small hiatal hernia. No focal liver lesion. Cholecystectomy clips. Portal venous system is patent. Unchanged mildly dilated bile duct up to 1 cm primarily relating to chronic postcholecystectomy statu s. 2.3 cm diverticulum of the duodenum projecting into the pancreatic head region redemonstrated. Tiny 5 mm cortical cyst lateral midpole left kidney. Right kidney, spleen, and pancreas within normal limits. Mild to moderate atherosclerotic calcifications infrarenal abdominal aorta and common iliac arteries. No dilated small bowel, free fluid, or free air. No mesenteric or retroperitoneal lymphadenopathy. Scattered colonic diverticulosis, greatest in along the left side of the colon especially the sigmoid colon. There is residual mild wall thickening along the mid to distal sigmoid colon. Minimal adjacent fat st randing but shows slight improvement. Redemonstrated fistulous communication extending from the inferior margin of the distal sigmoid to th e left sided margin of the vaginal cuff. There is fluid collection now present here at the vaginal cu ff measuring 2.5 x 2.4 x 1.3 cm. There is a contiguous small, second collection located along the rig ht sided margin of the vaginal cuff measuring 1.8 x 0.9 x 0.9 cm. No pelvic lymphadenopathy. Bones: Mild degenerative change at the hips. IMPRESSION: SIGMOID DIVERTICULOSIS WITH REDEMONSTRATION OF A FISTULA TRACT EXTENDING FROM THE INFERIOR ASPECT OF THE DISTAL SIGMOID COLON TO THE LEFT SIDE OF THE VAGINAL CUFF. INTERVAL DEVELOPMENT OF A 2.5 CM ABSCE SS WITHIN THE VAGINAL CUFF HERE ALONG WITH A SMALL CONTIGUOUS SECOND ABSCESS AT THE RIGHT SIDE OF THE VAGINAL CUFF MEASURING 1.8 CM (CORONAL IMAGE 60).
[2024-04-02 10:27] LABS: Appearance,Urine Clear (Clear); Bacteria,Urine Rare /hpf; Bilirubin,Urine Negative (Negative); Blood,Urine Small (Negative); Color,Urine Colorless; Glucose,Urine (UA) Negative (Negative); Ketones,Urine Negative (Negative); Leukocyte Esterase,Urine Large (Negative); Mucus,Urine Rare /hpf; Nitrite,Urine Negative (Negative); PH, Urine 5.5 (5.0-8.0); Protein,Urine Negative (Negative); RBC,Urine 8 /hpf (0-5); Squamous Epithelial Cell,Urine 4 /hpf (0-4); Urobilinogen,Urine <2.0 mg/dL (<2.0); WBC,Urine 29 /hpf (0-5)
[2024-04-02 10:36] LABS: Specific Gravity,Urine >1.050 (1.001-1.035)
--- NOTE | 2024-04-02 10:50 | ED ---
General Adult HPI - General Chief complaint: Recheck/Abnormal Lab/Rx Stated complaint: vaginal pain Time Seen by Provider: 04/02/24 08:31 Source: patient, RN notes reviewed Mode of arrival: ambulatory Limitations: no limitations - History of Present Illness Initial comments: 73-year-old female presents emergency department complaint abdominal pain. Dee Dee ent states this feels like when she had a perforated diverticulitis. Patient states that she gets intermittent sharp shooting pain in her lower abdomen pelvic and rectal region. She states her stools have been soft this is no change denies any rectal bleeding, no fever she states pain has been on and off for last 24 hours. She states that she is scheduled for fistula repair but heavy pushback because she was not feeling well. Patient denies any significant vomiting no chest pain shortness of breath. - Related Data Home Medications Medication Instructions Recorded Confirmed Rosuvastatin Calcium 5 mg PO DAILY 11/28/23 03/12/24 Aspirin 81 mg PO BID 01/13/24 03/12/24 Ciprofloxacin 500 mg PO BID 03/09/24 03/12/24 Previous Rx's Medication Instructions Recorded metroNIDAZOLE [Flagyl] 500 mg PO TID #42 tab 01/20/24 Furosemide [Lasix] 40 mg PO DAILY #3 tablet 03/15/24 Potassium Chloride ER [K-Dur 20] 20 meq PO DAILY #4 tab 03/15/24 Allergies Allergy/AdvReac Type Severity Reaction Status Date / Time codeine AdvReac Nausea & Verified 04/02/24 08:22 Vomiting Review of Systems ROS Statement: Those systems with pertinent positive or pertinent negative responses have been documented in the HPI. ROS Other: All systems not noted in ROS Statement are negative. Past Medical History Past Medical History: COPD, Hyperlipidemia, Osteoarthritis (OA) Additional Past Medical History / Comment(s): incisional hernia, RSV admission 10/2023 History of Any Multi-Drug Resistant Organisms: None Reported Past Surgical History: Adenoidectomy, Appendectomy, Cholecystectomy, Hernia Repair, Hysterectomy, Tonsillectomy Additional Past Surgical History / Comment(s): Vaginal hysterectomy 1995, hand surgery times 2. Colonoscopy yrs). eddie bunionectomy, diverticulitis surgery. Past Anesthesia/Blood Transfusion Reactions: Motion Sickness Additional Past Anesthesia/Blood Transfusion Reaction / Comment(s): no blood transfusion Past Psychological History: No Psychological Hx Reported Smoking Status: Former smoker Past Alcohol Use History: None Reported Past Drug Use History: None Reported - Past Family History Father Family Medical History: Diabetes Mellitus, Hypertension Brother(s) Family Medical History: Cancer Additional Family Medical History / Comment(s): Pancreatic cancer Mother Family Medical History: Myocardial Infarction ([place]) General Exam Limitations: no limitations General appearance: alert, in no apparent distress Head exam: Present: atraumatic, normocephalic, normal inspection Eye exam: Present: normal appearance, PERRL, EOMI. Absent: scleral icterus, conjunctival injection, periorbital swelling Respiratory exam: Present: normal lung sounds bilaterally. Absent: respiratory distress, wheezes, rales, rhonchi, stridor Cardiovascular Exam: Present: regular rate, normal rhythm, normal heart sounds. Absent: systolic murmur, diastolic murmur, rubs, gallop, clicks GI/Abdominal exam: Present: soft, tenderness, normal bowel sounds. Absent: distended, guarding, rebound, rigid Back exam: Absent: CVA tenderness (R), CVA tenderness (L) Skin exam: Present: warm, dry, intact, normal color. Absent: rash Course Vital Signs 04/02/24 08:21 Temperature 98.1 F Pulse Rate 92 Respiratory 20 Rate Blood Pressure 116/67 O2 Sat by Pulse 99 Oximetry Medical Decision Making - Medical Decision Making Was pt. sent in by a medical professional or institution ([facility], [facility], urgent care, hospital, or residential...) When possible be specific @ -No Did you speak to anyone other than the patient for history (EMS, parent, family, police, friend...)? What history was obtained from this source @ -No Did you review nursing and triage notes (agree or disagree)? Why? @ -I reviewed and agree with nursing and triage notes Were old charts reviewed (outside hosp., previous admission, EMS record, old EKG, old radiological studies, urgent care reports/EKG's, residential records)? Report findings @ -No old charts were reviewed Differential Diagnosis (chest pain, altered mental status, abdominal pain women, abdominal pain men, vaginal bleeding, weakness, fever, dyspnea, syncope, headache, dizziness, GI bleed, back pain, seizure, CVA, palpatations, mental health, musculoskeletal)? @ -Differential Abdominal Pain Women: Appendicitis, Cholecystitis, diverticulosis, ischemic bowel, pancreatitis, hepatitis, UTI, gastroenteritis, AAA, incarcerated hernia, bowel obstruction, constipation, inflammatory bowel, hepatitis, peptic ulcer disease, splenic infarction, perforated viscus, vulvitis, ovarian torsion, PID, kidney stone, placenta abruption, this is not meant to be an all-inclusive list EKG interpreted by me (3pts min.). @ -None X-rays interpreted by me (1pt min.). @ -None done CT interpreted by me (1pt min.). @ -CT abdomen pelvis showing evidence of known fistula diverticulosis and 2 intra-abdominal abscesses. U/S interpreted by me (1pt. min.). @ -None done What testing was considered but not performed or refused? (CT, X-rays, U/S, labs)? Why? @ -None What meds were considered but not given or refused? Why? @ -None Did you discuss the management of the patient with other professionals (professionals i.e. , PA, [facility] [facility], lab, RT, psych nurse, social services specialist, manager mass, teacher, program officer, director case)? Give summary @ -Case is also Dr. Nava known surgeon to the patient's accepts admission with consult to ID Was smoking cessation discussed for >3mins.? @ -No Was critical care preformed (if so, how long)? @ -No Were there social determinants of health that impacted care today? How? (Home lessness, low income, unemployed, alcoholism, drug addiction, transportation, low edu. Level, literacy, decrease access to med. care, penitentiary, rehab)? @ -No Was there de-escalation of care discussed even if they declined (Discuss DNR or withdrawal of care, Hospice)? DNR status @ -No What co-morbidities impacted this encounter? (DM, HTN, Smoking, COPD, CAD, Cancer, CVA, ARF, Chemo, Hep., AIDS, mental health diagnosis, sleep apnea, morbid obesity)? @ -None Was patient admitted / discharged? Hospital course, mention meds given and route, prescriptions, significant lab abnormalities, going to OR and other pertinent info. @ -Admitted patient found to have intra-abdominal abscesses patient started IV antibiotics admit to surgery with consult to infectious disease Undiagnosed new problem with uncertain prognosis? @ -No Drug Therapy requiring intensive monitoring for toxicity (Heparin, Nitro, Insul in, Cardizem)? @ -No Were any procedures done? @ -No Diagnosis/symptom? @ -Intra-abdominal abscess Acute, or Chronic, or Acute on Chronic? @ -Acute Uncomplicated (without systemic symptoms) or Complicated (systemic symptoms)? @ -Complicated Side effects of treatment? @ -No Exacerbation, Progression, or Severe Exacerbation? @ -No Poses a threat to life or bodily function? How? (Chest pain, [place], [place], pneumonia, PE, COPD, DKA, ARF, appy, cholecystitis, CVA, Diverticulitis, Homicidal, Suicidal, threat to staff... and all critical care pts) @ -Yes possible sepsis, endorgan failure, surgical risk - Lab Data Result diagrams: 04/02/24 08:48 04/02/24 08:48 Lab Results 04/02/24 04/02/24 04/02/24 Range/Units 08:48 08:48 08:48 WBC 7.2 (3.8-10.6) k/uL RBC 4.42 (3.80-5.40) m/uL Hgb 13.7 (11.4-16.0) gm/dL Hct 42.0 (34.0-46.0) % MCV 95.0 (80.0-100.0) fL MCH 31.0 (25.0-35.0) pg MCHC 32.6 (31.0-37.0) g/dL RDW 14.5 (11.5-15.5) % Plt Count 272 (150-450) k/uL MPV 7.2 Neutrophils % 82 % Lymphocytes % 9 % Monocytes % 5 % Eosinophils % 2 % Basophils % 1 % Neutrophils # 5.9 (1.3-7.7) k/uL Lymphocytes # 0.6 L (1.0-4.8) k/uL Monocytes # 0.4 (0-1.0) k/uL Eosinophils # 0.1 (0-0.7) k/uL Basophils # 0.1 (0-0.2) k/uL PT 10.2 (10.0-12.5) sec INR 0.9 (<1.2) APTT 21.2 L (22.0-30.0) sec Sodium 137 (137-145) mmol/L Potassium 3.8 (3.5-5.1) mmol/L Chloride 106 (98-107) mmol/L Carbon Dioxide 26 (22-30) mmol/L Anion Gap 5 mmol/L BUN 11 (7-17) mg/dL Creatinine 0.43 L (0.52-1.04) mg/dL Est GFR (CKD-EPI)AfAm >90 (>60 ml/min/1.73 sqM) Est GFR (CKD-EPI)NonAf >90 (>60 ml/min/1.73 sqM) Glucose 118 H (74-99) mg/dL Plasma Lactic Acid Abilio (0.7-2.0) mmol/L Calcium 9.1 (8.4-10.2) mg/dL Total Bilirubin 0.8 (0.2-1.3) mg/dL AST 34 (14-36) U/L ALT 39 H (4-34) U/L Alkaline Phosphatase 93 (38-126) U/L Total Protein 6.4 (6.3-8.2) g/dL Albumin 3.5 (3.5-5.0) g/dL Lipase 63 (23-300) U/L Urine Color Urine Appearance (Clear) Urine pH (5.0-8.0) Ur Specific [place] (1.001-1.035) Urine Protein (Negative) Urine Glucose (UA) (Negative) Urine Ketones (Negative) Urine Blood (Negative) Urine Nitrite (Negative) Urine Bilirubin (Negative) Urine Urobilinogen (<2.0) mg/dL Ur Leukocyte Esterase (Negative) Urine RBC (0-5) /hpf Urine WBC (0-5) /hpf Ur Squamous Epith Cells (0-4) /hpf Urine Bacteria (None) /hpf Urine Mucus (None) /hpf 04/02/24 04/02/24 Range/Units 09:30 10:10 WBC (3.8-10.6) k/uL RBC (3.80-5.40) m/uL Hgb (11.4-16.0) gm/dL Hct (34.0-46.0) % MCV (80.0-100.0) fL MCH (25.0-35.0) pg MCHC (31.0-37.0) g/dL RDW (11.5-15.5) % Plt Count (150-450) k/uL MPV Neutrophils % % Lymphocytes % % Monocytes % % Eosinophils % % Basophils % % Neutrophils # (1.3-7.7) k/uL Lymphocytes # (1.0-4.8) k/uL Monocytes # (0-1.0) k/uL Eosinophils # (0-0.7) k/uL Basophils # (0-0.2) k/uL PT (10.0-12.5) sec INR (<1.2) APTT (22.0-30.0) sec Sodium (137-145) mmol/L Potassium (3.5-5.1) mmol/L Chloride (98-107) mmol/L Carbon Dioxide (22-30) mmol/L Anion Gap mmol/L BUN (7-17) mg/dL Creatinine (0.52-1.04) mg/dL Est GFR (CKD-EPI)AfAm (>60 ml/min/1.73 sqM) Est GFR (CKD-EPI)NonAf (>60 ml/min/1.73 sqM) Glucose (74-99) mg/dL Plasma Lactic Acid Abilio 1.0 (0.7-2.0) mmol/L Calcium (8.4-10.2) mg/dL Total Bilirubin (0.2-1.3) mg/dL AST (14-36) U/L ALT (4-34) U/L Alkaline Phosphatase (38-126) U/L Total Protein (6.3-8.2) g/dL Albumin (3.5-5.0) g/dL Lipase (23-300) U/L Urine Color Colorless Urine Appearance Clear (Clear) Urine pH 5.5 (5.0-8.0) Ur Specific [place] >1.050 H (1.001-1.035) Urine Protein Negative (Negative) Urine Glucose (UA) Negative (Negative) Urine Ketones Negative (Negative) Urine Blood Small H (Negative) Urine Nitrite Negative (Negative) Urine Bilirubin Negative (Negative) Urine Urobilinogen <2.0 (<2.0) mg/dL Ur Leukocyte Esterase Large H (Negative) Urine RBC 8 H (0-5) /hpf Urine WBC 29 H (0-5) /hpf Ur Squamous Epith Cells 4 (0-4) /hpf Urine Bacteria Rare H (None) /hpf Urine Mucus Rare H (None) /hpf Disposition Clinical Impression: Intra-abdominal abscess Disposition: ADMITTED IP TO THIS HOSP Referrals: Christine Jose MD [Primary Care Provider] - 1-2 days Time of Disposition: 10:51
[2024-04-02] MEDS ORDERED: HYDROmorphone 0.5 MG/0.5 ML SYRINGE IVP PRN (11:01)
[2024-04-02] MEDS ORDERED: NALOXONE 0.4 MG/ML 1 ML VIAL IV PRN (11:01)
[2024-04-02] MEDS ORDERED: HYDROcodone/APAP 5-325MG 1 EACH TAB PO PRN (11:01)
[2024-04-02] MEDS: SODIUM CHLORIDE 0.9% 1,000 ML IV SCH (11:10)
[2024-04-02] MEDS: PIPERACILLIN-TAZOBACTAM 3.375 GM in SODIUM CHLORIDE 0.9% 100 ML IVPB SCH (13:25)
[2024-04-02] MEDS: ONDANSETRON 4 MG/2 ML VIAL IVP PRN (15:14)
--- NOTE | 2024-04-02 15:27 | P.GSHP ---
History of Present Illness H&P Date: 04/02/24 CHIEF COMPLAINT: Abdominal pain HISTORY OF PRESENT ILLNESS: This is a 73-year-old female with a history of sigmoid diverticulitis with perforation and colovaginal fistula. Patient has been on IV antibiotics in the outpatient setting. She has surgery planned in April for her colovaginal fistula repair. Patient reports that she has had increase in pain in the rectum and vagina. She denies actual abdominal pain. She reports having bowel movements. Denies any blood in her stools. Patient denies any fever chills or sweats. She had a CT scan abdomen pelvis completed that reported sigmoid diverticulosis with redemonstration of fistula tract extending from the anterior aspect of the distal sigmoid colon to the left side of the vaginal cuff. Interval development of a 2.5 cm abscess within the vaginal cuff here along with a small contiguous second abscess of the right side of the vaginal cuff measuring 1.8 cm. PAST MEDICAL HISTORY: See list. PAST SURGICAL HISTORY: See list. MEDICATIONS: See list. ALLERGIES: See list. SOCIAL HISTORY: No illicit drug use. REVIEW OF SYSTEMS: CONSTITUTIONAL: Denies fever or chills. HEENT: Denies blurred vision, vision changes, or eye pain. Denies hemoptysis ENDOCRINE: Denies heat or cold intolerance. CARDIOVASCULAR: Denies chest pain or pressure. RESPIRATORY: No shortness of breath. GASTROINTESTINAL: Denies abdominal pain. Denies nausea or vomiting. NEURO: Denies history of seizures. PSYCH: No depression or suicidal ideation HEMATOLOGIC: Denies bleeding disorders. LYMPHATIC: The patient denies any lumps and bumps around the neck. GENITOURINARY: Denies any blood in urine or increased urinary frequency. MUSCULOSKELETAL: Denies myalgias. Denies joint swelling. Denies decreased range of motion beyond patients baseline. SKIN: Denies pruitis. Denies rash. PHYSICAL EXAM: VITAL SIGNS: Reviewed GENERAL: Well-developed in no acute distress. HEENT: No sclera icterus. Extraocular movements grossly intact. Moist buccal mucosa. Head is atraumatic, normocephalic. Hears conversational speech. No nasal drainage. NECK: Supple without lymphadenopathy. CHEST: Non-labored respirations and equal bilateral excursions. CARDIOVASCULAR: Palpable 2+ radial pulses. ABDOMEN: Soft. Nondistended. no signs of peritonitis MUSCULOSKELETAL: No clubbing or cyanosis. NEUROLOGIC: No focal or lateralizing signs. Cranial nerves II through XII grossly intact. PSYCH: Appropriate affect. Alert and oriented to person, place and time. SKIN: Well perfused. Good skin turgor. LABORATORY DATA: WBC 7.2 Hgb 13.7 platelets 272 Sodium is 137 potassium 3.8 creatinine 0.43 Lactic acid 1.0 IMAGING: CT scan as stated above ASSESSMENT: 1. Sigmoid diverticulosis with redemonstration of fistula tract extending from the distal sigmoid colon to the left side of the vaginal cuff. Now with a 2.5 cm abscess within the vaginal cuff and a small abscess at the right side of the vaginal cuff noted on CT scan 2. History of sigmoid diverticulitis with colovaginal fistula 3. History of COPD 4. History of right medial and lateral malleolus fracture PLAN: -Consult interventional radiology for possible drainage of abscesses -Continue IV antibiotics -Consult placed for infectious disease -Continue IV fluids -Continue pain management -Further recommendations forthcoming per surgeon Physician Cable Technician note has been reviewed by physician. Signing provider agrees with the documented findings, assessment, and plan of care. Past Medical History Past Medical History: COPD, Hyperlipidemia, Osteoarthritis (OA) Additional Past Medical History / Comment(s): incisional hernia, RSV admission 10/2023 History of Any Multi-Drug Resistant Organisms: None Reported Past Surgical History: Adenoidectomy, Appendectomy, Cholecystectomy, Hernia Repair, Hysterectomy, Tonsillectomy Additional Past Surgical History / Comment(s): Vaginal hysterectomy 1995, hand surgery times 2. Colonoscopy yrs). eddie bunionectomy, diverticulitis surgery. Past Anesthesia/Blood Transfusion Reactions: Motion Sickness Additional Past Anesthesia/Blood Transfusion Reaction / Comment(s): no blood transfusion Past Psychological History: No Psychological Hx Reported Smoking Status: Former smoker Past Alcohol Use History: None Reported Past Drug Use History: None Reported - Past Family History Father Family Medical History: Diabetes Mellitus, Hypertension Brother(s) Family Medical History: Cancer Additional Family Medical History / Comment(s): Pancreatic cancer Mother Family Medical History: Myocardial Infarction ([place]) Medications and Allergies Home Medications Medication Instructions Recorded Confirmed Type Rosuvastatin Calcium 5 mg PO DAILY 11/28/23 04/02/24 History Amoxic-Pot Clav 875-125Mg 1 tab PO BID 04/02/24 04/02/24 History [Augmentin 875-125] Calcium Carbonate [Calcium] 600 mg PO DAILY 04/02/24 04/02/24 History Cholecalciferol (Vitamin D3) 50 mcg PO DAILY 04/02/24 04/02/24 History [Vitamin D3 (50 Mcg = 2000 Iu)] Allergies Allergy/AdvReac Type Severity Reaction Status Date / Time codeine AdvReac Nausea & Verified 04/02/24 11:26 Vomiting Surgical - Exam Vital Signs Temp Pulse Resp BP Pulse Ox 98.1 F 92 20 116/67 99 04/02/24 08:21 04/02/24 08:21 04/02/24 08:21 04/02/24 08:21 04/02/24 08:21 Results - Labs 04/02/24 08:48 04/02/24 08:48 Abnormal Lab Results - Last 24 Hours (Table) 04/02/24 04/02/24 04/02/24 Range/Units 08:48 08:48 08:48 Lymphocytes # 0.6 L (1.0-4.8) k/uL APTT 21.2 L (22.0-30.0) sec Creatinine 0.43 L (0.52-1.04) mg/dL Glucose 118 H (74-99) mg/dL ALT 39 H (4-34) U/L Ur Specific [place] (1.001-1.035) Urine Blood (Negative) Ur Leukocyte Esterase (Negative) Urine RBC (0-5) /hpf Urine WBC (0-5) /hpf Urine Bacteria (None) /hpf Urine Mucus (None) /hpf 04/02/24 Range/Units 10:10 Lymphocytes # (1.0-4.8) k/uL APTT (22.0-30.0) sec Creatinine (0.52-1.04) mg/dL Glucose (74-99) mg/dL ALT (4-34) U/L Ur Specific [place] >1.050 H (1.001-1.035) Urine Blood Small H (Negative) Ur Leukocyte Esterase Large H (Negative) Urine RBC 8 H (0-5) /hpf Urine WBC 29 H (0-5) /hpf Urine Bacteria Rare H (None) /hpf Urine Mucus Rare H (None) /hpf Diabetes panel 04/02/24 Range/Units 08:48 Sodium 137 (137-145) mmol/L Potassium 3.8 (3.5-5.1) mmol/L Chloride 106 (98-107) mmol/L Carbon Dioxide 26 (22-30) mmol/L BUN 11 (7-17) mg/dL Creatinine 0.43 L (0.52-1.04) mg/dL Glucose 118 H (74-99) mg/dL Calcium 9.1 (8.4-10.2) mg/dL AST 34 (14-36) U/L ALT 39 H (4-34) U/L Alkaline Phosphatase 93 (38-126) U/L Total Protein 6.4 (6.3-8.2) g/dL Albumin 3.5 (3.5-5.0) g/dL Calcium panel 04/02/24 Range/Units 08:48 Calcium 9.1 (8.4-10.2) mg/dL Albumin 3.5 (3.5-5.0) g/dL Pituitary panel 04/02/24 Range/Units 08:48 Sodium 137 (137-145) mmol/L Potassium 3.8 (3.5-5.1) mmol/L Chloride 106 (98-107) mmol/L Carbon Dioxide 26 (22-30) mmol/L BUN 11 (7-17) mg/dL Creatinine 0.43 L (0.52-1.04) mg/dL Glucose 118 H (74-99) mg/dL Calcium 9.1 (8.4-10.2) mg/dL Adrenal panel 04/02/24 Range/Units 08:48 Sodium 137 (137-145) mmol/L Potassium 3.8 (3.5-5.1) mmol/L Chloride 106 (98-107) mmol/L Carbon Dioxide 26 (22-30) mmol/L BUN 11 (7-17) mg/dL Creatinine 0.43 L (0.52-1.04) mg/dL Glucose 118 H (74-99) mg/dL Calcium 9.1 (8.4-10.2) mg/dL Total Bilirubin 0.8 (0.2-1.3) mg/dL AST 34 (14-36) U/L ALT 39 H (4-34) U/L Alkaline Phosphatase 93 (38-126) U/L Total Protein 6.4 (6.3-8.2) g/dL Albumin 3.5 (3.5-5.0) g/dL
--- NOTE | 2024-04-02 22:04 | P.CONS ---
History of Present Illness - Reason for Consult Consult date: 04/02/24 Intra-abdominal abscess Requesting physician: Dick Botello - Chief Complaint Abdominal pain x 1 day - History of Present Illness Patient is a 73-year-old female with a past medical history significant for hyperlipidemia osteoarthritis COPD recent admission to this hospital patient did have a complicated diverticulitis with a colovaginal fistula patient was advised conservative treatment as the patient was getting treatment for a ankle fracture and the patient has been on outpatient suppressive antibiotic therapy patient presenting to the hospital complaining of sharp lower abdominal pain that apparently started last night and patient mention the pain was the same quality that she has few months ago when she has initial episode of diverticulitis with the pain persisted this morning patient presented to the hospital patient describes the pain to be episodic sharp moderate intensity without any radiation did have some nausea but no vomiting no diarrhea denies any worsening drainage through vaginal or urethral area patient on presentation to the hospital was afebrile patient was not tachycardic hypotensive or hypoxic did have white count of 7.2 creatinine was 0.43 ALT mildly elevated urine has been positive patient did have a abdominal pelvis CT which was reported as sigmoid diverticulosis with fistula to the vaginal cuff interval development of 2 small abscesses patient was admitted to hospital infectious he was consulted for further management of antibiotic therapy Review of Systems Positive point and negatives has been mentioned in the HPI, complete review of systems was performed and all other systems are negative Past Medical History Past Medical History: COPD, Hyperlipidemia, Osteoarthritis (OA) Additional Past Medical History / Comment(s): incisional hernia, RSV admission 10/2023 History of Any Multi-Drug Resistant Organisms: None Reported Past Surgical History: Adenoidectomy, Appendectomy, Cholecystectomy, Hernia Repair, Hysterectomy, Tonsillectomy Additional Past Surgical History / Comment(s): Vaginal hysterectomy 1995, hand surgery times 2. Colonoscopy yrs). eddie bunionectomy, diverticulitis surgery. Past Anesthesia/Blood Transfusion Reactions: Motion Sickness Additional Past Anesthesia/Blood Transfusion Reaction / Comm: no blood transfusion Past Psychological History: No Psychological Hx Reported Smoking Status: Former smoker Past Alcohol Use History: None Reported Past Drug Use History: None Reported - Past Family History Father Family Medical History: Diabetes Mellitus, Hypertension Brother(s) Family Medical History: Cancer Additional Family Medical History / Comment(s): Pancreatic cancer Mother Family Medical History: Myocardial Infarction ([place]) Medications and Allergies Home Medications Medication Instructions Recorded Confirmed Type Rosuvastatin Calcium 5 mg PO DAILY 11/28/23 04/02/24 History Calcium Carbonate [Calcium] 600 mg PO DAILY 04/02/24 04/02/24 History Cholecalciferol (Vitamin D3) 50 mcg PO DAILY 04/02/24 04/02/24 History [Vitamin D3 (50 Mcg = 2000 Iu)] Acetaminophen Tab [Tylenol] 1,000 mg PO Q6HR PRN #30 tablet 04/03/24 Rx Ertapenem [INVanz] 1 gm IVPB DAILY each 04/03/24 Rx Allergies Allergy/AdvReac Type Severity Reaction Status Date / Time codeine AdvReac Nausea & Verified 04/02/24 11:26 Vomiting Physical Exam Vitals: Vital Signs Temp Pulse Resp BP Pulse Ox 04/02/24 08:21 98.1 F 92 20 116/67 99 Intake and Output 04/01/24 04/02/24 04/02/24 22:59 06:59 14:59 Other: Weight 68.039 kg GENERAL DESCRIPTION: Elderly female lying in bed, no distress. No tachypnea or accessory muscle of respiration use. HEENT: Shows Pallor , no scleral icterus. Oral mucous membrane is dry. No pharyngeal erythema or thrush NECK: Trachea central, no thyromegaly. LUNGS: Unlabored breathing. Clear to auscultation anteriorly. No wheeze or crackle. HEART: S1, S2, regular rate and rhythm. No loud murmur ABDOMEN: Soft, mild tenderness , no guarding or rigidity, no organomegaly EXTREMITIES: No edema of feet. SKIN: No rash, no masses palpable. NEUROLOGICAL: The patient is awake, alert, oriented x3, mood and affect normal. Results CBC & Chem 7: 04/02/24 08:48 04/02/24 08:48 Labs: Abnormal Lab Results - Last 24 Hours (Table) 04/02/24 04/02/24 04/02/24 Range/Units 08:48 08:48 08:48 Lymphocytes # 0.6 L (1.0-4.8) k/uL APTT 21.2 L (22.0-30.0) sec Creatinine 0.43 L (0.52-1.04) mg/dL Glucose 118 H (74-99) mg/dL ALT 39 H (4-34) U/L Ur Specific [place] (1.001-1.035) Urine Blood (Negative) Ur Leukocyte Esterase (Negative) Urine RBC (0-5) /hpf Urine WBC (0-5) /hpf Urine Bacteria (None) /hpf Urine Mucus (None) /hpf // Range/Units 10:10 Lymphocytes # (1.0-4.8) k/uL APTT (22.0-30.0) sec Creatinine (0.52-1.04) mg/dL Glucose (74-99) mg/dL ALT (4-34) U/L Ur Specific [place] >1.050 H (1.001-1.035) Urine Blood Small H (Negative) Ur Leukocyte Esterase Large H (Negative) Urine RBC 8 H (0-5) /hpf Urine WBC 29 H (0-5) /hpf Urine Bacteria Rare H (None) /hpf Urine Mucus Rare H (None) /hpf Assessment and Plan (1) Intra-abdominal abscess Current Visit: Yes Status: Acute Code(s): K65.1 - PERITONEAL ABSCESS SNOMED Code(s): 06388200 (2) Diverticulitis of large intestine with complication Current Visit: No Status: Acute Code(s): K57.32 - DVTRCLI OF LG INT W/O PERFORATION OR ABSCESS W/O BLEEDING SNOMED Code(s): 573148060 Plan: 1patient presented to the hospital with abdominal pain and this patient who did have history of complicated diverticulitis with a colovaginal fistula now feeling outpatient medical therapy and did have evidence of small pelvic abscesses related to diverticulitis 2-await IR versus surgical drainage of this abscess and fluid should be sent for culture both aerobic and anaerobic 3-patient be covered with Zosyn 3.375 g every 8 hours Question concern answered We will follow on clinical condition and cultures to further adjust medication if needed Thank you for this consultation we will follow the patient along with you Dictation was produced using [employer] dictation software. please excuse any grammatical, word or spelling errors. Time with Patient: Greater than 30
[2024-04-03 08:14] LABS: Prothrombin Time 10.8 sec (10.0-12.5)
[2024-04-03] MEDS: ACETAMINOPHEN TAB 325 MG TAB PO PRN (08:59)
[2024-04-03 09:32] VITALS: RESP 17
[2024-04-03] MEDS ORDERED: LIDOCAINE 1% INJ 10MG/ML (20 ML MDV) ONE (09:35)
[2024-04-03] MEDS: LIDOCAINE 1% INJ 10MG/ML (5 ML VIAL-PF) SQ ONE (09:40)
--- NOTE | 2024-04-03 09:54 | P.PCN ---
Date of Procedure: 04/03/24 Preoperative Diagnosis: Diverticulitis with abscess, need for long-term IV antibiotics Postoperative Diagnosis: Same Procedure(s) Performed: Left upper extremity basilic vein PICC placement under ultrasound and fluoroscopic guidance Anesthesia: local Surgeon: Graham Power Estimated Blood Loss (ml): 2 Pathology: none sent Condition: stable Disposition: floor Description of Procedure: After written and informed consent was obtained the patient and all risks, benefits and competitions were described the patient was brought to the Applied Exercise Physiologist and laid in a supine position with his left arm outstretched on an armboard. The area of the left arm was prepped and draped in usual sterile fashion. Timeout was performed in normal fashion. Utilizing ultrasound the basilic vein was visualized and shown to be compressible without any visible thrombus. Under ultrasound guidance the basilic vein was then cannulated with a micropuncture needle and wire was placed under direct visualization of fluoroscopy. Introducer sheath was then placed. The catheter was measured and cut to the appropriate length which was 42 cm. The catheter was then guided through the breakaway sheath and the sheath was removed with good positioning was visualized under fluoroscopy. The catheter was pulled and flushed easily. It was then secured in place in normal fashion. Patient tolerated the procedure well was sent back to his room for recovery.
--- NOTE | 2024-04-03 15:14 | P.DS ---
Providers Date of admission: 04/02/24 11:00 Expected date of discharge: 04/03/24 Attending physician: Joceline Nava Consults: 04/02/24 11:01 Consult Physician Urgent Consulting Provider: La Tony Consult Reason/Comments: Intra-abdominal abscess Do you want consulting provider notified?: Yes Primary care physician: Christine Jose Hospital Course: Discharge diagnosis 1. Sigmoid diverticulosis with redemonstration of fistula tract extending from the distal sigmoid colon to the left side of the vaginal cuff. Now with a 2.5 cm abscess within the vaginal cuff and a small abscess at the right side of the vaginal cuff noted on CT scan 2. History of sigmoid diverticulitis with colovaginal fistula 3. History of COPD Hospital course This is a 73-year-old female with a history of sigmoid diverticulitis with perforation and colovaginal fistula. Patient presented with sharp pains in her rectum and vagina. She had a CT scan abdomen pelvis completed that reported sigmoid diverticulosis with redemonstration of fistula tract extending from the anterior aspect of the distal sigmoid colon to the left side of the vaginal cuff. Interval development of a 2.5 cm abscess within the vaginal cuff here along with a small contiguous second abscess of the right side of the vaginal cuff measuring 1.8 cm. Patient evaluated by IR service. The abscesses are small and not difficult to access and unable to be drained by IR service. Patient will continue IV antibiotics with plans for surgical intervention outpatient. Patient's pain is controlled. She is afebrile. She is tolerating diet. She is stable for discharge. Physician Wash Driller Helper note has been reviewed by physician. Signing provider agrees with the documented findings, assessment, and plan of care. Patient Condition at Discharge: Stable Plan - Discharge Summary New Discharge Prescriptions: New Acetaminophen Tab [Tylenol] 1,000 mg PO Q6HR PRN #30 tablet PRN Reason: Pain Ertapenem [INVanz] 1 gm IVPB DAILY each Continue Rosuvastatin Calcium 5 mg PO DAILY Calcium Carbonate [Calcium] 600 mg PO DAILY Cholecalciferol (Vitamin D3) [Vitamin D3 (50 Mcg = 2000 Iu)] 50 mcg PO DAILY Discontinued Amoxic-Pot Clav 875-125Mg [Augmentin 875-125] 1 tab PO BID Discharge Medication List Rosuvastatin Calcium 5 mg PO DAILY 11/28/23 [History] Calcium Carbonate [Calcium] 600 mg PO DAILY 04/02/24 [History] Cholecalciferol (Vitamin D3) [Vitamin D3 (50 Mcg = 2000 Iu)] 50 mcg PO DAILY 04/02/24 [History] Acetaminophen Tab [Tylenol] 1,000 mg PO Q6HR PRN #30 tablet 04/03/24 [Rx] Ertapenem [INVanz] 1 gm IVPB DAILY each 04/03/24 [Rx] Follow up Appointment(s)/Referral(s): Christine Jose MD [Primary Care Provider] - 1-2 days Joceline Nava MD [STAFF PHYSICIAN] - 04/07/24 La Tony MD [STAFF PHYSICIAN] - 1 Week Activity/Diet/Wound Care/Special Instructions: Continue a Full liquid diet Discharge antibiotics per ID service Discharge Disposition: HOME WITH HOME HEALTH SERVICES
[2024-04-03] MEDS: ERTAPENEM 1 GM in SODIUM CHLORIDE 0.9% 50 ML IVPB SCH (15:16)
[2024-04-03 16:08] VITALS: BP 125/59; PULSE 78; TEMP 97.6
--- NOTE | 2024-04-03 16:18 | P.PN ---
Subjective Progress Note Date: 04/03/24 Principal diagnosis: Reason for follow-up is complicated diverticulitis and intra-abdominal abscess Patient is a 73-year-old female with a past medical history significa nt for hyperlipidemia osteoarthritis COPD recent admission to this hospital patient did have a complicated diverticulitis with a colovaginal fistula patient was advised conservative treatment as the patient was getting treatment for a ankle fracture and the patient has been on outpatient suppressive antibiotic therapy patient presenting to the hospital complaining of sharp lower abdominal pain and the patient was diagnosed with intra-abdominal abscess. On today's evaluation that is 04/03/2024, Patient is afebrile patient is currently on room air and denies having any shortness of breath, the patient denies any chest pain or cough, the patient denies any nausea vomiting patient mention overall sharp abdominal pain has decreased in intensity feeling slightly better today. Patient did have INR 1.0 urine has been positive cultures so far pending Objective - Vital Signs Vital signs: Vital Signs Temp 98.6 F 04/03/24 07:35 Pulse 82 04/03/24 07:35 Resp 17 04/03/24 07:35 BP 138/57 04/03/24 07:35 Pulse Ox 98 04/03/24 07:35 FiO2 Intake & Output 04/02/24 04/03/24 04/03/24 18:59 06:59 18:59 Weight 68.039 kg Other: Voiding Method Toilet Toilet # Voids 1 - Exam GENERAL DESCRIPTION: An elderly female lying in bed in no distress RESPIRATORY SYSTEM: Unlabored breathing , decreased breath sounds at bases HEART: S1 S2 regular rate and rhythm , ABDOMEN: Soft , no tenderness EXTREMITIES: No edema feet - Labs CBC & Chem 7: 04/02/24 08:48 04/02/24 08:48 Assessment and Plan (1) Intra-abdominal abscess Current Visit: Yes Status: Acute Code(s): K65.1 - PERITONEAL ABSCESS SNOMED Code(s): 32659021 (2) Diverticulitis of large intestine with complication Current Visit: No Status: Acute Code(s): K57.32 - DVTRCLI OF LG INT W/O PERFORATION OR ABSCESS W/O BLEEDING SNOMED Code(s): 567907778 Plan: 1patient presented to the hospital with abdominal pain and this patient who did have history of complicated diverticulitis with a colovaginal fistula now feeling outpatient medical therapy and did have evidence of small pelvic abscesses related to diverticulitis 2-IR was not able to do the CT-guided drainage, general surgery has discussed with the patient and the patient has opted for IV antibiotic instead of going for surgery now and PICC line has been placed 3-I will switch the patient over to Invanz 1 g daily multiple question concern answered outpatient prescription has been sent Dictation was produced using [employer] dictation software. please excuse any grammatical, word or spelling errors. Time with Patient: Less than 30
== END 2024-04-03 17:33 | disposition home or self-care (01) | DRG 393 ==
LOC: EC 08:10 → 4SSUR 11:00
PROVIDERS: ADMIT Surgery Plastic and Reconstructive Surgery; ATTEND Surgery Plastic and Reconstructive Surgery
PROC: B5181ZA Fluoroscopy of Superior Vena Cava using Low Osmolar Contrast, Guidance (ICD-10-PCS; 2024-04-03)
PROC: B548ZZA Ultrasonography of Superior Vena Cava, Guidance (ICD-10-PCS; 2024-04-03)
PROC: 05HC33Z Insertion of Infusion Device into Left Basilic Vein, Percutaneous Approach (ICD-10-PCS; 2024-04-03)
PROC: 02HV33Z Insertion of Infusion Device into Superior Vena Cava, Percutaneous Approach (ICD-10-PCS; principal; 2024-04-03 09:55)
DX: N82.3 Fistula of vagina to large intestine (principal); K65.1 Peritoneal abscess; K57.20 Diverticulitis of large intestine with perforation and abscess without bleeding; N39.0 Urinary tract infection, site not specified; E78.5 Hyperlipidemia, unspecified; N73.9 Female pelvic inflammatory disease, unspecified; Z88.5 Allergy status to narcotic agent; J44.9 Chronic obstructive pulmonary disease, unspecified; Z79.82 Long term (current) use of aspirin; Z82.49 Family history of ischemic heart disease and other diseases of the circulatory system; Z90.710 Acquired absence of both cervix and uterus; Z90.49 Acquired absence of other specified parts of digestive tract; Z87.81 Personal history of (healed) traumatic fracture
CPT/HCPCS: 36415; 36573; 74177; 80053; 81001; 83605; 83690; 85025; 85610; 85730; 87040; 87086; 93005; 96361; 96365; 96366; 96375; 96376; 99285

== ENCOUNTER → 2024-04-20 | Outpatient (CLI) | payer MEDICARE ==
[2024-04-20 11:17] LABS: African American GFR (CKD) >90 (>60 ml/min/1.73 sqM); Blood Urea Nitrogen 19 mg/dL (7-17); Non-African American GFR(CKD) >90 (>60 ml/min/1.73 sqM)
--- NOTE | 2024-04-21 19:17 | CT ---
EXAMINATION TYPE: CT abdomen pelvis w con CT DLP: 1206 mGycm, Automated exposure control for dose reduction was used. DATE OF EXAM: 04/20/2024 12:37 PM COMPARISON: CT abdomen pelvis most recent from CLINICAL INDICATION:Female, 73 years old with history of K65.1 PERITONEAL ABSCESS; peritoneal abscess . History of vaginal and rectal pain with recent diagnosis of fistula awaiting surgery, history diver ticulitis,, with, hysterectomy and herniorrhaphy TECHNIQUE: Axial CT abdomen pelvis w con;Sagittal and coronal reformats were created on a separate w orkstation. Contrast used:100 mL of Isovue 300 with IV Contrast, (none if empty) Oral contrast used: with Oral Contrast (none if empty) FINDINGS: LOWER CHEST: Unremarkable ABDOMEN LIVER: Unremarkable GALLBLADDER AND BILE DUCTS: Unremarkable. PANCREAS: Unremarkable. SPLEEN: Unremarkable. ADRENAL GLANDS: Unremarkable. KIDNEYS AND URETERS: No evidence of hydronephrosis or renal calculus. The ureters are unremarkable. PELVIS BLADDER: Vesicovaginal inflammatory process without obvious drainable abscess. REPRODUCTIVE: Absent uterus. Linear strand of density suggesting a fistula extending from rectum to t he inferior subcutaneous fat and skin overlying the inferior gluteus muscle. ABDOMEN & PELVIS STOMACH AND BOWEL: Stomach and duodenum are unremarkable. Scattered diverticula are noted throughout the colon.. There is still sigmoid colon mural thickening and mild pericolonic fat stranding suggesti ng resolving diverticulitis. No longer is a drainable abscess identified. There is a fistula tract ex tending from the left rectum to the inferior gluteus subcutaneous fat and skin to the left of midline . PERITONEUM/RETROPERITONEUM: Focal inflammatory process between the vagina and urinary bladder without obvious drainable fluid collection. VASCULATURE: No evidence of aortic aneurysm. MUSCULOSKELETAL: No acute osseous abnormalities LYMPH NODES: No gross evidence for lymphadenopathy. SOFT TISSUE/ABDOMINAL WALL: Unremarkable IMPRESSION: 1. Resolving diverticulitis. Continued inflammatory process focused at the vesicovaginal interface.
== END | disposition home or self-care (01) ==
LOC: RADCTMAIN 10:35
PROVIDERS: ATTEND Internal Medicine Infectious Disease
DX: K57.92 Diverticulitis of intestine, part unspecified, without perforation or abscess without bleeding (principal); K65.1 Peritoneal abscess
CPT/HCPCS: 82565; 84520; 74177; 36415; Q9967

== ENCOUNTER 2024-04-30 07:09 | Inpatient (IN) | payer MEDICARE ==
[2024-04-28 09:24] VITALS: BMI 27.4
--- NOTE | 2024-04-30 07:39 | P.GSHP ---
History of Present Illness H&P Date: 04/30/24 CHIEF COMPLAINT: Sigmoid diverticulitis with perforation HISTORY OF PRESENT ILLNESS: The patient is a 73-year-old female who presents with sigmoid diverticulitis with perforation. Patient had recurrent symptoms 1 month ago. She has been on IV antibiotics. She has personal history of multiple abscesses within the pelvis. She presents for colonoscopy for diverticulitis assessment including resection. PAST MEDICAL HISTORY: Please see list. PAST SURGICAL HISTORY: Please see list. MEDICATIONS: Please see list. ALLERGIES: Please see list. SOCIAL HISTORY: No illicit drug use FAMILY HISTORY: No reports of Crohn disease or ulcerative colitis. REVIEW OF ORGAN SYSTEMS: CONSTITUTIONAL: Denies any fever or chills. HEENT: Denies any trouble with vision or nosebleeds. No difficulty swallowing. LYMPHATIC: The patient denies any lumps and bumps around the neck. ENDOCRINE: Denies any thyroid disorders. Has blood sugar glucose intolerance. RESPIRATORY: Denies pneumonia. Denies any troubles with breathing or dyspnea on exertion. CARDIOVASCULAR: Denies any chest pain, palpitations, or recent heart attacks. GASTROINTESTINAL: Has chronic diverticulitis. GENITOURINARY: Has increased urinary frequency. MUSCULOSKELETAL: Has back pain, stiffness, joint arthritis. NEUROLOGIC: Denies any numbness or tingling along the distal extremities. No seizure disorders or headaches. PSYCHIATRIC: Denies depression or suidical ideation. HEMATOLOGIC: Denies any abnormal bleeding or bruising. PHYSICAL EXAM: VITAL SIGNS: Stable GENERAL: Well-developed pleasant in no acute distress. HEENT: No scleral icterus. Extraocular movements grossly intact. Moist buccal mu cosa. NECK: Supple without lymphadenopathy. CHEST: Unlabored respirations. Equal bilateral excursions. CARDIOVASCULAR: Regular rate and rhythm. Distal 2+ pulses. ABDOMEN: Soft, nontender, nondistended. MUSCULOSKELETAL: No clubbing, cyanosis, or edema. NERUO: Cranial nerves 2-12 grossly intact. PSYCH: Alert and oriented to person place and time. ASSESSMENT: 1. Sigmoid diverticulitis with abscess PLAN: 1. Benefits and risks of surgical robotic sigmoid resection was reviewed in detail. Robotic-assisted approach was also described. 2. Enhanced colon recovery program. 3. DVT prophylaxis. 4. Antibiotic prophylaxis. 5. Inpatient hospitalization greater than 2 nights. 6. Recommend colonoscopy for extent of diverticular disease, neoplasm assessment, and tattooing for resection 7. She is elevated risk for complications due to recurrent attacks with abscess in the pelvis. Past Medical History Past Medical History: COPD, Hyperlipidemia, Osteoarthritis (OA) Additional Past Medical History / Comment(s): DIVERTICULITIS, COLOVAGINAL FISTULA History of Any Multi-Drug Resistant Organisms: None Reported Past Surgical History: Adenoidectomy, Appendectomy, Cholecystectomy, Hernia Repair, Hysterectomy, Orthopedic Surgery, Tonsillectomy Additional Past Surgical History / Comment(s): hand surgery times 2, eddie. bunionectomy, laparoscopy with abdominal washout due to ruptured diverticulum Past Anesthesia/Blood Transfusion Reactions: Motion Sickness, Postoperative Nausea & Vomiting (PONV) Additional Past Anesthesia/Blood Transfusion Reaction / Comment(s): no blood transfusion, NAUSEA/VOMITING WITH STRONG PAIN MEDICATIONS Past Psychological History: No Psychological Hx Reported Smoking Status: Former smoker Past Alcohol Use History: None Reported Additional Past Alcohol Use History / Comment(s): QUIT SMOKING 2000,smoked approx 40 years Past Drug Use History: None Reported - Past Family History Father Family Medical History: Diabetes Mellitus, Hypertension Brother(s) Family Medical History: Cancer Additional Family Medical History / Comment(s): Pancreatic cancer Mother Family Medical History: Myocardial Infarction ([place]) Medications and Allergies Home Medications Medication Instructions Recorded Confirmed Type Rosuvastatin Calcium 5 mg PO DAILY 11/28/23 04/30/24 History Calcium Carbonate [Calcium] 600 mg PO DAILY 04/02/24 04/30/24 History Cholecalciferol (Vitamin D3) 50 mcg PO DAILY 04/02/24 04/30/24 History [Vitamin D3 (50 Mcg = 2000 Iu)] Multivitamins, Thera [Multivitamin 1 tab PO DAILY 04/28/24 04/30/24 History (formulary)] Allergies Allergy/AdvReac Type Severity Reaction Status Date / Time codeine AdvReac Nausea & Verified 04/30/24 07:33 Vomiting
[2024-04-30] MEDS: LACTATED RINGERS 1,000 ML IV SCH (07:49)
[2024-04-30] MEDS: IV FLUID CONTINUATION 1,000 ML IV ONE (07:49)
[2024-04-30 08:02] LABS: Basophils # (A) 0.1 k/uL (0-0.2); Basophils % (A) 1 %; Eosinophils # (A) 0.1 k/uL (0-0.7); Eosinophils % (A) 2 %; HCT 46.2 % (34.0-46.0); HGB 15.1 gm/dL (11.4-16.0); Lymphocytes # (A) 1.3 k/uL (1.0-4.8); Lymphocytes % (A) 19 %; MCH 31.3 pg (25.0-35.0); MCHC 32.7 g/dL (31.0-37.0); MCV 95.8 fL (80.0-100.0); Mean Platelet Volume 7.4; Monocytes # (A) 0.4 k/uL (0-1.0); Monocytes % (A) 6 %; Neutrophils # (A) 4.9 k/uL (1.3-7.7); Neutrophils % (A) 70 %; Platelet Count 363 k/uL (150-450); RBC 4.82 m/uL (3.80-5.40); RDW 13.4 % (11.5-15.5)
[2024-04-30] MEDS ORDERED: PROPOFOL 10 MG/ML 20 ML VIAL IV ONE (08:13)
[2024-04-30 08:19] LABS: ALT 34 U/L (4-34); AST 66 U/L (14-36); African American GFR (CKD) >90 (>60 ml/min/1.73 sqM); Albumin 4.6 g/dL (3.5-5.0); Alkaline Phosphatase 84 U/L (38-126); Anion Gap 9 mmol/L; Blood Urea Nitrogen 12 mg/dL (7-17); Calcium 9.3 mg/dL (8.4-10.2); Carbon Dioxide 21 mmol/L (22-30); Chloride 111 mmol/L (98-107); Glucose 114 mg/dL (74-99); Non-African American GFR(CKD) >90 (>60 ml/min/1.73 sqM); Sodium 141 mmol/L (137-145); Total Bilirubin 1.6 mg/dL (0.2-1.3); Total Protein 8.2 g/dL (6.3-8.2)
[2024-04-30 08:38] LABS: Potassium 5.8 mmol/L (3.5-5.1)
[2024-04-30] MEDS ORDERED: Antibiotics per Pharmacy 1 EACH MISC MISCELLANE PRN (08:38)
--- NOTE | 2024-04-30 08:38 | P.PCN ---
Date of Procedure: 04/30/24 Description of Procedure: PREOPERATIVE DIAGNOSIS: Sigmoid diverticulitis with perforation Colovaginal fistula POSTOPERATIVE DIAGNOSIS: Sigmoid diverticulitis with perforation and obstruction Colovaginal fistula OPERATION: Colonoscopy to the sigmoid colon due to obstruction. SURGEON: Joceline Nava MD. ANESTHESIA: MAC. INDICATIONS: The patient is a 73-year-old female who presents with recent diverticulitis and perforation, 4 weeks ago. Colonoscopy offered for assessment including neoplasm assessment. Benefits and risks were described and informed consent was obtained. DESCRIPTION OF PROCEDURE: The patient had undergone SUFLAVE prep. She had been brought into the endoscopy room and laid in the left lateral decubitus position. After adequate intravenous sedation, the rectum was examined with 2% lidocaine jelly. External hemorrhoids were encountered. The rectal tone was within normal limits. No lesions were palpated in the rectal vault. An Olympus colonoscope was advanced along the rectum to sigmoid colon where moderate sigmoid diverticulosis identified with stenosis causing obstruction at 25 cm from the anal verge. Despite multiple maneuvers, scope could not be advanced. Internal hemorrhoids, grade 2 was found. The colonoscope was removed. FINDINGS: [place] preparation quality scale 1+(1-5) External prolapsed hemorrhoids. Scope advanced to the sigmoid colon with obstruction due to diverticulitis. RECOMMENDATIONS: Recommend admission for obstruction of sigmoid colon and colectomy Plan - Discharge Summary Discharge Rx Participant: No New Discharge Prescriptions: No Action Rosuvastatin Calcium 5 mg PO DAILY Calcium Carbonate [Calcium] 600 mg PO DAILY Multivitamins, Thera [Multivitamin (formulary)] 1 tab PO DAILY Cholecalciferol (Vitamin D3) [Vitamin D3 (50 Mcg = 2000 Iu)] 50 mcg PO DAILY Discharge Medication List Rosuvastatin Calcium 5 mg PO DAILY 11/28/23 [History] Calcium Carbonate [Calcium] 600 mg PO DAILY 04/02/24 [History] Cholecalciferol (Vitamin D3) [Vitamin D3 (50 Mcg = 2000 Iu)] 50 mcg PO DAILY 04/02/24 [History] Multivitamins, Thera [Multivitamin (formulary)] 1 tab PO DAILY 04/28/24 [History]
[2024-04-30 08:44] LABS: Prothrombin Time 10.9 sec (10.0-12.5)
[2024-04-30] MEDS ORDERED: IOPAMIDOL CONTRAST (ORAL USE) VIAL PO PRN (08:48)
--- NOTE | 2024-04-30 09:29 | P.PN ---
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 She had initial rupture with peritonitis 4 months ago December 2023. A month ago, patient presented for resection and presented with severe abdominal pain. Patient CT scan demonstrated multiple pelvic abscesses. She was treated with IV antibiotics. She then presented for endoscopy with new findings of obstruction. ROS: No reports of nausea and vomiting. No fevers or chills. No new chest pain. No productive sputum PHYSICAL EXAM: VITAL SIGNS: Reviewed CONSTITUTIONAL: Well developed and in no acute distress. EYES: Conjuctivae without sclera icterus. Extraocular movements grossly intact. HEAD, EARS, NOSE, THROAT: Moist buccal mucosa. Head is atraumatic, normocephalic. Hears conversational speech. No nasal drainage. RESPIRATORY: Non-labored respirations and equal bilateral excursions. CARDIOVASCULAR: Palpable 2+ radial pulses. ABDOMEN: Active peritonitis with mild left lower quadrant abdominal pain MUSCULOSKELETAL: No gross deformity of the lower extremities noted. No clubbing. No cyanosis. SKIN: Good skin turgor. Well perfused. NEUROLOGIC: Cranial nerves II through XII grossly intact. No focal or lateralizing signs. PSYCH: Appropriate affect. Alert and oriented to person, place and time. CLINICAL LABS: Reviewed. CBC normal, potassium elevated 5.8 with hemolysis ASSESSMENT: 1. 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 Hyperkalemia PLAN: 1. IV fluid bolus 2 L normal saline started to address dehydration 2. Repeat CT scan for findings of new partial obstruction and for perforated diverticulitis 3. Colectomy described due to findings 4. Restart Zosyn antibiotics for diverticulitis 5. Repeat potassium for hemolyzed sample 6. Inpatient hospitalization described due to complexity of presentation and obstruction Objective - Vital Signs Vital signs: Vital Signs Temp 98.5 F 04/30/24 07:38 Pulse 80 04/30/24 08:50 Resp 16 04/30/24 08:50 BP 111/70 04/30/24 08:50 Pulse Ox 96 04/30/24 08:50 FiO2 Intake & Output 04/29/24 04/30/24 04/30/24 18:59 06:59 18:59 Intake Total 300 Balance 300 Weight 67.3 kg Intake: IV 300 - Labs CBC & Chem 7: 04/30/24 07:49 04/30/24 07:49 Labs: Abnormal Lab Results - Last 24 Hours (Table) 04/30/24 04/30/24 Range/Units 07:49 07:49 Hct 46.2 H (34.0-46.0) % Potassium 5.8 H (3.5-5.1) mmol/L Chloride 111 H (98-107) mmol/L Carbon Dioxide 21 L (22-30) mmol/L Creatinine 0.46 L (0.52-1.04) mg/dL Glucose 114 H (74-99) mg/dL Total Bilirubin 1.6 H (0.2-1.3) mg/dL AST 66 H (14-36) U/L
--- NOTE | 2024-04-30 11:07 | CT ---
EXAMINATION TYPE: CT abdomen pelvis w con DATE OF EXAM: 04/30/2024 COMPARISON: 04/20/2024 HISTORY: 73-year-old female LLQ pain, diverticulitis, colon obstruction, unsuccessful colonoscopy, jacob ving surgery tomorrow for rectal fistula. TECHNIQUE: Contiguous axial scanning of the abdomen and pelvis following administration of 100 ml Iso romulo 300 IV contrast. Delayed images through the kidneys and coronal/sagittal reconstructions perform ed. CT DLP: 763.8 mGycm Automated exposure control for dose reduction was used. FINDINGS: Heart normal size without pericardial effusion. Lung bases clear without pleural effusion. Tiny hiatal hernia. No focal liver lesion. Portal venous system is patent. Stable dilatation of the bile duct up to 1.0 c m, likely postcholecystectomy status. 3.1 cm diverticulum of the third portion of the duodenum projec ting into the pancreatic head region. Adrenal glands, right kidney, spleen, and pancreas show no gross abnormality. Tiny 5 mm cortical cyst lateral upper pole left kidney. Mild to moderate atherosclerotic calcifications infrarenal abdominal aorta and common iliac arteries. No dilated small bowel, free fluid, or free air. No mesenteric or retroperitoneal lymphadenopathy. Appendix not clearly identified. No secondary findings of acute appendicitis right lower quadrant. Oral contrast progressed to the rectum. Left-sided colonic diverticulosis, greatest in the sigmoid co laura. There is ongoing mural thickening along the mid to distal sigmoid colon and mild pericolonic fat stranding. Wall thickening measures up to 1.7 cm thick. Overall appearance is not significantly bolton ged. Possible fistula to the left vaginal cuff, axial image 65 and coronal image 52. Some adjacent mi ld wall thickening of the bladder wall. A few punctate pelvic phleboliths. No abnormal fluid collection in the pelvis or pelvic lymphadenopat hy. Uterus surgically absent. Small bilateral ovaries. 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 No osseous destructive process. IMPRESSION: 1. RESIDUAL MID TO DISTAL SIGMOID DIVERTICULITIS, OVERALL SIMILAR COMPARED TO 04/20/2024 WITH WALL THIC KENING UP TO 1.7 CM THICK AND MILD SURROUNDING FAT STRANDING. ONGOING FOLLOW-UP TO ENSURE COMPLETE RE SOLUTION AND EXCLUDE ANY UNDERLYING MUCOSAL LESION 2. FISTULA FROM THE INFERIOR WALL OF THE SIGMOID COLON DOWN TO THE LEFT SIDE OF THE VAGINAL CUFF. 3. SUSPECT SOME REACTIVE INFLAMMATION OF THE ADJACENT POSTERIOR BLADDER WALL.
[2024-04-30] MEDS: SODIUM CHLORIDE 0.9% 2,000 ML IV ONE (11:48)
[2024-04-30] MEDS: PIPERACILLIN-TAZOBACTAM 3.375 GM in SODIUM CHLORIDE 0.9% 100 ML IVPB SCH (12:19)
[2024-04-30] MEDS: metroNIDAZOLE 500 MG TAB PO SCH (12:51)
[2024-04-30] MEDS: NEOMYCIN 500 MG TAB PO SCH (12:51)
--- NOTE | 2024-04-30 13:50 | P.PN ---
Progress Note - Text Progress Note Date: 04/30/24 CT of the abdomen pelvis reviewed demonstrate complete resolution of all prior abscess. Moderate thickening of the sigmoid colon with fistulous tract to the vagina consistent with area of obstruction. Due to the severity of diverticulitis and extension to the descending colon, mobilization of the splenic flexure and extensive colonic resection described to the patient and her family at bedside. Inpatient admission for sigmoid diverticulitis with obstruction with colovaginal fistula.
[2024-04-30] MEDS: SODIUM CHLORIDE 0.9% 1,000 ML IV SCH (14:06)
[2024-04-30] MEDS: metroNIDAZOLE-NS PMX 500 MG in SALINE 1 100ML.BAG IVPB SCH (15:34)
[2024-04-30] MEDS: PEG 3350 (420 GM/BTL) + LYTES 4,000 ML BOTTLE PO ONE (15:59)
[2024-04-30] MEDS: PANTOPRAZOLE 40 MG TABLET PO SCH (17:32)
[2024-04-30] MEDS: ONDANSETRON 4 MG/2 ML VIAL IVP SCH (17:32)
[2024-05-01] MEDS ORDERED: HEPARIN SODIUM,PORCINE 5,000 UNIT/ML 1 ML VIAL SQ PRN (05:00)
[2024-05-01] MEDS ORDERED: ONDANSETRON 4 MG/2 ML VIAL IVP PRN (05:00)
[2024-05-01] MEDS ORDERED: NEOSTIGMINE 1 MG/ML 10 ML VIAL ONE (06:55)
[2024-05-01] MEDS ORDERED: MIDAZOLAM 2 MG/2 ML VIAL ONE (06:55)
[2024-05-01] MEDS ORDERED: SUCCINYLCHOLINE CHLORIDE 200 MG/10 ML VIAL IV ONE (06:55)
[2024-05-01] MEDS ORDERED: ROCURONIUM 10 MG/ML (5 ML VIAL) IV ONE (06:55)
[2024-05-01] MEDS ORDERED: fentaNYL (PF) 50 MCG/ML 2 ML AMP ONE (06:55)
[2024-05-01] MEDS ORDERED: GLYCOPYRROLATE 0.2 MG/ML 2 ML VIAL ONE (06:55)
[2024-05-01] MEDS ORDERED: PHENYLEPHRINE 10 MG/ML VIAL ONE (06:55)
[2024-05-01] MEDS ORDERED: PROPOFOL 10 MG/ML 20 ML VIAL IV ONE (06:55)
[2024-05-01] MEDS ORDERED: LIDOCAINE 1% INJ 10MG/ML (20 ML MDV) ONE (06:55)
[2024-05-01] MEDS: ACETAMINOPHEN TAB 500 MG TAB PO PRN (07:03)
[2024-05-01] MEDS: ALVIMOPAN 12 MG CAPSULE PO PRN (07:04)
[2024-05-01 07:05] LABS: Basophils % (A) 1 %; Eosinophils # (A) 0.1 k/uL (0-0.7); Eosinophils % (A) 2 %; HCT 37.6 % (34.0-46.0); HGB 12.5 gm/dL (11.4-16.0); Lymphocytes # (A) 0.8 k/uL (1.0-4.8); Lymphocytes % (A) 15 %; MCH 31.9 pg (25.0-35.0); MCHC 33.1 g/dL (31.0-37.0); MCV 96.3 fL (80.0-100.0); Mean Platelet Volume 7.4; Monocytes # (A) 0.3 k/uL (0-1.0); Monocytes % (A) 7 %; Neutrophils # (A) 3.7 k/uL (1.3-7.7); Neutrophils % (A) 73 %; Platelet Count 264 k/uL (150-450); RBC 3.91 m/uL (3.80-5.40); RDW 13.4 % (11.5-15.5); WBC 5.1 k/uL (3.8-10.6)
[2024-05-01] MEDS: DEXAMETHASONE SOD PHOSPHATE 4 MG/ML 1 ML VIAL IVP STA (07:05)
[2024-05-01] MEDS: MIDAZOLAM 2 MG/2 ML VIAL IVP ONE (07:15)
[2024-05-01] MEDS: IV FLUID CONTINUATION 1,000 ML IV ONE ×4 (07:15→10:23)
[2024-05-01 07:20] LABS: ALT 27 U/L (4-34); AST 33 U/L (14-36); African American GFR (CKD) >90 (>60 ml/min/1.73 sqM); Albumin 3.3 g/dL (3.5-5.0); Albumin/Globulin Ratio 1.3; Alkaline Phosphatase 71 U/L (38-126); Anion Gap 3 mmol/L; Blood Urea Nitrogen 5 mg/dL (7-17); Calcium 9.1 mg/dL (8.4-10.2); Carbon Dioxide 20 mmol/L (22-30); Chloride 116 mmol/L (98-107); Globulin 2.6 g/dL; Glucose 93 mg/dL (74-99); Non-African American GFR(CKD) >90 (>60 ml/min/1.73 sqM); Potassium 3.9 mmol/L (3.5-5.1); Sodium 139 mmol/L (137-145); Total Bilirubin 0.6 mg/dL (0.2-1.3); Total Protein 5.9 g/dL (6.3-8.2)
[2024-05-01] MEDS ORDERED: NALOXONE 0.4 MG/ML 1 ML VIAL IV PRN (07:31)
--- NOTE | 2024-05-01 07:31 | P.ANPRN ---
Procedure Note - Anesthesia - Epidural/Spinal Epidural Time Out Performed: Yes Date of Procedure: 05/01/24 Procedure Start Time: 07:13 Procedure Stop Time: :23 Location of Patient: PreOp Indication: Acute Post-Operative Pain, Analgesia, Requested by Surgeon Sedation Type: Sedate with meaningful contact maintained Preparation: Sterile Prep Position: Sitting Catheter: Indwelling Narrative: Test dose @3ml 1.5%lidocaine with epi---Negative S/S. Needle level L2-3. AttemptX1. Blood Aspirated: No Pain Paresthesia on Injection Noted: No Events: Uneventful and Well Tolerated
[2024-05-01] MEDS: metroNIDAZOLE-NS PMX 500 MG in SALINE 1 100ML.BAG IVPB PRN (07:37)
[2024-05-01] MEDS: LIDOCAINE 1%-EPI 1:100,000 20 ML VIAL SQ ONE (08:19)
[2024-05-01] MEDS: ROPIVACAINE 250 MG, HYDROMORPHONE (PF) 5 MG in SODIUM CHLORIDE 0.9% 200 ML EPIDURAL PRN (12:48)
[2024-05-01] MEDS: ALBUTEROL NEBULIZED 2.5 MG/3 ML INHALATION STA (13:50)
--- NOTE | 2024-05-01 17:52 | P.OP ---
Date of Procedure: 05/01/24 Description of Procedure: Extensive lysis of adhesions over 1.5 hours Low anterior resection with sigmoid colectomy and powered Ethicon stapler 29 mm Takedown of colovaginal fistula using 30 mm stapler Donuts thick inferiorly thin superiorly EBL 20 Presence of ventral hernia repair with mesh epigastric abdominal wall lysed
[2024-05-01] MEDS: HEPARIN SODIUM,PORCINE 5,000 UNIT/ML 1 ML VIAL SQ SCH (21:15)
--- NOTE | 2024-05-02 07:27 | P.PN ---
Progress Note - Text Progress Note Date: 05/02/24 CHIEF COMPLAINT: Colovaginal Fistula HISTORY OF PRESENT ILLNESS: NAEO. Pain is controlled. Afebrile PHYSICAL EXAM: VITAL SIGNS: Reviewed. GENERAL: Well-developed in no acute distress. ABDOMEN: Soft. Mildly distended. Tender with palpation. Incisional dressing clean, dry and intact. Ostomy stoma appears retracted and Slough noted. NEUROLOGIC: Alert and oriented. Cranial nerves II through XII grossly intact. ASSESSMENT: 1. POD #1 LAR, Extensive LEIGH, and takedown of Colovaginal Fistula 2. Diverticulitis 3. Colovaginal Fistula 4. Abdominal pain PLAN: -Low Fiber Diet -Pain and Nausea Control -OOB, ambulate, IS -AM labs
[2024-05-02 07:39] LABS: Basophils % (A) 0 %; Eosinophils # (A) 0.1 k/uL (0-0.7); Eosinophils % (A) 1 %; HCT 36.2 % (34.0-46.0); HGB 11.9 gm/dL (11.4-16.0); Lymphocytes # (A) 0.6 k/uL (1.0-4.8); Lymphocytes % (A) 6 %; MCH 31.7 pg (25.0-35.0); MCHC 32.8 g/dL (31.0-37.0); MCV 96.6 fL (80.0-100.0); Mean Platelet Volume 7.3; Monocytes # (A) 0.5 k/uL (0-1.0); Monocytes % (A) 5 %; Neutrophils # (A) 7.9 k/uL (1.3-7.7); Neutrophils % (A) 87 %; Platelet Count 276 k/uL (150-450); RBC 3.75 m/uL (3.80-5.40); RDW 13.6 % (11.5-15.5); WBC 9.1 k/uL (3.8-10.6)
[2024-05-02 07:59] LABS: African American GFR (CKD) >90 (>60 ml/min/1.73 sqM); Anion Gap 4 mmol/L; Blood Urea Nitrogen 6 mg/dL (7-17); Calcium 8.6 mg/dL (8.4-10.2); Carbon Dioxide 21 mmol/L (22-30); Chloride 112 mmol/L (98-107); Glucose 103 mg/dL (74-99); Non-African American GFR(CKD) >90 (>60 ml/min/1.73 sqM); Potassium 3.7 mmol/L (3.5-5.1); Sodium 137 mmol/L (137-145)
[2024-05-02] MEDS: ALVIMOPAN 12 MG CAPSULE PO SCH (09:28)
--- NOTE | 2024-05-02 15:48 | P.PN ---
Progress Note - Text 05/02/24 1516 73-year-old female status post colectomy by Dr. Nava. Patient has an epidural catheter for postop pain control with a solution running at 66 with a VAS of 1. No motor or sensory deficit noted. Plan to continue epidural infusion
[2024-05-02 17:07] LABS: Glucose,Whole Blood 146 mg/dL (70-110)
--- NOTE | 2024-05-03 12:12 | P.PN ---
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 She is status post takedown of colovaginal fistula including low anterior resection with sigmoid colectomy and lysis of adhesions. She feels great. She has epidural. Pain is very well-controlled. She is tolerating diet. Her sitting at bedside. ROS: No reports of nausea and vomiting. No fevers or chills. No new chest pain. No productive sputum PHYSICAL EXAM: VITAL SIGNS: Reviewed CONSTITUTIONAL: Well developed and in no acute distress. EYES: Conjuctivae without sclera icterus. Extraocular movements grossly intact. HEAD, EARS, NOSE, THROAT: Moist buccal mucosa. Head is atraumatic, normocephalic. Hears conversational speech. No nasal drainage. RESPIRATORY: Non-labored respirations and equal bilateral excursions. CARDIOVASCULAR: Palpable 2+ radial pulses. ABDOMEN: Incisions clean dry intact. Abdominal binder present MUSCULOSKELETAL: No gross deformity of the lower extremities noted. No clubbing. No cyanosis. SKIN: Good skin turgor. Well perfused. NEUROLOGIC: Cranial nerves II through XII grossly intact. No focal or lateraliz ing signs. PSYCH: Appropriate affect. Alert and oriented to person, place and time. CLINICAL LABS: Reviewed. WBC normal. Potassium within normal limits. ASSESSMENT: 1. 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 Hyperkalemia 3. Peritoneal adhesions PLAN: 1. She is doing very well as she is tolerating diet and pain is well- controlled. 2. Will remove epidural catheter with start of oral pain medication. Gifford catheter to be discontinued shortly after epidural. 3. Extensive discussion of voiding seeds, nuts, broccoli for 4 weeks until 05/31/2024 to decrease risk of new diverticular attacks or anastomotic infection. 4. Continue antibiotics until discharge 5. Disposition 48 hours pending voiding after catheter removal 6. All questions were addressed at bedside. Objective - Vital Signs Vital signs: Vital Signs Temp 98.7 F 05/03/24 07:14 Pulse 85 05/03/24 08:36 Resp 18 05/03/24 07:14 BP 116/69 06/16/24 07:14 Pulse Ox 84 L 05/03/24 09:29 FiO2 21 05/03/24 09:29 Intake & Output 05/02/24 05/03/24 05/03/24 18:59 06:59 18:59 Intake Total 250 Output Total 500 355 Balance -500 250 -355 Intake: Intake, IV Titration 250 Amount Ropivacaine 250 mg 250 Hydromorphone (Pf) 5 mg In Sodium Chloride 0.9% 200 ml @ Per Protocol EPIDURAL .Q0M PRN Rx#: [id number] Output: Urine 500 355 Other: Voiding Method Indwelling Catheter Indwelling Catheter Indwelling Catheter - Labs CBC & Chem 7: 05/02/24 07:14 05/02/24 07:14 Labs: Abnormal Lab Results - Last 24 Hours (Table) 05/02/24 Range/Units 17:05 POC Glucose (mg/dL) 146 H (70-110) mg/dL
[2024-05-03] MEDS: HYDROmorphone 1 MG/ML 1 ML SYRINGE IVP PRN (15:51)
--- NOTE | 2024-05-04 08:12 | P.CONS ---
History of Present Illness - Reason for Consult Consult date: 05/03/24 - History of Present Illness Patient is a 73-year-old female with a past medical history significant for COPD hypertension perforated diverticulitis with colovesical fistula as well as intra-abdominal abscess for the patient has been treated with extensive course of IV and oral antibiotic therapy in the outpatient setting patient has been electively admitted to the hospital on 04/30/2024 for an operative procedure in this patient for status post extensive lysis of adhesion low anterior resection with sigmoid colectomy takedown of the colovesical fistula operative report did not mention any intra-abdominal abscess [facility] was consulted today for management of antibiotic therapy. On today's evaluation patient denies having any fever or any chills and no fever have been recorded during this hospital stay patient not tachycardic or hypertensive currently on a 2 L nasal cannula oxygen patient denies having any headache or URI symptoms denies having any chest pain shortness of breath or cough did have mild lower abdominal pain without any radiation denies having nausea vomiting did not have any bowel movement however has been passing gas patient did have a white count of 9.1 creatinine 0.51 liver enzymes are normal Past Medical History Past Medical History: COPD, Hyperlipidemia, Osteoarthritis (OA) Additional Past Medical History / Comment(s): DIVERTICULITIS, COLOVAGINAL FISTULA History of Any Multi-Drug Resistant Organisms: None Reported Past Surgical History: Adenoidectomy, Appendectomy, Cholecystectomy, Hernia Repair, Hysterectomy, Orthopedic Surgery, Tonsillectomy Additional Past Surgical History / Comment(s): hand surgery times 2, eddie. bunionectomy, laparoscopy with abdominal washout due to ruptured diverticulum Past Anesthesia/Blood Transfusion Reactions: Motion Sickness, Postoperative Nausea & Vomiting (PONV) Additional Past Anesthesia/Blood Transfusion Reaction / Comm: no blood transfusion, NAUSEA/VOMITING WITH STRONG PAIN MEDICATIONS Past Psychological History: No Psychological Hx Reported Smoking Status: Former smoker Past Alcohol Use History: None Reported Additional Past Alcohol Use History / Comment(s): QUIT SMOKING 2000,smoked appr ox 40 years Past Drug Use History: None Reported - Past Family History Father Family Medical History: Diabetes Mellitus, Hypertension Brother(s) Family Medical History: Cancer Additional Family Medical History / Comment(s): Pancreatic cancer Mother Family Medical History: Myocardial Infarction ([place]) Medications and Allergies Home Medications Medication Instructions Recorded Confirmed Type Rosuvastatin Calcium 5 mg PO DAILY 11/28/23 04/30/24 History Calcium Carbonate [Calcium] 600 mg PO DAILY 04/02/24 04/30/24 History Cholecalciferol (Vitamin D3) 50 mcg PO DAILY 04/02/24 04/30/24 History [Vitamin D3 (50 Mcg = 2000 Iu)] Multivitamins, Thera [Multivitamin 1 tab PO DAILY 04/28/24 04/30/24 History (formulary)] Allergies Allergy/AdvReac Type Severity Reaction Status Date / Time codeine AdvReac Nausea & Verified 04/30/24 07:33 Vomiting Physical Exam Vitals: Vital Signs Temp Pulse Resp BP Pulse Ox FiO2 05/03/24 09:29 84 L 21 05/03/24 08:36 85 05/03/24 07:14 98.7 F 85 18 116/69 94 L 05/03/24 01:47 98.7 F 90 18 91/51 91 L 05/02/24 19:49 98.8 F 78 18 112/66 97 05/02/24 15:00 95 05/02/24 14:15 98.2 F 83 19 112/53 89 L Intake and Output 05/02/24 05/03/24 05/03/24 22:59 06:59 14:59 Intake Total 250 Output Total 500 355 Balance -500 250 -355 Intake: Intake, IV Titration 250 Amount Ropivacaine 250 mg 250 Hydromorphone (Pf) 5 mg In Sodium Chloride 0.9% 200 ml @ Per Protocol EPIDURAL .Q0M PRN Rx#: [id number] Output: Urine 500 355 Other: Voiding Method Indwelling Catheter Indwelling Catheter Results CBC & Chem 7: 05/02/24 07:14 05/02/24 07:14 Labs: Abnormal Lab Results - Last 24 Hours (Table) 05/02/24 Range/Units 17:05 POC Glucose (mg/dL) 146 H (70-110) mg/dL Assessment and Plan Plan: 1patient with a history of complicated diverticulitis with intra-abdominal abscess and colovesical fistula in this patient who is s/p low anterior resection with sigmoid colectomy and takedown of the colovesical fistula during this admission operative report did not mention any intra-abdominal abscess patient not running any fever and did have a normal white count indicating adequate treatment of previous and abdominal abscess. 2we will continue patient on Zosyn 3.375 g 8 hours while inpatient however no plan for any IV antibiotic on discharge. Question concern answered. We will follow on clinical condition and cultures to further adjust medication if needed Thank you for this consultation we will follow the patient along with you Dictation was produced using [employer] dictation software. please excuse any grammatical, word or spelling errors. Time with Patient: Greater than 30
--- NOTE | 2024-05-04 09:54 | CDI ---
Documentation Clarification Form Date: 05/04/2024 09:20:15 AM From: Luzmaria Pillai Phone: [phone] Admit Date: 04/30/2024 08:38:00 AM Patient Name: Padmini Graham Visit Number: [id number] Discharge Date: ATTENTION: The Clinical Documentation Specialists (CDI) and [facility] Coding Staff appreciate your assistance in clarifying documentation. Please respond to the clarification below the line at the bottom and electronically sign. The CDI & [facility] Coding staff will review the response and follow-up if needed. Please note: Queries are made part of the Legal Health Record. If you have any questions, please contact the author of this message via ITS. Dr. Joceline Garcia procedure is documented 05/01, Medical record. Additional clarification regarding the procedure is requested. History/Risk Factors: 73 year old female presented to [facility] for elective sigmoid resection. Medical History: COPD, HLD, OA and sigmoid diverticulitis with perforation and abscess. 04/30, HP. Clinical Indicators: 05/01, Surgery procedure note: Description of Procedure: Extensive lysis of adhesions over 1.5 hours Low anterior resection with sigmoid colectomy and powered Ethicon stapler 29 mm Takedown of colovaginal fistula using 30 mm stapler Donuts thick inferiorly thin superiorly EBL 20 Presence of ventral hernia repair with mesh epigastric abdominal wall lysed. 05/01, Surgical case record, Procedures, Surgery complete note: Actual procedures: Robotic Assisted Laparoscopic Sigmoid Colectomy Low anterior resection, lysis of adhesions, take town of colovaginal fistula Treatment: Surgical Lysis of adhesions and Low anterior sigmoid resection Can you please clarify surgical approach? [ ] Open [ ] Laparoscopic [X ] Laparoscopic with Robotic assistance [ ] Other, please specify [ ] Unable to determine (Template Last Revised: January 2021) [X ] Laparoscopic with Robotic assistance MTDD
--- NOTE | 2024-05-04 14:30 | P.PN ---
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 She is status post takedown of colovaginal fistula including low anterior resection with sigmoid colectomy and lysis of adhesions. Patient epidural and Gifford catheter removed yesterday. Patient reports she is urinating. Still no bowel activity. She was not able to ambulate in the hallway this afternoon. However, patient complaining of abdominal pain, mostly on the left side. And she is still requiring the IV Dilaudid. Afebrile. PHYSICAL EXAM: VITAL SIGNS: Reviewed GENERAL: Well-developed in no acute distress. HEENT: No sclera icterus. Extraocular movements grossly intact. Moist buccal mucosa. Head is atraumatic, normocephalic. Hears conversational speech. No nasal drainage. NECK: Supple without lymphadenopathy. CHEST: Non-labored respirations and equal bilateral excursions. CARDIOVASCULAR: Palpable 2+ radial pulses. ABDOMEN: Soft. Nondistended. Tender to palpation mostly on the left abdomen. Incision clean dry and intact MUSCULOSKELETAL: No clubbing or cyanosis. NEUROLOGIC: No focal or lateralizing signs. Cranial nerves II through XII grossly intact. PSYCH: Appropriate affect. Alert and oriented to person, place and time. SKIN: Well perfused. Good skin turgor. ASSESSMENT: 1. 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 Hyperkalemia 3. Peritoneal adhesions PLAN: -Tylenol and Toradol scheduled ordered for pain control -Encourage patient to increase activity level -Continue antibiotics until discharge -Avoid seeds, nuts, broccoli for 4 weeks until 05/31/2024 to decrease risk of new diverticular attacks or anastomotic infection. Physician Lagging Machine Operator note has been reviewed by physician. Signing provider agrees with the documented findings, assessment, and plan of care. Objective - Vital Signs Vital signs: Vital Signs Temp 97.8 F 05/04/24 13:32 Pulse 92 05/04/24 13:32 Resp 16 05/04/24 13:32 BP 142/66 05/04/24 13:32 Pulse Ox 97 05/04/24 13:32 FiO2 21 05/03/24 09:29 Intake & Output 05/03/24 05/04/24 05/04/24 18:59 06:59 18:59 Output Total 355 Balance -355 Output: Urine 355 Other: Voiding Method Indwelling Catheter Toilet # Voids 1 - Labs CBC & Chem 7: 05/02/24 07:14 05/02/24 07:14
[2024-05-04] MEDS: ACETAMINOPHEN TAB 500 MG TAB PO SCH (16:06)
[2024-05-04] MEDS: KETOROLAC 15 MG/ML 1 ML VIAL IVP SCH (16:07)
--- NOTE | 2024-05-04 18:07 | P.PN ---
Subjective Progress Note Date: 05/04/24 Principal diagnosis: Reason for follow-up is complicated diverticulitis with a colovesical fistula Patient is a 73-year-old female with a past medical history significan t for COPD hypertension perforated diverticulitis with colovesical fistula as well as intra-abdominal abscess for the patient has been treated with extensive course of IV and oral antibiotic therapy, patient electively admitted hospital for surgical appeal and the patient status post low anterior resection with sigmoid colectomy takedown of the colovesical fistula operative report did not mention any abscess. On today's evaluation that is 05/04/2024, the patient continues to be afebrile, the patient is on room air and breathing comfortably, the Pt denies having any chest pain or cough, the patient denies having any nausea or vomiting still complaining of some lower abdominal pain from surgical site did not have any bowel movement yet. Patient did not have any lab draw today Objective - Vital Signs Vital signs: Vital Signs Temp 98.1 F 05/04/24 07:15 Pulse 80 05/04/24 07:15 Resp 16 05/04/24 07:15 BP 121/76 05/04/24 07:15 Pulse Ox 94 L 05/04/24 07:15 FiO2 21 05/03/24 09:29 Intake & Output 05/03/24 05/04/24 05/04/24 18:59 06:59 18:59 Output Total 355 Balance -355 Output: Urine 355 Other: Voiding Method Indwelling Catheter Toilet # Voids 1 - Exam GENERAL DESCRIPTION: An elderly female lying in bed in no distress RESPIRATORY SYSTEM: Unlabored breathing , decreased breath sounds at bases HEART: S1 S2 regular rate and rhythm , ABDOMEN: Soft , mild tenderness EXTREMITIES: No edema feet - Labs CBC & Chem 7: 05/02/24 07:14 05/02/24 07:14 Assessment and Plan (1) Colovaginal fistula Current Visit: Yes Status: Acute Code(s): N82.4 - OTHER FEMALE INTESTINAL-GENITAL TRACT FISTULAE SNOMED Code(s): 936164730 (2) Diverticulitis of large intestine with complication Current Visit: No Status: Acute Code(s): K57.32 - DVTRCLI OF LG INT W/O PERF ORATION OR ABSCESS W/O BLEEDING SNOMED Code(s): 212582459 Plan: 1patient with a history of complicated diverticulitis with intra-abdominal ab scess and colovesical fistula in this patient who is s/p low anterior resection with sigmoid colectomy and takedown of the colovesical fistula during this admission operative report did not mention any intra-abdominal abscess patient not running any fever and did have a normal white count indicating adequate treatment of previous and abdominal abscess. 2patient to continue with Zosyn 3.375 g 8 hours while inpatient and monitor clinical course closely Dictation was produced using [employer] dictation software. please excuse any grammatical, word or spelling errors. Time with Patient: Less than 30
[2024-05-05 07:24] VITALS: RESP 16
--- NOTE | 2024-05-05 13:13 | P.DS ---
Providers Date of admission: 04/30/24 08:38 Expected date of discharge: 05/05/24 Attending physician: Joceline Nava Consults: 04/30/24 07:39 Consult Physician Routine Consulting Provider: [facility] Consult Reason/Comments: Anesthesia Care Do you want consulting provider notified?: Yes 05/01/24 06:28 Consult Physician Routine Consulting Provider: [facility] Consult Reason/Comments: Epidural Do you want consulting provider notified?: Yes 05/03/24 12:36 Consult Physician Stat Consulting Provider: La Tony Consult Reason/Comments: Antibiotic management for diverticulitis Do you want consulting provider notified?: Already Contacted Primary care physician: Christine Jose Hospital Course: Discharge diagnosis 1. 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 Hyperkalemia 3. Peritoneal adhesions Hospital course The patient is a 12-vuog-kcc-year-old female with perforated diverticulitis resulting obstruction and colovaginal fistula. She is status post takedown of colovaginal fistula including low anterior resection with sigmoid colectomy and lysis of adhesions. Patient is tolerating diet. Her pain is controlled. She has been up and ambulating. She is urinating without difficulty. She is afebrile. She is stable for discharge. Physician Floor Care Specialist note has been reviewed by physician. Signing provider agrees with the documented findings, assessment, and plan of care. Patient Condition at Discharge: Stable Plan - Discharge Summary Discharge Rx Participant: No New Discharge Prescriptions: New Ibuprofen [Motrin] 600 mg PO Q8HR PRN #30 tab PRN Reason: Pain Acetaminophen Tab [Tylenol] 1,000 mg PO Q6HR PRN #30 tablet PRN Reason: Pain Continue Rosuvastatin Calcium 5 mg PO DAILY No Action Calcium Carbonate [Calcium] 600 mg PO DAILY Multivitamins, Thera [Multivitamin (formulary)] 1 tab PO DAILY Cholecalciferol (Vitamin D3) [Vitamin D3 (50 Mcg = 2000 Iu)] 50 mcg PO DAILY Discharge Medication List Rosuvastatin Calcium 5 mg PO DAILY 11/28/23 [History] Calcium Carbonate [Calcium] 600 mg PO DAILY 04/02/24 [History] Cholecalciferol (Vitamin D3) [Vitamin D3 (50 Mcg = 2000 Iu)] 50 mcg PO DAILY 04/02/24 [History] Multivitamins, Thera [Multivitamin (formulary)] 1 tab PO DAILY 04/28/24 [History] Acetaminophen Tab [Tylenol] 1,000 mg PO Q6HR PRN #30 tablet 05/05/24 [Rx] Ibuprofen [Motrin] 600 mg PO Q8HR PRN #30 tab 05/05/24 [Rx] Follow up Appointment(s)/Referral(s): Joceline Nava MD [STAFF PHYSICIAN] - 05/19/24 Activity/Diet/Wound Care/Special Instructions: Wear abdominal binder at all times for comfort. No lifting over 4 pounds in 4 weeks You may shower. No bath tub soaks for two weeks Use Tylenol and ibuprofen scheduled for the next 24-48 hours for best pain relief. Use ice along incisions for the today to prevent swelling. Continue low fiber diet with no seeds, no broccoli and no nuts Continue to hold on taking vitamins until seen by surgeon Discharge Disposition: HOME SELF-CARE
[2024-05-05 13:31] VITALS: BP 138/74; PULSE 81; TEMP 97.6
== END 2024-05-05 15:43 | disposition home or self-care (01) | DRG 330 ==
LOC: ORWHC2ENDO 07:09 → 4SSUR 08:31 → ORWHC2ENDO 08:38 → 4SSUR 08:38
PROVIDERS: ADMIT Surgery Plastic and Reconstructive Surgery; ATTEND Surgery Plastic and Reconstructive Surgery
PROC: 0DJD8ZZ Inspection of Lower Intestinal Tract, Via Natural or Artificial Opening Endoscopic (ICD-10-PCS; 2024-04-30)
PROC: 0DNN4ZZ Release Sigmoid Colon, Percutaneous Endoscopic Approach (ICD-10-PCS; 2024-05-01)
PROC: 3E0R3BZ Introduction of Anesthetic Agent into Spinal Canal, Percutaneous Approach (ICD-10-PCS; 2024-05-01)
PROC: 00HU33Z Insertion of Infusion Device into Spinal Canal, Percutaneous Approach (ICD-10-PCS; 2024-05-01)
PROC: 8E0W4CZ Robotic Assisted Procedure of Trunk Region, Percutaneous Endoscopic Approach (ICD-10-PCS; 2024-05-01)
PROC: 0DTN4ZZ Resection of Sigmoid Colon, Percutaneous Endoscopic Approach (ICD-10-PCS; principal; 2024-05-01 07:30)
DX: K57.20 Diverticulitis of large intestine with perforation and abscess without bleeding (principal); N32.1 Vesicointestinal fistula; J44.9 Chronic obstructive pulmonary disease, unspecified; E86.0 Dehydration; I10 Essential (primary) hypertension; E78.5 Hyperlipidemia, unspecified; K64.8 Other hemorrhoids; E87.5 Hyperkalemia; K66.0 Peritoneal adhesions (postprocedural) (postinfection); N73.9 Female pelvic inflammatory disease, unspecified; Z87.891 Personal history of nicotine dependence; Z88.5 Allergy status to narcotic agent
CPT/HCPCS: 45330; 74177; 80048; 80053; 84132; 85025; 85610; 86850; 86900; 86901; 88307; 94760

== ENCOUNTER → 2024-06-23 | Outpatient (CLI) | payer MEDICARE | END | disposition home or self-care (01) | LOC: LABPRL 16:35 | PROVIDERS: ATTEND Nurse Practitioner Family | DX: R60.0 Localized edema (principal) | CPT/HCPCS: 80053; 83880 ==

== ENCOUNTER 2024-08-25 09:32 | Emergency (ER) | payer MEDICARE ==
[2024-08-25 10:14] LABS: Glucose,Whole Blood 89 mg/dL (70-110)
--- NOTE | 2024-08-25 10:15 | ED ---
General Adult HPI - General Chief complaint: Neuro Symptoms/Deficit Stated complaint: vision loss Time Seen by Provider: 08/25/24 10:05 Source: patient, RN notes reviewed, old records reviewed Mode of arrival: ambulatory Limitations: no limitations - History of Present Illness Initial comments: Patient is a 74-year-old female with past medical history remarkable for peripheral neuropathy, COPD, hyperlipidemia. Presents emergency department complaining of sudden onset of left eye blurry vision. Patient awoke like this. Last known well was around 11 PM or midnight last night. Went to bed and woke up with worsening blurry vision out of her left eye that is not corrected with her normal corrective lens glasses. States she can see shapes but has a difficult time with any distinction. Denies any curtain closing sensation. Denies any significant pain. Stated she did have a slight burning of the top of her eye but that is since resolved. Does have a history of eyelid surgery but no history of eye surgery. Denies any history of head trauma that is recent or eye trauma. Is not on blood thinners. No other acute complaints at this time. - Related Data Home Medications Medication Instructions Recorded Confirmed Alpha Lipoic Acid 1,800 mg PO BID 08/25/24 08/25/24 Gabapentin [Neurontin] 300 mg PO TID 08/25/24 08/25/24 hydroCHLOROthiazide [Hydrodiuril] 25 mg PO DAILY PRN 08/25/24 08/25/24 levOCARNitine [l-Carnitine] 1,500 mg PO DAILY 08/25/24 08/25/24 Allergies Allergy/AdvReac Type Severity Reaction Status Date / Time codeine AdvReac Nausea & Verified 08/25/24 11:13 Vomiting strong narcotics AdvReac Nausea & Uncoded 08/25/24 11:13 Vomiting Review of Systems ROS Statement: Those systems with pertinent positive or pertinent negative responses have been documented in the HPI. Review of Systems: CONST: Denies fever EYES: Endorses sudden onset left eye blurry vision ENT: Denies nasal congestion C/V: Denies Chest pain RESP: Denies shortness of breath GI: Denies abdominal pain : Denies dysuria SKIN: Denies rash. MSK: Denies joint pain. NEURO: Denies headache ROS Other: All systems not noted in ROS Statement are negative. Past Medical History Past Medical History: COPD, Hyperlipidemia, Osteoarthritis (OA) Additional Past Medical History / Comment(s): incisional hernia, RSV admission 10/2023 History of Any Multi-Drug Resistant Organisms: None Reported Past Surgical History: Adenoidectomy, Appendectomy, Cholecystectomy, Hernia Repair, Hysterectomy, Orthopedic Surgery, Tonsillectomy Additional Past Surgical History / Comment(s): Vaginal hysterectomy 1995, hand surgery times 2. Colonoscopy yrs). eddie bunionectomy, diverticulitis surgery. Past Anesthesia/Blood Transfusion Reactions: Motion Sickness Additional Past Anesthesia/Blood Transfusion Reaction / Comment(s): no blood transfusion Past Psychological History: No Psychological Hx Reported Smoking Status: Former smoker Past Alcohol Use History: None Reported Past Drug Use History: None Reported - Past Family History Father Family Medical History: Diabetes Mellitus, Hypertension Brother(s) Family Medical History: Cancer Additional Family Medical History / Comment(s): Pancreatic cancer Mother Family Medical History: Myocardial Infarction ([place]) General Exam - General Exam Comments Initial Comments: General: Appears in no acute distress. HEAD: Normal with no signs of head trauma. EYES: PERRLA, EOMI, conjunctiva normal, no discharge. Pupils are 2 to 3 mm and equal bilaterally. Decreased visual acuity of the left eye which is untestable as she can make out shapes of the letters but there is no enough distinction to read them. Right eye visual acuity is 20/50 with her glasses which she state is pretty typical for her. ENT: Hearing grossly intact, normal oropharynx. RESPIRATORY: Clear breath sounds bilaterally. No wheezes, rales, or rhonchi. C/V: Regular rate and rhythm. S1 and S2 auscultated, no edema, peripheral pulses 2+ and intact throughout ABD: Abd is soft, nontender, nondistended EXT: Normal range of motion, no obvious deformity SKIN: No rashes or lesions observed on exposed skin. NEURO: Alert and oriented x 4. Patient has a low NIH as her only symptoms appear to be the visual loss in the left eye. Likely 1-2. No vision loss in the right eye. No other neurological deficits. Limitations: no limitations Course Vital Signs 08/25/24 08/25/24 08/25/24 09:33 10:06 10:21 Temperature 97.8 F Pulse Rate 86 67 69 Respiratory 16 18 18 Rate Blood Pressure 164/83 158/78 164/83 O2 Sat by Pulse 100 98 98 Oximetry 08/25/24 08/25/24 08/25/24 10:36 10:47 10:51 Temperature 97.7 F Pulse Rate 71 72 71 Respiratory 18 18 18 Rate Blood Pressure 147/78 146/70 140/70 O2 Sat by Pulse 98 98 100 Oximetry 08/25/24 08/25/24 08/25/24 11:06 11:21 11:56 Temperature 97.9 F 97.9 F 97.9 F Pulse Rate 68 73 68 Respiratory 18 18 18 Rate Blood Pressure 146/70 145/72 O2 Sat by Pulse 99 97 100 Oximetry Medical Decision Making - Medical Decision Making Was pt. sent in by a medical professional or institution (, PA, CHEMICAL PROCESSING SUPERVISOR, urgent care, hospital, or skilled nursing...) When possible be specific @ -No Did you speak to anyone other than the patient for history (EMS, parent, family, police, friend...)? What history was obtained from this source @ -No Did you review nursing and triage notes (agree or disagree)? Why? @ -I reviewed and agree with nursing and triage notes Were old charts reviewed (outside hosp., previous admission, EMS record, old EKG, old radiological studies, urgent care reports/EKG's, skilled nursing records)? Report findings @ -No old charts were reviewed Differential Diagnosis (chest pain, altered mental status, abdominal pain women, abdominal pain men, vaginal bleeding, weakness, fever, dyspnea, syncope, headache, dizziness, GI bleed, back pain, seizure, CVA, palpatations, mental hea lth, musculoskeletal)? @ -Differential CVA Ischemic stroke, hemorrhagic stroke, brain tumor, atypical migraine, Wernicke's encephalopathy, seizure, multiple sclerosis, meningitis, encephalitis, hypo glycemia, Guillain-Pillai, electrolytes disturbance, myasthenia gravis.... This is not meant to be an all-inclusive list EKG interpreted by me (3pts min.). @ -As above X-rays interpreted by me (1pt min.). @ -None done CT interpreted by me (1pt min.). @ -CT brain, CT angiogram of the head and neck showed no obvious acute intracranial process or injury, no obvious acute large vessel occlusion or o bstruction. No explanation for patient's current symptoms. U/S interpreted by me (1pt. min.). @ -None done What testing was considered but not performed or refused? (CT, X-rays, U/S, labs)? Why? @ -None What meds were considered but not given or refused? Why? @ -None Did you discuss the management of the patient with other professionals (professionals i.e. , MAXIM, CHEMICAL PROCESSING SUPERVISOR, lab, RT, psych nurse, social media executive, supervisor sawing and assembly, teacher, corporate banking officer, employment evaluator/case manager)? Give summary @ -Spoke with Dr. Ferrera of neurocritical care who agrees that patient is not a thrombolytic candidate. Recommended medical management and ophthalmology evaluation. Was in agreement plan for CT imaging. Discussed the case with ophthalmology on-call, Dr. Amado. Was in agreement with the workup thus far, however patient requires a detailed eye exam. As concern for stroke is lower at this time, discussed with him as well as patient and we will agree to discharge the patient with immediate follow-up with Dr. Amado's office where he will be waiting for her. Patient was in agreement this plan as she remains otherwise deficit free. Was smoking cessation discussed for >3mins.? @ -No Was critical care preformed (if so, how long)? @ -Yes, 41 minutes. Were there social determinants of health that impacted care today? How? (Homelessness, low income, unemployed, alcoholism, drug addiction, transportation, low edu. Level, literacy, decrease access to med. care, assisted, rehab)? @ -No Was there de-escalation of care discussed even if they declined (Discuss DNR or withdrawal of care, Hospice)? DNR status @ -No What co-morbidities impacted this encounter? (DM, HTN, Smoking, COPD, CAD, Cancer, CVA, ARF, Chemo, Hep., AIDS, mental health diagnosis, sleep apnea, morbid obesity)? @ -Hyperlipidemia Was patient admitted / discharged? Hospital course, mention meds given and route, prescriptions, significant lab abnormalities, going to OR and other pertinent info. @ -Patient presents emergency department for sudden onset left eye blurry vision that she awoke with. Last went all well as at 11 PM or midnight. Maxim dobbins woke up with the symptoms. NIH is 1-2 for the isolated left eye vision blurriness and loss. No other symptoms at this time. As I cannot definitively rule out a stroke despite it not being hemianopsia, and to speed up imaging we will obtain CT imaging the brain as well as CT angiogram of the head and neck. Patient was in agreement with this plan. Bedside ultrasound completed by myself revealed no evidence of retinal detachment or other injury on the posterior aspect of the eye. Code stroke was therefore called as I could not definitively rule out a stroke.. We will obtain imaging and stroke workup. I will likely call ophthalmology when results return.Patient is not a tenecteplase candidate as risks far outweigh the benefits. Patient is outside of the time window, and patient is a low NIH. Patient expressed understanding. Spoke with Dr. Ferrera of neurocritical care who agrees that patient is not a thrombolytic candidate. Recommended medical management and ophthalmology evaluation. Was in agreement plan for CT imaging. EKG showed no signs of acute ischemia. Patient's laboratory studies are all within acceptable limits. CT brain and CT angiogram of the head and neck negative for any obvious explanation for the patient's current symptoms. On reevaluation, NIH remains unchanged with the blurred vision in the left eye only. No new deficits. This has been constant overnight. Denies headaches. Discussed results with her. We will reach out to ophthalmology at this time. She is given a dose of aspirin. Less concern for strokelike symptoms at this time as I am concerned for the potential for retinal artery occlusion or venous occlusion. I do not have the capabilities to evaluate for this here in our department at this time. Eye exam other than the decreased visual acuity at this time are unremarkable. No evidence of acute angle-closure glaucoma at this time, and eye pressures appear symmetrical and normal bilaterally. Discussed the case with ophthalmology on-call, Dr. Amado. Was in agreement with the workup thus far, however patient requires a detailed eye exam. As concern for stroke is lower at this time, discussed with him as well as patient and we will agree to discharge the patient with immediate follow-up with Dr. Amado's office where he will be waiting for her. Patient was in agreement this plan as she remains otherwise deficit free. He did request that I add on CRP and ESR which were add-ons. CRP came back elevated at 1.0. ESR still pending. I discussed the plan with the patient, and she was in agreement plan for discharge and immediate follow-up with Dr. Amado's office. Strict return precautions discussed. She was in agreement this plan. I instructed the patient to follow up with their PCP in the next 1-3 days. I explained that the patient should return to the emergency department if they experience any worsening symptoms. Strict return precautions were discussed with the patient. The patient expressed understanding of these instructions. I answered all questions that the patient had. The patient was discharged home in good condition with their prescriptions and follow up information. Undiagnosed new problem with uncertain prognosis? @ -Yes Drug Therapy requiring intensive monitoring for toxicity (Heparin, Nitro, Insulin, Cardizem)? @ -No Were any procedures done? @ -No Diagnosis/symptom? @ -Blurry vision left eye Acute, or Chronic, or Acute on Chronic? @ -Acute Uncomplicated (without systemic symptoms) or Complicated (systemic symptoms)? @ -Complicated Side effects of treatment? @ -None Exacerbation, Progression, or Severe Exacerbation] @ -No Poses a threat to life or bodily function? @ -unlikely at this time - Lab Data Result diagrams: 08/25/24 10:30 08/25/24 10:30 Lab Results 08/25/24 08/25/24 08/25/24 Range/Units 10:06 10:12 10:30 WBC 4.5 (3.8-10.6) k/uL RBC 4.05 (3.80-5.40) m/uL Hgb 12.9 (11.4-16.0) gm/dL Hct 39.4 (34.0-46.0) % MCV 97.2 (80.0-100.0) fL MCH 31.7 (25.0-35.0) pg MCHC 32.6 (31.0-37.0) g/dL RDW 12.7 (11.5-15.5) % Plt Count 275 (150-450) k/uL MPV 6.7 Neutrophils % 61 % Lymphocytes % 26 % Monocytes % 7 % Eosinophils % 2 % Basophils % 1 % Neutrophils # 2.7 (1.3-7.7) k/uL Lymphocytes # 1.2 (1.0-4.8) k/uL Monocytes # 0.3 (0-1.0) k/uL Eosinophils # 0.1 (0-0.7) k/uL Basophils # 0.1 (0-0.2) k/uL PT (10.0-12.5) sec INR (<1.2) APTT (22.0-30.0) sec Sodium (137-145) mmol/L Potassium (3.5-5.1) mmol/L Chloride (98-107) mmol/L Carbon Dioxide (22-30) mmol/L Anion Gap mmol/L BUN (7-17) mg/dL Creatinine (0.52-1.04) mg/dL Est GFR (CKD-EPI)AfAm (>60 ml/min/1.73 sqM) Est GFR (CKD-EPI)NonAf (>60 ml/min/1.73 sqM) Glucose (74-99) mg/dL POC Glucose (mg/dL) 89 (70-110) mg/dL POC Glu Cash Applications Associate ID Ajit Ronda Calcium (8.4-10.2) mg/dL Total Bilirubin (0.2-1.3) mg/dL AST (14-36) U/L ALT (4-34) U/L Alkaline Phosphatase (38-126) U/L Creatine Kinase (30-135) U/L C-Reactive Protein (<1.0) mg/dL Total Protein (6.3-8.2) g/dL Albumin (3.5-5.0) g/dL Urine Color Colorless Urine Appearance Clear (Clear) Urine pH 7.0 (5.0-8.0) Ur Specific [place] 1.029 (1.001-1.035) Urine Protein Negative (Negative) Urine Glucose (UA) Negative (Negative) Urine Ketones Negative (Negative) Urine Blood Negative (Negative) Urine Nitrite Negative (Negative) Urine Bilirubin Negative (Negative) Urine Urobilinogen <2.0 (<2.0) mg/dL Ur Leukocyte Esterase Negative (Negative) 08/25/24 08/25/24 08/25/24 Range/Units 10:30 10:30 11:30 WBC (3.8-10.6) k/uL RBC (3.80-5.40) m/uL Hgb (11.4-16.0) gm/dL Hct (34.0-46.0) % MCV (80.0-100.0) fL MCH (25.0-35.0) pg MCHC (31.0-37.0) g/dL RDW (11.5-15.5) % Plt Count (150-450) k/uL MPV Neutrophils % % Lymphocytes % % Monocytes % % Eosinophils % % Basophils % % Neutrophils # (1.3-7.7) k/uL Lymphocytes # (1.0-4.8) k/uL Monocytes # (0-1.0) k/uL Eosinophils # (0-0.7) k/uL Basophils # (0-0.2) k/uL PT 10.2 (10.0-12.5) sec INR 0.9 (<1.2) APTT 22.4 (22.0-30.0) sec Sodium 141 (137-145) mmol/L Potassium 4.3 (3.5-5.1) mmol/L Chloride 109 H (98-107) mmol/L Carbon Dioxide 30 (22-30) mmol/L Anion Gap 2 mmol/L BUN 17 (7-17) mg/dL Creatinine 0.70 (0.52-1.04) mg/dL Est GFR (CKD-EPI)AfAm >90 (>60 ml/min/1.73 sqM) Est GFR (CKD-EPI)NonAf 86 (>60 ml/min/1.73 sqM) Glucose 93 (74-99) mg/dL POC Glucose (mg/dL) (70-110) mg/dL POC Glu Cash Applications Associate ID Calcium 9.0 (8.4-10.2) mg/dL Total Bilirubin 0.8 (0.2-1.3) mg/dL AST 19 (14-36) U/L ALT 11 (4-34) U/L Alkaline Phosphatase 71 (38-126) U/L Creatine Kinase 60 (30-135) U/L C-Reactive Protein 1.0 H (<1.0) mg/dL Total Protein 6.4 (6.3-8.2) g/dL Albumin 3.7 (3.5-5.0) g/dL Urine Color Urine Appearance (Clear) Urine pH (5.0-8.0) Ur Specific [place] (1.001-1.035) Urine Protein (Negative) Urine Glucose (UA) (Negative) Urine Ketones (Negative) Urine Blood (Negative) Urine Nitrite (Negative) Urine Bilirubin (Negative) Urine Urobilinogen (<2.0) mg/dL Ur Leukocyte Esterase (Negative) - EKG Data -: EKG Interpreted by Me EKG Comments: 12-lead Electrocardiogram Interpretation Note EKG was reviewed and interpreted by myself. 12-lead ECG performed at 1033 is interpreted by me as revealing normal sinus rhythm at a rate of 75 beats per minute. Raysal is normal. DC interval is 168 ms, QRS durations 87 ms, QTc is 410 ms.. There were no ST or T wave abnormalities to suggest myocardial ischemia or injury. R wave progression across the precordium was satisfactory. By my interpretation this EKG is non-diagnostic for acute ischemia. Critical Care Time Critical Care Time: Yes Total Critical Care Time: 41 Disposition Clinical Impression: Blurry vision, left eye Disposition: HOME SELF-CARE Condition: Stable Additional Instructions: Go straight to Dr. Amado's office, opthomology, for thorough eye examination. Return if worsening symptoms. Is patient prescribed a controlled substance at d/c from ED?: No Referrals: Christine Jose MD [Primary Care Provider] - 1-2 days Judson Amado MD [STAFF PHYSICIAN] - 1-2 days Time of Disposition: 11:35
--- NOTE | 2024-08-25 10:22 | CT ---
EXAMINATION TYPE: CODE STROKE: CT brain wo contr CT DLP: 1084.6 mGycm, Automated exposure control for dose reduction was used. DATE OF EXAM: 08/25/2024 10:15 AM COMPARISON: None. CLINICAL INDICATION:Female, 74 years old with history of Neuro deficit, acute, stroke suspected, Loss of vision, Lt eye TECHNIQUE: Brain: Multiple axial CT images of the brain were obtained without IV contrast. . Coronal and sagitta l reformats reviewed. FINDINGS: Brain: Extra-axial spaces: No abnormal extra-axial fluid collections. Ventricular system: Within normal limits Cerebral parenchyma: No acute intraparenchymal hemorrhage or mass effect. The felix-white junction is well differentiated. Scattered hypoattenuating areas are seen within the periventricular white matte r. Bilateral basal ganglia prominent perivascular spaces. Cerebellum: Unremarkable. Mass effect: No evidence of midline shift. Intracranial vasculature: Atherosclerotic calcifications of the intracranial vessels. Soft tissues: Normal. Calvarium/osseous structures: No depressed skull fracture. Benign hyperostosis frontalis noted. Paranasal sinuses and mastoid air cells: Mild scattered paranasal sinus disease. Visualized orbits: Orbital contents are intact. IMPRESSION: 1. No acute intracranial process. 2. Nonspecific white matter changes, likely secondary to chronic small vessel ischemic disease. [facility], , 08/25/2024 10:20 AM
[2024-08-25] MEDS: SODIUM CHLORIDE 0.9% 1,000 ML IV STA (10:33)
--- NOTE | 2024-08-25 10:40 | CT ---
EXAMINATION TYPE: CT angio head neck CT DLP: 366.4 mGycm, Automated exposure control for dose reduction was used. DATE OF EXAM: 08/25/2024 10:34 AM COMPARISON: CT head 08/25/2024. CLINICAL INDICATION:Female, 74 years old with history of Neuro deficit, acute, stroke suspected; PHH, Loss of vision Lt eye TECHNIQUE: Axially acquired helical CT angiogram of the head and neck was obtained with contrast util izing 75 cc of Isovue-370 administered intravenously. Axial images are supplemented with 3D reconstru ctions which were post-processed at an independent workstation. NASCET criteria used. FINDINGS: CTA HEAD: No evidence of acute intracranial hemorrhage, mass effect, or midline shift. The ventricles, sulci, a nd cisterns are unremarkable. The visualized portions of the internal carotid arteries, middle cerebral arteries, anterior cerebral arteries, and posterior cerebral arteries are patent. The basilar and vertebral arteries are patent. Right vertebral artery is dominant CTA NECK: Right Carotid System: The common carotid artery and external carotid artery are patent. Mild calcified plaque at the caroti d bifurcation. The carotid bifurcation demonstrates no evidence of hemodynamically significant stenos is. Mild to moderate calcified plaque within the cavernous portion of the internal carotid artery. Th e remaining portions of the internal carotid artery demonstrate normal size without significant narro wing. Left Carotid System: The common carotid artery and external carotid artery are patent. Mild calcified plaque at the caroti d bifurcation. The carotid bifurcation demonstrates no evidence of hemodynamically significant stenos is. Mild to moderate calcified plaque within the cavernous portion of the internal carotid artery The remaining portions of the internal carotid artery demonstrate normal size without significant narrow ing. Vertebral arteries are patent without evidence hemodynamically significant stenosis. There is a three-vessel aortic arch. The origins of the great vessels are patent. No evidence of hemo dynamically significant stenosis. Mild centrilobular emphysematous changes. IMPRESSION: 1. No evidence of dissection of the cervical internal carotid arteries or vertebral arteries or any e vidence of significant stenosis at the carotid bifurcations. 2. No evidence of high-grade stenosis or intracranial aneurysm. [facility], , 08/25/2024 10:37 AM
[2024-08-25 10:45] VITALS: RESP 18
[2024-08-25 10:46] LABS: ALT 11 U/L (4-34); AST 19 U/L (14-36); African American GFR (CKD) >90 (>60 ml/min/1.73 sqM); Albumin 3.7 g/dL (3.5-5.0); Alkaline Phosphatase 71 U/L (38-126); Anion Gap 2 mmol/L; Blood Urea Nitrogen 17 mg/dL (7-17); Carbon Dioxide 30 mmol/L (22-30); Chloride 109 mmol/L (98-107); Creatine Kinase 60 U/L (30-135); Glucose 93 mg/dL (74-99); INR 0.9 (<1.2); Non-African American GFR(CKD) 86 (>60 ml/min/1.73 sqM); Partial Thromboplastin Time 22.4 sec (22.0-30.0); Potassium 4.3 mmol/L (3.5-5.1); Prothrombin Time 10.2 sec (10.0-12.5); Sodium 141 mmol/L (137-145); Total Bilirubin 0.8 mg/dL (0.2-1.3); Total Protein 6.4 g/dL (6.3-8.2)
[2024-08-25] MEDS: ASPIRIN 325 MG TAB PO STA (10:50)
[2024-08-25 10:52] LABS: Basophils # (A) 0.1 k/uL (0-0.2); Basophils % (A) 1 %; Eosinophils # (A) 0.1 k/uL (0-0.7); Eosinophils % (A) 2 %; HCT 39.4 % (34.0-46.0); HGB 12.9 gm/dL (11.4-16.0); Lymphocytes # (A) 1.2 k/uL (1.0-4.8); Lymphocytes % (A) 26 %; MCH 31.7 pg (25.0-35.0); MCHC 32.6 g/dL (31.0-37.0); MCV 97.2 fL (80.0-100.0); Mean Platelet Volume 6.7; Monocytes # (A) 0.3 k/uL (0-1.0); Monocytes % (A) 7 %; Neutrophils # (A) 2.7 k/uL (1.3-7.7); Neutrophils % (A) 61 %; Platelet Count 275 k/uL (150-450); RBC 4.05 m/uL (3.80-5.40); RDW 12.7 % (11.5-15.5); WBC 4.5 k/uL (3.8-10.6)
[2024-08-25 11:10] VITALS: TEMP 97.9
[2024-08-25 11:57] VITALS: BP 145/72; PULSE 68
[2024-08-25 12:12] LABS: Appearance,Urine Clear (Clear); Bilirubin,Urine Negative (Negative); Blood,Urine Negative (Negative); Color,Urine Colorless; Glucose,Urine (UA) Negative (Negative); Ketones,Urine Negative (Negative); Leukocyte Esterase,Urine Negative (Negative); Nitrite,Urine Negative (Negative); Protein,Urine Negative (Negative); Specific Gravity,Urine 1.029 (1.001-1.035); Urobilinogen,Urine <2.0 mg/dL (<2.0)
== END 2024-08-25 11:58 | disposition home or self-care (01) ==
LOC: EC 09:32
CPT/HCPCS: 36415; 70450; 70496; 70498; 80053; 81003; 82550; 85025; 85610; 85652; 85730; 86140; 93005; 96360; 99284

== ENCOUNTER 2025-02-10 15:35 | Emergency (ER) | payer MEDICARE ==
--- NOTE | 2025-02-10 16:50 | ED ---
Neck Injury/Pain HPI - General Source: patient, family, RN notes reviewed Mode of arrival: ambulatory Limitations: no limitations <Nayla Juarez - Last Filed: 02/10/25 16:50> <Isela Giraldo - Last Filed: 02/11/25 10:39> - General Chief Complaint: Neck Pain/Injury Stated Complaint: neck and chest pain Time Seen by Provider: 02/10/25 16:48 - History of Present Illness Initial Comments: Quick [id number] female presenting for right neck pain x 3 days. Reports pain shoots into the upper chest and is worse with deep breathing. Denies injury or trauma. Pain is not worse with movement of the neck. States she had to have fluid around her heart drained 1 month ago. (Nayla Juarez) Patient is a pleasant 74-year-old female with a past medical history of COPD, recent admission for left atypical pneumonia and pericardial effusion with pericardial window presenting today for right-sided neck pain. Patient noticed the pain began about 1 week ago, right side of her neck and intermittently seems towards the right side of upper chest just underneath her clavicle seems to worsen when patient turns her head to the right intermittently occurs with taking deep breaths but not always. The pain is not constant. No medications given prior to the pain. She denies any additional chest pain or shortness of breath. Denies any strokelike symptoms including changes in vision, dizziness, headache, numbness, focal weakness, slurred speech. She denies any recent neck injuries or neck manipulations. She denies fevers or chills. No cough or hemoptysis. Denies additional symptoms. (Isela Giraldo) - Related Data Home Medications Medication Instructions Recorded Confirmed Gabapentin [Neurontin] 600 mg PO BID 08/25/24 12/21/24 Benzonatate [Tessalon Perles] 200 mg PO TID 12/21/24 12/21/24 Previous Rx's Medication Instructions Recorded Colchicine [Colcrys] 0.6 mg PO BID 30 Days #60 each 12/25/24 Metoprolol Tartrate [Lopressor] 25 mg PO BID 30 Days #60 tab 12/25/24 Allergies Allergy/AdvReac Type Severity Reaction Status Date / Time codeine AdvReac Nausea & Verified 02/10/25 16:38 Vomiting strong narcotics AdvReac Nausea & Uncoded 02/10/25 16:38 Vomiting Review of Systems ROS Other: All systems not noted in ROS Statement are negative. <Nayla Juarez - Last Filed: 02/10/25 16:50> ROS Other: All systems not noted in ROS Statement are negative. <Isela - Last Filed: 02/11/25 10:39> ROS Statement: Those systems with pertinent positive or pertinent negative responses have been documented in the HPI. Past Medical History Past Medical History: COPD, Osteoarthritis (OA) Additional Past Medical History / Comment(s): incisional hernia History of Any Multi-Drug Resistant Organisms: None Reported Past Surgical History: Adenoidectomy, Appendectomy, Cholecystectomy, Hernia Repair, Hysterectomy, Orthopedic Surgery, Tonsillectomy Additional Past Surgical History / Comment(s): Vaginal hysterectomy 1995, hand surgery times 2. Colonoscopy yrs). bilateral bunionectomy, diverticulitis surgery. Past Anesthesia/Blood Transfusion Reactions: No Reported Reaction Additional Past Anesthesia/Blood Transfusion Reaction / Comment(s): no blood transfusion Past Psychological History: No Psychological Hx Reported Smoking Status: Former smoker Past Alcohol Use History: None Reported Past Drug Use History: None Reported - Past Family History Father Family Medical History: Congestive Heart Failure (CHF), Diabetes Mellitus, Hypertension Brother(s) Family Medical History: Cancer Additional Family Medical History / Comment(s): Pancreatic cancer, prostate cancer Mother Family Medical History: Myocardial Infarction (NC) <Nayla Juarez - Last Filed: 02/10/25 16:50> General Exam Limitations: no limitations <Nayla Juarez - Last Filed: 02/10/25 16:50> <Isela - Last Filed: 02/11/25 10:39> - General Exam Comments Initial Comments: Visual Physical Exam Vital signs reviewed General: Well-appearing, nontoxic, no acute distress. Head: Normocephalic, atraumatic Eyes: PERRLA, EOMI ENT: Airway patent Chest: Nonlabored breathing Skin: No visual rash, normal skin tone Neuro: Alert and oriented 3 Musculoskeletal: No gross abnormalities (Brittani Juarezna) PE: CONSTITUTIONAL: No apparent distress, well appearing SKIN: Warm, dry, no jaundice, hives or petechiae no rashes EYES: Pupils are equally round, extraocular movements intact without nystagmus, clear conjunctiva, non-icteric sclera HENT: Normocephalic, atraumatic, moist mucus membranes, oropharynx clear without exudates NECK: , Full range of motion, normal appearance, no palpable masses, no tenderness to palpation, no palpable thrill or bruit, no overlying erythema, oropharynx is clear without exudates or erythema PULMONARY: Clear to auscultation without wheezes, rhonchi, or rales, normal excursion, no accessory muscle use and no stridor, no chest tenderness to palpation CARDIOVASCULAR: Regular rate, rhythm, normal S1 and S2. No appreciated murmurs, rubs or gallops. Strong radial pulses with intact distal perfusion. No lower extremity edema GASTROINTESTINAL: Soft, active bowel sounds throughout, non-tender, non- distended, no palpable masses, no rebound or guarding. No hepatosplenomegaly MUSCULOSKELETAL: Extremities have no gross deformity, no edema, redness, or swelling. No calf swelling NEUROLOGIC:_a/o x 3, GCS 15, normal mentation and speech. Moves all extremities x 4 without motor or sensory deficit, no focal neurologic deficits PSYCHIATRIC:_normal mood and affect, thought process is clear and linear (Isela Giraldo) Course Vital Signs 02/10/25 02/10/25 02/10/25 16:35 18:07 21:45 Temperature 98.1 F 98.5 F Pulse Rate 96 93 86 Respiratory 15 18 18 Rate Blood Pressure 138/79 129/67 124/90 O2 Sat by Pulse 97 98 99 Oximetry Medical Decision Making <Nayla Juarez - Last Filed: 02/10/25 16:50> - Lab Data Result diagrams: 02/10/25 17:12 02/10/25 21:03 <Isela Giraldo - Last Filed: 02/11/25 10:39> - Medical Decision Making I completed the quick note portion of this chart signed Nayla Juarez PA-C (Nayla Juarez) I personally reviewed patient's EKG, repeat EKG needed to be obtained given initial EKG performed on arrival to the ED was unable to be located, today does show deep T wave inversions lead V3, V4, V5 and V6, lead to 3 and aVF as well, this was compared to an event report performed on 12/24/24, T wave inversions were present on this report as well in the same leads and actually appears somewhat less inverted today though of note, leads V4 through V6 are not available for comparison review Was pt. sent in by a medical professional or institution (, PA, AIR TUBE RELEASER, urgent care, hospital, or custodial...) When possible be specific @ -[No] Did you speak to anyone other than the patient for history (EMS, parent, family, police, friend...)? What history was obtained from this source @ -[No] Did you review nursing and triage notes (agree or disagree)? Why? @ -[I reviewed nursing and triage notes]-States patient here for neck pain on the right side that shoots into her upper chest, agree with triage note Were old charts reviewed (outside hosp., previous admission, EMS record, old EKG, old radiological studies, urgent care reports/EKG's, custodial records)? Report findings @ -[Medical records reviewed]-reviewed discharge summary from December 2024 when patient was admitted for atypical pneumonia and required pericardial window due to pericardial effusion- Echocardiogram done at that time status post pericardial effusion states that pericardial effusion had resolved, echocardiogram done prior to pericardial window on 12/21/2024 showed an EF of 45%, hypokinetic apex and a large pericardial effusion with tamponade Differential Diagnosis (chest pain, altered mental status, abdominal pain women, abdominal pain men, vaginal bleeding, weakness, fever, dyspnea, syncope, headache, dizziness, GI bleed, back pain, seizure, CVA, palpatations, mental h ealth, musculoskeletal)? @ -Differential diagnosis remains broad however top considerations include ACS, pericardial effusion, atypical pneumonia, zoster, precordial catch syndrome, costochondritis, pericarditis, COPD exacerbation, carotid dissection, cervical radiculopathy, muscle strain this is not an all-inclusive list. EKG interpreted by me (3pts min.). @ -[As above] X-rays interpreted by me (1pt min.). @I personally reviewed chest x-ray, I see no evidence of cardiomegaly, pleural effusions, consolidations or pneumothorax CT interpreted by me (1pt min.). @ -[None done] U/S interpreted by me (1pt. min.). @ -[None done] What testing was considered but not performed or refused? (CT, X-rays, U/S, labs)? Why? @ -[None] What meds were considered but not given or refused? Why? @ -[None] Did you discuss the management of the patient with other professionals (professionals i.e. , PA, AIR TUBE RELEASER, lab, RT, psych nurse, social group worker, ping pong table assembler, teacher, licensed loan officer, sample case porter)? Give summary @ -[No] Was smoking cessation discussed for >3mins.? @ -[No] Was critical care preformed (if so, how long)? @ -[No] Were there social determinants of health that impacted care today? How? (Homelessness, low income, unemployed, alcoholism, drug addiction, transportation, low edu. Level, literacy, decrease access to med. care, nursing home, rehab)? @ -[No] Was there de-escalation of care discussed even if they declined (Discuss DNR or withdrawal of care, Hospice)? @ -[No] What co-morbidities impacted this encounter? (DM, HTN, Smoking, COPD, CAD, Cancer, CVA, ARF, Chemo, Hep., AIDS, mental health diagnosis, sleep apnea, morbid obesity)? @COPD, recent pericardial window Was patient admitted / discharged? Hospital course, mention meds given and route, prescriptions, significant lab abnormalities, going to OR and other pertinent info. @Discharge-is a pleasant 74-year-old female presenting today for approximately 1 week of right sided neck pain intermittently radiates towards top of the right chest exacerbated by turning her head, intermittently comes on with taking deep breaths. Initially seen and assessed by MARYJO in triage. I reviewed labs and imaging ordered by initial provider. Chest x-ray shows no acute process, labs are reassuring including a an undetectable troponin level, as patient's symptoms have been ongoing for greater than 48 hours, at this point are secondary to ACS I would expect this to be at least somewhat elevated. Patient's EKG did appear to show deeply inverted T waves, as noted above however this was compared to prior and appears similar to prior. Potassium 5 with borderline hemolysis. Repeat potassium was obtained due to the appearance of the T waves on today's EKG and resulted within normal limits. Patient has reassuring physical exam, no focal neurologic deficits or neurologic complaints, additionally reassuring cardiopulmonary exam and reassuring neck exam. Discussed with patient findings today and plan for discharge as well as the importance of follow up with her principal technical writer for revisit. Pt understanding and agreeable with POC. Undiagnosed new problem with uncertain prognosis? @ -[No] Drug Therapy requiring intensive monitoring for toxicity (Heparin, Nitro, Insulin, Cardizem)? @ -[No] Were any procedures done? @ -[No] Diagnosis/symptom? Right sided neck pain Acute, or Chronic, or Acute on Chronic? acute Uncomplicated (without systemic symptoms) or Complicated (systemic symptoms)? @ uncomplicated Side effects of treatment? @ -[No] Exacerbation, Progression, or Severe Exacerbation? @ -[No] Poses a threat to life or bodily function? How? (Chest pain, USA, NC, pneumonia, PE, COPD, DKA, ARF, appy, cholecystitis, CVA, Diverticulitis, Homicidal, Suicidal, threat to staff... and all critical care pts) @ -[No] (Isela Giraldo) - Lab Data Lab Results 02/10/25 02/10/25 02/10/25 Range/Units 17:12 17:12 17:12 WBC 5.1 (3.8-10.6) k/uL RBC 4.67 (3.80-5.40) m/uL Hgb 13.9 (11.4-16.0) gm/dL Hct 41.9 (34.0-46.0) % MCV 89.9 (80.0-100.0) fL MCH 29.8 (25.0-35.0) pg MCHC 33.2 (31.0-37.0) g/dL RDW 13.6 (11.5-15.5) % Plt Count 357 (150-450) k/uL MPV 6.8 Neutrophils % 69 % Lymphocytes % 20 % Monocytes % 6 % Eosinophils % 3 % Basophils % 1 % Neutrophils # 3.5 (1.3-7.7) k/uL Lymphocytes # 1.0 (1.0-4.8) k/uL Monocytes # 0.3 (0-1.0) k/uL Eosinophils # 0.2 (0-0.7) k/uL Basophils # 0.0 (0-0.2) k/uL Sodium 137 (137-145) mmol/L Potassium 5.0 (3.5-5.1) mmol/L Chloride 102 (98-107) mmol/L Carbon Dioxide 28 (22-30) mmol/L Anion Gap 7 mmol/L BUN 13 (7-17) mg/dL Creatinine 0.70 (0.52-1.04) mg/dL Est GFR (CKD-EPI)AfAm >90 (>60 ml/min/1.73 sqM) Est GFR (CKD-EPI)NonAf 86 (>60 ml/min/1.73 sqM) Glucose 86 (74-99) mg/dL Calcium 9.3 (8.4-10.2) mg/dL Magnesium 2.2 (1.6-2.3) mg/dL Total Bilirubin 1.0 (0.2-1.3) mg/dL AST 32 (14-36) U/L ALT 16 (4-34) U/L Alkaline Phosphatase 74 (38-126) U/L Troponin I <0.012 (0.000-0.034) ng/mL Total Protein 7.2 (6.3-8.2) g/dL Albumin 4.3 (3.5-5.0) g/dL 03/26/25 Range/Units 21:03 WBC (3.8-10.6) k/uL RBC (3.80-5.40) m/uL Hgb (11.4-16.0) gm/dL Hct (34.0-46.0) % MCV (80.0-100.0) fL MCH (25.0-35.0) pg MCHC (31.0-37.0) g/dL RDW (11.5-15.5) % Plt Count (150-450) k/uL MPV Neutrophils % % Lymphocytes % % Monocytes % % Eosinophils % % Basophils % % Neutrophils # (1.3-7.7) k/uL Lymphocytes # (1.0-4.8) k/uL Monocytes # (0-1.0) k/uL Eosinophils # (0-0.7) k/uL Basophils # (0-0.2) k/uL Sodium (137-145) mmol/L Potassium 4.1 (3.5-5.1) mmol/L Chloride (98-107) mmol/L Carbon Dioxide (22-30) mmol/L Anion Gap mmol/L BUN (7-17) mg/dL Creatinine (0.52-1.04) mg/dL Est GFR (CKD-EPI)AfAm (>60 ml/min/1.73 sqM) Est GFR (CKD-EPI)NonAf (>60 ml/min/1.73 sqM) Glucose (74-99) mg/dL Calcium (8.4-10.2) mg/dL Magnesium (1.6-2.3) mg/dL Total Bilirubin (0.2-1.3) mg/dL AST (14-36) U/L ALT (4-34) U/L Alkaline Phosphatase (38-126) U/L Troponin I (0.000-0.034) ng/mL Total Protein (6.3-8.2) g/dL Albumin (3.5-5.0) g/dL Disposition <Nayla Juarez - Last Filed: 02/10/25 16:50> Is patient prescribed a controlled substance at d/c from ED?: No <Isela Giraldo - Last Filed: 02/11/25 10:39> Clinical Impression: Pleuritic pain Disposition: HOME SELF-CARE Condition: Stable Instructions (If sedation given, give patient instructions): Pleurisy (ED) Additional Instructions: Every disease is a spectrum and a small chance still exists that a serious condition could develop, for this reason, please monitor yourself closely for new, changing or worsening symptoms, symptoms that persist beyond or worsen over the course of the next 48 hours, fever, difficulty in breathing, coughing up blood, strokelike symptoms such as numbness, weakness, slurred speech, dizziness or severe headache, inability to tolerate/keep down fluids or your medications, inability to follow up with outpatient providers as instructed and should you experience these symptoms or should you have any further concerns for your wellbeing please return to the ED or call 911 immediately. Please call your principal technical writer in the morning for follow-up within the next week. Within the next 48 hours is strongly encouraged if possible. PLEASE call your primary care physician as soon as possible to arrange / discuss plan for followup appointment. Appointment in the next 1-3 days is strongly encouraged if possible. PLEASE let us know here before you leave if there is anything further we can do to be of any assistance. Take care and feel Better! Referrals: Christine Jose MD [Primary Care Provider] - 1-2 days
[2025-02-10 17:24] LABS: Basophils % (A) 1 %; Eosinophils # (A) 0.2 k/uL (0-0.7); Eosinophils % (A) 3 %; HCT 41.9 % (34.0-46.0); HGB 13.9 gm/dL (11.4-16.0); Lymphocytes % (A) 20 %; MCH 29.8 pg (25.0-35.0); MCHC 33.2 g/dL (31.0-37.0); MCV 89.9 fL (80.0-100.0); Mean Platelet Volume 6.8; Monocytes # (A) 0.3 k/uL (0-1.0); Monocytes % (A) 6 %; Neutrophils # (A) 3.5 k/uL (1.3-7.7); Neutrophils % (A) 69 %; Platelet Count 357 k/uL (150-450); RBC 4.67 m/uL (3.80-5.40); RDW 13.6 % (11.5-15.5); WBC 5.1 k/uL (3.8-10.6)
[2025-02-10 17:44] LABS: ALT 16 U/L (4-34); African American GFR (CKD) >90 (>60 ml/min/1.73 sqM); Anion Gap 7 mmol/L; Blood Urea Nitrogen 13 mg/dL (7-17); Calcium 9.3 mg/dL (8.4-10.2); Carbon Dioxide 28 mmol/L (22-30); Chloride 102 mmol/L (98-107); Glucose 86 mg/dL (74-99); Non-African American GFR(CKD) 86 (>60 ml/min/1.73 sqM); Sodium 137 mmol/L (137-145)
[2025-02-10 17:47] LABS: Albumin 4.3 g/dL (3.5-5.0); Magnesium 2.2 mg/dL (1.6-2.3); Total Protein 7.2 g/dL (6.3-8.2)
[2025-02-10 17:48] LABS: AST 32 U/L (14-36); Alkaline Phosphatase 74 U/L (38-126)
[2025-02-10 18:10] VITALS: RESP 18
--- NOTE | 2025-02-10 18:34 | XR ---
EXAMINATION TYPE: XR chest 2V DATE OF EXAM: 02/10/2025 CLINICAL INDICATION: Female, 74 years old with history of Chest pain, TECHNIQUE: Frontal and lateral views of the chest are obtained. COMPARISON: Chest x-ray December 25, 2024 FINDINGS: There is no focal air space opacity, pleural effusion, or pneumothorax seen. The cardiac silhouette size is within normal limits with atherosclerotic change in the thoracic aorta. Cholecyste ctomy clips are present. The osseous structures are intact. IMPRESSION: No acute process. [facility], , 02/10/2025 6:31 PM
[2025-02-10 21:47] VITALS: BP 124/90; PULSE 86; TEMP 98.5
== END 2025-02-10 21:48 | disposition home or self-care (01) ==
LOC: EC 15:35
DX: R07.81 Pleurodynia (principal); Z88.5 Allergy status to narcotic agent; Z88.8 Allergy status to other drugs, medicaments and biological substances; Z87.891 Personal history of nicotine dependence
CPT/HCPCS: 36415; 71046; 80053; 83735; 84132; 84484; 85025; 93005; 99284

== ENCOUNTER 2025-03-04 16:07 | Emergency (ER) | payer MEDICARE ==
[2025-03-04 16:38] VITALS: RESP 16
--- NOTE | 2025-03-04 16:44 | ED ---
URI HPI - General Chief Complaint: Upper Respiratory Infection Stated Complaint: cough, congestion Time Seen by Provider: 03/04/25 16:25 Source: patient, RN notes reviewed Mode of arrival: ambulatory Limitations: no limitations - History of Present Illness Initial Comments: This is a 74-year-old female who presents to the emergency department for coughing and congestion. States that it started a couple of days ago. Cough is mildly productive. She does have possible sick contacts at work. States that she only gets short of breath if she is talking a lot. Denies any chest pain. Denies any fevers/chills. She initially went to urgent care and was advised to come here for evaluation instead due to a history of a pericardial effusion. States that in December she was experiencing URI symptoms and had gone to urgent care. A couple of days later she was in the hospital with a large pericardial effusion that required drainage. States that she was very fatigued and short of breath at that time, however she has not yet gotten to that point. She was told that the pericardial effusion was likely a rare complication of a viral infection and would most likely not recur. MD Complaint: cough - Related Data Home Medications Medication Instructions Recorded Confirmed Gabapentin [Neurontin] 600 mg PO BID 08/25/24 12/21/24 Benzonatate [Tessalon Perles] 200 mg PO TID 12/21/24 12/21/24 Previous Rx's Medication Instructions Recorded Colchicine [Colcrys] 0.6 mg PO BID 30 Days #60 each 12/25/24 Metoprolol Tartrate [Lopressor] 25 mg PO BID 30 Days #60 tab 12/25/24 Azithromycin [Zithromax] 250 mg PO DIRECTED 5 Days #6 tab 03/04/25 Benzonatate [Tessalon Perle] 200 mg PO TID PRN #20 capsule 03/04/25 predniSONE 50 mg PO DAILY 5 Days #5 tab 03/04/25 Allergies Allergy/AdvReac Type Severity Reaction Status Date / Time codeine AdvReac Nausea & Verified 03/04/25 16:21 Vomiting strong narcotics AdvReac Nausea & Uncoded 03/04/25 16:21 Vomiting Review of Systems ROS Statement: Those systems with pertinent positive or pertinent negative responses have been documented in the HPI. ROS Other: All systems not noted in ROS Statement are negative. Past Medical History Past Medical History: COPD, Osteoarthritis (OA) Additional Past Medical History / Comment(s): incisional hernia. pericardial effusion 02/09 History of Any Multi-Drug Resistant Organisms: None Reported Past Surgical History: Adenoidectomy, Appendectomy, Cholecystectomy, Hernia Repair, Hysterectomy, Orthopedic Surgery, Tonsillectomy Additional Past Surgical History / Comment(s): Vaginal hysterectomy 1995, hand surgery times 2. Colonoscopy yrs). bilateral bunionectomy, diverticulitis surgery. Past Anesthesia/Blood Transfusion Reactions: No Reported Reaction Additional Past Anesthesia/Blood Transfusion Reaction / Comment(s): no blood transfusion Past Psychological History: No Psychological Hx Reported Smoking Status: Former smoker Past Alcohol Use History: None Reported Past Drug Use History: None Reported - Past Family History Father Family Medical History: Congestive Heart Failure (CHF), Diabetes Mellitus, Hypertension Brother(s) Family Medical History: Cancer Additional Family Medical History / Comment(s): Pancreatic cancer, prostate ca ncer Mother Family Medical History: Myocardial Infarction (SC) General Exam Limitations: no limitations General appearance: alert, in no apparent distress Head exam: Present: atraumatic, normocephalic, normal inspection Respiratory exam: Present: normal lung sounds bilaterally. Absent: respiratory distress, wheezes, rales, rhonchi, stridor Cardiovascular Exam: Present: regular rate, normal rhythm Neurological exam: Present: alert, oriented X3, CN II-XII intact Psychiatric exam: Present: normal affect, normal mood Skin exam: Present: warm, dry, intact, normal color. Absent: rash Course Vital Signs 03/04/25 03/04/25 03/04/25 16:17 16:35 18:00 Temperature 98.2 F 98.1 F Pulse Rate 90 82 Respiratory 18 16 16 Rate Blood Pressure 142/67 150/72 O2 Sat by Pulse 99 99 Oximetry Medical Decision Making - Medical Decision Making This is a 74-year-old female who presents to the emergency department for coughing and congestion. Was pt. sent in by a medical professional or institution? @ -No Did you speak to anyone other than the patient for history? @ -No Did you review nursing and triage notes? @ -Yes, and I agree, it is accurate with regards to the patient's symptoms. Were old charts reviewed? @ -No Differential Diagnosis? @ -Differential Cough: Influenza, Covid, RSV, croup, allergic rhinitis, GERD, pneumonia, bronchitis, COPD, viral pharyngitis, streptococcal pharyngitis, this is not meant to be an all-inclusive list. EKG interpreted by me (3pts min.)? @ -EKG interpreted by me demonstrating the following: Sinus rhythm. Ventricular rate 82 bpm, TN interval 139 ms, QRS duration 70 ms, QTc 40 ms. X-rays interpreted by me (1pt min.)? @ -Chest x-ray obtained, my interpretation identifies no localized consolidations or infiltrates. CT interpreted by me (1pt min.)? @ -CT scan of the chest obtained. My interpretation identifies left upper lobe opacities. U/S interpreted by me (1pt. min.)? @ -Not obtained What testing was considered but not performed? (CT, X-rays, U/S, labs)? Why? @ -None What meds were considered but not given? Why? @ -None Did you discuss the management of the patient with other professionals? @ -No Did you reconcile home meds? @ -No Was smoking cessation discussed for >3mins.? @ -No Was critical care preformed (if so, how long)? @ -No Were there social determinants of health that impacted care today? How? (Homelessness, low income, unemployed, alcoholism, drug addiction, transportation, low edu. Level, literacy, decrease access to med. care, group home, rehab)? @ -No Was there de-escalation of care discussed even if they declined? (Discuss DNR or withdrawal of care, Hospice)? @ -No What co-morbidities impacted this encounter? (DM, HTN, Smoking, COPD, CAD, Cancer, CVA, Hep., AIDS, mental health diagnosis, sleep apnea, morbid obesity)? @ -COPD Was patient admitted / discharged? @ -Discharged. Lab work unremarkable. Chest x-ray reveals no acute process. Given that when she had the pericardial effusion it was not evident on the chest x-ray, only a CT scan, a CT scan of the chest was obtained. CT scan of the chest demonstrates left upper lobe groundglass opacities, similar to the previous study in December possibly reflecting infectious or inflammatory etiology. No acute abnormality was otherwise identified, including no evidence of a significant pericardial effusion. Findings reviewed with the patient. Will treat her for a bronchitis/COPD exacerbation. Azithromycin, prednisone, and Tessalon Perles were prescribed. Advised close follow-up with her PCP given what happened last time with the development of a pericardial effusion. Patient discharged home in stable condition. Case discussed with ED attending Dr. Selby. Return precautions reviewed in depth, the patient is instructed to return to the emergency department with any new, worsening, or concerning symptoms. Patient verbalized understanding. Undiagnosed new problem with uncertain prognosis? @ -None Drug Therapy requiring intensive monitoring for toxicity (Heparin, Nitro, Insulin, Cardizem)? @ -None Were any procedures done? @ -None Diagnosis/symptom? @ -Bronchitis, COPD exacerbation Acute, or Chronic, or Acute on Chronic? @ -Acute, acute on chronic Uncomplicated (without systemic symptoms) or Complicated (systemic symptoms)? @ -Uncomplicated Side effects of treatment? @ -None Exacerbation, Progression, or Severe Exacerbation] @ -Not applicable, exacerbation Poses a threat to life or bodily function? @ -No - Lab Data Result diagrams: 03/04/25 17:07 03/04/25 17:07 Lab Results 03/04/25 03/04/25 03/04/25 Range/Units 16:43 17:07 17:07 WBC 4.14 L (4.50-10.00) 10*3/uL RBC 4.30 (4.10-5.20) 10*6/uL Hgb 13.1 (12.0-15.0) g/dL Hct 38.9 (37.2-46.3) % MCV 90.5 (80.0-97.0) fL MCH 30.5 (27.0-32.0) pg MCHC 33.7 (32.0-37.0) g/dL Plt Count 300 (140-440) 10*3/uL MPV 9.1 L (9.5-12.2) fL Immature Gran % (Auto) 0.2 % Neutrophils % 55.6 % Lymphocytes % 26.1 % Monocytes % 13.3 % Eosinophils % 3.6 % Basophils % 1.2 % Immature Gran # 0.01 (0.00-0.04) 10*3/uL Neutrophils # 2.30 (1.80-7.70) 10*3/uL Lymphocytes # 1.08 (0.90-5.00) 10*3/uL Monocytes # 0.55 (0.20-1.00) 10*3/uL Eosinophils # 0.15 (0.04-0.35) 10*3/uL Basophils # 0.05 (0.00-0.10) 10*3/uL PT 10.5 (10.0-12.5) sec INR 0.9 (<1.2) APTT 22.3 (22.0-30.0) sec Sodium (137-145) mmol/L Potassium (3.5-5.1) mmol/L Chloride (98-107) mmol/L Carbon Dioxide (22-30) mmol/L Anion Gap mmol/L BUN (7-17) mg/dL Creatinine (0.52-1.04) mg/dL Est GFR (CKD-EPI)AfAm (>60 ml/min/1.73 sqM) Est GFR (CKD-EPI)NonAf (>60 ml/min/1.73 sqM) Glucose (74-99) mg/dL Calcium (8.4-10.2) mg/dL Total Bilirubin (0.2-1.3) mg/dL AST (14-36) U/L ALT (4-34) U/L Alkaline Phosphatase (38-126) U/L Troponin I (0.000-0.034) ng/mL NT-Pro-B Natriuret Pep pg/mL Total Protein (6.3-8.2) g/dL Albumin (3.5-5.0) g/dL Influenza Type A (PCR) Not Detected (Not Detectd) Influenza Type B (PCR) Not Detected (Not Detectd) RSV (PCR) Not Detected (Not Detectd) SARS-CoV-2 (PCR) Not Detected (Not Detectd) 03/04/25 03/04/25 Range/Units 17:07 17:07 WBC (4.50-10.00) 10*3/uL RBC (4.10-5.20) 10*6/uL Hgb (12.0-15.0) g/dL Hct (37.2-46.3) % MCV (80.0-97.0) fL MCH (27.0-32.0) pg MCHC (32.0-37.0) g/dL Plt Count (140-440) 10*3/uL MPV (9.5-12.2) fL Immature Gran % (Auto) % Neutrophils % % Lymphocytes % % Monocytes % % Eosinophils % % Basophils % % Immature Gran # (0.00-0.04) 10*3/uL Neutrophils # (1.80-7.70) 10*3/uL Lymphocytes # (0.90-5.00) 10*3/uL Monocytes # (0.20-1.00) 10*3/uL Eosinophils # (0.04-0.35) 10*3/uL Basophils # (0.00-0.10) 10*3/uL PT (10.0-12.5) sec INR (<1.2) APTT (22.0-30.0) sec Sodium 140 (137-145) mmol/L Potassium 4.1 (3.5-5.1) mmol/L Chloride 102 (98-107) mmol/L Carbon Dioxide 31 H (22-30) mmol/L Anion Gap 7 mmol/L BUN 14 (7-17) mg/dL Creatinine 0.80 (0.52-1.04) mg/dL Est GFR (CKD-EPI)AfAm 85 (>60 ml/min/1.73 sqM) Est GFR (CKD-EPI)NonAf 74 (>60 ml/min/1.73 sqM) Glucose 86 (74-99) mg/dL Calcium 9.3 (8.4-10.2) mg/dL Total Bilirubin 0.9 (0.2-1.3) mg/dL AST 27 (14-36) U/L ALT 16 (4-34) U/L Alkaline Phosphatase 90 (38-126) U/L Troponin I <0.012 (0.000-0.034) ng/mL NT-Pro-B Natriuret Pep 625 pg/mL Total Protein 6.9 (6.3-8.2) g/dL Albumin 4.2 (3.5-5.0) g/dL Influenza Type A (PCR) (Not Detectd) Influenza Type B (PCR) (Not Detectd) RSV (PCR) (Not Detectd) SARS-CoV-2 (PCR) (Not Detectd) - Radiology Data Radiology results: report reviewed, image reviewed Disposition Clinical Impression: COPD exacerbation, Bronchitis Disposition: HOME SELF-CARE Instructions (If sedation given, give patient instructions): Upper Respiratory Infection (ED), Acute Bronchitis (ED), COPD (Chronic Obstructive Pulmonary Di sease) (ED) Additional Instructions: Return to the emergency department with any new, worsening, or concerning symptoms. Take the antibiotic as prescribed for 5 days. Take the prednisone daily for 5 days. Take the Tessalon Perles up to every 8 hours as needed for coughing. Follow up with your primary care provider in 1-2 days. Prescriptions: predniSONE 50 mg PO DAILY 5 Days #5 tab Benzonatate [Tessalon Perle] 200 mg PO TID PRN #20 capsule PRN Reason: Cough Azithromycin [Zithromax] 250 mg PO DIRECTED 5 Days #6 tab Is patient prescribed a controlled substance at d/c from ED?: No Referrals: Christine Jose MD [Primary Care Provider] - 1-2 days Time of Disposition: 18:18
--- NOTE | 2025-03-04 17:10 | XR ---
EXAMINATION TYPE: XR chest 2V DATE OF EXAM: 03/04/2025 5:03 PM COMPARISON: Multiple prior chest radiographs, most recently dated 02/10/2025. CLINICAL INDICATION: Female, 74 years old with history of Cough; H TECHNIQUE: XR chest 2V Frontal and lateral views of the chest. FINDINGS: Lungs/Pleura: There is no evidence of pleural effusion, focal consolidation, or pneumothorax. Lungs hyperinflated bilaterally with coarsening of the interstitial markings. Pulmonary vascularity: Unremarkable. Heart/mediastinum: Cardiomediastinal silhouette is unremarkable. Musculoskeletal: No acute osseous pathology. Other findings: None IMPRESSION: 1. No acute cardiopulmonary disease/process. 2. Findings suggestive of COPD. [facility], , 03/04/2025 5:07 PM
[2025-03-04 17:16] LABS: Basophils # (A) 0.05 10*3/uL (0.00-0.10); Basophils % (A) 1.2 %; Eosinophils # (A) 0.15 10*3/uL (0.04-0.35); Eosinophils % (A) 3.6 %; HCT 38.9 % (37.2-46.3); HGB 13.1 g/dL (12.0-15.0); Lymphocytes # (A) 1.08 10*3/uL (0.90-5.00); Lymphocytes % (A) 26.1 %; MCH 30.5 pg (27.0-32.0); MCHC 33.7 g/dL (32.0-37.0); MCV 90.5 fL (80.0-97.0); Mean Platelet Volume 9.1 fL (9.5-12.2); Monocytes # (A) 0.55 10*3/uL (0.20-1.00); Monocytes % (A) 13.3 %; Neutrophils % (A) 55.6 %; Platelet Count 300 10*3/uL (140-440); RDW 13.7 % (11.5-14.5); WBC 4.14 10*3/uL (4.50-10.00)
[2025-03-04 17:27] LABS: ALT 16 U/L (4-34); AST 27 U/L (14-36); African American GFR (CKD) 85 (>60 ml/min/1.73 sqM); Albumin 4.2 g/dL (3.5-5.0); Alkaline Phosphatase 90 U/L (38-126); Anion Gap 7 mmol/L; Blood Urea Nitrogen 14 mg/dL (7-17); Calcium 9.3 mg/dL (8.4-10.2); Carbon Dioxide 31 mmol/L (22-30); Chloride 102 mmol/L (98-107); Glucose 86 mg/dL (74-99); Non-African American GFR(CKD) 74 (>60 ml/min/1.73 sqM); Potassium 4.1 mmol/L (3.5-5.1); Sodium 140 mmol/L (137-145); Total Bilirubin 0.9 mg/dL (0.2-1.3); Total Protein 6.9 g/dL (6.3-8.2)
[2025-03-04 17:32] LABS: Influenza A Not Detected (Not Detectd); Influenza B Not Detected (Not Detectd); RSV Not Detected (Not Detectd)
[2025-03-04 17:33] LABS: INR 0.9 (<1.2); Partial Thromboplastin Time 22.3 sec (22.0-30.0); Prothrombin Time 10.5 sec (10.0-12.5)
[2025-03-04 17:35] LABS: NT-Pro-B-Type Natriuretic Pept 625 pg/mL
[2025-03-04] MEDS ORDERED: RX INFO: IV CONTRAST WAS GIVEN 1 EACH MISC MISCELLANE PRN (17:36)
[2025-03-04] MEDS: BENZONATATE 100 MG CAP PO STA (17:47)
[2025-03-04 18:01] VITALS: TEMP 98.1
--- NOTE | 2025-03-04 18:10 | CT ---
EXAMINATION TYPE: CT chest w con DATE OF EXAM: 03/04/2025 5:56 PM COMPARISON: Previous CT chest study 12/21/2024. CLINICAL INDICATION: Female, 74 years old with history of Cough, GORDON, hx of pericardial effusion; [facility] , Cough, GORDON, hx of pericardial effusion 02/09 TECHNIQUE: Multiple axial images were obtained through the chest. Sagittal and coronal reformats were created for review. MIP was performed on a separate workstation. Contrast used:100 ml mL of Isovue 300 with IV Contrast (None if empty) CT DLP: 245.5 mGycm, Automated exposure control for dose reduction was used. FINDINGS: LUNGS/ PLEURA: Mild ground glass attenuation opacities in the left upper lobe, similar to prior study . No acute focal consolidation. No pleural effusion or pneumothorax. Trace emphysema. No new suspicio us or enlarging pulmonary nodule. AIRWAY: Patent and unremarkable. HEART: Size within normal limits.Only trace residual pericardial fluid, significantly improved from p rior study 12/21/2024. MEDIASTINUM: No gross evidence of adenopathy. VASCULATURE: No aortic aneurysm. No central pulmonary artery filling defects. Coronary artery calcif ications. MUSCULOSKELETAL: No acute osseous abnormalities SOFT TISSUES/LYMPH NODES: Unremarkable. LOWER NECK: No significant findings. UPPER ABDOMEN: No significant acute findings. 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 IMPRESSION: Left upper lobe ground glass attenuation opacities, similar to previous study 12/21/2024, possibly refl ecting infectious or inflammatory etiology. Otherwise, no acute abnormality in the chest. Specificall y, no evidence of a significant pericardial effusion. [facility], , 03/04/2025 6:08 PM
[2025-03-04 18:26] VITALS: BP 144/86; PULSE 80
== END 2025-03-04 18:37 | disposition home or self-care (01) ==
LOC: EC 16:07
DX: J44.1 Chronic obstructive pulmonary disease with (acute) exacerbation (principal); J40 Bronchitis, not specified as acute or chronic; Z87.891 Personal history of nicotine dependence; Z88.5 Allergy status to narcotic agent
CPT/HCPCS: 36415; 93005; 83880; 80053; 84484; 85025; 85610; 85730; 87636; 71046; 71260; 99284; Q9967